=== PATIENT | male | born 1935 | race Caucasian/White ===

== ENCOUNTER → 2020-03-09 08:07 | Outpatient (BNVA) | payer MEDICARE, SELFPAY | PROVIDERS: PCP Internal Medicine Cardiovascular Disease; Visit Provider Internal Medicine | DX: I48.0 Paroxysmal atrial fibrillation (principal); Z51.81 Encounter for therapeutic drug level monitoring; Z79.01 Long term (current) use of anticoagulants | CPT/HCPCS: 85610; 99211 ==

== ENCOUNTER → 2020-04-07 08:15 | Outpatient (BNVA) | payer MEDICARE, SELFPAY | PROVIDERS: PCP Internal Medicine; Referring Provider Internal Medicine; Visit Provider Internal Medicine | DX: I48.0 Paroxysmal atrial fibrillation (principal); Z51.81 Encounter for therapeutic drug level monitoring; Z79.01 Long term (current) use of anticoagulants | CPT/HCPCS: 85610; 99211 ==

== ENCOUNTER 2020-04-20 08:18 | Outpatient (REF) | payer MEDICARE, SELFPAY ==
[2020-04-20 09:03] LABS: MANUAL DIFF FLAG NO
[2020-04-20 09:07] LABS: Basophils Absolute Auto 0.1 X10*3/uL (0.0-0.2); Basophils Percent Auto 0.7 % (0-2); Eosinophils Absolute Auto 0.4 X10*3/uL (0.0-0.4); Hematocrit 37.5 % (42-52); Hemoglobin 12.5 g/dl (14.0-18.0); Imm Gran Abs Auto 0.03 X10*3/uL (0.00-0.03); Imm Gran Pct Auto 0.3 % (0.0-0.4); Lymphocytes Absolute Auto 2.9 X10*3/uL (1.2-4.9); Lymphocytes Percent Auto 29.6 % (20-40); Mean Corpuscular HGB Conc 33.3 g/dl (31.0-36.0); Mean Corpuscular Hemoglobin 29.3 pg (27.0-33.0); Mean Platelet Volume 9.5 fL (9.4-12.4); Monocytes Absolute Auto 1.2 X10*3/uL (0.1-1.2); Monocytes Percent Auto 12.1 % (2-11); Neutrophils Absolute Auto 5.2 X10*3/uL (2.0-8.3); Neutrophils Percent Auto 53.3 % (45-73); Platelet Count 289 X10*3/uL (160-400); Red Blood Count 4.26 X10*6/uL (4.60-5.80); Red Cell Distribution Width 13.1 % (11.0-16.0); White Blood Count 9.8 X10*3/uL (4.8-10.8)
[2020-04-20 09:38] LABS: Anion Gap 13 (12-20); Blood Urea Nitrogen 33 mg/dL (9-16); Calcium 8.6 mg/dL (8.4-10.2); Carbon Dioxide 23 mmol/L (22-29); Chloride 107 mmol/L (96-108); Estimated Glomerular Filt Rate 44; Potassium 4.4 mmol/l (3.3-5.1); Sodium 139 mmol/L (135-145)
== END 2020-04-20 08:19 | disposition home or self-care (01) ==
LOC: HO.LAB 08:18
PROVIDERS: PCP Internal Medicine; Visit Provider Internal Medicine Hypertension Specialist
DX: E10.22 Type 1 diabetes mellitus with diabetic chronic kidney disease (principal); I12.9 Hypertensive chronic kidney disease with stage 1 through stage 4 chronic kidney disease, or unspecified chronic kidney disease; N18.9 Chronic kidney disease, unspecified; E10.29 Type 1 diabetes mellitus with other diabetic kidney complication
CPT/HCPCS: 36415; 80051; 82310; 82565; 84520; 85025

== ENCOUNTER → 2020-05-09 08:20 | Outpatient (BNVA) | payer MEDICARE, SELFPAY | PROVIDERS: PCP Internal Medicine; Visit Provider Internal Medicine | DX: I48.0 Paroxysmal atrial fibrillation (principal); Z51.81 Encounter for therapeutic drug level monitoring; Z79.01 Long term (current) use of anticoagulants | CPT/HCPCS: 85610; 99211 ==

== ENCOUNTER → 2020-05-23 08:38 | Outpatient (BNVA) | payer MEDICARE, SELFPAY | PROVIDERS: PCP Internal Medicine; Visit Provider Internal Medicine | DX: I48.0 Paroxysmal atrial fibrillation (principal); Z51.81 Encounter for therapeutic drug level monitoring; Z79.01 Long term (current) use of anticoagulants | CPT/HCPCS: 85610; 99211 ==

== ENCOUNTER → 2020-06-20 08:25 | Outpatient (BNVA) | payer MEDICARE, SELFPAY | PROVIDERS: PCP Internal Medicine; Visit Provider Internal Medicine | DX: I48.0 Paroxysmal atrial fibrillation (principal); Z51.81 Encounter for therapeutic drug level monitoring; Z79.01 Long term (current) use of anticoagulants | CPT/HCPCS: 85610; 99211 ==

== ENCOUNTER 2020-07-05 09:38 | Outpatient (REF) | payer MEDICARE, SELFPAY ==
[2020-07-05 10:08] LABS: MANUAL DIFF FLAG NO
[2020-07-05 10:09] LABS: Basophils Absolute Auto 0.1 X10*3/uL (0.0-0.2); Basophils Percent Auto 0.8 % (0-2); Eosinophils Absolute Auto 0.4 X10*3/uL (0.0-0.4); Eosinophils Percent Auto 3.1 % (0-4); Hematocrit 37.9 % (42-52); Hemoglobin 12.6 g/dl (14.0-18.0); Imm Gran Abs Auto 0.04 X10*3/uL (0.00-0.03); Imm Gran Pct Auto 0.3 % (0.0-0.4); Lymphocytes Absolute Auto 3.4 X10*3/uL (1.2-4.9); Lymphocytes Percent Auto 27.8 % (20-40); Mean Corpuscular HGB Conc 33.2 g/dl (31.0-36.0); Mean Corpuscular Hemoglobin 28.9 pg (27.0-33.0); Mean Corpuscular Volume 86.9 fL (80-98); Mean Platelet Volume 9.5 fL (9.4-12.4); Monocytes Absolute Auto 1.1 X10*3/uL (0.1-1.2); Neutrophils Absolute Auto 7.1 X10*3/uL (2.0-8.3); Platelet Count 276 X10*3/uL (160-400); Red Blood Count 4.36 X10*6/uL (4.60-5.80); Red Cell Distribution Width 12.8 % (11.0-16.0); White Blood Count 12.1 X10*3/uL (4.8-10.8)
[2020-07-05 10:27] LABS: Estimated Average Glucose 232 mg/dL; Hemoglobin A1c % 9.7 %
[2020-07-05 10:43] LABS: Alanine Aminotransferase 19 U/L (0-40); Albumin Level 3.8 g/dL (3.5-5.0); Alkaline Phosphatase 58 U/L (39-117); Anion Gap 14 (12-20); Aspartate Amino Transferase 25 U/L (5-37); Bilirubin Total 0.8 mg/dL (0.0-1.0); Blood Urea Nitrogen 33 mg/dL (9-16); Calcium 8.9 mg/dL (8.4-10.2); Carbon Dioxide 23 mmol/L (22-29); Chloride 108 mmol/L (96-108); Estimated Glomerular Filt Rate 39; Glucose Random 201 mg/dL (60-115); Potassium 4.7 mmol/L (3.3-5.1); Sodium 140 mmol/L (135-145); Total Protein 7.3 g/dL (6.5-8.0)
== END 2020-07-05 09:39 | disposition home or self-care (01) ==
LOC: HO.LAB 09:38
PROVIDERS: PCP Internal Medicine; Visit Provider Internal Medicine
DX: E11.9 Type 2 diabetes mellitus without complications (principal)
CPT/HCPCS: 36415; 80053; 83036; 85025

== ENCOUNTER → 2020-07-18 08:22 | Outpatient (BNVA) | payer MEDICARE, SELFPAY | PROVIDERS: PCP Internal Medicine; Visit Provider Internal Medicine | DX: I48.0 Paroxysmal atrial fibrillation (principal); Z51.81 Encounter for therapeutic drug level monitoring; Z79.01 Long term (current) use of anticoagulants | CPT/HCPCS: 85610; 99211 ==

== ENCOUNTER → 2020-08-03 08:24 | Outpatient (BNVA) | payer MEDICARE, SELFPAY | PROVIDERS: PCP Internal Medicine; Visit Provider Internal Medicine | DX: I48.0 Paroxysmal atrial fibrillation (principal); Z51.81 Encounter for therapeutic drug level monitoring; Z79.01 Long term (current) use of anticoagulants | CPT/HCPCS: 85610; 99211 ==

== ENCOUNTER → 2020-08-31 08:04 | Outpatient (BNVA) | payer MEDICARE, SELFPAY | PROVIDERS: PCP Internal Medicine; Visit Provider Internal Medicine | DX: I48.0 Paroxysmal atrial fibrillation (principal); Z79.01 Long term (current) use of anticoagulants; Z51.81 Encounter for therapeutic drug level monitoring | CPT/HCPCS: 85610; 99211 ==

== ENCOUNTER → 2020-09-14 08:07 | Outpatient (BNVA) | payer MEDICARE, SELFPAY | PROVIDERS: PCP Internal Medicine; Visit Provider Internal Medicine | DX: I48.0 Paroxysmal atrial fibrillation (principal); Z51.81 Encounter for therapeutic drug level monitoring; Z79.01 Long term (current) use of anticoagulants | CPT/HCPCS: 85610; 99211 ==

== ENCOUNTER → 2020-10-12 08:02 | Outpatient (BNVA) | payer MEDICARE, SELFPAY | PROVIDERS: PCP Internal Medicine; Visit Provider Internal Medicine | DX: I48.0 Paroxysmal atrial fibrillation (principal); Z51.81 Encounter for therapeutic drug level monitoring; Z79.01 Long term (current) use of anticoagulants | CPT/HCPCS: 85610; 99211 ==

== ENCOUNTER 2020-10-24 08:27 | Outpatient (REF) | payer MEDICARE, SELFPAY ==
[2020-10-24 09:34] LABS: Estimated Average Glucose 209 mg/dL; Hemoglobin A1c % 8.9 %
[2020-10-24 09:40] LABS: Alanine Aminotransferase 18 U/L (0-40); Albumin Level 3.7 g/dL (3.5-5.0); Alkaline Phosphatase 53 U/L (39-117); Anion Gap 12 (12-20); Aspartate Amino Transferase 26 U/L (5-37); Bilirubin Total 0.8 mg/dL (0.0-1.0); Blood Urea Nitrogen 33 mg/dL (9-16); Carbon Dioxide 23 mmol/L (22-29); Chloride 110 mmol/L (96-108); Cholesterol 130 mg/dL; Estimated Glomerular Filt Rate 36; Glucose Fasting 140 mg/dL (60-99); HDL Cholesterol 26 mg/dL; LDL Cholesterol Calculated 55 mg/dl; Potassium 5.1 mmol/L (3.3-5.1); Sodium 140 mmol/L (135-145); Total Protein 7.1 g/dL (6.5-8.0); Triglycerides 245 mg/dL
[2020-10-24 10:28] LABS: Microalbum/Creatinine Ratio Ur 590.1 ug/mg cr
== END 2020-10-24 08:28 | disposition home or self-care (01) ==
LOC: HO.LAB 08:27
PROVIDERS: PCP Internal Medicine; Visit Provider Internal Medicine
DX: E11.9 Type 2 diabetes mellitus without complications (principal)
CPT/HCPCS: 36415; 80053; 80061; 82043; 83036

== ENCOUNTER → 2020-11-09 08:01 | Outpatient (BNVA) | payer MEDICARE, SELFPAY | PROVIDERS: PCP Internal Medicine; Visit Provider Internal Medicine | DX: I48.0 Paroxysmal atrial fibrillation (principal); Z51.81 Encounter for therapeutic drug level monitoring; Z79.01 Long term (current) use of anticoagulants | CPT/HCPCS: 85610; 99211 ==

== ENCOUNTER 2020-11-17 08:07 | Outpatient (REF) | payer MEDICARE, SELFPAY ==
[2020-11-17 09:00] LABS: MANUAL DIFF FLAG NO
[2020-11-17 09:12] LABS: Basophils Absolute Auto 0.1 X10*3/uL (0.0-0.2); Basophils Percent Auto 0.8 % (0-2); Eosinophils Absolute Auto 0.3 X10*3/uL (0.0-0.4); Eosinophils Percent Auto 3.6 % (0-4); Hematocrit 37.6 % (42-52); Hemoglobin 12.3 g/dl (14.0-18.0); Imm Gran Abs Auto 0.03 X10*3/uL (0.00-0.03); Imm Gran Pct Auto 0.3 % (0.0-0.4); Lymphocytes Absolute Auto 2.7 X10*3/uL (1.2-4.9); Lymphocytes Percent Auto 30.4 % (20-40); Mean Corpuscular HGB Conc 32.7 g/dl (31.0-36.0); Mean Corpuscular Volume 88.7 fL (80-98); Mean Platelet Volume 9.7 fL (9.4-12.4); Monocytes Absolute Auto 1.1 X10*3/uL (0.1-1.2); Monocytes Percent Auto 11.9 % (2-11); Neutrophils Absolute Auto 4.7 X10*3/uL (2.0-8.3); Platelet Count 262 X10*3/uL (160-400); Red Blood Count 4.24 X10*6/uL (4.60-5.80); Red Cell Distribution Width 13.1 % (11.0-16.0); White Blood Count 8.9 X10*3/uL (4.8-10.8)
[2020-11-17 09:34] LABS: Albumin Level 3.9 g/dL (3.5-5.0); Anion Gap 12 (12-20); Blood Urea Nitrogen 33 mg/dL (9-16); Carbon Dioxide 24 mmol/L (22-29); Chloride 110 mmol/L (96-108); Estimated Glomerular Filt Rate 34; Magnesium 2.1 mg/dL (1.6-2.6); Potassium 5.2 mmol/L (3.3-5.1); Sodium 141 mmol/L (135-145)
[2020-11-18 13:36] LABS: Calcium (PTHI) 9.1 mg/dL (8.6-10.3); PTHI 107 pg/mL (14-64)
== END 2020-11-17 08:08 | disposition home or self-care (01) ==
LOC: HO.LAB 08:07
PROVIDERS: PCP Internal Medicine; Visit Provider Internal Medicine Hypertension Specialist
DX: I12.9 Hypertensive chronic kidney disease with stage 1 through stage 4 chronic kidney disease, or unspecified chronic kidney disease (principal); N18.30 Chronic kidney disease, stage 3 unspecified; E10.22 Type 1 diabetes mellitus with diabetic chronic kidney disease; E10.29 Type 1 diabetes mellitus with other diabetic kidney complication
CPT/HCPCS: 36415; 80051; 82040; 82310; 82565; 83735; 83970; 84520; 85025

== ENCOUNTER → 2020-12-07 08:04 | Outpatient (BNVA) | payer MEDICARE, SELFPAY | PROVIDERS: PCP Internal Medicine; Visit Provider Internal Medicine | DX: I48.0 Paroxysmal atrial fibrillation (principal); Z51.81 Encounter for therapeutic drug level monitoring; Z79.01 Long term (current) use of anticoagulants | CPT/HCPCS: 85610; 99211 ==

== ENCOUNTER → 2021-01-04 08:18 | Outpatient (BNVA) | payer MEDICARE, SELFPAY | PROVIDERS: PCP Internal Medicine; Visit Provider Internal Medicine | DX: I48.0 Paroxysmal atrial fibrillation (principal); Z51.81 Encounter for therapeutic drug level monitoring; Z79.01 Long term (current) use of anticoagulants | CPT/HCPCS: 85610; 99211 ==

== ENCOUNTER 2021-01-25 08:38 | Outpatient (REF) | payer MEDICARE, SELFPAY ==
[2021-01-25 10:31] LABS: Estimated Average Glucose 169 mg/dL; Hemoglobin A1c % 7.5 %
== END 2021-01-25 08:39 | disposition home or self-care (01) ==
LOC: HO.LAB 08:38
PROVIDERS: PCP Internal Medicine; Visit Provider Internal Medicine
DX: E11.9 Type 2 diabetes mellitus without complications (principal)
CPT/HCPCS: 36415; 83036

== ENCOUNTER → 2021-02-01 08:05 | Outpatient (BNVA) | payer MEDICARE, SELFPAY | PROVIDERS: PCP Internal Medicine; Visit Provider Internal Medicine | DX: I48.0 Paroxysmal atrial fibrillation (principal); Z51.81 Encounter for therapeutic drug level monitoring; Z79.01 Long term (current) use of anticoagulants | CPT/HCPCS: 85610; 99211 ==

== ENCOUNTER → 2021-03-01 08:13 | Outpatient (BNVA) | payer MEDICARE, SELFPAY | PROVIDERS: PCP Internal Medicine; Visit Provider Internal Medicine | DX: I48.0 Paroxysmal atrial fibrillation (principal); Z51.81 Encounter for therapeutic drug level monitoring; Z79.01 Long term (current) use of anticoagulants | CPT/HCPCS: 85610; 99211 ==

== ENCOUNTER → 2021-03-30 08:05 | Outpatient (BNVA) | payer MEDICARE, SELFPAY | PROVIDERS: PCP Internal Medicine; Visit Provider Internal Medicine | DX: I48.0 Paroxysmal atrial fibrillation (principal); Z79.01 Long term (current) use of anticoagulants; Z51.81 Encounter for therapeutic drug level monitoring | CPT/HCPCS: 85610; 99211 ==

== ENCOUNTER 2021-04-12 08:09 | Outpatient (REF) | payer MEDICARE, SELFPAY ==
[2021-04-12 09:10] LABS: Estimated Average Glucose 154 mg/dL
[2021-04-12 09:29] LABS: Alanine Aminotransferase 17 U/L (0-40); Albumin Level 3.8 g/dL (3.5-5.0); Alkaline Phosphatase 49 U/L (39-117); Anion Gap 11 (12-20); Aspartate Amino Transferase 24 U/L (5-37); Bilirubin Total 0.4 mg/dL (0.0-1.0); Blood Urea Nitrogen 32 mg/dL (9-16); Carbon Dioxide 25 mmol/L (22-29); Chloride 110 mmol/L (96-108); Estimated Glomerular Filt Rate 35; Glucose Random 152 mg/dL (60-115); Potassium 4.8 mmol/L (3.3-5.1); Sodium 141 mmol/L (135-145); Total Protein 7.2 g/dL (6.5-8.0)
[2021-04-15 04:46] LABS: Calcium (PTHI) 9.1 mg/dL (8.6-10.3); PTHI 86 pg/mL (14-64)
== END 2021-04-12 08:10 | disposition home or self-care (01) ==
LOC: HO.LAB 08:09
PROVIDERS: Absent Provider Internal Medicine Hypertension Specialist; PCP Internal Medicine; Visit Provider Internal Medicine
DX: E11.22 Type 2 diabetes mellitus with diabetic chronic kidney disease (principal); N18.32 Chronic kidney disease, stage 3b
CPT/HCPCS: 36415; 80053; 83036; 83970

== ENCOUNTER → 2021-04-27 08:10 | Outpatient (BNVA) | payer MEDICARE, SELFPAY | PROVIDERS: PCP Internal Medicine; Visit Provider Internal Medicine | DX: I48.0 Paroxysmal atrial fibrillation (principal); Z51.81 Encounter for therapeutic drug level monitoring; Z79.01 Long term (current) use of anticoagulants | CPT/HCPCS: 85610; 99211 ==

== ENCOUNTER → 2021-05-25 08:04 | Outpatient (BNVA) | payer MEDICARE, SELFPAY | PROVIDERS: PCP Internal Medicine; Visit Provider Internal Medicine | DX: I48.0 Paroxysmal atrial fibrillation (principal); Z51.81 Encounter for therapeutic drug level monitoring; Z79.01 Long term (current) use of anticoagulants | CPT/HCPCS: 85610; 99211 ==

== ENCOUNTER → 2021-06-22 08:06 | Outpatient (BNVA) | payer MEDICARE, SELFPAY | PROVIDERS: PCP Internal Medicine; Visit Provider Internal Medicine | DX: I48.0 Paroxysmal atrial fibrillation (principal); Z51.81 Encounter for therapeutic drug level monitoring; Z79.01 Long term (current) use of anticoagulants | CPT/HCPCS: 85610; 99211 ==

== ENCOUNTER → 2021-07-06 08:19 | Outpatient (BNVA) | payer MEDICARE, SELFPAY | PROVIDERS: PCP Internal Medicine; Visit Provider Internal Medicine | DX: I48.0 Paroxysmal atrial fibrillation (principal); Z51.81 Encounter for therapeutic drug level monitoring; Z79.01 Long term (current) use of anticoagulants | CPT/HCPCS: 85610; 99211 ==

== ENCOUNTER → 2021-08-01 09:10 | Outpatient (BNVA) | payer MEDICARE, SELFPAY | PROVIDERS: PCP Internal Medicine; Visit Provider Internal Medicine | DX: I48.0 Paroxysmal atrial fibrillation (principal); Z51.81 Encounter for therapeutic drug level monitoring; Z79.01 Long term (current) use of anticoagulants | CPT/HCPCS: 85610; 99211 ==

== ENCOUNTER 2021-08-07 07:53 | Outpatient (REF) | payer MEDICARE, SELFPAY ==
[2021-08-07 08:48] LABS: Estimated Average Glucose 166 mg/dL; Hemoglobin A1c % 7.4 %
[2021-08-07 09:05] LABS: Anion Gap 12 (12-20); Blood Urea Nitrogen 40 mg/dL (9-16); Calcium 9.2 mg/dL (8.4-10.2); Carbon Dioxide 22 mmol/L (22-29); Chloride 111 mmol/L (96-108); Estimated Glomerular Filt Rate 36; Potassium 5.1 mmol/L (3.3-5.1); Sodium 140 mmol/L (135-145)
== END 2021-08-07 07:54 | disposition home or self-care (01) ==
LOC: HO.LAB 07:53
PROVIDERS: Absent Provider Internal Medicine Hypertension Specialist; PCP Internal Medicine; Visit Provider Internal Medicine
DX: E11.22 Type 2 diabetes mellitus with diabetic chronic kidney disease (principal); N18.9 Chronic kidney disease, unspecified
CPT/HCPCS: 36415; 80051; 82310; 82565; 83036; 84520

== ENCOUNTER → 2021-08-15 08:01 | Outpatient (BNVA) | payer MEDICARE, SELFPAY | PROVIDERS: PCP Internal Medicine; Visit Provider Internal Medicine | DX: I48.0 Paroxysmal atrial fibrillation (principal); Z51.81 Encounter for therapeutic drug level monitoring; Z79.01 Long term (current) use of anticoagulants | CPT/HCPCS: 85610; 99211 ==

== ENCOUNTER → 2021-08-29 08:06 | Outpatient (BNVA) | payer MEDICARE, SELFPAY | PROVIDERS: PCP Internal Medicine; Visit Provider Internal Medicine | DX: I48.0 Paroxysmal atrial fibrillation (principal); Z51.81 Encounter for therapeutic drug level monitoring; Z79.01 Long term (current) use of anticoagulants | CPT/HCPCS: 85610; 99211 ==

== ENCOUNTER → 2021-09-19 08:04 | Outpatient (BNVA) | payer MEDICARE, SELFPAY | PROVIDERS: PCP Internal Medicine; Visit Provider Internal Medicine | DX: I48.0 Paroxysmal atrial fibrillation (principal); Z79.01 Long term (current) use of anticoagulants; Z51.81 Encounter for therapeutic drug level monitoring | CPT/HCPCS: 85610; 99211 ==

== ENCOUNTER → 2021-10-17 08:03 | Outpatient (BNVA) | payer MEDICARE, SELFPAY | PROVIDERS: PCP Internal Medicine; Visit Provider Internal Medicine | DX: I48.0 Paroxysmal atrial fibrillation (principal); Z79.01 Long term (current) use of anticoagulants; Z51.81 Encounter for therapeutic drug level monitoring | CPT/HCPCS: 85610; 99211 ==

== ENCOUNTER → 2021-11-15 08:07 | Outpatient (BNVA) | payer MEDICARE, SELFPAY | PROVIDERS: PCP Internal Medicine; Visit Provider Internal Medicine | DX: I48.0 Paroxysmal atrial fibrillation (principal); Z79.01 Long term (current) use of anticoagulants; Z51.81 Encounter for therapeutic drug level monitoring | CPT/HCPCS: 85610; 99211 ==

== ENCOUNTER → 2021-12-13 08:08 | Outpatient (BNVA) | payer MEDICARE, SELFPAY | PROVIDERS: PCP Internal Medicine; Visit Provider Internal Medicine | DX: I48.0 Paroxysmal atrial fibrillation (principal); Z79.01 Long term (current) use of anticoagulants; Z51.81 Encounter for therapeutic drug level monitoring | CPT/HCPCS: 85610; 99211 ==

== ENCOUNTER 2021-12-21 07:51 | Outpatient (REF) | payer MEDICARE, SELFPAY ==
[2021-12-21 08:51] LABS: Alanine Aminotransferase 13 U/L (0-40); Albumin Level 3.9 g/dL (3.5-5.0); Alkaline Phosphatase 47 U/L (39-117); Anion Gap 14 (12-20); Aspartate Amino Transferase 22 U/L (5-37); Bilirubin Total 0.7 mg/dL (0.0-1.0); Blood Urea Nitrogen 35 mg/dL (9-16); Calcium 8.9 mg/dL (8.4-10.2); Carbon Dioxide 24 mmol/L (22-29); Chloride 106 mmol/L (96-108); Cholesterol 127 mg/dL; Estimated Glomerular Filt Rate 36; Glucose Random 177 mg/dL (60-115); HDL Cholesterol 29 mg/dL; LDL Cholesterol Calculated 62 mg/dl; Potassium 4.8 mmol/L (3.3-5.1); Sodium 139 mmol/L (135-145); Total Protein 7.2 g/dL (6.5-8.0); Triglycerides 182 mg/dL
[2021-12-21 08:52] LABS: Estimated Average Glucose 203 mg/dL; Hemoglobin A1c % 8.7 %
[2021-12-21 11:11] LABS: Microalbum/Creatinine Ratio Ur 573.9 ug/mg cr
== END 2021-12-21 07:52 | disposition home or self-care (01) ==
LOC: HO.LAB 07:51
PROVIDERS: PCP Internal Medicine; Visit Provider Internal Medicine
DX: E11.9 Type 2 diabetes mellitus without complications (principal)
CPT/HCPCS: 36415; 80053; 80061; 82043; 83036

== ENCOUNTER → 2022-01-10 08:00 | Outpatient (BNVA) | payer MEDICARE, SELFPAY | PROVIDERS: PCP Internal Medicine; Visit Provider Internal Medicine | DX: I48.0 Paroxysmal atrial fibrillation (principal); Z79.01 Long term (current) use of anticoagulants; Z51.81 Encounter for therapeutic drug level monitoring | CPT/HCPCS: 85610; 99211 ==

== ENCOUNTER → 2022-01-31 08:11 | Outpatient (BNVA) | payer MEDICARE, SELFPAY | PROVIDERS: PCP Internal Medicine; Visit Provider Internal Medicine | DX: I48.0 Paroxysmal atrial fibrillation (principal); Z79.01 Long term (current) use of anticoagulants; Z51.81 Encounter for therapeutic drug level monitoring | CPT/HCPCS: 85610; 99211 ==

== ENCOUNTER 2022-02-20 07:53 | Outpatient (REF) | payer MEDICARE, SELFPAY ==
[2022-02-20 08:43] LABS: Estimated Average Glucose 154 mg/dL
== END 2022-02-20 07:54 | disposition home or self-care (01) ==
LOC: HO.LAB 07:53
PROVIDERS: PCP Internal Medicine; Visit Provider Internal Medicine
DX: E11.9 Type 2 diabetes mellitus without complications (principal)
CPT/HCPCS: 36415; 83036

== ENCOUNTER 2022-02-27 09:52 | Outpatient (REF) | payer MEDICARE, SELFPAY ==
[2022-02-27 10:13] LABS: MANUAL DIFF FLAG NO
[2022-02-27 10:55] LABS: Basophils Absolute Auto 0.1 X10*3/uL (0.0-0.2); Basophils Percent Auto 0.8 % (0-2); Eosinophils Absolute Auto 0.4 X10*3/uL (0.0-0.4); Eosinophils Percent Auto 3.9 % (0-4); Hematocrit 38.2 % (42.0-52.0); Hemoglobin 12.3 g/dl (14.0-18.0); Imm Gran Abs Auto 0.03 X10*3/uL (0.00-0.03); Imm Gran Pct Auto 0.3 % (0.0-0.4); Lymphocytes Absolute Auto 2.6 X10*3/uL (1.2-4.9); Lymphocytes Percent Auto 27.8 % (20-40); Mean Corpuscular HGB Conc 32.2 g/dl (31.0-36.0); Mean Corpuscular Hemoglobin 29.1 pg (27.0-33.0); Mean Corpuscular Volume 90.5 fL (80.0-98.0); Mean Platelet Volume 9.4 fL (9.4-12.4); Monocytes Absolute Auto 0.9 X10*3/uL (0.1-1.2); Monocytes Percent Auto 9.7 % (2-11); Neutrophils Absolute Auto 5.5 x10*3/uL (2.0-8.3); Neutrophils Percent Auto 57.5 % (45-73); Platelet Count 310 X10*3/uL (160-400); Red Blood Count 4.22 X10*6/uL (4.60-5.80); Red Cell Distribution Width 13.2 % (11.0-16.0); White Blood Count 9.5 X10*3/uL (4.8-10.8)
[2022-02-27 11:09] LABS: Anion Gap 15 (12-20); Blood Urea Nitrogen 42 mg/dL (9-16); Calcium 9.4 mg/dL (8.4-10.2); Carbon Dioxide 23 mmol/L (22-29); Chloride 110 mmol/L (96-108); Estimated Glomerular Filt Rate 36; Potassium 5.6 mmol/L (3.3-5.1); Sodium 142 mmol/L (135-145)
[2022-02-28 11:32] LABS: Calcium (PTHI) 9.2 mg/dL (8.6-10.3); PTHI 98 pg/mL (16-77)
== END 2022-02-27 09:53 | disposition home or self-care (01) ==
LOC: HO.LAB 09:52
PROVIDERS: PCP Internal Medicine; Visit Provider Internal Medicine Hypertension Specialist
DX: I48.0 Paroxysmal atrial fibrillation (principal); I12.9 Hypertensive chronic kidney disease with stage 1 through stage 4 chronic kidney disease, or unspecified chronic kidney disease; E11.22 Type 2 diabetes mellitus with diabetic chronic kidney disease; N18.9 Chronic kidney disease, unspecified; Z51.81 Encounter for therapeutic drug level monitoring; Z79.01 Long term (current) use of anticoagulants
CPT/HCPCS: 36415; 80051; 82310; 82565; 83970; 84520; 85025; 85610; 99211

== ENCOUNTER → 2022-03-21 08:02 | Outpatient (BNVA) | payer MEDICARE, SELFPAY | PROVIDERS: PCP Internal Medicine; Visit Provider Internal Medicine | DX: I48.0 Paroxysmal atrial fibrillation (principal); Z79.01 Long term (current) use of anticoagulants; Z51.81 Encounter for therapeutic drug level monitoring | CPT/HCPCS: 85610; 99211 ==

== ENCOUNTER → 2022-04-17 08:07 | Outpatient (BNVA) | payer MEDICARE, SELFPAY | PROVIDERS: PCP Internal Medicine; Visit Provider Internal Medicine | DX: I48.0 Paroxysmal atrial fibrillation (principal); Z79.01 Long term (current) use of anticoagulants; Z51.81 Encounter for therapeutic drug level monitoring | CPT/HCPCS: 85610; 99211 ==

== ENCOUNTER → 2022-05-15 08:02 | Outpatient (BNVA) | payer MEDICARE, SELFPAY | PROVIDERS: PCP Internal Medicine; Visit Provider Internal Medicine | DX: I48.0 Paroxysmal atrial fibrillation (principal); Z79.01 Long term (current) use of anticoagulants; Z51.81 Encounter for therapeutic drug level monitoring | CPT/HCPCS: 85610; 99211 ==

== ENCOUNTER → 2022-05-29 08:20 | Outpatient (BNVA) | payer MEDICARE, SELFPAY | PROVIDERS: PCP Internal Medicine; Visit Provider Internal Medicine | DX: I48.0 Paroxysmal atrial fibrillation (principal); Z79.01 Long term (current) use of anticoagulants; Z51.81 Encounter for therapeutic drug level monitoring | CPT/HCPCS: 85610; 99211 ==

== ENCOUNTER → 2022-06-26 08:18 | Outpatient (BNVA) | payer MEDICARE, SELFPAY | PROVIDERS: PCP Internal Medicine; Visit Provider Internal Medicine | DX: I48.0 Paroxysmal atrial fibrillation (principal); Z79.01 Long term (current) use of anticoagulants; Z51.81 Encounter for therapeutic drug level monitoring | CPT/HCPCS: 85610; 99211 ==

== ENCOUNTER → 2022-07-24 08:04 | Outpatient (BNVA) | payer MEDICARE, SELFPAY | PROVIDERS: PCP Internal Medicine; Visit Provider Internal Medicine | DX: I48.0 Paroxysmal atrial fibrillation (principal); Z79.01 Long term (current) use of anticoagulants; Z51.81 Encounter for therapeutic drug level monitoring | CPT/HCPCS: 85610; 99211 ==

== ENCOUNTER 2022-08-14 08:18 | Outpatient (REF) | payer MEDICARE, SELFPAY ==
[2022-08-14 09:57] LABS: Alanine Aminotransferase 14 U/L (0-40); Albumin Level 3.7 g/dL (3.5-5.0); Alkaline Phosphatase 59 U/L (39-117); Anion Gap 15 (12-20); Aspartate Amino Transferase 22 U/L (5-37); Bilirubin Total 0.5 mg/dL (0.0-1.0); Blood Urea Nitrogen 39 mg/dL (9-16); Calcium 9.1 mg/dL (8.4-10.2); Carbon Dioxide 23 mmol/L (22-29); Chloride 112 mmol/L (96-108); Estimated Glomerular Filt Rate 35; Glucose Random 154 mg/dL (60-115); Potassium 5.6 mmol/L (3.3-5.1); Sodium 144 mmol/L (135-145); Total Protein 6.9 g/dL (6.5-8.0)
[2022-08-14 10:28] LABS: Estimated Average Glucose 143 mg/dL; Hemoglobin A1c % 6.6 %
== END 2022-08-14 08:19 | disposition home or self-care (01) ==
LOC: HO.LAB 08:18
PROVIDERS: Absent Provider Internal Medicine; PCP Internal Medicine; Visit Provider Internal Medicine
DX: I48.0 Paroxysmal atrial fibrillation (principal); E11.9 Type 2 diabetes mellitus without complications; Z51.81 Encounter for therapeutic drug level monitoring; Z79.01 Long term (current) use of anticoagulants
CPT/HCPCS: 36415; 80053; 83036; 85610; 99211

== ENCOUNTER 2022-08-24 08:00 | Outpatient (REF) | payer MEDICARE, SELFPAY ==
[2022-08-24 09:34] LABS: Blood Urea Nitrogen 38 mg/dL (9-16); Calcium 9.1 mg/dL (8.4-10.2); Estimated Glomerular Filt Rate 34; Glucose Random 188 mg/dL (60-115)
[2022-08-24 09:57] LABS: Anion Gap 11 (12-20); Carbon Dioxide 23 mmol/L (22-29); Chloride 109 mmol/L (96-108); Sodium 137 mmol/L (135-145)
[2022-08-24 12:34] LABS: Creatinine Urine 87.29 mg/dL; Protein/Creatinine Ratio, Ur 1.35 (<0.2); Total Protein Urine Random 118 mg/dL (<12)
== END 2022-08-24 08:01 | disposition home or self-care (01) ==
LOC: HO.LAB 08:00
PROVIDERS: PCP Internal Medicine; Visit Provider Internal Medicine Hypertension Specialist
DX: N18.30 Chronic kidney disease, stage 3 unspecified (principal)
CPT/HCPCS: 36415; 80048; 84156

== ENCOUNTER 2022-08-29 08:25 | Outpatient (REF) | payer MEDICARE, SELFPAY ==
[2022-08-29 09:37] LABS: Anion Gap 12 (12-20); Blood Urea Nitrogen 46 mg/dL (9-16); Carbon Dioxide 22 mmol/L (22-29); Chloride 111 mmol/L (96-108); Estimated Glomerular Filt Rate 30; Potassium 5.8 mmol/L (3.3-5.1); Sodium 139 mmol/L (135-145)
== END 2022-08-29 08:26 | disposition home or self-care (01) ==
LOC: HO.LAB 08:25
PROVIDERS: Visit Provider Internal Medicine Nephrology
DX: E87.5 Hyperkalemia (principal)
CPT/HCPCS: 36415; 80051; 82310; 82565; 84520

== ENCOUNTER → 2022-09-12 08:03 | Outpatient (BNVA) | payer MEDICARE, SELFPAY | PROVIDERS: PCP Internal Medicine; Visit Provider Internal Medicine | DX: I48.0 Paroxysmal atrial fibrillation (principal); Z79.01 Long term (current) use of anticoagulants; Z51.81 Encounter for therapeutic drug level monitoring | CPT/HCPCS: 85610; 99211 ==

== ENCOUNTER → 2022-10-10 08:00 | Outpatient (BNVA) | payer MEDICARE, SELFPAY | PROVIDERS: PCP Internal Medicine; Visit Provider Internal Medicine | DX: I48.0 Paroxysmal atrial fibrillation (principal); Z79.01 Long term (current) use of anticoagulants; Z51.81 Encounter for therapeutic drug level monitoring | CPT/HCPCS: 85610; 99211 ==

== ENCOUNTER → 2022-10-24 08:21 | Outpatient (BNVA) | payer MEDICARE, SELFPAY | PROVIDERS: PCP Internal Medicine; Visit Provider Internal Medicine | DX: I48.0 Paroxysmal atrial fibrillation (principal); Z79.01 Long term (current) use of anticoagulants; Z51.81 Encounter for therapeutic drug level monitoring | CPT/HCPCS: 85610; 99211 ==

== ENCOUNTER 2022-10-29 08:07 | Outpatient (REF) | payer MEDICARE, SELFPAY ==
[2022-10-29 09:26] LABS: Anion Gap 11 (12-20); Blood Urea Nitrogen 32 mg/dL (9-16); Calcium 9.2 mg/dL (8.4-10.2); Carbon Dioxide 25 mmol/L (22-29); Chloride 110 mmol/L (96-108); Estimated Glomerular Filt Rate 40; Glucose Random 136 mg/dL (60-115); Potassium 4.8 mmol/L (3.3-5.1); Sodium 141 mmol/L (135-145)
== END 2022-10-29 08:08 | disposition home or self-care (01) ==
LOC: HO.LAB 08:07
PROVIDERS: PCP Internal Medicine; Visit Provider Internal Medicine Hypertension Specialist
DX: E87.5 Hyperkalemia (principal); N18.30 Chronic kidney disease, stage 3 unspecified
CPT/HCPCS: 36415; 80048

== ENCOUNTER → 2022-10-31 08:03 | Outpatient (BNVA) | payer MEDICARE, SELFPAY | PROVIDERS: PCP Internal Medicine; Visit Provider Internal Medicine | DX: I48.0 Paroxysmal atrial fibrillation (principal); Z79.01 Long term (current) use of anticoagulants; Z51.81 Encounter for therapeutic drug level monitoring | CPT/HCPCS: 85610; 99211 ==

== ENCOUNTER → 2022-11-13 08:20 | Outpatient (BNVA) | payer MEDICARE, SELFPAY | PROVIDERS: PCP Internal Medicine; Visit Provider Internal Medicine | DX: I48.0 Paroxysmal atrial fibrillation (principal); Z51.81 Encounter for therapeutic drug level monitoring; Z79.01 Long term (current) use of anticoagulants | CPT/HCPCS: 85610; 99211 ==

== ENCOUNTER 2022-12-04 08:07 | Outpatient (AMB) | payer MEDICARE, SELFPAY ==
--- NOTE | 2022-12-04 08:13 | MHC.OFFVISCO ---
Intake Intake Visit Reasons: Anticoagulation Allergies No Known Allergies [No Known Allergies*] Allergy (Verified 12/04/22 08:10) Medication List - Last Reconciled 12/04/22 by Natalia Diehl RN amlodipine 5 mg PO DAILY blood sugar diagnostic As directed blood-glucose meter As directed dulaglutide (Trulicity) mg subcut fenofibrate nanocrystallized 0 mg PO glipizide 10 mg PO DAILY lancets As directed lorazepam 1 mg PO BEDTIME metoprolol succinate ER 100 mg PO DAILY simvastatin 20 mg PO DAILY warfarin 2.5 mg See Protocol PO DAILY Nursing Note INR: 2.2- in therapeutic range Medications and supplements reviewed- no changes No changes in health, diet, medications, or supplements, Denies any signs and symptoms of bleeding or bruising or clotting. Bleeding, bruising, clotting discussed Nutritional guidance given Dose: 2.5mg x 3, 1.25mg x 4 F/U INR: 4 weeks Patient verbalizes understanding of instructions given Coding Level of Care Code Est Patient Level 1 Diagnoses Current use of anticoagulant therapy Z79.01 Results AMB INR Fingerstick AMB INR Fingerstick 2.2 Last Edit by Natalia Diehl RN on 12/04/22 08:14 Assessment & Plan Assessment & Plan (1) Current use of anticoagulant therapy: Code(s): Z79.01 - [facility] (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
[2022-12-04 08:15] LABS: Prothrombin Time Whole Bld POC 26.7 sec (11.1-13.5); ~PT, ~INR - Anti Coag Clinic 2.2 (0.9-1.1)
== END 2022-12-04 08:18 | disposition home or self-care (01) ==
LOC: HO.ACS 08:07
PROVIDERS: PCP Internal Medicine; Visit Provider Internal Medicine
DX: Z79.01 Long term (current) use of anticoagulants (principal)

== ENCOUNTER → 2022-12-04 08:07 | Outpatient (BNVA) | payer MEDICARE, SELFPAY | PROVIDERS: PCP Internal Medicine; Visit Provider Internal Medicine | DX: I48.0 Paroxysmal atrial fibrillation (principal); Z79.01 Long term (current) use of anticoagulants; Z51.81 Encounter for therapeutic drug level monitoring | CPT/HCPCS: 85610; 99211 ==

== ENCOUNTER 2023-01-02 08:06 | Outpatient (AMB) | payer MEDICARE, SELFPAY ==
--- NOTE | 2023-01-02 08:10 | MHC.OFFVISCO ---
Intake Intake Visit Reasons: Anticoagulation Allergies No Known Allergies [No Known Allergies*] Allergy (Verified 01/02/23 08:06) Medication List - Last Reconciled 01/02/23 by Natalia Diehl RN amlodipine 5 mg PO DAILY blood sugar diagnostic As directed blood-glucose meter As directed dulaglutide (Trulicity) mg subcut fenofibrate nanocrystallized 0 mg PO glipizide 10 mg PO DAILY lancets As directed lorazepam 1 mg PO BEDTIME metoprolol succinate ER 100 mg PO DAILY simvastatin 20 mg PO DAILY warfarin 2.5 mg See Protocol PO DAILY Nursing Note INR: 2.7- in therapeutic range Medications and supplements reviewed- no changes No changes in health, diet, medications, or supplements, Denies any signs and symptoms of bleeding or bruising or clotting. Bleeding, bruising, clotting discussed Nutritional guidance given Dose: 2.5mg x 3, 1.25mg x 4 F/U INR: 4 weeks Patient verbalizes understanding of instructions given Coding Level of Care Code Est Patient Level 1 Diagnoses Current use of anticoagulant therapy Z79.01 Results AMB INR Fingerstick AMB INR Fingerstick 2.7 Last Edit by Natalia Diehl RN on 01/02/23 08:11 Assessment & Plan Assessment & Plan (1) Current use of anticoagulant therapy: Code(s): Z79.01 - alf (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
[2023-01-02 08:11] LABS: Prothrombin Time Whole Bld POC 32.2 sec (11.1-13.5); ~PT, ~INR - Anti Coag Clinic 2.7 (0.9-1.1)
== END 2023-01-02 08:14 | disposition home or self-care (01) ==
LOC: HO.ACS 08:06
PROVIDERS: PCP Internal Medicine; Visit Provider Internal Medicine
DX: Z79.01 Long term (current) use of anticoagulants (principal)

== ENCOUNTER → 2023-01-02 08:06 | Outpatient (BNVA) | payer MEDICARE, SELFPAY | PROVIDERS: PCP Internal Medicine; Visit Provider Internal Medicine | DX: I48.0 Paroxysmal atrial fibrillation (principal); Z79.01 Long term (current) use of anticoagulants; Z51.81 Encounter for therapeutic drug level monitoring | CPT/HCPCS: 85610; 99211 ==

== ENCOUNTER 2023-01-30 08:00 | Outpatient (AMB) | payer MEDICARE, SELFPAY ==
[2023-01-30 08:08] LABS: Prothrombin Time Whole Bld POC 36.8 sec (11.1-13.5); ~PT, ~INR - Anti Coag Clinic 3.1 (0.9-1.1)
--- NOTE | 2023-01-30 08:08 | MHC.OFFVISCO ---
Intake Intake Visit Reasons: Anticoagulation Allergies No Known Allergies [No Known Allergies*] Allergy (Verified 01/30/23 08:02) Medication List - Last Reconciled 01/30/23 by Oneida Milan RN amlodipine 5 mg PO DAILY blood sugar diagnostic As directed blood-glucose meter As directed dulaglutide (Trulicity) mg subcut fenofibrate nanocrystallized 0 mg PO glipizide 10 mg PO DAILY lancets As directed lorazepam 1 mg PO BEDTIME metoprolol succinate ER 100 mg PO DAILY simvastatin 20 mg PO DAILY warfarin 2.5 mg See Protocol PO DAILY Nursing Note INR: 3.1 ALMOST in therapeutic range Medications and supplements reviewed TOHAVE CATARACT SURG - INSTRUCTED TO CALL WITH DATE AND WITH ANY MED CHANGES Denies any signs and symptoms of bleeding or bruising or clotting. 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
== END 2023-01-30 08:13 | disposition home or self-care (01) ==
LOC: HO.ACS 08:00
PROVIDERS: PCP Internal Medicine; Visit Provider Internal Medicine
DX: Z79.01 Long term (current) use of anticoagulants (principal)

== ENCOUNTER → 2023-01-30 08:00 | Outpatient (BNVA) | payer MEDICARE, SELFPAY | PROVIDERS: PCP Internal Medicine; Visit Provider Internal Medicine | DX: I48.0 Paroxysmal atrial fibrillation (principal); Z79.01 Long term (current) use of anticoagulants; Z51.81 Encounter for therapeutic drug level monitoring | CPT/HCPCS: 85610; 99211 ==

== ENCOUNTER 2023-02-13 07:57 | Outpatient (REF) | payer MEDICARE, SELFPAY ==
[2023-02-13 09:09] LABS: Anion Gap 13 (12-20); Blood Urea Nitrogen 31 mg/dL (9-16); Calcium 9.2 mg/dL (8.4-10.2); Carbon Dioxide 25 mmol/L (22-29); Chloride 106 mmol/L (96-108); Estimated Glomerular Filt Rate 35; Glucose Random 178 mg/dL (60-115); Sodium 139 mmol/L (135-145)
[2023-02-13 09:10] LABS: Cholesterol 125 mg/dL (<200); HDL Cholesterol 27 mg/dL (>40); LDL Cholesterol Calculated 54 mg/dL (<100); Triglycerides 221 mg/dL (<150)
== END 2023-02-13 07:58 | disposition home or self-care (01) ==
LOC: HO.LAB 07:57
PROVIDERS: Absent Provider Internal Medicine Hypertension Specialist; PCP Internal Medicine; Visit Provider Internal Medicine
DX: I12.9 Hypertensive chronic kidney disease with stage 1 through stage 4 chronic kidney disease, or unspecified chronic kidney disease (principal); E78.00 Pure hypercholesterolemia, unspecified; N18.9 Chronic kidney disease, unspecified
CPT/HCPCS: 36415; 80048; 80061

== ENCOUNTER 2023-02-27 08:05 | Outpatient (AMB) | payer MEDICARE, SELFPAY ==
--- NOTE | 2023-02-27 08:18 | MHC.OFFVISCO ---
Intake Intake Visit Reasons: Anticoagulation Allergies No Known Allergies [No Known Allergies*] Allergy (Verified 02/27/23 08:07) Medication List - Last Reconciled 02/27/23 by Kindra Alfaro RN amlodipine 5 mg PO DAILY blood sugar diagnostic As directed blood-glucose meter As directed dulaglutide (Trulicity) mg subcut fenofibrate nanocrystallized 0 mg PO glipizide 10 mg PO DAILY lancets As directed lorazepam 1 mg PO BEDTIME metoprolol succinate ER 100 mg PO DAILY simvastatin 20 mg PO DAILY warfarin 2.5 mg See Protocol PO DAILY Nursing Note NO CP,SOB,DIET/MED CHANGES,FALLS OR SX OF BLEEDING. CONTINUE PRESENT DOSE AND FOLLOW-UP IN 4 WEEKS. GOOD UNDERSTANDING OF DOSING INBSTR. Coding Level of Care Code Est Patient Level 1 Diagnoses Current use of anticoagulant therapy Z79.01 Results AMB INR Fingerstick AMB INR Fingerstick 2.1 Last Edit by Kindra Alfaro RN on 02/27/23 08:15 Assessment & Plan Assessment & Plan (1) Current use of anticoagulant therapy: Code(s): Z79.01 - skilled nursing (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
== END 2023-02-27 08:20 | disposition home or self-care (01) ==
LOC: HO.ACS 08:05
PROVIDERS: PCP Internal Medicine; Visit Provider Internal Medicine
DX: Z79.01 Long term (current) use of anticoagulants (principal)

== ENCOUNTER → 2023-02-27 08:05 | Outpatient (BNVA) | payer MEDICARE, SELFPAY | PROVIDERS: PCP Internal Medicine; Visit Provider Internal Medicine | DX: I48.0 Paroxysmal atrial fibrillation (principal); Z79.01 Long term (current) use of anticoagulants; Z51.81 Encounter for therapeutic drug level monitoring | CPT/HCPCS: 85610; 99211 ==

== ENCOUNTER 2023-03-27 08:03 | Outpatient (AMB) | payer MEDICARE, SELFPAY ==
[2023-03-27 08:14] LABS: Prothrombin Time Whole Bld POC 27.6 sec (11.1-13.5); ~PT, ~INR - Anti Coag Clinic 2.3 (0.9-1.1)
--- NOTE | 2023-03-27 08:18 | MHC.OFFVISCO ---
Intake Intake Visit Reasons: Anticoagulation Allergies No Known Allergies [No Known Allergies*] Allergy (Verified 03/27/23 08:08) Medication List - Last Reconciled 03/27/23 by Kindra Alfaro RN amlodipine 5 mg PO DAILY blood sugar diagnostic As directed blood-glucose meter As directed dulaglutide (Trulicity) mg subcut fenofibrate nanocrystallized 0 mg PO glipizide 10 mg PO DAILY lancets As directed lorazepam 1 mg PO BEDTIME metoprolol succinate ER 100 mg PO DAILY simvastatin 20 mg PO DAILY warfarin 2.5 mg See Protocol PO DAILY Nursing Note NO CP,SOB,DIET/MED CHARGES,FALLS OR SX OF BLEEDING. CONTINUE PRESENT DOSE AND FOLLOW-UP IN 4 WEEKS. GOOD UNDERSTANDING OIF DOSING INSTR. 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
== END 2023-03-27 08:20 | disposition home or self-care (01) ==
LOC: HO.ACS 08:03
PROVIDERS: PCP Internal Medicine; Visit Provider Internal Medicine
DX: Z79.01 Long term (current) use of anticoagulants (principal)

== ENCOUNTER → 2023-03-27 08:03 | Outpatient (BNVA) | payer MEDICARE, SELFPAY | PROVIDERS: PCP Internal Medicine; Visit Provider Internal Medicine | DX: I48.0 Paroxysmal atrial fibrillation (principal); Z79.01 Long term (current) use of anticoagulants; Z51.81 Encounter for therapeutic drug level monitoring | CPT/HCPCS: 85610; 99211 ==

== ENCOUNTER 2023-04-08 08:42 | Day surgery (SDC) | payer MEDICARE, SELFPAY ==
[2023-04-02 15:16] VITALS: BMI 26.3
--- NOTE | 2023-04-05 08:43 | MHC.SHP ---
Pre-Procedural Eval Section A Date of Service: 04/05/23 The patient is an INPATIENT: No Changes since office visit: No Cold of Flu in the past 2 weeks, No New Medical Problems, No Changes in Medication and No Patient answered all questions The History & Physical has been completed within 30 days and I have reviewed it.: Yes Section B Chief Complaint: Age-related nuclear cataract, left eye Allergies: Allergies Allergy/AdvReac Type Severity Reaction Status Date / Time No Known Allergies Allergy Verified 03/27/23 08:08 [No Known Allergies*] Plan Diagnosis/Plan: Unchanged I have reviewed the history and physical and performed a pertinent physical examination on my patient. No changes have occurred unless specified. Time Spent With Patient Time: Total time managing care of this patient today ____ minutes.
--- NOTE | 2023-04-05 09:12 | HO.ANESPROP2 ---
Documented by User: Brenda Saleh NP 04/05/23 09:14 HPI - Anesthesia Eval Consult details Narrative: Left Cataract Extraction IOL Insertion Medically cleared No previous cataract on record Coumadin for afib ICD in situ (ischemic CMP) - 02/2023 interrogation on chart Anesthesia Pre-Procedure Meds Is the patient on any of the following meds?: Dulaglutide (Trulicity) PMFSH Active Problems Active Problems: All Active Problems (Updated 04/03/23 @ 09:09 by Melodie Eubanks RN) Current use of anticoagulant therapy (Acute) Past Medical History Medical History Ischemic cardiomyopathy Secondary hyperparathyroidism Coronary arteriosclerosis Hearing loss Chronic renal insufficiency Myocardial infarction Atrial fibrillation History of placement of internal cardiac defibrillator Diabetes Elevated cholesterol HTN (hypertension) Surgical History Surgical History S/P internal cardiac defibrillator procedure Social History Social History Are you a primary healthcare administrator to a significant other at home: No Do you presently have visiting nurse or other home services: No Patient Tobacco Use Status: Never used Tobacco Use of substances other than those prescribed or required for medical reasons: No Have you been hit, kicked, punched, or otherwise hurt by someone within the past year? If so, by whom?: No Are you DNR?: No Advance Directives: No (daughter is primary contact) Advance Directives Information Provided: Yes (brochure mailed) Advance Directives on File: No Recently lost weight without trying: No Eating poorly because of decreased appetite: No Nutrition Risks: No Nutritional Risk Poor oral hygiene: No Meds Allergies Allergy/AdvReac Type Severity Reaction Status Date / Time No Known Allergies Allergy Verified 03/27/23 08:08 [No Known Allergies*] Home Medications Medication Instructions Recorded Confirmed Last Taken Type fenofibrate nanocrystallized 48 mg 48 mg PO DAILY 05/23/20 04/03/23 Unknown History tablet metoprolol succinate 100 mg 100 mg PO DAILY 05/23/20 04/02/23 Unknown History tablet,extended release 24 hr lorazepam 1 mg tablet 1 mg PO BEDTIME 06/20/20 04/02/23 Unknown History simvastatin 20 mg tablet 20 mg PO DAILY 06/20/20 04/02/23 Unknown History blood sugar diagnostic #10 ea 08/03/20 04/02/23 Unknown History blood-glucose meter #1 ea 08/03/20 04/02/23 Unknown History lancets 33 gauge #100 ea 08/03/20 04/02/23 Unknown History glipizide 10 mg tablet 10 mg PO BID 11/13/22 04/03/23 Unknown History lisinopril 5 mg tablet 5 mg PO DAILY 04/02/23 04/02/23 Unknown History dulaglutide 0.75 mg/0.5 mL 0.75 mg subcut QWEEK 04/03/23 04/03/23 Unknown History subcutaneous pen injector (Trulicity) warfarin 4 mg tablet 4 mg PO DAILY 04/03/23 04/03/23 Unknown History Exam Height,Weight and Vital Signs: Height 5 ft 5.25 in Weight 72.121 kg Assessment and Plan Assessment Anesthesia Assessment: Chart Reviewed Documented by User: Maria Guadalupe Vanessa MD 04/08/23 11:40 HPI - Anesthesia Eval Anesthesia Pre-Procedure Meds Is the patient on any of the following meds?: Dulaglutide (Trulicity) (Last dose 03/31/23) If Yes to any meds - educate patient: Pt education - increased risk of aspiration PMFSH Active Problems Active Problems: All Active Problems (Updated 04/08/23 @ 11:30 by Maria Guadalupe Vanessa MD) Current use of anticoagulant therapy (Acute) Past Medical History Medical History Ischemic cardiomyopathy Secondary hyperparathyroidism Coronary arteriosclerosis Hearing loss Chronic renal insufficiency Myocardial infarction Atrial fibrillation History of placement of internal cardiac defibrillator Diabetes Elevated cholesterol HTN (hypertension) Family History Family history of problems with anesthesia: No Surgical History Surgical History S/P internal cardiac defibrillator procedure History of Problems with Anesthesia: No Social History Social History Are you a primary healthcare administrator to a significant other at home: No Do you presently have visiting nurse or other home services: No Patient Tobacco Use Status: Never used Tobacco Use of substances other than those prescribed or required for medical reasons: No Have you been hit, kicked, punched, or otherwise hurt by someone within the past year? If so, by whom?: No Are you DNR?: No Advance Directives: No (daughter is primary contact) Advance Directives Information Provided: Yes (brochure mailed) Advance Directives on File: No Recently lost weight without trying: No Eating poorly because of decreased appetite: No Nutrition Risks: No Nutritional Risk Poor oral hygiene: No Meds Allergies Allergy/AdvReac Type Severity Reaction Status Date / Time No Known Allergies Allergy Verified 03/27/23 08:08 [No Known Allergies*] Home Medications Medication Instructions Recorded Confirmed Last Taken Type fenofibrate nanocrystallized 48 mg 48 mg PO DAILY 05/23/20 04/03/23 Unknown History tablet metoprolol succinate 100 mg 100 mg PO DAILY 05/23/20 04/02/23 Unknown History tablet,extended release 24 hr lorazepam 1 mg tablet 1 mg PO BEDTIME 06/20/20 04/02/23 Unknown History simvastatin 20 mg tablet 20 mg PO DAILY 06/20/20 04/02/23 Unknown History blood sugar diagnostic #10 ea 08/03/20 04/02/23 Unknown History blood-glucose meter #1 ea 08/03/20 04/02/23 Unknown History lancets 33 gauge #100 ea 08/03/20 04/02/23 Unknown History glipizide 10 mg tablet 10 mg PO BID 11/13/22 04/03/23 Unknown History lisinopril 5 mg tablet 5 mg PO DAILY 04/02/23 04/02/23 Unknown History dulaglutide 0.75 mg/0.5 mL 0.75 mg subcut QWEEK 04/03/23 04/03/23 Unknown History subcutaneous pen injector (Trulicity) warfarin 4 mg tablet 4 mg PO DAILY 04/03/23 04/03/23 Unknown History Exam Height,Weight and Vital Signs: Height 5 ft 5.25 in Weight 72.121 kg Vital Signs Temp Pulse Resp Pulse Ox O2 Del Method 04/08/23 10:36 98.2 F 71 16 98 Room Air Pertinent Lab Results Pertinent Lab Results: Lab Results 04/08/23 Range/Units 10:55 POC Glucose 258 H (60-115) mg/dL Airway Mallampati Class: III TM Dist: >3cm Neck ROM: Full Loose/Missing/Broken Teeth: No (Denies broken, loose, missing teeth) Heart: RRR Lungs: CTAB Assessment and Plan Assessment Anesthesia Assessment: Anesthesia Plan Discussed Final Anesthetic Review Family History of Problems with Anesthesia: No History of Problems with Anesthesia: No NPO: Yes ASA Class: IV Final Preanesthetic Review: No Changes in Pt Med Stat, Meds/Allgs Chart Reviewed, Consent Obtained/Reviewed and Anes Risks/Benef Reviewed Patient Risk: Intermediate Procedure Risk: Low Assessment/Block/Sedation in SS: Assess/Block/Sedation-SS Anesthetic Plan Anesthetic Plan: MAC: Disposition: Standard PACU
[2023-04-08 10:36] VITALS: PULSE 71; RESP 16; TEMP 36.8; O2SAT 98
[2023-04-08] MEDS: Tetracaine HCl/PF 0.5% Oph Sol 4 ML DROPS 1 DROP EYE-LEFT (10:44)
[2023-04-08] MEDS: Cyclopentolate 1 % Ophth Sol 2 ML DRPBTL 1 DROP EYE-LEFT ×3 (10:46→10:55)
[2023-04-08] MEDS: Tropicamide 1 % Ophth Sol 3 ML BTL 1 DROP EYE-LEFT ×3 (10:47→10:56)
[2023-04-08] MEDS: Ketorolac Tromethamine 0.5% Op 5 ML DROPS 1 DROP EYE-LEFT ×3 (10:48→10:57)
[2023-04-08] MEDS: Phenylephrine HCL 2.5% Oph SoL 2 ML BOTTLE 1 DROP EYE-LEFT ×3 (10:49→10:59)
[2023-04-08] MEDS: Lactated Ringers 500 ML 50 ML IV (10:54)
[2023-04-08 11:00] LABS: Glucose, Whole Blood 258 mg/dL (60-115)
--- NOTE | 2023-04-08 11:37 | HO.PNOPHT ---
Ophthalmology Procedure Procedure Date of Service: 04/08/23 Ophthalmology Viscoelastic: Healon Duet Dual Pack Pro Ophthalmology Lenses: TECAKANKSHA [id number] (10) Procedure Notes: PREOPERATIVE DIAGNOSIS: Decreased visual acuity left eye secondary to cataract POSTOPERATIVE DIAGNOSIS: Same PROCEDURE: Left cataract extraction with intraocular lens insertion SURGEON: Spenser Valadez M.D. ANESTHESIA: Topical/MAC ESTIMATED BLOOD LOSS: None COMPLICATIONS: None After obtaining informed consent, the patient was brought to the operation room suite and placed in the supine position. After adequate sedation per anesthesia, topical drops of Tetracaine were given to the left eye. The eye was then prepped and draped in the usual sterile fashion. The operating room microscope was then positioned over the operative eye and a lid speculum placed. A paracentesis was created. Viscoelastic was then instilled into the anterior chamber. A three plane incision was then created temporally, utilizing a 2.85 mm keratome. Capsulotomy forceps were then utilized to create a circular tear capsulotomy. Hydrodissection and hydrodelineation were carried out until adequate mobilization of the nucleus occurred. Phacoemulsification was then utilized to remove the dense central nucleus followed by removal of the cortical material utilizing the automated aspiration irrigation unit. Viscoat elastic was instilled into the posterior capsular bag followed by placement of a posterior chamber intraocular lens without difficulty. The residual Viscoat elastic was then removed utilizing the automated IA machine. The wound was check and found to be watertight. The patient tolerated the procedure well and the lid speculum was removed. Intracameral injection of Vigamox 0.1 mL followed by a subtenon injection of Kenalog-40 0.2 mL were administered. The patient will be seen in the a.m.
[2023-04-08 12:14] VITALS: BP 138/62; PULSE 68; RESP 16; TEMP 36.2; O2SAT 95
== END 2023-04-08 12:28 | disposition home or self-care (01) ==
PROVIDERS: PCP Internal Medicine; Visit Provider Ophthalmology
PROC: (CPT 66985; principal; 2023-04-08 11:40)
DX: H25.12 Age-related nuclear cataract, left eye (principal); H54.7 Unspecified visual loss; E11.9 Type 2 diabetes mellitus without complications; I10 Essential (primary) hypertension; E78.5 Hyperlipidemia, unspecified; Z95.0 Presence of cardiac pacemaker; Z79.01 Long term (current) use of anticoagulants; Z79.899 Other long term (current) drug therapy; Z79.85 Long-term (current) use of injectable non-insulin antidiabetic drugs
CPT/HCPCS: 66984; 82947; J2250; J3010; J3301; V2632

== ENCOUNTER 2023-04-22 09:34 | Day surgery (SDC) | payer MEDICARE, SELFPAY ==
[2023-04-02 15:18] VITALS: BMI 26.3
--- NOTE | 2023-04-19 08:01 | MHC.SHP ---
Pre-Procedural Eval Section A Date of Service: 04/19/23 The patient is an INPATIENT: No Changes since office visit: Yes Patient answered all questions The History & Physical has been completed within 30 days and I have reviewed it.: Yes Section B Chief Complaint: Age-related nuclear cataract, right eye Allergies: Allergies Allergy/AdvReac Type Severity Reaction Status Date / Time No Known Allergies Allergy Verified 03/27/23 08:08 [No Known Allergies*] Plan I have reviewed the history and physical and performed a pertinent physical examination on my patient. No changes have occurred unless specified. Time Spent With Patient Time: Total time managing care of this patient today ____ minutes.
--- NOTE | 2023-04-19 08:02 | MHC.SHP ---
Pre-Procedural Eval Section A Date of Service: 04/19/23 The patient is an INPATIENT: No Changes since office visit: No Cold of Flu in the past 2 weeks, No New Medical Problems, No Changes in Medication and No Patient answered all questions The History & Physical has been completed within 30 days and I have reviewed it.: Yes Section B Chief Complaint: Age-related nuclear cataract, right eye Allergies: Allergies Allergy/AdvReac Type Severity Reaction Status Date / Time No Known Allergies Allergy Verified 03/27/23 08:08 [No Known Allergies*] Plan Diagnosis/Plan: Unchanged I have reviewed the history and physical and performed a pertinent physical examination on my patient. No changes have occurred unless specified. Time Spent With Patient Time: Total time managing care of this patient today ____ minutes.
--- NOTE | 2023-04-19 10:10 | P.CONAN_ITS ---
Documented by User: Brenda Saleh NP 04/19/23 10:11 HPI - Anesthesia Eval Consult details Narrative: 87yo M for Right Cataract Extraction IOL Insertion Medically cleared Warfarin for afib Left eye 04/08/23: Fent 50, Midaz 0.5 Anesthesia Pre-Procedure Meds Is the patient on any of the following meds?: Dulaglutide (Trulicity) (Planned last dose 04/14/23) PMFSH Active Problems Active Problems: All Active Problems (Updated 04/03/23 @ 09:09 by Melodie Eubanks RN) Current use of anticoagulant therapy (Acute) Past Medical History Medical History Ischemic cardiomyopathy Secondary hyperparathyroidism Coronary arteriosclerosis Hearing loss Chronic renal insufficiency Myocardial infarction Atrial fibrillation History of placement of internal cardiac defibrillator Diabetes Elevated cholesterol HTN (hypertension) Family History Family history of problems with anesthesia: No Surgical History Surgical History S/P internal cardiac defibrillator procedure History of Problems with Anesthesia: No Social History Social History Are you a primary career development coordinator to a significant other at home: No Do you presently have visiting nurse or other home services: No Patient Tobacco Use Status: Never used Tobacco Use of substances other than those prescribed or required for medical reasons: No Have you been hit, kicked, punched, or otherwise hurt by someone within the past year? If so, by whom?: No Are you DNR?: No Advance Directives: No (daughter is primary contact) Advance Directives Information Provided: Yes (brochure mailed) Advance Directives on File: No Recently lost weight without trying: No Eating poorly because of decreased appetite: No Nutrition Risks: No Nutritional Risk Poor oral hygiene: No Meds Allergies Allergy/AdvReac Type Severity Reaction Status Date / Time No Known Allergies Allergy Verified 03/27/23 08:08 [No Known Allergies*] Home Medications Medication Instructions Recorded Confirmed Last Taken Type fenofibrate nanocrystallized 48 mg 48 mg PO DAILY 05/23/20 04/03/23 Unknown History tablet metoprolol succinate 100 mg 100 mg PO DAILY 05/23/20 04/02/23 04/22/23 History tablet,extended release 24 hr lorazepam 1 mg tablet 1 mg PO BEDTIME 06/20/20 04/02/23 Unknown History simvastatin 20 mg tablet 20 mg PO DAILY 06/20/20 04/02/23 Unknown History blood sugar diagnostic #10 ea 08/03/20 04/02/23 Unknown History blood-glucose meter #1 ea 08/03/20 04/02/23 Unknown History lancets 33 gauge #100 ea 08/03/20 04/02/23 Unknown History glipizide 10 mg tablet 10 mg PO BID 11/13/22 04/03/23 Unknown History lisinopril 5 mg tablet 5 mg PO DAILY 04/02/23 04/02/23 Unknown History dulaglutide 0.75 mg/0.5 mL 0.75 mg subcut QWEEK 04/03/23 04/03/23 03/31/23 History subcutaneous pen injector (Trulicity) warfarin 4 mg tablet 4 mg PO DAILY 04/03/23 04/03/23 Unknown History Exam Height,Weight and Vital Signs: Height 5 ft 5.25 in Weight 72.121 kg Assessment and Plan Assessment Anesthesia Assessment: Chart Reviewed Final Anesthetic Review Family History of Problems with Anesthesia: No History of Problems with Anesthesia: No Documented by User: Maria Guadalupe Vanessa MD 04/22/23 11:56 HPI - Anesthesia Eval Consult details Narrative: 87yo M for Right Cataract Extraction IOL Insertion Medically cleared Warfarin for afib. Last dose 3-4 days ago Left eye 04/08/23: Fent 50, Midaz 0.5 Last dose of trulicity 03/31/23 Anesthesia Pre-Procedure Meds Is the patient on any of the following meds?: Dulaglutide (Trulicity) (Last dose 03/31/23) If Yes to any meds - educate patient: Pt education - increased risk of aspiration PMFSH Past Medical History Medical History Ischemic cardiomyopathy Secondary hyperparathyroidism Coronary arteriosclerosis Hearing loss Chronic renal insufficiency Myocardial infarction Atrial fibrillation History of placement of internal cardiac defibrillator Diabetes Elevated cholesterol HTN (hypertension) Surgical History Surgical History S/P internal cardiac defibrillator procedure Social History Social History Are you a primary career development coordinator to a significant other at home: No Do you presently have visiting nurse or other home services: No Patient Tobacco Use Status: Never used Tobacco Use of substances other than those prescribed or required for medical reasons: No Have you been hit, kicked, punched, or otherwise hurt by someone within the past year? If so, by whom?: No Are you DNR?: No Advance Directives: No (daughter is primary contact) Advance Directives Information Provided: Yes (brochure mailed) Advance Directives on File: No Recently lost weight without trying: No Eating poorly because of decreased appetite: No Nutrition Risks: No Nutritional Risk Poor oral hygiene: No Meds Allergies Allergy/AdvReac Type Severity Reaction Status Date / Time No Known Allergies Allergy Verified 03/27/23 08:08 [No Known Allergies*] Home Medications Medication Instructions Recorded Confirmed Last Taken Type fenofibrate nanocrystallized 48 mg 48 mg PO DAILY 05/23/20 04/03/23 Unknown History tablet metoprolol succinate 100 mg 100 mg PO DAILY 05/23/20 04/02/23 04/22/23 History tablet,extended release 24 hr lorazepam 1 mg tablet 1 mg PO BEDTIME 06/20/20 04/02/23 Unknown History simvastatin 20 mg tablet 20 mg PO DAILY 06/20/20 04/02/23 Unknown History blood sugar diagnostic #10 ea 08/03/20 04/02/23 Unknown History blood-glucose meter #1 ea 08/03/20 04/02/23 Unknown History lancets 33 gauge #100 ea 08/03/20 04/02/23 Unknown History glipizide 10 mg tablet 10 mg PO BID 11/13/22 04/03/23 Unknown History lisinopril 5 mg tablet 5 mg PO DAILY 04/02/23 04/02/23 Unknown History dulaglutide 0.75 mg/0.5 mL 0.75 mg subcut QWEEK 04/03/23 04/03/23 03/31/23 History subcutaneous pen injector (Trulicity) warfarin 4 mg tablet 4 mg PO DAILY 04/03/23 04/03/23 Unknown History Exam Height,Weight and Vital Signs: Height 5 ft 5.25 in Weight 72.121 kg Vital Signs Temp Pulse Resp BP Pulse Ox O2 Del Method 04/22/23 11:11 97.3 F 63 16 161/61 H 95 Room Air Pertinent Lab Results Pertinent Lab Results: Lab Results 04/22/23 Range/Units 11:29 POC Glucose 306 H (60-115) mg/dL Patient has not been taking diabetic meds. Thought glipizide was stopped (is not sure why) and did not take trulicity on day due because did not want to interfere with surgery Airway Mallampati Class: III TM Dist: >3cm Neck ROM: Full Loose/Missing/Broken Teeth: No (Denies broken, loose, missing teeth) Heart: RRR Lungs: CTAB Assessment and Plan Assessment Anesthesia Assessment: Anesthesia Plan Discussed Final Anesthetic Review NPO: Yes ASA Class: IV Final Preanesthetic Review: No Changes in Pt Med Stat, Meds/Allgs Chart Reviewed, Consent Obtained/Reviewed and Anes Risks/Benef Reviewed Patient Risk: Intermediate Procedure Risk: Low Assessment/Block/Sedation in SS: Assess/Block/Sedation-SS Anesthetic Plan Anesthetic Plan: MAC: Disposition: Standard PACU
[2023-04-22 11:11] VITALS: BP 161/61; PULSE 63; RESP 16; TEMP 36.3; O2SAT 95
[2023-04-22] MEDS: Lactated Ringers 500 ML 50 ML IV (11:13)
[2023-04-22] MEDS: Tetracaine HCl/PF 0.5% Oph Sol 4 ML DROPS 1 DROP EYE-RIGHT (11:19)
[2023-04-22] MEDS: Cyclopentolate 1 % Ophth Sol 2 ML DRPBTL 1 DROP EYE-RIGHT ×3 (11:21→11:26)
[2023-04-22] MEDS: Tropicamide 1 % Ophth Sol 3 ML BTL 1 DROP EYE-RIGHT ×3 (11:22→11:27)
[2023-04-22] MEDS: Ketorolac Tromethamine 0.5% Op 5 ML DROPS 1 DROP EYE-RIGHT ×3 (11:23→11:27)
[2023-04-22] MEDS: Phenylephrine HCL 2.5% Oph SoL 2 ML BOTTLE 1 DROP EYE-RIGHT ×3 (11:23→11:28)
[2023-04-22 11:33] LABS: Glucose, Whole Blood 306 mg/dL (60-115)
--- NOTE | 2023-04-22 11:46 | HO.PNOPHT ---
Ophthalmology Procedure Procedure Date of Service: 04/22/23 Ophthalmology Viscoelastic: Topher Joycet Dual Pack Pro Ophthalmology Lenses: TECAKANKSHA [id number] (10) Procedure Notes: PREOPERATIVE DIAGNOSIS: Decreased visual acuity right eye secondary to cataract POSTOPERATIVE DIAGNOSIS: Same PROCEDURE: Right cataract extraction with intraocular lens insertion SURGEON: Spenser Valadez M.D. ANESTHESIA: Topical/MAC ESTIMATED BLOOD LOSS: None COMPLICATIONS: None After obtaining informed consent, the patient was brought to the operating room suite and placed in the supine position. After adequate sedation per anesthesia, topical drops of Tetracaine were given to the right eye. The eye was then prepped and draped in the usual sterile fashion. The operating room microscope was then positioned over the operative eye and a lid speculum placed. A paracentesis was created. Viscoelastic was then instilled into the anterior chamber. A three plane incision was then created temporally, utilizing a 2.85 mm keratome. Capsulotomy forceps were then utilized to create a circular tear capsulotomy. Hydrodissection and hydrodelineation were carried out until adequate mobilization of the nucleus occurred. Phacoemulsification was then utilized to remove the dense central nucleus followed by removal of the cortical material utilizing the automated aspiration irrigation unit. Viscoelastic was instilled into the posterior capsular bag followed by placement of a posterior chamber intraocular lens without difficulty. The residual Viscoelastic was then removed utilizing the automated IA machine. The wound was checked and found to be watertight. The patient tolerated the procedure well and the lid speculum was removed. Intracameral injection of Vigamox 0.1 mL followed by a subtenon injection of Kenalog-40 0.2 mL were administered. The patient will be seen in the a.m.
[2023-04-22 12:22] VITALS: BP 161/63; PULSE 66; RESP 18; TEMP 36.3; O2SAT 94
== END 2023-04-22 12:25 | disposition home or self-care (01) ==
PROVIDERS: PCP Internal Medicine; Visit Provider Ophthalmology
PROC: (CPT 66985; principal; 2023-04-22 12:30)
DX: H25.11 Age-related nuclear cataract, right eye (principal); H54.7 Unspecified visual loss; H18.413 Arcus senilis, bilateral; E11.22 Type 2 diabetes mellitus with diabetic chronic kidney disease; I12.9 Hypertensive chronic kidney disease with stage 1 through stage 4 chronic kidney disease, or unspecified chronic kidney disease; N18.9 Chronic kidney disease, unspecified; H43.393 Other vitreous opacities, bilateral; I25.2 Old myocardial infarction; Z95.5 Presence of coronary angioplasty implant and graft; Z95.810 Presence of automatic (implantable) cardiac defibrillator; I48.91 Unspecified atrial fibrillation; E78.00 Pure hypercholesterolemia, unspecified; Z79.85 Long-term (current) use of injectable non-insulin antidiabetic drugs; Z79.84 Long term (current) use of oral hypoglycemic drugs; Z79.01 Long term (current) use of anticoagulants; Z79.899 Other long term (current) drug therapy
CPT/HCPCS: 66984; 82947; J3010; J3301; V2632

== ENCOUNTER 2023-05-02 08:01 | Outpatient (AMB) | payer MEDICARE, SELFPAY ==
[2023-05-02 08:10] LABS: Prothrombin Time Whole Bld POC 15.4 sec (11.1-13.5); ~PT, ~INR - Anti Coag Clinic 1.3 (0.9-1.1)
--- NOTE | 2023-05-02 14:34 | MHC.OFFVISCO ---
Intake Intake Visit Reasons: Anticoagulation Allergies No Known Allergies [No Known Allergies*] Allergy (Verified 05/02/23 08:01) Medication List - Last Reconciled 05/02/23 by Kindra Alfaro RN amlodipine 5 mg PO DAILY blood sugar diagnostic As directed blood-glucose meter As directed dulaglutide (Trulicity) 0.75 mg subcut QWEEK fenofibrate nanocrystallized 48 mg PO DAILY glipizide 10 mg PO BID lancets As directed lisinopril 5 mg PO DAILY lorazepam 1 mg PO BEDTIME metoprolol succinate ER 100 mg PO DAILY simvastatin 20 mg PO DAILY warfarin 4 mg PO DAILY Nursing Note PT.STATES THAT HE HAS NOT HAD WARFARIN IN 1 MONTH. PT.HAD SECOND CATARACT SURGERY ON 04/22 AND RESTARTED WARFARIN ON 04/28/23. PT.BELIEVES THAT HE WAS INSTRUCTED TO HOLD X 4 WEEKS, BUT IS NOT AT ALL CERTAIN FROM WHOM OR WHEN. PT.IS VERY VAGUE RE THIS. HE DENIES ANY CP,SOB, MED CHANGES OR SX OF BLEEDING. INCREASE DOSE TODAY TO 5MGM THEN RESUME USUAL DOSE AND FOLLOW-UP IN 1 WEEK. NO GREENS. PT.VERB.GOOD UNDERSTANDING OF DOSING INSTR. NOTIFIED OF LOW INR AND PLAN OF CARE. NO LOVENOX. Anti-Coag Initial Assessment Social Hx Patient Tobacco Use Status: Never used Tobacco Alcohol intake frequency: holidays/special occasions only Coding Level of Care Code Est Patient Level 1 Diagnoses Current use of anticoagulant therapy Z79.01 Assessment & Plan Assessment & Plan (1) Current use of anticoagulant therapy: Code(s): Z79.01 - [facility] (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 Medications: New warfarin 2.5 mg See Protocol PO DAILY
== END 2023-05-02 14:56 | disposition home or self-care (01) ==
LOC: HO.ACS 08:01
PROVIDERS: PCP Internal Medicine; Visit Provider Internal Medicine
DX: Z79.01 Long term (current) use of anticoagulants (principal)

== ENCOUNTER → 2023-05-02 08:01 | Outpatient (BNVA) | payer MEDICARE, SELFPAY | PROVIDERS: PCP Internal Medicine; Visit Provider Internal Medicine | DX: I48.0 Paroxysmal atrial fibrillation (principal); Z79.01 Long term (current) use of anticoagulants; Z51.81 Encounter for therapeutic drug level monitoring | CPT/HCPCS: 85610; 99211 ==

== ENCOUNTER 2023-05-08 08:38 | Outpatient (AMB) | payer MEDICARE, SELFPAY ==
[2023-05-08 08:52] LABS: Prothrombin Time Whole Bld POC 28.6 sec (11.1-13.5); ~PT, ~INR - Anti Coag Clinic 2.4 (0.9-1.1)
--- NOTE | 2023-05-08 08:54 | MHC.OFFVISCO ---
Intake Intake Visit Reasons: Anticoagulation Allergies No Known Allergies [No Known Allergies*] Allergy (Verified 05/08/23 08:45) Medication List - Last Reconciled 05/08/23 by Oneida Milan RN amlodipine 5 mg PO DAILY amoxicillin 1,000 mg PO BID blood sugar diagnostic As directed blood-glucose meter As directed dulaglutide (Trulicity) 0.75 mg subcut QWEEK fenofibrate nanocrystallized 48 mg PO DAILY glipizide 10 mg PO BID lancets As directed lisinopril 5 mg PO DAILY lorazepam 1 mg PO BEDTIME metoprolol succinate ER 100 mg PO DAILY simvastatin 20 mg PO DAILY warfarin 2.5 mg See Protocol PO DAILY Nursing Note INR: 2.4 in therapeutic range Medications and supplements reviewed No changes in health, diet, medications, or supplements, Denies any signs and symptoms of bleeding or bruising or clotting. Bleeding, bruising, clotting discussed Nutritional guidance given Dose:2.5MG X 3 DAYS/ 1.25MG X 4 DAYS F/U INR: 4 WEEKS ALWAY NOTIFY [facility] IF YOU STOP YOUR WARFARIN FOR ANY REASON Patient verbalizes understanding of instructions given Anti-Coag Initial Assessment Social Hx Patient Tobacco Use Status: Never used Tobacco Alcohol intake frequency: holidays/special occasions only Coding Level of Care Code Est Patient Level 1 Diagnoses Current use of anticoagulant therapy Z79.01 Assessment & Plan Assessment & Plan (1) Current use of anticoagulant therapy: Code(s): Z79.01 - [facility] (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
== END 2023-05-08 08:58 | disposition home or self-care (01) ==
LOC: HO.ACS 08:38
PROVIDERS: PCP Internal Medicine; Visit Provider Internal Medicine
DX: Z79.01 Long term (current) use of anticoagulants (principal)

== ENCOUNTER → 2023-05-08 08:38 | Outpatient (BNVA) | payer MEDICARE, SELFPAY | PROVIDERS: PCP Internal Medicine; Visit Provider Internal Medicine | DX: I48.0 Paroxysmal atrial fibrillation (principal); Z51.81 Encounter for therapeutic drug level monitoring; Z79.01 Long term (current) use of anticoagulants | CPT/HCPCS: 85610; 99211 ==

== ENCOUNTER 2023-06-05 08:09 | Outpatient (AMB) | payer MEDICARE, SELFPAY ==
--- NOTE | 2023-06-05 08:14 | MHC.OFFVISCO ---
Intake Intake Visit Reasons: Anticoagulation Allergies No Known Allergies [No Known Allergies*] Allergy (Verified 06/05/23 08:11) Medication List - Last Reconciled 06/05/23 by Natalia Diehl RN amlodipine 5 mg PO DAILY blood sugar diagnostic As directed blood-glucose meter As directed dulaglutide (Trulicity) 0.75 mg subcut QWEEK fenofibrate nanocrystallized 48 mg PO DAILY glipizide 10 mg PO BID lancets As directed lisinopril 5 mg PO DAILY lorazepam 1 mg PO BEDTIME metoprolol succinate ER 100 mg PO DAILY simvastatin 20 mg PO DAILY warfarin 2.5 mg See Protocol PO DAILY Nursing Note INR: 2.1- in therapeutic range of 2-3 Medications and supplements reviewed- pt states trulicity unavailable- does not interact with warfarin per [employer] No changes in health, diet, medications, or supplements, Denies any signs and symptoms of bleeding or bruising or clotting. Bleeding, bruising, clotting discussed Nutritional guidance given Dose: 2.5mg x 3, 1.25mg x 4 F/U INR: 4 weeks Patient verbalizes understanding of instructions given Anti-Coag Initial Assessment Social Hx Patient Tobacco Use Status: Never used Tobacco Alcohol intake frequency: holidays/special occasions only Coding Level of Care Code Est Patient Level 1 Diagnoses Current use of anticoagulant therapy Z79.01 Assessment & Plan Assessment & Plan (1) Current use of anticoagulant therapy: Code(s): Z79.01 - [facility] [employer] [facility] (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
[2023-06-05 08:16] LABS: ~PT, ~INR - Anti Coag Clinic 2.1 (0.9-1.1)
== END 2023-06-05 08:18 | disposition home or self-care (01) ==
LOC: HO.ACS 08:09
PROVIDERS: PCP Internal Medicine; Visit Provider Internal Medicine
DX: Z79.01 Long term (current) use of anticoagulants (principal)

== ENCOUNTER → 2023-06-05 08:09 | Outpatient (BNVA) | payer MEDICARE, SELFPAY | PROVIDERS: PCP Internal Medicine; Visit Provider Internal Medicine | DX: I48.0 Paroxysmal atrial fibrillation (principal); Z79.01 Long term (current) use of anticoagulants; Z51.81 Encounter for therapeutic drug level monitoring | CPT/HCPCS: 85610; 99211 ==

== ENCOUNTER 2023-07-03 08:03 | Outpatient (AMB) | payer MEDICARE, SELFPAY ==
--- NOTE | 2023-07-03 08:15 | MHC.OFFVISCO ---
Intake Intake Visit Reasons: Anticoagulation Allergies No Known Allergies [No Known Allergies*] Allergy (Verified 07/03/23 08:08) Medication List - Last Reconciled 07/03/23 by Natalia Diehl RN amlodipine 5 mg PO DAILY blood sugar diagnostic As directed blood-glucose meter As directed dulaglutide (Trulicity) 0.75 mg subcut QWEEK fenofibrate nanocrystallized 48 mg PO DAILY glipizide 10 mg PO BID lancets As directed lisinopril 5 mg PO DAILY lorazepam 1 mg PO BEDTIME metoprolol succinate ER 100 mg PO DAILY simvastatin 20 mg PO DAILY warfarin 2.5 mg See Protocol PO DAILY Nursing Note INR4.1-?? out of therapeutic range of 2-3 Medications and supplements reviewed Patient status: pt states cold symptoms last week, taking asa- recommend tylenol Medications or supplements: not taking trulicity as it is unavailable Diet: decreased Denies any signs and symptoms of bleeding or clotting or unusual bruising Bleeding, bruising, clotting discussed Nutritional guidance given: eat greens to lower Dose: hold today then cont reg 2.5mg x 3, 1.25mg x 4 F/U INR Date : 1 week? Patient verbalizing understanding of instructions given. Anti-Coag Initial Assessment Social Hx Patient Tobacco Use Status: Never used Tobacco Alcohol intake frequency: holidays/special occasions only Coding Level of Care Code Est Patient Level 1 Diagnoses Current use of anticoagulant therapy Z79.01 Assessment & Plan Assessment & Plan (1) Current use of anticoagulant therapy: Code(s): Z79.01 - [facility] (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
[2023-07-03 08:16] LABS: Prothrombin Time Whole Bld POC 49.2 sec (11.1-13.5); ~PT, ~INR - Anti Coag Clinic 4.1 (0.9-1.1)
== END 2023-07-03 08:25 | disposition home or self-care (01) ==
LOC: HO.ACS 08:03
PROVIDERS: PCP Internal Medicine; Visit Provider Internal Medicine
DX: Z79.01 Long term (current) use of anticoagulants (principal)

== ENCOUNTER → 2023-07-03 08:03 | Outpatient (BNVA) | payer MEDICARE, SELFPAY | PROVIDERS: PCP Internal Medicine; Visit Provider Internal Medicine | DX: I48.0 Paroxysmal atrial fibrillation (principal); Z79.01 Long term (current) use of anticoagulants; Z51.81 Encounter for therapeutic drug level monitoring | CPT/HCPCS: 85610; 99211 ==

== ENCOUNTER 2023-07-10 09:23 | Outpatient (AMB) | payer MEDICARE, SELFPAY ==
[2023-07-10 09:31] LABS: Prothrombin Time Whole Bld POC 52.6 sec (11.1-13.5); ~PT, ~INR - Anti Coag Clinic 4.4 (0.9-1.1)
--- NOTE | 2023-07-10 14:41 | MHC.OFFVISCO ---
Intake Intake Visit Reasons: Anticoagulation Allergies amoxicillan Adverse Reaction (Mild, Uncoded 07/10/23 09:34) Nausea Nursing Note INR 4.4?? out of therapeutic range of 2-3 Medications and supplements reviewed Patient status: pt with c.o sinus infection Medications or supplements: pt states taking antibiotic for approx 3 days pcp office called and stated samson ordered, pt dianne called pcp office to state pt with nausea with amox [facility] called and pt had 2 scripts- amox 875mg bid for 10 days and zpack picked up pt dianne lana called and she stated pt picked up amox and is taking this, pt with no c.o nausea at this time. pt son picked up zpack but pt not taking. pt dianne aware of inr, dosing and f/u appt Diet: fair Denies any signs and symptoms of bleeding or clotting or unusual bruising Bleeding, bruising, clotting discussed - pt aware at risk for bleeding with elev inr, avoid high risk activity Nutritional guidance given: eat greens while on antibiotics Dose: no warfarin today, reduce dose on saturday to 1.25mg otherwise cont reg dosing F/U INR Date : sat07/15/23? Patient verbalizing understanding of instructions given. Anti-Coag Initial Assessment Social Hx Patient Tobacco Use Status: Never used Tobacco Alcohol intake frequency: holidays/special occasions only Coding Level of Care Code Est Patient Level 2 Diagnoses Current use of anticoagulant therapy Z79.01 Results AMB INR Fingerstick AMB INR Fingerstick 4.4 Last Edit by Maria Alejandra Gardner RN on 07/10/23 09:32 interface delay Assessment & Plan Assessment & Plan (1) Current use of anticoagulant therapy: Code(s): Z79.01 - 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
== END 2023-07-10 11:17 | disposition home or self-care (01) ==
LOC: HO.ACS 09:23
PROVIDERS: PCP Internal Medicine; Visit Provider Internal Medicine
DX: Z79.01 Long term (current) use of anticoagulants (principal)

== ENCOUNTER → 2023-07-10 09:23 | Outpatient (BNVA) | payer MEDICARE, SELFPAY | PROVIDERS: PCP Internal Medicine; Visit Provider Internal Medicine | DX: I48.0 Paroxysmal atrial fibrillation (principal); Z79.01 Long term (current) use of anticoagulants; Z51.81 Encounter for therapeutic drug level monitoring | CPT/HCPCS: 85610; 99212 ==

== ENCOUNTER 2023-07-15 08:43 | Outpatient (AMB) | payer MEDICARE, SELFPAY ==
[2023-07-15 08:57] LABS: Prothrombin Time Whole Bld POC 30.1 sec (11.1-13.5); ~PT, ~INR - Anti Coag Clinic 2.5 (0.9-1.1)
--- NOTE | 2023-07-15 09:04 | MHC.OFFVISCO ---
Intake Intake Visit Reasons: Anticoagulation Allergies amoxicillan Adverse Reaction (Mild, Uncoded 07/15/23 08:51) Nausea Medication List - Last Reconciled 07/15/23 by Maria Alejandra Ramirez RN amlodipine 5 mg PO DAILY blood sugar diagnostic As directed blood-glucose meter As directed dulaglutide (Trulicity) 0.75 mg subcut QWEEK fenofibrate nanocrystallized 48 mg PO DAILY glipizide 10 mg PO BID lancets As directed lisinopril 5 mg PO DAILY lorazepam 1 mg PO BEDTIME metoprolol succinate ER 100 mg PO DAILY simvastatin 20 mg PO DAILY warfarin 2.5 mg See Protocol PO DAILY Nursing Note Amb to [facility] feeling not great sts on antibiotic for sinus issues, has the bottle- Amoxicillin 875mg no other additives, noted adverse reaction to amoxicillin nausea sts one day of diarrhea, a little nausea tolerating biggest concern continue with headaches referred to PCP, sts he has an appt on Saturday for F/U Medications and supplements reviewed- taking tylenol for headache No other changes in health, diet, medications, or supplements- has increased greens of broccoli and asparagus while on antibiotic Denies any unusual signs and symptoms of bruising, bleeding Denies any new Chest pain, SOB, or clotting INR: 2.5 now in therapeutic range Nutritional guidance given: continue with greens while completing antibiotic Dose: continue usual dosing;2.5mg x 3 days and 1.25mg x 4 days F/U INR:Jun for INR and labwork for 07/18 visit with PCP (completes antibiotic ) Patient verbalizes understanding of instructions given with accurate read back/ teach back of dosing, dates on dosing sheet Anti-Coag Initial Assessment Social Hx Patient Tobacco Use Status: Never used Tobacco Alcohol intake frequency: holidays/special occasions only Questionnaires HAS-BLED Does the patient had uncontrolled Hypertension?: No Does the patient have renal disease?: Yes Does the patient have liver disease?: No Does the patient have a history of stroke?: No Has the patient had major bleeding or predisposition to bleeding?: No Does the patient have labile INRs?: No Is the patient over 65 years of age?: Yes Is the patient on medications that gives them a predisposition to bleeding?: Yes Does the patient use alcohol?: Yes HAS-BLED Score: 4 CHADSVASC Age: 75 or over Gender: Male Does the patient have a history of CHF?: No Does the patient have a history of Hypertension?: Yes Does the patient have a history of Stroke/TIA/Thromboembolism?: No Does the patient have a history of Vascular Disease (prior VT, PAD or aortic plaque)?: Yes Does the patient have a history of Diabetes?: Yes CHADS VACS Score: 5 Ibrahima Prediction Score Rsk VTE Active Cancer: No Previous VTE, excluding superficial vein thrombosis: No Reduced mobility: No Already known Thrombophilic Condition: Yes With-in last month Trauma and/or Surgery: No Elderly 70 year or older: Yes Heart and/or Respiratory Failure: No Acute Myocardial infarction and/or Ischemic Stroke: Yes Acute Infection and/or Rheumatologic Disorder: No Obesity (BMI 30 or greater): No Ongoing Hormonal Treatment: No Score: 5 Ibrahima Score less than 4; Low Risk of VTE Ibrahima Score 4 or greater; High Risk of VTE Coding Diagnoses Current use of anticoagulant therapy Z79.01 Assessment & Plan Assessment & Plan (1) Current use of anticoagulant therapy: Code(s): Z79.01 - [facility] [employer] (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
--- NOTE | 2023-09-25 09:39 | MHC.OFFVISCO ---
Intake Intake Visit Reasons: Anticoagulation Allergies No Known Allergies Allergy (Verified 09/18/23 08:18) Medication List - Last Reconciled 07/15/23 by Maria Alejandra Ramirez RN amlodipine 5 mg PO DAILY blood sugar diagnostic As directed blood-glucose meter As directed dulaglutide (Trulicity) 0.75 mg subcut QWEEK fenofibrate nanocrystallized 48 mg PO DAILY glipizide 10 mg PO BID lancets As directed lisinopril 5 mg PO DAILY lorazepam 1 mg PO BEDTIME metoprolol succinate ER 100 mg PO DAILY simvastatin 20 mg PO DAILY warfarin 2.5 mg See Protocol PO DAILY Nursing Note Jairo Newman Male : 1935 MedRec# [id number] 07/15/23 09:04 - Nursing Note by Maria Alejandra Ramirez RN Acct Num: [id number] : 1935 Patient Age: 87 Intake Intake Visit Reasons: Anticoagulation Allergies amoxicillan Adverse Reaction (Mild, Uncoded 07/15/23 08:51) Nausea Medication List - Last Reconciled 07/15/23 by Maria Alejandra Ramirez RN amlodipine 5 mg PO DAILY blood sugar diagnostic As directed blood-glucose meter As directed dulaglutide (Trulicity) 0.75 mg subcut QWEEK fenofibrate nanocrystallized 48 mg PO DAILY glipizide 10 mg PO BID lancets As directed lisinopril 5 mg PO DAILY lorazepam 1 mg PO BEDTIME metoprolol succinate ER 100 mg PO DAILY simvastatin 20 mg PO DAILY warfarin 2.5 mg See Protocol PO DAILY Nursing Note Amb to [facility] feeling not great sts on antibiotic for sinus issues, has the bottle- Amoxicillin 875mg no other additives, noted adverse reaction to amoxicillin nausea sts one day of diarrhea, a little nausea tolerating biggest concern continue with headaches referred to PCP, sts he has an appt on Saturday for F/U Medications and supplements reviewed- taking tylenol for headache No other changes in health, diet, medications, or supplements- has increased greens of broccoli and asparagus while on antibiotic Denies any unusual signs and symptoms of bruising, bleeding Denies any new Chest pain, SOB, or clotting INR: 2.5 now in therapeutic range Nutritional guidance given: continue with greens while completing antibiotic Dose: continue usual dosing;2.5mg x 3 days and 1.25mg x 4 days F/U INR:Jun for INR and labwork for 07/18 visit with PCP (completes antibiotic ) Patient verbalizes understanding of instructions given with accurate read back/ teach back of dosing, dates on dosing sheet Anti-Coag Initial Assessment Social Hx Patient Tobacco Use Status: Never used Tobacco Alcohol intake frequency: holidays/special occasions only Questionnaires HAS-BLED Does the patient had uncontrolled Hypertension?: No Does the patient have renal disease?: Yes Does the patient have liver disease?: No Does the patient have a history of stroke?: No Has the patient had major bleeding or predisposition to bleeding?: No Does the patient have labile INRs?: No Is the patient over 65 years of age?: Yes Is the patient on medications that gives them a predisposition to bleeding?: Yes Does the patient use alcohol?: Yes HAS-BLED Score: 4 CHADSVASC Age: 75 or over Gender: Male Does the patient have a history of CHF?: No Does the patient have a history of Hypertension?: Yes Does the patient have a history of Stroke/TIA/Thromboembolism?: No Does the patient have a history of Vascular Disease (prior [place], PAD or aortic plaque)?: Yes Does the patient have a history of Diabetes?: Yes CHADS VACS Score: 5 Ibrahima Prediction Score Rsk VTE Active Cancer: No Previous VTE, excluding superficial vein thrombosis: No Reduced mobility: No Already known Thrombophilic Condition: Yes With-in last month Trauma and/or Surgery: No Elderly 70 year or older: Yes Heart and/or Respiratory Failure: No Acute Myocardial infarction and/or Ischemic Stroke: Yes Acute Infection and/or Rheumatologic Disorder: No Obesity (BMI 30 or greater): No Ongoing Hormonal Treatment: No Score: 5 Ibrahima Score less than 4; Low Risk of VTE Ibrahima Score 4 or greater; High Risk of VTE Coding Diagnoses Current use of anticoagulant therapy Z79.01 Assessment & Plan Assessment & Plan (1) Current use of anticoagulant therapy: Code(s): 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
== END 2023-07-15 09:25 | disposition home or self-care (01) ==
LOC: HO.ACS 08:43
PROVIDERS: PCP Internal Medicine; Visit Provider Internal Medicine
DX: Z79.01 Long term (current) use of anticoagulants (principal)

== ENCOUNTER → 2023-07-15 08:43 | Outpatient (BNVA) | payer MEDICARE, SELFPAY | PROVIDERS: PCP Internal Medicine; Visit Provider Internal Medicine | DX: I48.0 Paroxysmal atrial fibrillation (principal); Z79.01 Long term (current) use of anticoagulants; Z51.81 Encounter for therapeutic drug level monitoring | CPT/HCPCS: 85610; 99211 ==

== ENCOUNTER 2023-07-18 08:27 | Outpatient (AMB) | payer MEDICARE, SELFPAY ==
[2023-07-18 08:31] LABS: Prothrombin Time Whole Bld POC 47.2 sec (11.1-13.5); ~PT, ~INR - Anti Coag Clinic 3.9 (0.9-1.1)
--- NOTE | 2023-07-18 08:36 | MHC.OFFVISCO ---
Intake Intake Visit Reasons: Anticoagulation Allergies amoxicillan Adverse Reaction (Mild, Uncoded 07/18/23 08:28) Nausea Medication List - Last Reconciled 07/18/23 by Maria Alejandra Ramirez, RN amlodipine 5 mg PO DAILY blood sugar diagnostic As directed blood-glucose meter As directed dulaglutide (Trulicity) 0.75 mg subcut QWEEK fenofibrate nanocrystallized 48 mg PO DAILY glipizide 10 mg PO BID lancets As directed lisinopril 5 mg PO DAILY lorazepam 1 mg PO BEDTIME metoprolol succinate ER 100 mg PO DAILY simvastatin 20 mg PO DAILY warfarin 2.5 mg See Protocol PO DAILY Nursing Note Amb to [facility] feeling much better, no sinus headache now Medications and supplements reviewed, will complete amoxicillin tomorrow morning No other changes in health, diet, medications, or supplements Denies any unusual signs and symptoms of bruising, bleeding Denies any new Chest pain, SOB, or clotting INR: 3.9 above therapeutic range as somewhat expected Nutritional guidance given: continue with good greeens, sts he has been eating broccoli and asparagus Dose: no warfarin for today then resume usual dosing; 2.5mg x 3 days and 1.25mg x 4 days F/U INR: SatJuly 23 Patient verbalizes understanding of instructions given with accurate read back/ teach back of dosing Anti-Coag Initial Assessment Social Hx Patient Tobacco Use Status: Never used Tobacco Alcohol intake frequency: holidays/special occasions only Coding Level of Care Code Est Patient Level 1 Diagnoses Current use of anticoagulant therapy Z79.01 Time Spent (min) 15 Assessment & Plan Assessment & Plan (1) Current use of anticoagulant therapy: Code(s): Z79.01 - [facility] (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
== END 2023-07-18 08:41 | disposition home or self-care (01) ==
LOC: HO.ACS 08:27
PROVIDERS: PCP Internal Medicine; Visit Provider Internal Medicine
DX: Z79.01 Long term (current) use of anticoagulants (principal)

== ENCOUNTER 2023-07-18 08:27 | Outpatient (REF) | payer MEDICARE, SELFPAY ==
[2023-07-18 09:01] LABS: MANUAL DIFF FLAG NO
[2023-07-18 09:18] LABS: Basophils Absolute Auto 0.1 X10*3/uL (0.0-0.2); Basophils Percent Auto 1.3 % (0-2); Eosinophils Absolute Auto 0.3 X10*3/uL (0.0-0.4); Hematocrit 38.7 % (42.0-52.0); Hemoglobin 12.6 g/dl (14.0-18.0); Imm Gran Abs Auto 0.04 X10*3/uL (0.00-0.03); Imm Gran Pct Auto 0.4 % (0.0-0.4); Lymphocytes Absolute Auto 2.6 X10*3/uL (1.2-4.9); Lymphocytes Percent Auto 29.5 % (20-40); Mean Corpuscular HGB Conc 32.6 g/dl (31.0-36.0); Mean Corpuscular Hemoglobin 28.2 pg (27.0-33.0); Mean Corpuscular Volume 86.6 fL (80.0-98.0); Mean Platelet Volume 8.9 fL (9.4-12.4); Monocytes Absolute Auto 0.9 X10*3/uL (0.1-1.2); Monocytes Percent Auto 10.3 % (2-11); Neutrophils Percent Auto 55.5 % (45-73); Platelet Count 482 X10*3/uL (160-400); Red Blood Count 4.47 X10*6/uL (4.60-5.80); Red Cell Distribution Width 12.7 % (11.0-16.0)
[2023-07-18 09:22] LABS: Estimated Average Glucose 289 mg/dL; Hemoglobin A1c % 11.7 % (<6.0)
[2023-07-18 09:46] LABS: Alanine Aminotransferase 15 U/L (0-40); Albumin Level 3.5 g/dL (3.5-5.0); Alkaline Phosphatase 66 U/L (39-117); Anion Gap 15 (12-20); Aspartate Amino Transferase 23 U/L (5-37); Bilirubin Total 0.4 mg/dL (0.0-1.0); Blood Urea Nitrogen 22 mg/dL (9-16); Calcium 9.1 mg/dL (8.4-10.2); Carbon Dioxide 23 mmol/L (22-29); Chloride 104 mmol/L (96-108); Estimated Glomerular Filt Rate 38; Glucose Random 247 mg/dL (60-115); Potassium 4.9 mmol/L (3.3-5.1); Sodium 137 mmol/L (135-145); Total Protein 7.9 g/dL (6.5-8.0)
[2023-07-18 09:49] LABS: Parathyroid Hormone Intact 176.4 pg/mL (8.7-77.1)
== END 2023-07-18 08:28 | disposition home or self-care (01) ==
LOC: HO.LAB 08:27
PROVIDERS: PCP Internal Medicine; Visit Provider Internal Medicine
DX: E11.22 Type 2 diabetes mellitus with diabetic chronic kidney disease (principal); N18.9 Chronic kidney disease, unspecified
CPT/HCPCS: 36415; 80053; 83036; 83970; 85025; 85610; 99211

== ENCOUNTER 2023-07-24 08:07 | Outpatient (AMB) | payer MEDICARE, SELFPAY ==
[2023-07-24 08:14] LABS: Prothrombin Time Whole Bld POC 32.6 sec (11.1-13.5); ~PT, ~INR - Anti Coag Clinic 2.7 (0.9-1.1)
--- NOTE | 2023-07-24 08:14 | MHC.OFFVISCO ---
Intake Intake Visit Reasons: Anticoagulation Allergies amoxicillan Adverse Reaction (Mild, Uncoded 07/24/23 08:08) Nausea Medication List - Last Reconciled 07/24/23 by Natalia Diehl RN amlodipine 5 mg PO DAILY blood sugar diagnostic As directed blood-glucose meter As directed dulaglutide (Trulicity) 0.75 mg subcut QWEEK fenofibrate nanocrystallized 48 mg PO DAILY glipizide 10 mg PO BID lancets As directed lisinopril 5 mg PO DAILY lorazepam 1 mg PO BEDTIME metoprolol succinate ER 100 mg PO DAILY simvastatin 20 mg PO DAILY warfarin 2.5 mg See Protocol PO DAILY Nursing Note INR: 2.7- in therapeutic range of 2-3 Medications and supplements reviewed- pt completed antibiotics/amox on saturday for sinus infection pt restarted trulicity, no interaction with warfarin per micromedex - it had been unavailable, same dose, he states A1C elev. No changes in health, diet, medications, or supplements, Denies any signs and symptoms of bleeding or bruising or clotting. Bleeding, bruising, clotting discussed Nutritional guidance given Dose: 2.5mg x 3, 1.25mg x 4 F/U INR: 2 weeks Patient verbalizes understanding of instructions given Anti-Coag Initial Assessment Social Hx Patient Tobacco Use Status: Never used Tobacco Alcohol intake frequency: holidays/special occasions only Coding Level of Care Code Est Patient Level 1 Diagnoses Current use of anticoagulant therapy Z79.01 Assessment & Plan Assessment & Plan (1) Current use of anticoagulant therapy: Code(s): Z79.01 - 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
== END 2023-07-24 08:21 | disposition home or self-care (01) ==
LOC: HO.ACS 08:07
PROVIDERS: PCP Internal Medicine; Visit Provider Internal Medicine
DX: Z79.01 Long term (current) use of anticoagulants (principal)

== ENCOUNTER → 2023-07-24 08:07 | Outpatient (BNVA) | payer MEDICARE, SELFPAY | PROVIDERS: PCP Internal Medicine; Visit Provider Internal Medicine | DX: I48.0 Paroxysmal atrial fibrillation (principal); Z79.01 Long term (current) use of anticoagulants; Z51.81 Encounter for therapeutic drug level monitoring | CPT/HCPCS: 85610; 99211 ==

== ENCOUNTER 2023-08-07 08:25 | Outpatient (AMB) | payer MEDICARE, SELFPAY ==
--- NOTE | 2023-08-07 08:30 | MHC.OFFVISCO ---
Intake Intake Visit Reasons: Anticoagulation Allergies No Known Allergies Allergy (Verified 08/07/23 08:26) Medication List - Last Reconciled 08/07/23 by Natalia Diehl RN amlodipine 5 mg PO DAILY blood sugar diagnostic As directed blood-glucose meter As directed dulaglutide (Trulicity) 0.75 mg subcut QWEEK fenofibrate nanocrystallized 48 mg PO DAILY glipizide 10 mg PO BID lancets As directed lisinopril 5 mg PO DAILY lorazepam 1 mg PO BEDTIME metoprolol succinate ER 100 mg PO DAILY simvastatin 20 mg PO DAILY warfarin 2.5 mg See Protocol PO DAILY Nursing Note INR: 2.6- in therapeutic range of 2-3 Medications and supplements reviewed- no changes No changes in health, diet, medications, or supplements, Denies any signs and symptoms of bleeding or bruising or clotting. Bleeding, bruising, clotting discussed Nutritional guidance given Dose: 2.5mg x 3, 1.25mg x 4 F/U INR: pt req 4 weeks Patient verbalizes understanding of instructions given pt recent sinus infection- took amoxicillin without incident/no reactions- finished approx 2 weeks ago. 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
[2023-08-07 08:32] LABS: Prothrombin Time Whole Bld POC 31.8 sec (11.1-13.5); ~PT, ~INR - Anti Coag Clinic 2.6 (0.9-1.1)
== END 2023-08-07 08:36 | disposition home or self-care (01) ==
LOC: HO.ACS 08:25
PROVIDERS: PCP Internal Medicine; Visit Provider Internal Medicine
DX: Z79.01 Long term (current) use of anticoagulants (principal)

== ENCOUNTER → 2023-08-07 08:25 | Outpatient (BNVA) | payer MEDICARE, SELFPAY | PROVIDERS: PCP Internal Medicine; Visit Provider Internal Medicine | DX: I48.0 Paroxysmal atrial fibrillation (principal); Z79.01 Long term (current) use of anticoagulants; Z51.81 Encounter for therapeutic drug level monitoring | CPT/HCPCS: 85610; 99211 ==

== ENCOUNTER 2023-09-04 08:14 | Outpatient (AMB) | payer MEDICARE, SELFPAY ==
[2023-09-04 08:21] LABS: Prothrombin Time Whole Bld POC 45.9 sec (11.1-13.5); ~PT, ~INR - Anti Coag Clinic 3.8 (0.9-1.1)
--- NOTE | 2023-09-04 08:22 | MHC.OFFVISCO ---
Intake Intake Visit Reasons: Anticoagulation Allergies No Known Allergies Allergy (Verified 09/04/23 08:17) Medication List - Last Reconciled 09/04/23 by Natalia Diehl RN amlodipine 5 mg PO DAILY blood sugar diagnostic As directed blood-glucose meter As directed dulaglutide (Trulicity) 0.75 mg subcut QWEEK fenofibrate nanocrystallized 48 mg PO DAILY glipizide 10 mg PO BID lancets As directed lisinopril 5 mg PO DAILY lorazepam 1 mg PO BEDTIME metoprolol succinate ER 100 mg PO DAILY simvastatin 20 mg PO DAILY warfarin 2.5 mg See Protocol PO DAILY Nursing Note INR 3.8- out of therapeutic range of 2-3 Medications and supplements reviewed Patient status: denies increased reds, increased stress, decreased appetite- unsure why inr is elev Medications or supplements: back on trulicity Diet: same Denies any signs and symptoms of bleeding or clotting or unusual bruising Bleeding, bruising, clotting discussed - c.o occ bruising with trauma Nutritional guidance given: eat greens today, no reds for 2 days Dose: hold today then 2.5mg x 3, 1.25mg x 4 F/U INR Date : 2 weeks? Patient verbalizing understanding of instructions given. 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
== END 2023-09-04 08:46 | disposition home or self-care (01) ==
LOC: HO.ACS 08:14
PROVIDERS: PCP Internal Medicine; Visit Provider Internal Medicine
DX: Z79.01 Long term (current) use of anticoagulants (principal)

== ENCOUNTER → 2023-09-04 08:14 | Outpatient (BNVA) | payer MEDICARE, SELFPAY | PROVIDERS: PCP Internal Medicine; Visit Provider Internal Medicine | DX: I48.0 Paroxysmal atrial fibrillation (principal); Z79.01 Long term (current) use of anticoagulants; Z51.81 Encounter for therapeutic drug level monitoring | CPT/HCPCS: 85610; 99211 ==

== ENCOUNTER 2023-09-18 08:16 | Outpatient (AMB) | payer MEDICARE, SELFPAY ==
[2023-09-18 08:23] LABS: Prothrombin Time Whole Bld POC 31.4 sec (11.1-13.5); ~PT, ~INR - Anti Coag Clinic 2.6 (0.9-1.1)
--- NOTE | 2023-09-18 08:29 | MHC.OFFVISCO ---
Intake Intake Visit Reasons: Anticoagulation Allergies No Known Allergies Allergy (Verified 09/18/23 08:18) Medication List - Last Reconciled 09/18/23 by Oneida Milan RN amlodipine 5 mg PO DAILY blood sugar diagnostic As directed blood-glucose meter As directed dulaglutide (Trulicity) 0.75 mg subcut QWEEK fenofibrate nanocrystallized 48 mg PO DAILY glipizide 10 mg PO BID lancets As directed lisinopril 5 mg PO DAILY lorazepam 1 mg PO BEDTIME metoprolol succinate ER 100 mg PO DAILY simvastatin 20 mg PO DAILY warfarin 2.5 mg See Protocol PO DAILY Nursing Note INR: 2.6 in therapeutic range- He was unable to have his trulicity because it was out of stock x 2 months- he was able to resume it 2 weeks ago- he states he resumed it prior to previous visit- [employer] [facility] states it does not interact with warfarin - ? indirect effect with patient, he also states he has been eating more grees Medications and supplements reviewed No changes in health, diet, medications, or supplements, Denies any signs and symptoms of bleeding or bruising or clotting. Bleeding, bruising, clotting discussed Nutritional guidance given - [employer] food list weekly - eat the same amt of greens each week, remember that cooked greens lower your INR more than raw greens Dose: keep same 2.5mg mwf/ 1.25mg x 4 days F/U INR: 3 weeks Patient verbalizes understanding of instructions given Anti-Coag Initial Assessment Social Hx Patient Tobacco Use Status: Never used Tobacco Alcohol intake frequency: holidays/special occasions only Coding Level of Care Code Est Patient Level 1 Diagnoses Current use of anticoagulant therapy Z79.01 Assessment & Plan Assessment & Plan (1) Current use of anticoagulant therapy: Code(s): Z79.01 - [facility] (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
== END 2023-09-18 08:33 | disposition home or self-care (01) ==
LOC: HO.ACS 08:16
PROVIDERS: PCP Internal Medicine; Visit Provider Internal Medicine
DX: Z79.01 Long term (current) use of anticoagulants (principal)

== ENCOUNTER → 2023-09-18 08:16 | Outpatient (BNVA) | payer MEDICARE, SELFPAY | PROVIDERS: PCP Internal Medicine; Visit Provider Internal Medicine | DX: I48.0 Paroxysmal atrial fibrillation (principal); Z51.81 Encounter for therapeutic drug level monitoring; Z79.01 Long term (current) use of anticoagulants | CPT/HCPCS: 85610; 99211 ==

== ENCOUNTER 2023-10-09 08:02 | Outpatient (AMB) | payer MEDICARE, SELFPAY ==
--- NOTE | 2023-10-09 08:11 | MHC.OFFVISCO ---
Intake Intake Visit Reasons: Anticoagulation Allergies No Known Allergies Allergy (Verified 10/09/23 08:06) Medication List - Last Reconciled 10/09/23 by Natalia Diehl RN amlodipine 5 mg PO DAILY blood sugar diagnostic As directed blood-glucose meter As directed dulaglutide (Trulicity) 0.75 mg subcut QWEEK fenofibrate nanocrystallized 48 mg PO DAILY glipizide 10 mg PO BID lancets As directed lisinopril 5 mg PO DAILY lorazepam 1 mg PO BEDTIME metoprolol succinate ER 100 mg PO DAILY simvastatin 20 mg PO DAILY warfarin 2.5 mg See Protocol PO DAILY Nursing Note INR 3.1-? out of therapeutic range of 2-3 Medications and supplements reviewed Patient status: no c.o. Medications or supplements: back on trulicity Diet: same Denies any signs and symptoms of bleeding or clotting or unusual bruising Bleeding, bruising, clotting discussed Nutritional guidance given: eat greens today and tomm Dose: cont reg dosing- 2.5mg x 3, 1.25mg x 4 F/U INR Date : 3 weeks? Patient verbalizing understanding of instructions given. Anti-Coag Initial Assessment Social Hx Patient Tobacco Use Status: Never used Tobacco Alcohol intake frequency: holidays/special occasions only Coding Level of Care Code Est Patient Level 1 Diagnoses Current use of anticoagulant therapy Z79.01 Assessment & Plan Assessment & Plan (1) Current use of anticoagulant therapy: Code(s): Z79.01 - emt intermediate (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
[2023-10-09 08:12] LABS: Prothrombin Time Whole Bld POC 36.6 sec (11.1-13.5); ~PT, ~INR - Anti Coag Clinic 3.1 (0.9-1.1)
== END 2023-10-09 08:18 | disposition home or self-care (01) ==
LOC: HO.ACS 08:02
PROVIDERS: PCP Internal Medicine; Visit Provider Internal Medicine
DX: Z79.01 Long term (current) use of anticoagulants (principal)

== ENCOUNTER → 2023-10-09 08:02 | Outpatient (BNVA) | payer MEDICARE, SELFPAY | PROVIDERS: PCP Internal Medicine; Visit Provider Internal Medicine | DX: I48.0 Paroxysmal atrial fibrillation (principal); Z79.01 Long term (current) use of anticoagulants; Z51.81 Encounter for therapeutic drug level monitoring | CPT/HCPCS: 85610; 99211 ==

== ENCOUNTER 2023-10-23 07:58 | Outpatient (REF) | payer MEDICARE, SELFPAY ==
[2023-10-23 08:12] LABS: MANUAL DIFF FLAG NO
[2023-10-23 08:24] LABS: Basophils Absolute Auto 0.1 X10*3/uL (0.0-0.2); Basophils Percent Auto 0.9 % (0-2); Eosinophils Absolute Auto 0.3 X10*3/uL (0.0-0.4); Eosinophils Percent Auto 3.1 % (0-4); Hematocrit 37.7 % (42.0-52.0); Hemoglobin 12.6 g/dl (14.0-18.0); Imm Gran Abs Auto 0.02 X10*3/uL (0.00-0.03); Imm Gran Pct Auto 0.2 % (0.0-0.4); Lymphocytes Absolute Auto 2.6 X10*3/uL (1.2-4.9); Lymphocytes Percent Auto 29.3 % (20-40); Mean Corpuscular HGB Conc 33.4 g/dl (31.0-36.0); Mean Corpuscular Volume 86.9 fL (80.0-98.0); Mean Platelet Volume 9.1 fL (9.4-12.4); Monocytes Percent Auto 11.3 % (2-11); Neutrophils Percent Auto 55.2 % (45-73); Platelet Count 269 X10*3/uL (160-400); Red Blood Count 4.34 X10*6/uL (4.60-5.80); Red Cell Distribution Width 13.3 % (11.0-16.0)
[2023-10-23 08:27] LABS: Estimated Average Glucose 235 mg/dL; Hemoglobin A1c % 9.8 % (<6.0)
[2023-10-23 08:52] LABS: Parathyroid Hormone Intact 146.5 pg/mL (8.7-77.1)
[2023-10-23 09:05] LABS: Alanine Aminotransferase 15 U/L (0-40); Albumin Level 3.7 g/dL (3.5-5.0); Alkaline Phosphatase 60 U/L (39-117); Anion Gap 12 (12-20); Aspartate Amino Transferase 25 U/L (5-37); Bilirubin Total 0.5 mg/dL (0.0-1.0); Blood Urea Nitrogen 34 mg/dL (9-16); Calcium 9.5 mg/dL (8.4-10.2); Carbon Dioxide 24 mmol/L (22-29); Chloride 107 mmol/L (96-108); Estimated Glomerular Filt Rate 42; Glucose Random 211 mg/dL (60-115); Phosphorus 2.8 mg/dL (2.7-4.5); Potassium 4.2 mmol/L (3.3-5.1); Sodium 139 mmol/L (135-145); Total Protein 7.4 g/dL (6.5-8.0)
[2023-10-23 09:21] LABS: Creatinine Urine 65.23 mg/dL; Microalbum/Creatinine Ratio Ur 378.6 ug/mg cr (<30)
== END 2023-10-23 07:59 | disposition home or self-care (01) ==
LOC: HO.LAB 07:58
PROVIDERS: PCP Internal Medicine; Visit Provider Internal Medicine
DX: Z13.89 Encounter for screening for other disorder (principal)
CPT/HCPCS: 36415; 80053; 82043; 82306; 82570; 83036; 83970; 84100; 85025

== ENCOUNTER 2023-10-30 08:03 | Outpatient (AMB) | payer MEDICARE, SELFPAY ==
[2023-10-30 08:28] LABS: Prothrombin Time Whole Bld POC 31.4 sec (11.1-13.5); ~PT, ~INR - Anti Coag Clinic 2.6 (0.9-1.1)
--- NOTE | 2023-10-30 08:32 | MHC.OFFVISCO ---
Intake Intake Visit Reasons: Anticoagulation Allergies No Known Allergies Allergy (Verified 10/30/23 08:23) Medication List - Last Reconciled 10/30/23 by Kindra Alfaro RN amlodipine 5 mg PO DAILY blood sugar diagnostic As directed blood-glucose meter As directed dulaglutide (Trulicity) 0.75 mg subcut QWEEK fenofibrate nanocrystallized 48 mg PO DAILY glipizide 10 mg PO BID lancets As directed lisinopril 5 mg PO DAILY lorazepam 1 mg PO BEDTIME metoprolol succinate ER 100 mg PO DAILY simvastatin 20 mg PO DAILY warfarin 2.5 mg See Protocol PO DAILY Nursing Note NO CP,SOB,DIET/MED CHANGES,FALLS OR SX OF BLEEDING. CONTINUE PRESENT DOSE AND FOLLOW-UP IN 4 WEEKS. GOOD UNDERSTANDING OF DOSING INSTR. Anti-Coag Initial Assessment Social Hx Patient Tobacco Use Status: Never used Tobacco Alcohol intake frequency: holidays/special occasions only Coding Level of Care Code Est Patient Level 1 Diagnoses Current use of anticoagulant therapy Z79.01 Assessment & Plan Assessment & Plan (1) Current use of anticoagulant therapy: Code(s): Z79.01 - penitentiary (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
== END 2023-10-30 08:37 | disposition home or self-care (01) ==
LOC: HO.ACS 08:03
PROVIDERS: PCP Internal Medicine; Visit Provider Internal Medicine
DX: Z79.01 Long term (current) use of anticoagulants (principal)

== ENCOUNTER → 2023-10-30 08:03 | Outpatient (BNVA) | payer MEDICARE, SELFPAY | PROVIDERS: PCP Internal Medicine; Visit Provider Internal Medicine | DX: I48.0 Paroxysmal atrial fibrillation (principal); Z79.01 Long term (current) use of anticoagulants; Z51.81 Encounter for therapeutic drug level monitoring | CPT/HCPCS: 85610; 99211 ==

== ENCOUNTER 2023-11-27 08:17 | Outpatient (AMB) | payer MEDICARE, SELFPAY ==
[2023-11-27 08:21] LABS: Prothrombin Time Whole Bld POC 23.9 sec (11.1-13.5)
--- NOTE | 2023-11-27 08:24 | MHC.OFFVISCO ---
Intake Intake Visit Reasons: Anticoagulation Allergies No Known Allergies Allergy (Verified 11/27/23 08:17) Medication List - Last Reconciled 11/27/23 by Kindra Alfaro RN amlodipine 5 mg PO DAILY blood sugar diagnostic As directed blood-glucose meter As directed dulaglutide (Trulicity) 0.75 mg subcut QWEEK fenofibrate nanocrystallized 48 mg PO DAILY glipizide 10 mg PO BID lancets As directed lisinopril 5 mg PO DAILY lorazepam 1 mg PO BEDTIME metoprolol succinate ER 100 mg PO DAILY simvastatin 20 mg PO DAILY warfarin 2.5 mg See Protocol PO DAILY Nursing Note NO CP,SOB,DIET/MED CHANGES,FALLS OR SX OF BLEEDING. CONTINUE PRESERNT DOSE AND FOLLOW-UP IN 4 WEEKS.,' GOOD UNDERSTANDING OF DOSING INSTR. Anti-Coag Initial Assessment Social Hx Patient Tobacco Use Status: Never used Tobacco Alcohol intake frequency: holidays/special occasions only Coding Level of Care Code Est Patient Level 1 Diagnoses Current use of anticoagulant therapy Z79.01 Assessment & Plan Assessment & Plan (1) Current use of anticoagulant therapy: Code(s): Z79.01 - group home (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
== END 2023-11-27 08:25 | disposition home or self-care (01) ==
LOC: HO.ACS 08:17
PROVIDERS: PCP Internal Medicine; Visit Provider Internal Medicine
DX: Z79.01 Long term (current) use of anticoagulants (principal)

== ENCOUNTER → 2023-11-27 08:17 | Outpatient (BNVA) | payer MEDICARE, SELFPAY | PROVIDERS: PCP Internal Medicine; Visit Provider Internal Medicine | DX: I48.0 Paroxysmal atrial fibrillation (principal); Z79.01 Long term (current) use of anticoagulants; Z51.81 Encounter for therapeutic drug level monitoring | CPT/HCPCS: 85610; 99211 ==

== ENCOUNTER 2023-12-25 08:18 | Outpatient (AMB) | payer MEDICARE, SELFPAY ==
--- NOTE | 2023-12-25 08:25 | MHC.OFFVISCO ---
Intake Intake Visit Reasons: Anticoagulation Allergies No Known Allergies Allergy (Verified 12/25/23 08:20) Medication List - Last Reconciled 12/25/23 by Natalia Diehl RN amlodipine 5 mg PO DAILY blood sugar diagnostic As directed blood-glucose meter As directed dulaglutide (Trulicity) 0.75 mg subcut QWEEK fenofibrate nanocrystallized 48 mg PO DAILY glipizide 10 mg PO BID lancets As directed lisinopril 5 mg PO DAILY lorazepam 1 mg PO BEDTIME metoprolol succinate ER 100 mg PO DAILY simvastatin 20 mg PO DAILY warfarin 2.5 mg See Protocol PO DAILY Nursing Note INR 1.9-? out of therapeutic range of 2-3 Medications and supplements reviewed Patient status: no c.o, pt states to have dental extraction on 01/31/24 and has been instructed to hold warfarin starting 01/28/24 Medications or supplements: no changes Diet: same Denies any signs and symptoms of bleeding or clotting or unusual bruising Bleeding, bruising, clotting discussed Nutritional guidance given: no greens for 2 days, eat a red today Dose: [] F/U INR Date : ?? Patient verbalizing understanding of instructions given. pcp called and made aware of procedure Anti-Coag Initial Assessment Social Hx Patient Tobacco Use Status: Never used Tobacco Alcohol intake frequency: holidays/special occasions only Coding Level of Care Code Est Patient Level 1 Diagnoses Current use of anticoagulant therapy Z79.01 Assessment & Plan Assessment & Plan (1) Current use of anticoagulant therapy: Code(s): Z79.01 - intermediate (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
[2023-12-25 08:27] LABS: Prothrombin Time Whole Bld POC 22.8 sec (11.1-13.5); ~PT, ~INR - Anti Coag Clinic 1.9 (0.9-1.1)
== END 2023-12-25 08:46 | disposition home or self-care (01) ==
LOC: HO.ACS 08:18
PROVIDERS: PCP Internal Medicine; Visit Provider Internal Medicine
DX: Z79.01 Long term (current) use of anticoagulants (principal)

== ENCOUNTER → 2023-12-25 08:18 | Outpatient (BNVA) | payer MEDICARE, SELFPAY | PROVIDERS: PCP Internal Medicine; Visit Provider Internal Medicine | DX: I48.0 Paroxysmal atrial fibrillation (principal); Z79.01 Long term (current) use of anticoagulants; Z51.81 Encounter for therapeutic drug level monitoring | CPT/HCPCS: 85610; 99211 ==

== ENCOUNTER 2024-01-15 08:24 | Outpatient (AMB) | payer MEDICARE, SELFPAY ==
[2024-01-15 08:30] LABS: Prothrombin Time Whole Bld POC 12.8 sec (11.1-13.5); ~PT, ~INR - Anti Coag Clinic 1.1 (0.9-1.1)
--- NOTE | 2024-01-15 09:54 | MHC.OFFVISCO ---
Intake Intake Visit Reasons: Anticoagulation Allergies No Known Allergies Allergy (Verified 01/15/24 08:25) Medication List - Last Reconciled 01/15/24 by Kindra Alfaro, RN amlodipine 5 mg PO DAILY blood sugar diagnostic As directed blood-glucose meter As directed dulaglutide (Trulicity) 0.75 mg subcut QWEEK fenofibrate nanocrystallized 48 mg PO DAILY glipizide 10 mg PO BID lancets As directed lisinopril 5 mg PO DAILY lorazepam 1 mg PO BEDTIME metoprolol succinate ER 100 mg PO DAILY simvastatin 20 mg PO DAILY warfarin 2.5 mg See Protocol PO DAILY Nursing Note PT.HAS HAD RECENT COVID AND FINISHED COURSE OF PAXLOVID ON01/10. PT.STATES THAT HE ALSO MISSED 2 DOSES OF WARFARIN THIS WEEK. HE REMAINS VERY TIRED BUT OVERALL MUCH BETTER. NO CP,SOB OR SX OF BLEEDING. BOOST WARFARIN TO 5MGM TODAY AND TOMORROW AND WILL RECHECK INR HERE ON 01/16. NO GREENS IN MEANTIME. WILL INCREASE REDS/FRUITS. GOOD UNDERSTANDING OF DOSING INSTR.VERB. BY PT. ([facility])NOTIFIED OF LOW INR AND PLAN OF CARE. 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
== END 2024-01-15 09:58 | disposition home or self-care (01) ==
LOC: HO.ACS 08:24
PROVIDERS: PCP Internal Medicine; Visit Provider Internal Medicine
DX: Z79.01 Long term (current) use of anticoagulants (principal)

== ENCOUNTER → 2024-01-15 08:24 | Outpatient (BNVA) | payer MEDICARE, SELFPAY | PROVIDERS: PCP Internal Medicine; Visit Provider Internal Medicine | DX: I48.0 Paroxysmal atrial fibrillation (principal); Z79.01 Long term (current) use of anticoagulants; Z51.81 Encounter for therapeutic drug level monitoring | CPT/HCPCS: 85610; 99211 ==

== ENCOUNTER 2024-01-17 13:50 | Outpatient (AMB) | payer MEDICARE, SELFPAY ==
[2024-01-17 13:58] LABS: ~PT, ~INR - Anti Coag Clinic 1.3 (0.9-1.1)
--- NOTE | 2024-01-17 14:00 | MHC.OFFVISCO ---
Intake Intake Visit Reasons: Anticoagulation Allergies No Known Allergies Allergy (Verified 01/17/24 13:51) Medication List - Last Reconciled 01/17/24 by Maria Alejandra Gardner RN amlodipine 5 mg PO DAILY blood sugar diagnostic As directed blood-glucose meter As directed dulaglutide (Trulicity) 0.75 mg subcut QWEEK fenofibrate nanocrystallized 48 mg PO DAILY glipizide 10 mg PO BID lancets As directed lisinopril 5 mg PO DAILY lorazepam 1 mg PO BEDTIME metoprolol succinate ER 100 mg PO DAILY simvastatin 20 mg PO DAILY warfarin 2.5 mg See Protocol PO DAILY Nursing Note INR 1.3?out of therapeutic range of 2-3 Medications and supplements reviewed Patient status: Pt is very [place]. when asked how much warfarin he took the past 2 days, he said 1 tablet each day. He was supposed to take 2 tablets for a total of 5mg each day. He is a little overwhelmed by the medications and was not sure what he was supposed to do. Medications or supplements: denies changes Diet: no changes Denies any signs and symptoms of bleeding or clotting or unusual bruising Bleeding, bruising, clotting discussed Nutritional guidance given: increase foods on the list that raises the INR Dose: 5mg today and tomorrow and 2.5mg the 2 days after that then return for testing F/U INR Date : 4 days Patient verbalizing understanding of instructions given. Pt was able to read back the instructions. T/C to Dr Grant's office. Spoke to ruth ann and Critical INR with plan for dosing relayed to her with re-test date of 01/21/24. Also told her of pt's confusion with dose of meds and how the pt himself said it was getting confusing. Question if VNA might be a good idea for this pt. 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
== END 2024-01-17 14:44 | disposition home or self-care (01) ==
LOC: HO.ACS 13:50
PROVIDERS: PCP Internal Medicine; Visit Provider Internal Medicine
DX: Z79.01 Long term (current) use of anticoagulants (principal)

== ENCOUNTER → 2024-01-17 13:50 | Outpatient (BNVA) | payer MEDICARE, SELFPAY | PROVIDERS: PCP Internal Medicine; Visit Provider Internal Medicine | DX: I48.0 Paroxysmal atrial fibrillation (principal); Z79.01 Long term (current) use of anticoagulants; Z51.81 Encounter for therapeutic drug level monitoring | CPT/HCPCS: 85610; 99212 ==

== ENCOUNTER 2024-01-21 10:26 | Outpatient (AMB) | payer MEDICARE, SELFPAY ==
--- NOTE | 2024-01-21 10:37 | MHC.OFFVISCO ---
Intake Intake Visit Reasons: Anticoagulation Allergies No Known Allergies Allergy (Verified 01/21/24 10:32) Medication List - Last Reconciled 01/21/24 by Natalia Diehl, RN amlodipine 5 mg PO DAILY blood sugar diagnostic As directed blood-glucose meter As directed dulaglutide (Trulicity) 0.75 mg subcut QWEEK fenofibrate nanocrystallized 48 mg PO DAILY glipizide 10 mg PO BID lancets As directed lorazepam 1 mg PO BEDTIME metoprolol succinate ER 100 mg PO DAILY simvastatin 20 mg PO DAILY warfarin 2.5 mg See Protocol PO DAILY Nursing Note INR: 2.6- in therapeutic range of 2-3 Medications and supplements reviewed No changes in health, diet, medications, or supplements, Denies any signs and symptoms of bleeding or bruising or clotting. Bleeding, bruising, clotting discussed Nutritional guidance given Dose: cont reg dosing- 2.5mg x 3, 1.25mg x 4 F/U INR: thurs 01/30/24 Patient verbalizes understanding of instructions given pt prev with covid on paxlovid, missed two doses of warfarin- boost doses given now therapeutic pt states having molar extraction on sat01/31/24- he has been instructed to hold warfarin 01/27/24- 01/31/24- pt vague on hold date of warfarin- pt dianne called to verify instructions. she unsure as well- will call pcp office as well to verify t/c placed to pcp to verify warfarin hold instructions. 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
[2024-01-21 10:38] LABS: Prothrombin Time Whole Bld POC 31.7 sec (11.1-13.5); ~PT, ~INR - Anti Coag Clinic 2.6 (0.9-1.1)
== END 2024-01-21 11:01 | disposition home or self-care (01) ==
LOC: HO.ACS 10:26
PROVIDERS: PCP Internal Medicine; Visit Provider Internal Medicine
DX: Z79.01 Long term (current) use of anticoagulants (principal)

== ENCOUNTER → 2024-01-21 10:26 | Outpatient (BNVA) | payer MEDICARE, SELFPAY | PROVIDERS: PCP Internal Medicine; Visit Provider Internal Medicine | DX: I48.0 Paroxysmal atrial fibrillation (principal); Z79.01 Long term (current) use of anticoagulants; Z51.81 Encounter for therapeutic drug level monitoring | CPT/HCPCS: 85610; 99211 ==

== ENCOUNTER 2024-01-30 10:08 | Outpatient (AMB) | payer MEDICARE, SELFPAY ==
--- NOTE | 2024-01-30 10:28 | MHC.OFFVISCO ---
Intake Intake Visit Reasons: Anticoagulation Allergies No Known Allergies Allergy (Verified 01/30/24 10:22) Medication List - Last Reconciled 01/30/24 by Oneida Milan, RN amlodipine 5 mg PO DAILY blood sugar diagnostic As directed blood-glucose meter As directed dulaglutide (Trulicity) 0.75 mg subcut QWEEK dulaglutide (Trulicity) mg subcut fenofibrate nanocrystallized 48 mg PO DAILY glipizide 10 mg PO BID lancets As directed lorazepam 1 mg PO BEDTIME metoprolol succinate ER 100 mg PO DAILY nirmatrelvir-ritonavir 300 mg (150 mg x 2)-100 mg (Paxlovid) 0 ea PO simvastatin 20 mg PO DAILY warfarin 2.5 mg See Protocol PO DAILY Nursing Note INR 1.6 out of therapeutic range Medications and supplements reviewed Patient status: pt s/p covid few weeks ago now needs a molar extracted- warfarin held x 3 days per PCP Medications or supplements: no other changes - may need tylenol post extraction or other pain meds Diet: better post covid - but most likely will change post extraction for a week of soft cool foods Denies any signs and symptoms of bleeding or clotting or unusual bruising Bleeding, bruising, clotting discussed Nutritional guidance given: post extraction - eat only room temp or colder foods and liquids , no hot foods or liquids at least 3 days, no carbonation, Dose: he held warfarin x 3 days to resume 1.25mg saturday if no complications or bleeding then 2.5mg sat sun mon 1.25mg sat sat 2.5mg all other days F/U INR Date: 1 week post extraction If any bleeding call oral surgeon, apply cold wet compress, hold cold salt water in cheek over area - no swishing ?? Patient verbalizing understanding of instructions given. results faxed to oral surgeon Anti-Coag Initial Assessment Social Hx Patient Tobacco Use Status: Never used Tobacco Alcohol intake frequency: holidays/special occasions only Coding Level of Care Code Est Patient Level 1 Diagnoses Current use of anticoagulant therapy Z79.01 Assessment & Plan Assessment & Plan (1) Current use of anticoagulant therapy: Code(s): Z79.01 - [facility] (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
[2024-01-30 10:29] LABS: Prothrombin Time Whole Bld POC 19.1 sec (11.1-13.5); ~PT, ~INR - Anti Coag Clinic 1.6 (0.9-1.1)
== END 2024-01-30 11:48 | disposition home or self-care (01) ==
LOC: HO.ACS 10:08
PROVIDERS: PCP Internal Medicine; Visit Provider Internal Medicine
DX: Z79.01 Long term (current) use of anticoagulants (principal)

== ENCOUNTER → 2024-01-30 10:08 | Outpatient (BNVA) | payer MEDICARE, SELFPAY | PROVIDERS: PCP Internal Medicine; Visit Provider Internal Medicine | DX: I48.0 Paroxysmal atrial fibrillation (principal); Z79.01 Long term (current) use of anticoagulants; Z51.81 Encounter for therapeutic drug level monitoring | CPT/HCPCS: 85610; 99211 ==

== ENCOUNTER 2024-02-06 08:19 | Outpatient (AMB) | payer MEDICARE, SELFPAY ==
--- NOTE | 2024-02-06 08:31 | MHC.OFFVISCO ---
Intake Intake Visit Reasons: Anticoagulation Allergies No Known Allergies Allergy (Verified 02/06/24 08:25) Medication List - Last Reconciled 02/06/24 by Kindra Alfaro RN amlodipine 5 mg PO DAILY blood sugar diagnostic As directed blood-glucose meter As directed dulaglutide (Trulicity) mg subcut fenofibrate nanocrystallized 48 mg PO DAILY glipizide 10 mg PO BID lancets As directed lorazepam 1 mg PO BEDTIME metoprolol succinate ER 100 mg PO DAILY simvastatin 20 mg PO DAILY warfarin 2.5 mg See Protocol PO DAILY Nursing Note PT.HAS HAD NO BLEEDING OR OTHER CONCERNS SINCE EXTRACTION 1 WEEK AGO. NO CP,SOB OR MED CHANGES. RESUME PREVIOUS WARFARIN DOSING AND FOLLOW-UP IN 2 WEEKS. GOOD UNDERSTANDING OF DOSING INSTR. 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
[2024-02-06 08:39] LABS: Prothrombin Time Whole Bld POC 29.8 sec (11.1-13.5); ~PT, ~INR - Anti Coag Clinic 2.5 (0.9-1.1)
== END 2024-02-06 08:48 | disposition home or self-care (01) ==
LOC: HO.ACS 08:19
PROVIDERS: PCP Internal Medicine; Visit Provider Internal Medicine
DX: Z79.01 Long term (current) use of anticoagulants (principal)

== ENCOUNTER 2024-02-06 08:47 | Outpatient (REF) | payer MEDICARE, SELFPAY ==
[2024-02-06 10:13] LABS: Estimated Average Glucose 151 mg/dL; Hemoglobin A1c % 6.9 % (<6.0)
[2024-02-06 10:20] LABS: Alanine Aminotransferase 14 U/L (0-40); Albumin Level 3.8 g/dL (3.5-5.0); Alkaline Phosphatase 67 U/L (39-117); Anion Gap 11 (12-20); Aspartate Amino Transferase 22 U/L (5-37); Bilirubin Total 0.4 mg/dL (0.0-1.0); Blood Urea Nitrogen 32 mg/dL (9-16); Calcium 9.2 mg/dL (8.4-10.2); Carbon Dioxide 26 mmol/L (22-29); Chloride 111 mmol/L (96-108); Cholesterol 107 mg/dL (<200); Estimated Glomerular Filt Rate 43; Glucose Random 157 mg/dL (60-115); HDL Cholesterol 28 mg/dL (>40); LDL Cholesterol Calculated 55 mg/dL (<100); Potassium 5.1 mmol/L (3.3-5.1); Sodium 143 mmol/L (135-145); Total Protein 7.6 g/dL (6.5-8.0); Triglycerides 124 mg/dL (<150)
== END 2024-02-06 08:48 | disposition home or self-care (01) ==
LOC: HO.LAB 08:47
PROVIDERS: Internal Medicine Cardiovascular Disease; PCP Internal Medicine; Visit Provider Internal Medicine Gastroenterology
DX: I25.10 Atherosclerotic heart disease of native coronary artery without angina pectoris (principal); I10 Essential (primary) hypertension; I25.5 Ischemic cardiomyopathy; I48.0 Paroxysmal atrial fibrillation; E78.2 Mixed hyperlipidemia; Z13.1 Encounter for screening for diabetes mellitus; Z79.01 Long term (current) use of anticoagulants
CPT/HCPCS: 36415; 80053; 80061; 83036; 85610; 99211

== ENCOUNTER 2024-02-20 08:32 | Outpatient (AMB) | payer MEDICARE, SELFPAY ==
--- NOTE | 2024-02-20 08:53 | MHC.OFFVISCO ---
Intake Intake Visit Reasons: Anticoagulation Allergies No Known Allergies Allergy (Verified 02/20/24 08:43) Medication List - Last Reconciled 02/20/24 by Maria Alejandra Gardner RN amlodipine 5 mg PO DAILY blood sugar diagnostic As directed blood-glucose meter As directed dulaglutide (Trulicity) mg subcut fenofibrate nanocrystallized 48 mg PO DAILY glipizide 10 mg PO BID lancets As directed lorazepam 1 mg PO BEDTIME metoprolol succinate ER 100 mg PO DAILY simvastatin 20 mg PO DAILY warfarin 2.5 mg See Protocol PO DAILY Nursing Note INR: 2.6 in therapeutic range of 2-3 Medications and supplements reviewed No changes in health, diet, medications, or supplements, Denies any signs and symptoms of bleeding or bruising or clotting. Bleeding, bruising, clotting discussed Nutritional guidance given to continue to balance foods that raise the INR with foods that lower the INR Dose: 1.25mg X 4 days and 2.5mg X 3 days F/U INR: 3 weeks Patient verbalizes understanding of instructions given Anti-Coag Initial Assessment Social Hx Patient Tobacco Use Status: Never used Tobacco Alcohol intake frequency: holidays/special occasions only Coding Level of Care Code Est Patient Level 1 Diagnoses Current use of anticoagulant therapy Z79.01 Results AMB INR Fingerstick AMB INR Fingerstick 2.6 Last Edit by Maria Alejandra Gardner RN on 02/20/24 08:50 interface delay Assessment & Plan Assessment & Plan (1) Current use of anticoagulant therapy: Code(s): Z79.01 - senior care (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
[2024-02-20 08:56] LABS: Prothrombin Time Whole Bld POC 31.2 sec (11.1-13.5); ~PT, ~INR - Anti Coag Clinic 2.6 (0.9-1.1)
== END 2024-02-20 08:56 | disposition home or self-care (01) ==
LOC: HO.ACS 08:32
PROVIDERS: PCP Internal Medicine; Visit Provider Internal Medicine
DX: Z79.01 Long term (current) use of anticoagulants (principal)

== ENCOUNTER → 2024-02-20 08:32 | Outpatient (BNVA) | payer MEDICARE, SELFPAY | PROVIDERS: PCP Internal Medicine; Visit Provider Internal Medicine | DX: I48.0 Paroxysmal atrial fibrillation (principal); Z79.01 Long term (current) use of anticoagulants; Z51.81 Encounter for therapeutic drug level monitoring | CPT/HCPCS: 85610; 99211 ==

== ENCOUNTER 2024-03-12 08:09 | Outpatient (AMB) | payer MEDICARE, SELFPAY ==
[2024-03-12 08:26] LABS: Prothrombin Time Whole Bld POC 27.6 sec (11.1-13.5); ~PT, ~INR - Anti Coag Clinic 2.3 (0.9-1.1)
--- NOTE | 2024-03-12 08:30 | MHC.OFFVISCO ---
Intake Intake Visit Reasons: Anticoagulation Allergies No Known Allergies Allergy (Verified 03/12/24 08:21) Medication List - Last Reconciled 03/12/24 by Kindra Alfaro RN amlodipine 5 mg PO DAILY blood sugar diagnostic As directed blood-glucose meter As directed dulaglutide (Trulicity) mg subcut fenofibrate nanocrystallized 48 mg PO DAILY glipizide 10 mg PO BID lancets As directed lorazepam 1 mg PO BEDTIME metoprolol succinate ER 100 mg PO DAILY simvastatin 20 mg PO DAILY warfarin 2.5 mg See Protocol PO DAILY Nursing Note NO CP,SOB,DIET/MED CHANGES,FALLS OR SX OF BLEEDING. CONTINUE PRESENT DOSE AND FOLLOW-UP IN 4 WEEKS. GOOD UNDERSTANDING OF DOSING INSTR. 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
== END 2024-03-12 08:32 | disposition home or self-care (01) ==
LOC: HO.ACS 08:09
PROVIDERS: PCP Internal Medicine; Visit Provider Internal Medicine
DX: Z79.01 Long term (current) use of anticoagulants (principal)

== ENCOUNTER → 2024-03-12 08:09 | Outpatient (BNVA) | payer MEDICARE, SELFPAY | PROVIDERS: PCP Internal Medicine; Visit Provider Internal Medicine | DX: I48.0 Paroxysmal atrial fibrillation (principal); Z79.01 Long term (current) use of anticoagulants; Z51.81 Encounter for therapeutic drug level monitoring | CPT/HCPCS: 85610; 99211 ==

== ENCOUNTER 2024-04-09 08:16 | Outpatient (AMB) | payer MEDICARE, SELFPAY ==
--- NOTE | 2024-04-09 08:19 | MHC.OFFVISCO ---
Intake Intake Visit Reasons: Anticoagulation Allergies No Known Allergies Allergy (Verified 04/09/24 08:18) Medication List - Last Reconciled 04/09/24 by Oneida Milan, RN amlodipine 5 mg PO DAILY blood sugar diagnostic As directed blood-glucose meter As directed dulaglutide (Trulicity) mg subcut fenofibrate nanocrystallized 48 mg PO DAILY glipizide 10 mg PO BID lancets As directed lorazepam 1 mg PO BEDTIME metoprolol succinate ER 100 mg PO DAILY simvastatin 20 mg PO DAILY warfarin 2.5 mg See Protocol PO DAILY Nursing Note Pt fell 2 1/2 weeks ago at home tripped over rug scrapped arms pretty badly Virginiakaylynkassandra parnell PA treated him at home, no head injury He has large scabs that are healing and bruised ribs are much better - states he feels much better, took tylenol for a few days. INR: 1.4 out of therapeutic range- missed a few doses due to bleeding Medications and supplements reviewed No changes in health, diet, medications, or supplements, Denies any signs and symptoms of bleeding or bruising or clotting. Bleeding, bruising, clotting discussed - he is aware he is at risk for clotting with low INR - will seek medical attention for any s/sx of clotting or stroke Nutritional guidance given - avoid greens x 2 days- eat orange or reds today, food list given with review Dose: increase week by 3.75mg dose 2.5mg today and 5 mg tomorrow then resume usual dose 2.5mg x 3 days/ 1.25mg x 4 days F/U INR: next week 04/14/24 Patient verbalizes understanding of instructions given call carlos be made to PCP when office open. 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
[2024-04-09 08:25] LABS: Prothrombin Time Whole Bld POC 16.9 sec (11.1-13.5); ~PT, ~INR - Anti Coag Clinic 1.4 (0.9-1.1)
== END 2024-04-09 08:37 | disposition home or self-care (01) ==
LOC: HO.ACS 08:16
PROVIDERS: PCP Internal Medicine; Visit Provider Internal Medicine
DX: Z79.01 Long term (current) use of anticoagulants (principal)

== ENCOUNTER → 2024-04-09 08:16 | Outpatient (BNVA) | payer MEDICARE, SELFPAY | PROVIDERS: PCP Internal Medicine; Visit Provider Internal Medicine | DX: I48.0 Paroxysmal atrial fibrillation (principal); Z79.01 Long term (current) use of anticoagulants; Z51.81 Encounter for therapeutic drug level monitoring | CPT/HCPCS: 85610; 99211 ==

== ENCOUNTER 2024-04-14 08:19 | Outpatient (AMB) | payer MEDICARE, SELFPAY ==
--- NOTE | 2024-04-14 08:33 | MHC.OFFVISCO ---
Intake Intake Visit Reasons: Anticoagulation Allergies No Known Allergies Allergy (Verified 04/09/24 08:18) Nursing Note INR 3.8 out of therapeutic range Medications and supplements reviewed Patient status: MAY HAVE OVER COMPENSATED WITH DIET, HEALING SCABS ON ARMS FROM FALL FEW WEEKS BACK Medications or supplements: NO CHAGNES Diet: GOOD Denies any signs and symptoms of bleeding or clotting or unusual bruising Bleeding, bruising, clotting discussed Nutritional guidance given: REVIEW FOOD LIST OVER THE HOLIDAYS AND RESUME USUAL WEEKLY GREEN Dose: HOLD 1.25MG TODAY THEN RESUME USUAL DOSE 2.5MG MWF/ 12.5MG X 4 DAYS F/U INR Date : 2 WEEKS?? Patient verbalizing understanding of instructions given. Anti-Coag Initial Assessment Social Hx Patient Tobacco Use Status: Never used Tobacco Alcohol intake frequency: holidays/special occasions only Questionnaires HAS-BLED Does the patient had uncontrolled Hypertension?: No Does the patient have renal disease?: Yes Does the patient have liver disease?: No Does the patient have a history of stroke?: No Has the patient had major bleeding or predisposition to bleeding?: No Does the patient have labile INRs?: No Is the patient over 65 years of age?: Yes Is the patient on medications that gives them a predisposition to bleeding?: Yes Does the patient use alcohol?: No HAS-BLED Score: 3 CHADSVASC Age: 75 or over Gender: Male Does the patient have a history of CHF?: No Does the patient have a history of Hypertension?: Yes Does the patient have a history of Stroke/TIA/Thromboembolism?: Yes (DC 1996) Does the patient have a history of Vascular Disease (prior DC, PAD or aortic plaque)?: Yes Does the patient have a history of Diabetes?: Yes CHADS VACS Score: 7 Ibrahima Prediction Score Rsk VTE Active Cancer: No Previous VTE, excluding superficial vein thrombosis: No Reduced mobility: No Already known Thrombophilic Condition: No With-in last month Trauma and/or Surgery: No Elderly 70 year or older: Yes Heart and/or Respiratory Failure: No Acute Myocardial infarction and/or Ischemic Stroke: Yes Acute Infection and/or Rheumatologic Disorder: No Obesity (BMI 30 or greater): No Ongoing Hormonal Treatment: No Score: 2 Ibrahima Score less than 4; Low Risk of VTE Ibrahima Score 4 or greater; High Risk of VTE Coding Level of Care Code Est Patient Level 1 Diagnoses Current use of anticoagulant therapy Z79.01 Results AMB INR Fingerstick AMB INR Fingerstick 3.8 Last Edit by Oneida Milan RN on 04/14/24 08:27 MANUAL ENTRY - NO INTERFACING Assessment & Plan Assessment & Plan (1) Current use of anticoagulant therapy: 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
[2024-04-14 09:27] LABS: Prothrombin Time Whole Bld POC 45.2 sec (11.1-13.5); ~PT, ~INR - Anti Coag Clinic 3.8 (0.9-1.1)
== END 2024-04-14 08:39 | disposition home or self-care (01) ==
LOC: HO.ACS 08:19
PROVIDERS: PCP Internal Medicine; Visit Provider Internal Medicine
DX: Z79.01 Long term (current) use of anticoagulants (principal)

== ENCOUNTER → 2024-04-14 08:19 | Outpatient (BNVA) | payer MEDICARE, SELFPAY | PROVIDERS: PCP Internal Medicine; Visit Provider Internal Medicine | DX: I48.0 Paroxysmal atrial fibrillation (principal); Z79.01 Long term (current) use of anticoagulants; Z51.81 Encounter for therapeutic drug level monitoring | CPT/HCPCS: 85610; 99211 ==

== ENCOUNTER 2024-04-28 07:53 | Outpatient (AMB) | payer MEDICARE, SELFPAY ==
[2024-04-28 08:10] LABS: Prothrombin Time Whole Bld POC 25.7 sec (11.1-13.5); ~PT, ~INR - Anti Coag Clinic 2.1 (0.9-1.1)
--- NOTE | 2024-04-28 08:14 | MHC.OFFVISCO ---
Intake Intake Visit Reasons: Anticoagulation Allergies No Known Allergies Allergy (Verified 04/28/24 08:04) Medication List - Last Reconciled 04/28/24 by Maria Alejandra Ramirez, RN amlodipine 5 mg PO DAILY blood sugar diagnostic As directed blood-glucose meter As directed dulaglutide (Trulicity) mg subcut fenofibrate nanocrystallized 48 mg PO DAILY glipizide 10 mg PO BID lancets As directed lorazepam 1 mg PO BEDTIME metoprolol succinate ER 100 mg PO DAILY simvastatin 20 mg PO DAILY warfarin 2.5 mg See Protocol PO DAILY Nursing Note Amb to ACS feeling well Medications and supplements reviewed No changes in health, diet, medications, or supplements, Denies any unusual signs and symptoms of bleeding, bruising, or clotting. Bleeding, bruising, clotting discussed INR: 2.1 low in therapeutic range Dose: continue usual dosing 2.5mg x 3 days and 1.25mg x 4 days Nutritional guidance given balance greens and reds in diet, be consistent F/U INR: 2 weeks Patient verbalizes understanding of instructions given Anti-Coag Initial Assessment Social Hx Patient Tobacco Use Status: Never used Tobacco Alcohol intake frequency: holidays/special occasions only Coding Level of Care Code Est Patient Level 1 Diagnoses Current use of anticoagulant therapy Z79.01 Time Spent (min) 15 Assessment & Plan Assessment & Plan (1) Current use of anticoagulant therapy: 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
== END 2024-04-28 08:31 | disposition home or self-care (01) ==
LOC: HO.ACS 07:53
PROVIDERS: PCP Internal Medicine; Visit Provider Internal Medicine
DX: Z79.01 Long term (current) use of anticoagulants (principal)

== ENCOUNTER → 2024-04-28 07:53 | Outpatient (BNVA) | payer MEDICARE, SELFPAY | PROVIDERS: PCP Internal Medicine; Visit Provider Internal Medicine | DX: I48.0 Paroxysmal atrial fibrillation (principal); Z79.01 Long term (current) use of anticoagulants; Z51.81 Encounter for therapeutic drug level monitoring | CPT/HCPCS: 85610; 99211 ==

== ENCOUNTER 2024-05-06 07:49 | Outpatient (REF) | payer MEDICARE, SELFPAY ==
[2024-05-06 08:02] LABS: MANUAL DIFF FLAG NO
[2024-05-06 08:28] LABS: Basophils Absolute Auto 0.1 X10*3/uL (0.0-0.2); Basophils Percent Auto 0.8 % (0-2); Eosinophils Absolute Auto 0.4 X10*3/uL (0.0-0.4); Eosinophils Percent Auto 4.6 % (0-4); Hematocrit 38.1 % (42.0-52.0); Hemoglobin 12.5 g/dl (14.0-18.0); Imm Gran Abs Auto 0.01 X10*3/uL (0.00-0.03); Imm Gran Pct Auto 0.1 % (0.0-0.4); Lymphocytes Percent Auto 33.8 % (20-40); Mean Corpuscular HGB Conc 32.8 g/dl (31.0-36.0); Mean Corpuscular Hemoglobin 28.9 pg (27.0-33.0); Mean Platelet Volume 9.3 fL (9.4-12.4); Monocytes Percent Auto 10.8 % (2-11); Neutrophils Absolute Auto 4.5 x10*3/uL (2.0-8.3); Neutrophils Percent Auto 49.9 % (45-73); Platelet Count 275 X10*3/uL (160-400); Red Blood Count 4.33 X10*6/uL (4.60-5.80); Red Cell Distribution Width 13.6 % (11.0-16.0)
[2024-05-06 08:36] LABS: Estimated Average Glucose 157 mg/dL; Hemoglobin A1C 172.5572 umol/L; Hemoglobin A1c % 7.1 % (<6.0); Total Hemoglobin (HGBA1C) 3219.5174 umol/L
[2024-05-06 08:45] LABS: Alanine Aminotransferase 20 U/L (0-40); Albumin Level 3.7 g/dL (3.5-5.0); Alkaline Phosphatase 77 U/L (39-117); Anion Gap 10 (12-20); Aspartate Amino Transferase 32 U/L (5-37); Bilirubin Total 0.3 mg/dL (0.0-1.0); Blood Urea Nitrogen 30 mg/dL (9-16); Calcium 8.5 mg/dL (8.4-10.2); Carbon Dioxide 25 mmol/L (22-29); Chloride 113 mmol/L (96-108); Cholesterol 135 mg/dL (<200); Estimated Glomerular Filt Rate 42; Glucose Random 158 mg/dL (60-115); HDL Cholesterol 28 mg/dL (>40); LDL Cholesterol Calculated 66 mg/dL (<100); Sodium 143 mmol/L (135-145); Total Protein 7.4 g/dL (6.5-8.0); Triglycerides 209 mg/dL (<150)
[2024-05-06 09:01] LABS: Vitamin D 25-OH Total 33.9 ng/mL (>30)
[2024-05-06 09:21] LABS: Creatinine Urine 59.81 mg/dL; Microalbum/Creatinine Ratio Ur 548.4 ug/mg cr (<30)
== END 2024-05-06 07:50 | disposition home or self-care (01) ==
LOC: HO.LAB 07:49
PROVIDERS: PCP Internal Medicine; Visit Provider Internal Medicine
DX: I10 Essential (primary) hypertension (principal); E11.9 Type 2 diabetes mellitus without complications; E55.9 Vitamin D deficiency, unspecified
CPT/HCPCS: 36415; 80053; 80061; 82043; 82306; 82570; 83036; 85025

== ENCOUNTER 2024-05-12 08:06 | Outpatient (AMB) | payer MEDICARE, SELFPAY ==
[2024-05-12 08:13] LABS: Prothrombin Time Whole Bld POC 34.7 sec (11.1-13.5); ~PT, ~INR - Anti Coag Clinic 2.9 (0.9-1.1)
--- NOTE | 2024-05-12 08:16 | MHC.OFFVISCO ---
Intake Intake Visit Reasons: Anticoagulation Allergies No Known Allergies Allergy (Verified 05/12/24 08:07) Medication List - Last Reconciled 05/12/24 by Oneida Milan RN amlodipine 5 mg PO DAILY blood sugar diagnostic As directed blood-glucose meter As directed dulaglutide (Trulicity) mg subcut fenofibrate nanocrystallized 48 mg PO DAILY glipizide 10 mg PO BID lancets As directed lorazepam 1 mg PO BEDTIME metoprolol succinate ER 100 mg PO DAILY simvastatin 20 mg PO DAILY warfarin 2.5 mg See Protocol PO DAILY Nursing Note INR: 2.9 in therapeutic range- DOING WELL Medications and supplements reviewed No changes in health, diet, medications, or supplements, Denies any signs and symptoms of bleeding or bruising or clotting. Bleeding, bruising, clotting discussed Nutritional guidance given Dose:2.5MG MWF/ 1.25MG X 4 DAYS F/U INR: 3 WEEKS Patient verbalizes understanding of instructions given Anti-Coag Initial Assessment Social Hx Patient Tobacco Use Status: Never used Tobacco Alcohol intake frequency: holidays/special occasions only Coding Level of Care Code Est Patient Level 1 Diagnoses Current use of anticoagulant therapy Z79.01 Results AMB INR Fingerstick AMB INR Fingerstick 2.9 Last Edit by Oneida Milan RN on 05/12/24 08:15 MANUAL ENTRY Assessment & Plan Assessment & Plan (1) Current use of anticoagulant therapy: 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
== END 2024-05-12 08:18 | disposition home or self-care (01) ==
LOC: HO.ACS 08:06
PROVIDERS: PCP Internal Medicine; Visit Provider Internal Medicine
DX: Z79.01 Long term (current) use of anticoagulants (principal)

== ENCOUNTER → 2024-05-12 08:06 | Outpatient (BNVA) | payer MEDICARE, SELFPAY | PROVIDERS: PCP Internal Medicine; Visit Provider Internal Medicine | DX: I48.0 Paroxysmal atrial fibrillation (principal); Z79.01 Long term (current) use of anticoagulants; Z51.81 Encounter for therapeutic drug level monitoring | CPT/HCPCS: 85610; 99211 ==

== ENCOUNTER 2024-05-17 10:29 | Emergency (ER) | payer MEDICARE, SELFPAY ==
--- NOTE | ~2024-05-17 | CT_ITS ---
CLINICAL HISTORY: fall, upper back pain CT thoracic spine without contrast Comparison: Concurrent cervical spine CT. Chest x-ray 04/05/2016 Findings: Generalized osteopenia. Anterolateral bridging osteophytes throughout the thoracic spine with ossification of the anterior longitudinal ligament compatible with diffuse idiopathic skeletal hyperostosis, and resulting in rigid spine. A nondisplaced subtle distraction fracture is seen involving the inferior endplate of T7, and extending obliquely through the intervertebral disc space into the superior aspect of T8 greater to the left. Given rigid spine this is considered potentially unstable fracture. No apparent fracture of the posterior elements. No loss of vertebral body height. C6 fracture partially imaged. Mild scalloping superior endplate C7 without discrete fracture line. Normal vertebral body height remaining levels. Respiratory motion limiting detail. Atelectatic lower lung changes. 3 mm right upper lobe nodule on image [address] follow-up in 12 months per Fleischner society guidelines. Streak artifact from left subclavian ICD. Mild cardiomegaly. No pleural or pericardial effusion. No acute process evident upper abdomen. Impression: Acute distraction type fracture T7-8 as detailed above. No apparent paraspinal or epidural hematoma. Rigid spine from pronounced diffuse idiopathic skeletal hyperostosis changes. C6 fracture as noted. Mild age indeterminate scalloping superior endplate C7. This document has been electronically signed by: Omari Bro MD on 05/17/2024 12:53:20
--- NOTE | ~2024-05-17 | CT_ITS ---
CLINICAL HISTORY: fall, +head strike CT cervical spine without IV contrast. Comparison: None Findings: Mild superior endplate compression fracture. Subtle fracture line is suggested best seen in the coronal plane supporting acute fracture. No retropulsion. No precervical soft tissue edema. Slight scalloping superior endplate C7 without appreciable fracture line. Favor chronic change. Normal vertebral body height remaining levels. Mild generalized degenerative disc changes. Disc protrusions with [id number]-[id number] spinal stenosis at C3-4, and C4-5. Spinal stenosis greater to the right at C5-6. No significant mass effect on the thecal sac at the C6-7 or C7-T1 levels. Small protrusion without significant mass effect C2-3. No acute abnormality in the included skull base structures, paracervical soft tissues or apical lungs. Impression: Mild superior endplate C6 compression fracture concerning for acute fracture as discussed. No retropulsion or mass effect on the thecal sac. Additional degenerative changes as noted. This document has been electronically signed by: Omari Bro MD on 05/17/2024 12:41:02
--- NOTE | ~2024-05-17 | CT_ITS ---
CLINICAL HISTORY: fall, + head strike CT head without contrast. Comparison: None Findings: No acute intracranial hemorrhage, edema, mass effect, extra-axial collection or acute appearing alteration in the rose-white matter interface. Generalized involutional changes. No disproportionate ventriculomegaly/hydrocephalus. Mild chronic small vessel ischemic changes. Posterior fossa structures intact. Left posterior parietal scalp swelling. No skull fracture. Opacified left frontal and anterior ethmoid air cells suggesting mucocele. Remaining included paranasal sinuses and mastoids clear. Bilateral cataract surgery and staphylomas. Otherwise globes and orbits intact. IMPRESSION: No acute intracranial process. This document has been electronically signed by: Omari Bro MD on 05/17/2024 12:58:13
[2024-05-17 10:33] VITALS: BP 144/67; PULSE 73; RESP 16; TEMP 36.8; O2SAT 96; BMI 23.2
--- NOTE | 2024-05-17 11:21 | PC.NURSE ---
Pt reports he slipped and fell on black ice yesterday afternoon, fell backwards and hit head/upper back. Denies LOC. Is on blood thinners. Was able to get himself up. Presenting today due to pain in upper back, shoulders and head. Alert and oriented, breathing even and unlabored, skin warm and dry. No obvious bruising or swelling noted
--- NOTE | 2024-05-17 11:26 | ECG_ITS ---
Test Reason : FALL Blood Pressure : / mmHG Vent. Rate : 076 BPM Atrial Rate : 076 BPM P-R Int : 176 ms QRS Dur : 148 ms QT Int : 426 ms P-R-T Axes : -07 -33 001 degrees QTc Int : 479 ms Normal sinus rhythm Left axis deviation Right bundle branch block Possible Lateral infarct , age undetermined Inferior infarct (cited on or before 05-APR-2016) Abnormal ECG When compared with ECG of 05-APR-2016 10:42, Premature ventricular complexes are no longer Present Borderline criteria for Lateral infarct are now Present Referred By: Stephanie Ball Electronically Signed By:NICOLE MCDONALD MD
[2024-05-17 11:50] LABS: MANUAL DIFF FLAG NO
[2024-05-17 11:53] LABS: Basophils Absolute Auto 0.1 X10*3/uL (0.0-0.2); Basophils Percent Auto 0.4 % (0-2); Eosinophils Percent Auto 0.3 % (0-4); Hematocrit 39.3 % (42.0-52.0); Hemoglobin 13.3 g/dl (14.0-18.0); Imm Gran Abs Auto 0.05 X10*3/uL (0.00-0.03); Imm Gran Pct Auto 0.4 % (0.0-0.4); Lymphocytes Absolute Auto 1.7 X10*3/uL (1.2-4.9); Lymphocytes Percent Auto 12.9 % (20-40); Mean Corpuscular HGB Conc 33.8 g/dl (31.0-36.0); Mean Corpuscular Volume 85.6 fL (80.0-98.0); Mean Platelet Volume 9.1 fL (9.4-12.4); Monocytes Absolute Auto 1.3 X10*3/uL (0.1-1.2); Monocytes Percent Auto 9.9 % (2-11); Neutrophils Percent Auto 76.1 % (45-73); Platelet Count 256 X10*3/uL (160-400); Red Blood Count 4.59 X10*6/uL (4.60-5.80); Red Cell Distribution Width 13.3 % (11.0-16.0); White Blood Count 13.1 X10*3/uL (4.8-10.8)
[2024-05-17 12:07] LABS: INTERNATIONAL NORM RATIO 2.5 (0.9-1.1); Prothrombin Time 28.9 SEC (10.9-12.4)
[2024-05-17 12:11] LABS: Alanine Aminotransferase 18 U/L (0-40); Albumin Level 3.8 g/dL (3.5-5.0); Alkaline Phosphatase 77 U/L (39-117); Anion Gap 13 (12-20); Aspartate Amino Transferase 34 U/L (5-37); Bilirubin Direct 0.3 mg/dL (0.0-0.5); Bilirubin Total 0.8 mg/dL (0.0-1.0); Blood Urea Nitrogen 29 mg/dL (9-16); Calcium 9.5 mg/dL (8.4-10.2); Carbon Dioxide 23 mmol/L (22-29); Chloride 110 mmol/L (96-108); Creatinine Clr Calc Pharmacy 30.4; Estimated Glomerular Filt Rate 42; Glucose Random 175 mg/dL (60-115); Magnesium 2.2 mg/dL (1.6-2.6); Potassium 4.7 mmol/L (3.3-5.1); Sodium 141 mmol/L (135-145); Total Protein 7.6 g/dL (6.5-8.0)
[2024-05-17 12:18] LABS: Troponin-I High Sensitivity 4.3 ng/L (<3.5-35.0)
--- NOTE | 2024-05-17 12:43 | ED_ITS ---
HPI - Fall General Chief Complaint: Fall Stated Complaint: Fall back pain Time Seen by Provider: 05/17/24 11:09 Source: patient and RN notes reviewed Mode of arrival: ambulatory Limitations: no limitations History of Present Illness ED Provider: Stephanie Ball PA-C HPI Narrative: This is a 88-year-old male, with a history of ischemic cardiomyopathy, hyperparathyroidism, NV, atrial fibrillation on Coumadin, hypertension, who presents to the emergency department with concerns for neck pain and upper back pain status post mechanical fall which occurred yesterday. Patient reports that while he was outside, he accidentally slipped and fell on ice and landed onto his back. He denies loss of consciousness. He was able to get himself off the ground several minutes later. This fall was unwitnessed. He states that he did have chest pain upon the impact of this fall which resolved after several minutes. He denies any recurrence of this chest pain. He states that he has upper back pain since the fall. He has been ambulatory. He took Tylenol last night which provided him with some relief. He denies any headache, dizziness, or blurred vision. He felt well prior to the fall. No dizziness, lightheadedness, chest pain or shortness of breath. Denies any current chest pain, abdominal pain, nausea, vomiting or diarrhea. No lightheadedness or dizziness. MD complaint: fall Place fall occurred: home Loss of consciousness: none Prolonged down time: no Symptoms prior to fall: none Context: tripped/slipped Location of injury: head and neck Severity: moderate Quality: aching Associated symptoms (after fall): neck pain Related Data Home Medications ?Medication ?Instructions ?Recorded ?Confirmed fenofibrate nanocrystallized 48 mg 48 mg PO DAILY 05/23/20 05/12/24 tablet metoprolol succinate 100 mg 100 mg PO DAILY 05/23/20 05/12/24 tablet,extended release 24 hr lorazepam 1 mg tablet 1 mg PO BEDTIME 06/20/20 05/12/24 simvastatin 20 mg tablet 20 mg PO DAILY 06/20/20 05/12/24 blood sugar diagnostic #10 ea 08/03/20 05/12/24 blood-glucose meter #1 ea 08/03/20 05/12/24 lancets 33 gauge #100 ea 08/03/20 05/12/24 glipizide 10 mg tablet 10 mg PO BID 11/13/22 05/12/24 warfarin 2.5 mg tablet 2.5 mg PO DAILY 05/02/23 05/12/24 dulaglutide 1.5 mg/0.5 mL mg subcut 01/30/24 05/12/24 subcutaneous pen injector (Trulicity) Previous Rx's ?Medication ?Instructions ?Recorded amlodipine 5 mg tablet 5 mg PO DAILY #90 tabs 12/10/23 Allergies Allergy/AdvReac Type Severity Reaction Status Date / Time No Known Allergies Allergy Verified 05/17/24 10:35 Review of Systems 2 Review of Systems: Yes all other systems are reviewed and are negative Constitutional: Constitutional: Reports as per [facility] Past Medical History Medical History Ischemic cardiomyopathy Secondary hyperparathyroidism Coronary arteriosclerosis Hearing loss Chronic renal insufficiency Myocardial infarction Atrial fibrillation History of placement of internal cardiac defibrillator Diabetes Elevated cholesterol HTN (hypertension) Surgical History S/P internal cardiac defibrillator procedure Social History Social History Are you a primary coronary care unit nurse to a significant other at home: No Do you presently have visiting nurse or other home services: No Patient Tobacco Use Status: Never used Tobacco Smoked in Last 30 Days: No Use of substances other than those prescribed or required for medical reasons: No Advance Directives: No Advance Directives Information Provided: No Physical Exam 2 Vital Signs: Vital Signs: Last Vital Signs Temp 98.3 F 05/17/24 10:33 Pulse 79 05/17/24 12:54 Resp 18 05/17/24 12:54 BP 159/67 H 05/17/24 12:54 Pulse Ox 94 05/17/24 12:54 O2 Del Method Room Air 05/17/24 12:54 BMI result Body Mass Index 23.2 Const: General: cooperative, comfortable and no acute distress O rientation/consciousness: patient oriented x3 Limitations: no limitations HEENT: Head: Yes normal to inspection, Yes normocephalic and Yes atraumatic Ears: hearing grossly normal bilaterally and TM's normal bilaterally (No hemotympanum) General nose exam: Normal external nose present Face and sinus: Yes normal facial exam Mouth: Normal oral and palatal mucosa present, oropharynx normal and moist mucous membranes Throat: Yes posterior oropharynx normal Eyes: General: appearance normal, both eyes and all related structures E yelids: Yes eyelids normal Conjunctivae: conjunctivae normal Sclerae: s clerae normal Pupils: Equal, round and reactive pupils present EOM: EOMs intact bilaterally Neck: Other: Patient with no midline C-spine tenderness. No cervical paraspinous muscles tenderness to palpation. Neck: Yes normal visual inspection, Yes full ROM and Yes no lymphadenopathy Lymphatic: no lymphadenopathy noted Chest: Chest palpation & inspection: normal inspection of the chest Resp: Effort & Inspection: normal respiratory effort and able to speak in complete sentences Auscultation: clear to auscultation bilaterally, no crackles, no rales, no rhonchi and no wheezes Cardio: Rate: regular rate Rhythm: regular rhythm Heart sounds: S1 normal heart sound present and S2 normal heart sound present GI: Inspection: Yes normal to inspection Back/Spine/Pelvis: Other: No midline spine tenderness on examination, no ecchymosis, no bony step-off or deformity. Skin: General skin exam: no rashes or lesions noted Trauma: no lacerations or abrasions Wounds: no wounds Neuro: General: patient oriented x3 and moves all extremities Cranial nerves: Yes CN's II-XII intact bilaterally and Yes Equal, round and reactive pupils present Cognition (Neuro): normal cognition Gait exam (Neuro): N ormal gait present Motor exam (neuro): 5/5 motor strength present throughout and Pronator motor function not present Extrem: General: Yes normal to inspection Right upper extremity: normal to inspection Left upper extremity: normal to inspection Right lower extremity: normal to inspection Left lower extremity: normal to inspection Course Reevaluation(s) Reevaluation #1: Received critical report of patient having a compression C6 fracture. He also has a T7-T8 acute distraction type fracture. Discussed with my attending physician. Given that we do not have neurosurgery here in the emergency department, patient will need to be transferred for further management. He was immediately placed in a [place] collar. Call sent out to [facility]. Time: 12:41 Reevaluation #2: Discussed case with Dr. Menchaca, ED physician as trauma physician was unavailable, he is agreeable for transfer , ED to ED transfer with trauma consult and Neurosurgery consult. Transfer of care initiated. Time: 13:40 Medical Decision Making Medical Decision Making [facility] Narrative: This is a 88-year-old male, with a history of ischemic cardiomyopathy, hyperparathyroidism, NV, atrial fibrillation on Coumadin, hypertension, who presents to the emergency department with concerns for neck pain and upper back pain status post mechanical fall which occurred yesterday. On arrival, he is alert and oriented x4, no neurologic deficits on examination. He has no midline C-spine tenderness. He states that this fall was mechanical. He was ambulatory prior to his arrival today. Given fall with positive head strike, no LOC, will obtain head CT, neck CT. Plan: Head CT, neck CT, T-spine CT. Differential Diagnosis Differential Diagnoses: The differential diagnosis associated with the presentation includes ICH, SDH, cervical spine fracture, C-spine fracture, compression fracture Consult Healthcare Provider Management of the patient was discussed with: [employer] [facility] ED physician, Dr. Jj Lab Data [facility] Lab Attestation statement: I reviewed the patient's lab results. Slight leukocytosis at 13.1, normocytic anemia with an H&H of 13.3/39.3, chemistry revealing elevated creatinine at 1.57, and a BUN of 29. Please are similar to his previous. Troponin 4.3. 05/17/24 11:46 05/17/24 11:46 Labs: Lab Results 05/17/24 Range/Units 11:46 WBC 13.1 H (4.8-10.8) X10*3/uL RBC 4.59 L (4.60-5.80) X10*6/uL Hgb 13.3 L (14.0-18.0) g/dl Hct 39.3 L (42.0-52.0) % MCV 85.6 (80.0-98.0) fL MCH 29.0 (27.0-33.0) pg MCHC 33.8 (31.0-36.0) g/dl RDW 13.3 (11.0-16.0) % Plt Count 256 (160-400) X10*3/uL MPV 9.1 L (9.4-12.4) fL Immature Gran % (Auto) 0.4 (0.0-0.4) % Neut % (Auto) 76.1 H (45-73) % Lymph % (Auto) 12.9 L (20-40) % [place] % (Auto) 9.9 (2-11) % Eos % (Auto) 0.3 (0-4) % Baso % (Auto) 0.4 (0-2) % Lymph # (Auto) 1.7 (1.2-4.9) X10*3/uL [place] # (Auto) 1.3 H (0.1-1.2) X10*3/uL Eos # (Auto) 0.0 (0.0-0.4) X10*3/uL Baso # (Auto) 0.1 (0.0-0.2) X10*3/uL Abs Immat Gran (auto) 0.05 H (0.00-0.03) X10*3/uL Absolute Neuts (auto) 10.0 H (2.0-8.3) x10*3/uL Absolute Nucleated RBC 0.000 (0.0-0.012) X10*3/uL Nucleated RBC % (auto) 0.0 (0.0-0.2) /100WBC PT 28.9 H (10.9-12.4) SEC INR 2.5 H (0.9-1.1) APTT 37.0 H (26.0-36.8) SEC Sodium 141 (135-145) mmol/L Potassium 4.7 (3.3-5.1) mmol/L Chloride 110 H (96-108) mmol/L Carbon Dioxide 23 (22-29) mmol/L Anion Gap 13 (12-20) BUN 29 H (9-16) mg/dL Creatinine 1.57 H (0.5-1.4) mg/dL Estim Creat Clear Calc 30.4 Estimated GFR 42 Random Glucose 175 H (60-115) mg/dL Calcium 9.5 D (8.4-10.2) mg/dL Magnesium 2.2 (1.6-2.6) mg/dL Total Bilirubin 0.8 (0.0-1.0) mg/dL Direct Bilirubin 0.3 (0.0-0.5) mg/dL AST 34 (5-37) U/L ALT 18 (0-40) U/L Alkaline Phosphatase 77 (39-117) U/L Troponin I High Sens 4.3 (<3.5-35.0) ng/L Total Protein 7.6 (6.5-8.0) g/dL Albumin 3.8 (3.5-5.0) g/dL Independent Interpretation I performed an independent interpretation of an: EKG Interpretation: EKG normal sinus rhythm at a ventricular rate of 76 beats per minute, NJ interval 176, QT QTC 426/479. Right bundle-branch block seen, similar to previous. Radiology Impression Discussion of test interpretation with radiology: I have reviewed the radiologist's reading. Radiologist Impression: CT head without contrast. Comparison: None Findings: No acute intracranial hemorrhage, edema, mass effect, extra-axial collection or acute appearing alteration in the rose-white matter interface. Generalized involutional changes. No disproportionate ventriculomegaly/hydrocephalus. Mild chronic small vessel ischemic changes. Posterior fossa structures intact. Left posterior parietal scalp swelling. No skull fracture. Opacified left frontal and anterior ethmoid air cells suggesting mucocele. Remaining included paranasal sinuses and mastoids clear. Bilateral cataract surgery and staphylomas. Otherwise globes and orbits intact. IMPRESSION: No acute intracranial process. This document has been electronically signed by: Omari Bro MD on 05/17/2024 12:58:13 Dictated By: Omari Bro MD ADDENDUMThis document has been electronically signed by: Omari Bro MD on 05/17/2024 12:53:20 ADDENDUM: This report was discussed with Quinn Brown on May 17, 2024 12:56:00 EST. This document has been electronically signed by: Eugenie Tong on 05/17/2024 12:56:16 Addendum Dictated By: Omari Bro MD Addendum Signed By: <Electronically signed by Omari Bro MD in [place]> 05/17/24 1257 Addendum Cosigned By: DD/ TD/TT: 05/17/24 CLINICAL HISTORY: fall, upper back pain CT thoracic spine without contrast Comparison: Concurrent cervical spine CT. Chest x-ray 04/05/2016 Findings: Generalized osteopenia. Anterolateral bridging osteophytes throughout the thoracic spine with ossification of the anterior longitudinal ligament compatible with diffuse idiopathic skeletal hyperostosis, and resulting in rigid spine. A nondisplaced subtle distraction fracture is seen involving the inferior endplate of T7, and extending obliquely through the intervertebral disc space into the superior aspect of T8 greater to the left. Given rigid spine this is considered potentially unstable fracture. No apparent fracture of the posterior elements. No loss of vertebral body height. C6 fracture partially imaged. Mild scalloping superior endplate C7 without discrete fracture line. Normal vertebral body height remaining levels. Respiratory motion limiting detail. Atelectatic lower lung changes. 3 mm right upper lobe nodule on image [address] follow-up in 12 months per Fleischner society guidelines. Streak artifact from left subclavian ICD. Mild cardiomegaly. No pleural or pericardial effusion. No acute process evident upper abdomen. Impression: Acute distraction type fracture T7-8 as detailed above. No apparent paraspinal or epidural hematoma. Rigid spine from pronounced diffuse idiopathic skeletal hyperostosis changes. C6 fracture as noted. Mild age indeterminate scalloping superior endplate C7. This document has been electronically signed by: Omari Bro MD on 05/17/2024 12:53:20 Dictated By: Omari Bro MD Critical Care Time Critical Care Time Critical Care Time: Yes Total Critical Care Time: 35 Attestation: I have personally provided critical care time exclusive of time spent on separately billable procedures. Time includes review of lab data, radiology results, discussion with consultants, and monitoring for potential decompensation. Intervention performed as documented. Discharge Plan Discharge Clinical Impression: C6 cervical fracture, Other fracture of T7-t8 thoracic vertebra, initial encounter for closed fracture Patient Disposition: er Acute Care Hospital Transfer Details: [facility] ED to ED transfer with trauma and neurosurgery consult Prescriptions: No Action amlodipine 5 mg tablet 5 mg PO DAILY Qty: 90 1RF fenofibrate nanocrystallized 48 mg tablet 48 mg PO DAILY metoprolol succinate 100 mg tablet extended release 24 hr 100 mg PO DAILY lorazepam 1 mg tablet 1 mg PO BEDTIME simvastatin 20 mg tablet 20 mg PO DAILY (DME) OneTouch Verio test strips Strip See Rx Instructions Not Applicable DAILY Qty: 10 Rx Instructions: As directed (DME) lancets 33 gauge misc See Rx Instructions topical DAILY Qty: 100 Rx Instructions: As directed (DME) blood-glucose meter Misc See Rx Instructions .ROUTE DIRECTED Qty: 1 Rx Instructions: As directed glipizide 10 mg tablet 10 mg PO BID warfarin 2.5 mg tablet 2.5 mg PO DAILY Protocol: Dose Management Condition: Saturday (Week One) Dose/Route: 1.25 mg Instruction: 0.5 x 2.5 mg tablets Condition: Saturday Dose/Route: 2.5 mg Instruction: 1 x 2.5 mg tablet Condition: Saturday Dose/Route: 1.25 mg Instruction: 0.5 x 2.5 mg tablets Condition: Saturday Dose/Route: 2.5 mg Instruction: 1 x 2.5 mg tablet Condition: Dose/Route: 1.25 mg Instruction: 0.5 x 2.5 mg tablets Condition: Saturday Dose/Route: 2.5 mg Instruction: 1 x 2.5 mg tablet Condition: Saturday Dose/Route: 1.25 mg Instruction: 0.5 x 2.5 mg tablets Condition: Saturday ( Two) Dose/Route: 1.25 mg Instruction: 0.5 x 2.5 mg tablets Condition: Saturday Dose/Route: 2.5 mg Instruction: 1 x 2.5 mg tablet Condition: Saturday Dose/Route: 1.25 mg Instruction: 0.5 x 2.5 mg tablets Condition: Saturday Dose/Route: 2.5 mg Instruction: 1 x 2.5 mg tablet Condition: Dose/Route: 1.25 mg Instruction: 0.5 x 2.5 mg tablets Condition: Saturday Dose/Route: 2.5 mg Instruction: 1 x 2.5 mg tablet Condition: Saturday Dose/Route: 1.25 mg Instruction: 0.5 x 2.5 mg tablets Protocol Text: Adjustment Start Date: Saturday05/12/24 INR Value: 2.1 INR Date: 04/28/24 Recheck Date: 06/02/24 Additional Instructions: REVIEW FOOD LIST WEEKLY ESPECIALLY DURING THE HOLIDAYS, CONT TO EAT A MIX OF FRUITS AND VEGETABLES Trulicity 1.5 mg/0.5 mL pen injector subcut Print Language: [place] Islander
[2024-05-17 12:54] VITALS: BP 159/67; PULSE 79; RESP 18; O2SAT 94
[2024-05-17 13:50] VITALS: BP 142/68; PULSE 77; RESP 18; O2SAT 95
[2024-05-17 14:21] VITALS: BP 146/55; PULSE 75; RESP 16; TEMP 36.6; O2SAT 97
[2024-05-17 14:35] VITALS: BP 146/55; PULSE 75; RESP 16; TEMP 36.6; O2SAT 97
== END 2024-05-17 14:36 | disposition short-term general hospital (02) ==
PROVIDERS: Physician Assistant Medical; Emergency Provider Emergency Medicine; PCP Internal Medicine
DX: S12.500A Unspecified displaced fracture of sixth cervical vertebra, initial encounter for closed fracture (principal); S22.069A Unspecified fracture of T7-T8 vertebra, initial encounter for closed fracture; I48.91 Unspecified atrial fibrillation; R07.81 Pleurodynia; R51.9 Headache, unspecified; M54.2 Cervicalgia; M54.50 Low back pain, unspecified; W00.0XXA Fall on same level due to ice and snow, initial encounter; Y93.89 Activity, other specified; Y92.89 Other specified places as the place of occurrence of the external cause; Y99.8 Other external cause status; Z79.01 Long term (current) use of anticoagulants; Z79.899 Other long term (current) drug therapy
CPT/HCPCS: 36415; 70450; 72125; 72128; 80048; 80076; 83735; 84484; 85025; 85610; 85730; 93005; 99285

== ENCOUNTER → 2024-05-17 11:19 | Outpatient (BNV) | payer MEDICARE, SELFPAY | PROVIDERS: Emergency Provider Emergency Medicine; PCP Internal Medicine; Visit Provider Radiology Diagnostic Radiology | DX: S00.93XA Contusion of unspecified part of head, initial encounter (principal); S12.500A Unspecified displaced fracture of sixth cervical vertebra, initial encounter for closed fracture; S12.601A Unspecified nondisplaced fracture of seventh cervical vertebra, initial encounter for closed fracture | CPT/HCPCS: 70450; 72125; 72128 ==

== ENCOUNTER → 2024-05-17 11:26 | Outpatient (BNV) | payer MEDICARE, SELFPAY | PROVIDERS: Emergency Provider Emergency Medicine; PCP Internal Medicine; Visit Provider Internal Medicine Cardiovascular Disease | DX: R94.31 Abnormal electrocardiogram [ECG] [EKG] (principal) | CPT/HCPCS: 93010 ==

== ENCOUNTER 2024-06-02 08:01 | Outpatient (AMB) | payer MEDICARE, SELFPAY ==
[2024-06-02 08:14] LABS: Prothrombin Time Whole Bld POC 28.9 sec (11.1-13.5); ~PT, ~INR - Anti Coag Clinic 2.4 (0.9-1.1)
--- NOTE | 2024-06-02 08:17 | MHC.OFFVISCO ---
Intake Intake Visit Reasons: Anticoagulation Allergies No Known Allergies Allergy (Verified 06/02/24 08:05) Medication List - Last Reconciled 06/02/24 by Maria Alejandra Ramirez, RN amlodipine 5 mg PO DAILY blood sugar diagnostic As directed blood-glucose meter As directed dulaglutide (Trulicity) mg subcut fenofibrate nanocrystallized 48 mg PO DAILY glipizide 10 mg PO BID lancets As directed lorazepam 1 mg PO BEDTIME metoprolol succinate ER 100 mg PO DAILY simvastatin 20 mg PO DAILY warfarin 2.5 mg See Protocol PO DAILY Nursing Note Amb to [facility] sts feeling ok Sts he slipped and fell (05/17) landed on his back when questioned sts I just hit my head a little sts he [place] [facility] [place] of back and then shipped off to [facility]- when asked if CT head was done No I don't think so, why would they do that? (CT scan head was done) explained to pt on anticoagulant, can have bleed into brain after traumatic fall and hit to head, I wasn't bleeding Reviewed with pt that bleeding in the brain can't be seen on the outside RN expressed concerns to pt over fall and us not being aware, pt sts my daughter called , no noted documentation Medications and supplements reviewed, STS HE HAS BEEN TAKING TYLENOL FOR THE PAIN BUT NOW IS TAKING ONLY 1 TYLENOL AT NIGHT sts pain initially 01/27, sts now 2-3/10 No other changes in health, diet, medications, or supplements, Denies any signs and symptoms of bleeding, bruising, or clotting. Bleeding, bruising, clotting discussed at length INR: 2.4 in therapeutic range Dose: continue usual dosing 2.5mg x 3 days and 1.25mg x 4 days F/U INR: 3 weeks, earlier if any changes in treatment for neck, pt unaware of treatment plan for neck Patient verbalizes understanding of instructions given TC to Dr Grant office for update, office N/A till 09, will call back Anti-Coag Initial Assessment Social Hx Patient Tobacco Use Status: Never used Tobacco Alcohol intake frequency: holidays/special occasions only Coding Level of Care Code Est Patient Level 1 Diagnoses Current use of anticoagulant therapy Z79.01 Time Spent (min) 20 Assessment & Plan Assessment & Plan (1) Current use of anticoagulant therapy: Code(s): Z79.01 - snf (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
== END 2024-06-02 08:51 | disposition home or self-care (01) ==
LOC: HO.ACS 08:01
PROVIDERS: PCP Internal Medicine; Visit Provider Internal Medicine
DX: Z79.01 Long term (current) use of anticoagulants (principal)

== ENCOUNTER → 2024-06-02 08:01 | Outpatient (BNVA) | payer MEDICARE, SELFPAY | PROVIDERS: PCP Internal Medicine; Visit Provider Internal Medicine | DX: I48.0 Paroxysmal atrial fibrillation (principal); Z79.01 Long term (current) use of anticoagulants; Z51.81 Encounter for therapeutic drug level monitoring | CPT/HCPCS: 85610; 99211 ==

== ENCOUNTER 2024-06-23 07:58 | Outpatient (AMB) | payer MEDICARE, SELFPAY ==
--- OUTSIDE RECORDS SUMMARY | 2024-06-23 08:01 | XMS_ITS | Clinical Summary ---
Author Organization [facility] Address [address] [place] [address] Phone Care Team Providers Care Electric Transfer Operator Name Role Phone Luca Grant DO Primary Care Provider Allergies No known active allergies Medications fenofibrate (TRICOR) 48 MG tablet Take 24 mg by mouth in the morning. Active LORazepam (ATIVAN) 1 MG tablet Take 1 mg by mouth Active metoprolol succinate XL (TOPROL-XL) 100 MG 24 hr tablet Take 100 mg by mouth daily Active simvastatin (ZOCOR) 20 MG tablet Take 1 tablet by mouth 1 (one) time each day Active warfarin (COUMADIN) 4 MG tablet Active Trulicity 1.5 MG/0.5ML solution pen-injector ADMINISTER 1.5 MG UNDER THE SKIN EVERY WEEK 1 Active glipiZIDE (GLUCOTROL) 10 MG tablet Take 10 mg by mouth 1 (one) time each day 2 Active amLODIPine (NORVASC) 5 MG tablet TAKE 1 TABLET BY MOUTH EVERY DAY 90 tablet 3 2 Active Active Problems Problem Noted Date Diagnosed Date Hyperkalemia 08/27/2022 Benign hypertensive renal disease 11/14/2020 Renal disorder due to type 1 diabetes mellitus 0 11/14/2020 Mixed hyperlipidemia 10/12/2020 Overview (11/14/2020): Last Assessment & Plan: LDL at goal Dupuytren's contracture 03/25/2020 Pain of left hand 07/16/2019 Secondary hyperparathyroidism 02/13/2019 Anxiety 07/23/2017 Chronic kidney disease stage 3 07/23/2017 Coronary arteriosclerosis 07/23/2017 Hearing loss 07/23/2017 Insomnia 07/23/2017 Cardiac defibrillator in situ 04/23/2017 Essential hypertension 04/23/2017 Overview (11/14/2020): Last Assessment & Plan: Blood pressure stable Continue amlodipine Continue lisinopril Ischemic cardiomyopathy 04/23/2017 Paroxysmal atrial fibrillation 04/23/2017 Overview (11/14/2020): Last Assessment & Plan: Continue warfarin 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 04/23/2017 Overview (11/14/2020): Last Assessment & Plan: Blood pressure stable Continue lisinopril Continue glipizide Immunizations Name Administration Dates Next Due H1N1 All Forms 05/20/2009 Influenza, Quadrivalent, With Preservative 03/12 Influenza, Trivalent, Adjuvanted 05/08/2017 Influenza, Unspecified 05/20/2009 Pfizer SARS-COV-2 08/23/2020,08/02/2020 Pneumococcal, Unspecified 04/19/2009,03/20/2003 Tdap 04/19/2009 Family History Medical History Relation Comments Diabetes Mother Heart disease Mother Hypertension Mother Stroke Sibling 1 Kidney disease Sibling 2 Relation Status Comments Father Unknown Mother Unknown Sibling 1 Sibling 2 Social History Tobacco Use Types Packs/Day Years Used Date Smoking Tobacco: Never Smokeless Tobacco: Never Tobacco Cessation:Counseling Given: Not Answered Alcohol Use Standard Drinks/Week Comments Yes 0 (1 standard drink = 0.6 oz pure alcohol) Alcoholic Drinks/day: Occasional social drink Sex and Gender Information Value Date Recorded Sex Assigned at Not on file Legal Sex Male 4:58 PM EST Gender Identity Not on file Sexual Orientation Not on file Last Filed Vital Signs Vital Sign Reading Time Taken Comments Blood Pressure 136/64 11/01/2022 1:04 PM EDT Pulse 72 11/01/2022 1:04 PM EDT Temperature - - Respiratory Rate - - Oxygen Saturation 97% 11/01/2022 1:04 PM EDT Inhaled Oxygen Concentration - - Weight 72.6 kg (160 lb) 11/01/2022 1:04 PM EDT Height 170.2 cm (5' 7 ) 11/01/2022 1:04 PM EDT Body Mass Index 25.06 11/01/2022 1:04 PM EDT Plan of Treatment Health Maintenance Due Date Last Done Comments Pneumococcal Vaccine: 65+ Years (1 of 2 - PCV) 11/11/1941 04/19/2009, 03/20/2003 Diabetes: Hemoglobin A1C 06/17/2020 020, 08/12/2019 Diabetes: Ophthalmology Exam 06/17/2020 Diabetes: Pedal Pulse Checked 06/17/2020 Diabetes: Sensory Foot Exam 06/17/2020 Diabetes: Visual Foot Exam 06/17/2020 Influenza Vaccine (#1) 2024 8, 05/08/2017, 05/20/2009 Hepatitis B Vaccine Aged Out No longe r eligible based on patient's age to complete this topic Procedures Procedure Name Priority Date/Time Associated Diagnosis Comments HEMOGLOBIN A1C Routine 11/23/2019 9:15 AM EDT from Last 3 Months or Most Recently Relevant to Health Maintenance Results * Hemoglobin A1c (11/23/2019 9:15 AM EDT) Estimated Average Glucose 194 MG/DL DANIELLE Comment: eAG = Estimated average glucose which is %A1C expressed as average glucose, using the formula of the [id number] Average Glucose study (ADAG), Diabetes Care, Vol.31,#8, Dec. 2007 Hemoglobin A1C 8.4 % DANIELLE Comment: ?Hemoglobin A1C Reference Range ? Adults: ??4.8 - 6.0 % ? Non diabetic: ??< 6.0 % ? Goal: ??< 7.0 % Additional Action Suggested: ??> 8.0 % Note: ??Hemoglobin A1c results are invalid for patients ? with abnormal amounts of HbF. ??Blood transfusions ? may impact the HbA1c concentration in the patient ? sample. 11/23/2019 9:15 AM EDT Mateo Barton MD LAB BLOOD ORDERABLES Final Res ult [place] from Last 3 Months or Most Recently Relevant to Health Maintenance Insurance [facility] MEDICARE [facility] MEDICARE Care Teams Electric Transfer Operator Relationship Specialty Start Date End Date Luca Grant DO [address] [place] [place] [id number] PCP - General 05/30/20
--- OUTSIDE RECORDS SUMMARY | 2024-06-23 08:01 | XMS_ITS | Encounter Summary ---
Author Organization [facility] Address [address] [place] [address] Phone Care Team Providers Care Vacuum Tank Tender Name Role Phone Luca Grant DO Primary Care Provider [phone] Reason for Visit * Reason Comments Med Refill Encounter Details Date Type Department Care Team (Late st Contact Info) Description 03/05/2023 Refill [facility] [address] [place] [address] Mateo Barton MD Social History Tobacco Use Types Packs/Day Years Used Date Smoking Tobacco: Never Smokeless Tobacco: Never Alcohol Use Standard Drinks/Week Comments Yes 0 (1 standard drink = 0.6 oz pure alcohol) Alcoholic Drinks/day: Occasional social drink Sex and Gender Information Value Date Recorded Sex Assigned at Not on file Legal Sex Male 4:58 PM EST Gender Identity Not on file Sexual Orientation Not on file documented as of this encounter Miscellaneous Notes * Telephone Encounter - Sulma García - 03/11/2023 4:[address] Mick Carrascody called in for her dad, Ella requested a refill for Amlodipine as he is almost out. If that can be sent over to Ella in [place] on [facility]. Kathy can be reached at [phone] documented in this encounter Plan of Treatment Not on file documented as of this encounter Visit Diagnoses Not on filedocumented in this encounter Care Teams Vacuum Tank Tender Relationship Specialty Start Date End Date Luca Grant DO [address] [place] [address] PCP - General 05/30/20 documented as of this encounter
--- OUTSIDE RECORDS SUMMARY | 2024-06-23 08:01 | XMS_ITS | Data Portability ---
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 MUST MEET 2 OUT OF 3 ELEMENTS: PROBLEMS, DATA OR RISK ELEMENT 1: PROBLEMS 1 OR MORE CHRONIC ILLNESS W/SEVERE EXACERBATION, PROGRESSION MAY REQUIRE HOSPITAL LEVEL CARE OR 1 ACUTE OR CHRONIC ILLNESS OR INJURY THAT POSES A THREAT TO LIFE OR BODILY FUNCTION ELEMENT 2: DATA: MUST MEET 2 OF 3 CATEGORIES CATEGORY 1 REVIEW OF PRIOR EXTERNAL NOTES REVIEW OF THE RESULTS ORDERING OF EACH TEST ASSESSMENT REQUIRING INDEPENDENT HISTORIAN(S) CATEGORY 2: INDEPENDENT INTERPRETATION OF TESTS BY ANOTHER PROVIDER/SPECIALI ST CATEGORY 3: DISCUSSION OF MGT OR TEST INTERPRETATION W/EXTERNAL PHYSICIAN/SPECIAL IST ELEMENT 3: RISK HIGH RISK OF MORBIDITY FROM ADDITIONAL DIAGNOSTIC TESTING OR TREATMENT PROVIDER MUST THOROUGHLY DOCUMENT EACH ELEMENT THAT IS COVERED Not available 10/28/2023 11:50:48 05/15/2024 05/15/2024 [address] [place] [address] (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 MUST MEET 2 OUT OF 3 ELEMENTS: PROBLEMS, DATA OR RISK ELEMENT 1: PROBLEMS ADDRESSED 1 OR MORE CHRONIC ILLNESS WITH EXACERBATION OR 2 OR MORE STABLE CHRONIC ILLNESSES OR 1 UNDIAGNOSED NEW PROBLEM OR 1 ACUTE ILLNESS W/SYMPTOMS OR 1 ACUTE COMPLICATED INJURY ELEMENT 2: DATA MUST MEET 1 OF 3 CATEGORIES CATEGORY 1: REVIEW OF PRIOR EXTERNAL NOTES, REVIEW OF RESULTS, ORDERING OF EACH TEST, ASSESSMENT REQUIRING INDEPENDENT HISTORIAN OR CATEGORY 2: INDEPENDENT INTERPRETATION OF TESTS BY ANOTHER PHYSICIAN OR SPECIALIST OR CATEGORY 3: DISCUSSION OF MGT OR TEST INTERPRETATION W/EXTERNAL PHYSICIAN OR SPECIALIST ELEMENT 3: RISK RISK OF COMPLICATIONS AND/OR MORBIDITY OR MORTALITY OF PATIENT MANAGEMENT PROVIDER MUST THOROUGHLY DOCUMENT EACH ELEMENT THAT IS COVERED Not available 05/15/2024 10:48:57 06/10/2024 06/10/2024 [address] [place] [address] (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 MUST MEET 2 OUT OF 3 ELEMENTS: PROBLEMS, DATA OR RISK ELEMENT 1: PROBLEMS ADDRESSED 1 OR MORE CHRONIC ILLNESS WITH EXACERBATION OR 2 OR MORE STABLE CHRONIC ILLNESSES OR 1 UNDIAGNOSED NEW PROBLEM OR 1 ACUTE ILLNESS W/SYMPTOMS OR 1 ACUTE COMPLICATED INJURY ELEMENT 2: DATA MUST MEET 1 OF 3 CATEGORIES CATEGORY 1: REVIEW OF PRIOR EXTERNAL NOTES, REVIEW OF RESULTS, ORDERING OF EACH TEST, ASSESSMENT REQUIRING INDEPENDENT HISTORIAN OR CATEGORY 2: INDEPENDENT INTERPRETATION OF TESTS BY ANOTHER PHYSICIAN OR SPECIALIST OR CATEGORY 3: DISCUSSION OF MGT OR TEST INTERPRETATION W/EXTERNAL PHYSICIAN OR SPECIALIST ELEMENT 3: RISK RISK OF COMPLICATIONS AND/OR MORBIDITY OR MORTALITY OF PATIENT MANAGEMENT PROVIDER MUST THOROUGHLY DOCUMENT EACH ELEMENT THAT IS COVERED Not available 06/10/2024 12:36:39 Plan of Treatment Reminders Order Date Submit Date Provider Last Modified By Organization Details Last Modified Time Details Appointments FOLLOW UP 15 2024 11:00A M DR TOVAR Not available Not available Not available FOLLOW UP 15 2024 10:45A M DR TOVAR Not available Not available Not available Lab PTH (parathyr oid hormone), intact, serum or plasma 2023 024 [facility], [address] [place] [address], [id number], 07/19/2023 11:10:01 vitamin D, 25-hydrox y, total, serum 2023 024 [facility], [address] [place] [address], [id number], 07/19/2023 11:10:01 phosphoru s, serum or plasma 2023 024 [facility], [address] [place] [address], [id number], 07/19/2023 11:10:01 HbA1c (hemoglob in A1c), blood 2023 024 [facility], [address] [place] [address], [address], 07/19/2023 11:10:01 CMP, serum or plasma 2023 024 [facility], [address] [place] [address], [id number], 10/23/2023 11:11:14 microalbu min, urine 2023 024 [facility], [address] [place] [address], [address], 07/19/2023 11:10:01 CBC 2023 024 [facility], [address] [place] [address], [id number], 07/19/2023 11:10:01 Referral None recorded. Procedures None recorded. Surgeries None recorded. Imaging XR, cervical spine, 2 or 3 view [email or web address] [place] [address] Central Scheduling, [address] [place] [address], [address], 06/10/2024 12:42:20 XR, thoracic spine, 2 view 2024 025 [email or web address] [facility] Central Scheduling, [address] [place] [address], [address], 06/17/2024 09:12:39 Medication Orders amoxicill in 875 mg tablet 2023 024 [id number], [address] [place], [place], [id number], 07/19/2023 10:42:39 Trulicity 1.5 mg/0.5 mL subcutane ous pen injector 2023 024 [facility] #[id number], [address] [place], [place], [id number], 10/28/2023 11:54:03 Patient TargetsNo targets recorded. Patient Instructions Encounter Date Encounter Id Patient Instructions Last Modified By Organization Details Last Modified Time 07/19/2023 [id number] pulse oximetry* LATESHA Not available 07/19/2023 11:09:34 10/28/2023 [id number] pulse oximetry* Not available 10/28/2023 11:53:55 05/15/2024 [id number] learning about type 2 diabetes Not available 05/15/2024 10:51:37 type 2 diabetes: care instructions Not available 05/15/2024 10:51:37 high blood pressure: care instructions Not available 05/15/2024 10:51:37 learning about high blood pressure Not available 05/15/2024 10:51:37 06/10/2024 [id number] compression fracture of the spine: care instructions Not available 06/10/2024 12:36:20 Reason for Referral None Reported. Results Created Date Observation Date Name Description Value Unit Range Abnormal Flag Note LastModifiedBy Organization Detail LastModifiedTime 07/19/1907/19/2023 pulse oxime try* Result 99% Not Available [facility] [address], [place], [address], 07/10/2023 22:23:58 10/28/19 24 10/28/2023 pulse oxime try* Result 97% Not Available [facility] [address], [place], [address], 10/25/2023 09:49:06 02/25/2002/21/2024 , echo ardio gram No observ ation record ed. [email or web address] [facility] [address], [place], [address], 02/25/2024 12:26:24 05/17/20 24 05/17/2024 CT, cervi maureen spine , w/o contr ast No observ ation record ed. [email or web address] [facility] (Medical Records) [address], [place], [address], 05/18/2024 08:43:50 05/17/20 24 05/17/2024 CT, cervi maureen spine , w/o contr ast No observ ation record ed. [address] (Medical Records) [address] [place], [address], 05/18/2024 08:44:09 05/17/20 24 05/17/2024 CT, thora cic spine , w/o contr ast No observ ation record ed. [address] (Medical Records) [address] [place], [address], 05/18/2024 08:44:31 05/17/20 24 05/17/2024 CT, thora cic spine , w/o contr ast No observ ation record ed. [address] (Medical Records) [address] [place], [address], 05/18/2024 08:45:05 05/17/20 24 05/17/2024 CT, head + brain , w/o contr ast No observ ation record ed. [address] (Medical Records) [address] [place], [address], 05/18/2024 08:45:35 Result Notes None recorded. Problems Name Problem SNOMED Code Status Onset Date Resolution Date Notes Provider Name and Address Organization Details Recorded Time Secondar y hyperpar athyroid ism 05622004 Active 2018 dr barton - aakash [address], [address], [facility] 9 14:33:52 [facility] hyperten marilyn 63287942 Active 2017 Gay rivero [facility] 8 14:33:05 Type 2 diabetes mellitus 12689129 Active 2017 Gay rivero [facility] 8 14:33:24 Coronary arterios clerosis 66313008 Active 2017 implantab le defib/V53 .32 Tere Mayo NP, S [address] [place], [address], [facility] 8 10:00:50 Hypercho lesterol emia 46936015 [facility] 8 14:34:30 Chronic kidney disease 347836253 Active 2017 Dr. Mick Mayo, LORI, S [address] [place], [address], [facility] 8 09:59:54 Hearing loss 79203021 Active 2017 [facility] 8 14:35:24 Anxiety 91801918 Active 2017 [facility] 8 14:35:33 Insomnia 735882754 Active 2017 [facility] 8 14:35:46 Paroxysm al atrial fibrilla tion 296194958 Active 2017 Dr. 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 Luca Tovar, DO [address] [place] [address], [address], [facility] 0 12:18:27 Disorder due to type 2 diabetes mellitus 556666013 Active 2021 Luca Tovar DO [address] [place] [address], [address], [facility] 2 10:29:29 Impacted cerumen of bilatera l ears 61513835898 05746 Active 2022 NISHA STARKS [address] [place], [address], [facility] 3 11:03:53 Acute sinusiti s 18918601 Active 2023 NISHA STARKS [address] [place] [address], [address], [facility] 4 11:26:23 Vitamin D deficien 07017640 Active 2023 Luca Tovar, DO [address] [place] [address], [address], [facility] 4 11:51:15 COVID-19 655752312 Active 2023 Luca Tovar, DO [address] [place] [address], [address], [facility] 4 14:24:44 Compress ion fracture of thoracic vertebra 58795654024 04 Active 2024 Luca Tovar, DO [address] [place] [address], [address], [facility] 5 12:35:09 Compress ion fracture of vertebra l column 15212222 Active 2024 Luca Tovar, DO [address] [place] [address], [address], [facility] 5 12:35:27 Problem Notes None recorded. Procedures Surgical History Date Name Laterality Status Provider Name and Address Organization Details Recorded Time 3 Cerumen Removal completed NISHA STARKS [address] [place] [address], [address], [facility] 04/03/2023 11:03:46 Aicd, single chamber completed Tere Mayo NP, S [address] [place] [address], [address], [facility] 09/06/2017 08:53:46 Imaging Results Imaging Date Name Status LastModified by Organization Details LastModified Time 02/21/2024 US, echocardiogram completed [facility] [address], [place], [address], 02/25/2024 12:26:24 05/17/2024 CT, cervical spine, w/o contrast completed [address] (Medical Records) [address] [place], [address], 05/18/2024 08:43:50 05/17/2024 CT, cervical spine, w/o contrast completed [address] (Medical Records) [address] [place], [address], 05/18/2024 08:44:09 05/17/2024 CT, thoracic spine, w/o contrast completed [address] (Medical Records) [address] [place], [address], 05/18/2024 08:44:31 05/17/2024 CT, thoracic spine, w/o contrast completed [address] (Medical Records) [address] [place], [address], 05/18/2024 08:45:05 05/17/2024 CT, head + brain, w/o contrast completed [address] (Medical Records) [address] [place], [address], 05/18/2024 08:45:35 Procedure Notes None recorded. Medical Equipment None Reported. Allergies Allergen ID Allergen Name Allergen Category Reaction Reaction Severity Criticality Documentation Date Start Date Code Code System Note Provider Name and Address Organization Details Recorded Time 8318 amoxicill in medicatio n nausea moderate low 07/09/2023 723 RxNorm Leonoramaximilian rivero [place] [facility] 15:05:17 Medications Name Sig Start Date Stop Date Status Note LastModified by Organization Details LastModified Time amoxicillin 500 mg capsule TK 1 C PO Q 8 H UNTIL GONE 07/18 completed Not Available Not Available Not Available azithromyci n 250 mg tablet TAKE 2 TABLETS (500 MG) BY ORAL ROUTE ONCE DAILY FOR 1 DAY THEN 1 TABLET (250 MG) BY ORAL ROUTE ONCE DAILY FOR 4 DAYS 07/18 completed Not Available Not Available Not Available glipizide 10 mg tablet TAKE 1 TABLET BY MOUTH EVERY DAY active Not Available Not Available No t Available metoprolol succinate ER 100 mg tablet,exte nded release 24 hr TAKE 1 TABLET BY MOUTH DAILY active Not Available Not Available No t Available warfarin 2.5 mg tablet TAKE 1 TABLET BY MOUTH DAILY AT BEDTIME active Not Available Not Available No t Available amlodipine 5 mg tablet TAKE 1 TABLET BY MOUTH DAILY active Not Available Not Available No t Available amoxicillin 500 mg tablet TAKE 1 TABLET BY MOUTH EVERY 6 HOURS UNTIL GONE 07/18 completed Not Available Not Available Not Available amoxicillin 875 mg tablet TAKE 1 TABLET BY MOUTH EVERY 12 HOURS FOR 10 DAYS 07/18 completed Not Available Not Available Not Available simvastatin 20 mg tablet TAKE 1 TABLET BY MOUTH DAILY active Not Available Not Available No t Available lisinopril 5 mg tablet TAKE 1 TABLET BY MOUTH EVERY DAY 07/18 completed Not Available Not Available Not Available lorazepam 1 mg tablet TAKE 1 TABLET BY MOUTH EVERY NIGHT AT BEDTIME active Not Available Not Available No t Available lisinopril 2.5 mg tablet TAKE 2 TABLETS BY MOUTH EVERY DAY 08/17 completed Not Available Not Available Not Available glipizide 5 mg tablet TAKE 1 TABLET BY MOUTH TWICE DAILY 01/19 completed Not Available Not Available Not Available fenofibrate nanocrystal lized 48 mg tablet TAKE 1/2 TABLET BY MOUTH DAILY active Not Available Not Available No t Available OneTouch Verio test strips USE TO CHECK BS ONCE D active Not Available Not Available No t Available Trulicity 1.5 mg/0.5 mL subcutaneou s pen injector Inject 0.5 mL every week by subcutane ous route for 30 days. active Not Available Not Available No t Available Trulicity 0.75 mg/0.5 mL subcutaneou s pen injector INJECT 1 PEN INJECTOR ONCE A WEEK EVERY 10/27 completed Not Available Not Available Not Available Trulicity 3 mg/0.5 mL subcutaneou s pen injector ADMINISTE R 3MG UNDER THE SKIN EVERY WEEK 07/05 completed Not Available Not Available Not Available Paxlovid 300 mg (150 mg x 2)-100 mg tablets in a dose pack TAKE DIRECTED ON PACKAGE 06/10 completed Not Available Not Available Not Available Vitals Date Recorded Body height Body mass index (BMI) Body weight Heart rate Oxygen saturation Oxygen saturation in Arterial blood by Pulse oximetry Systolic blood pressure Diastolic blood pressure Provider Name and Address Organization Details Last Updated DateTime 4 165.74 cm 26.3 kg/m2 09437.1 9 g 78 /min 96 % 96 % 126 mm[Hg] 64 mm[Hg] Leonora Blank [facility] 4 10:59:39 Date Recorded Body height Body mass index (BMI) Body weight Heart rate Oxygen saturation Oxygen saturation in Arterial blood by Pulse oximetry Systolic blood pressure Diastolic blood pressure Provider Name and Address Organization Details Last Updated DateTime 4 165.74 cm 24.4 kg/m2 25584.6 7 g 69 /min 99 % 99 % 138 mm[Hg] 62 mm[Hg] Luca Tovar, [address] [place], [address] [place] [address] Internal [facility] 4 10:42:00 Date Recorded Body height Body mass index (BMI) Body weight Heart rate Oxygen saturation Oxygen saturation in Arterial blood by Pulse oximetry Systolic blood pressure Diastolic blood pressure Provider Name and Address Organization Details Last Updated DateTime 4 165.74 cm 25.2 kg/m2 77591.8 4 g 69 /min 97 % 97 % 138 mm[Hg] 66 mm[Hg] Latanya De Oliveira [facility] 4 11:31:37 Date Recorded Body height Body mass index (BMI) Body weight Heart rate Oxygen saturation Oxygen saturation in Arterial blood by Pulse oximetry Systolic blood pressure Diastolic blood pressure Provider Name and Address Organization Details Last Updated DateTime 5 165.74 cm 24.8 kg/m2 27581.8 6 g 70 /min 98 % 98 % 138 mm[Hg] 68 mm[Hg] Leonora Blank [facility] 5 12:06:50 Social History Question Answer Notes LastModified by Organizat ion Details LastModified Time Tobacco Smoking Status Never Smoker Tere Mayo NP, S [address] [place] [address], [address], [facility] 09/06/2017 08:52:41 What Was The Date Of Your Most Recent Tobacco Screening? 06/10/2024 [email or web address] Information not available 06/10/2024 Do You Or Have You Ever Used Any Other Forms Of Tobacco Or Nicotine? No Information not available 08/21/2022 Sex: Unknown Functional Status None recorded. Mental Status None recorded. Family History Nothing Reported. Medical History No medical history recorded. Immunizations Vaccine Type Date Status Note Provider Nam e and Address Organization Details Recorded Time pneumococcal, unspecified formulation 3 completed Tere Mayo NP, S [address] [place] [address], [address], [facility] 09/06/2017 08:47:21 pneumococcal, unspecified formulation 9 completed Tere Mayo NP, S [address] [place] [address], [address], [facility] 09/06/2017 08:47:41 Tdap 9 completed Tere Mayo NP, S [address] [place] [address], [address], [facility] 09/06/2017 08:48:09 Influenza, adjuvanted, trivalent, PF 7 completed Tere Mayo NP, S [address] [place] [address], [address], [facility] 09/06/2017 08:50:21 Influenza, split virus, quadrivalent, preservative 8 completed Not Available [facility] 06/06/2019 02:46:31 COVID-19, mRNA, LNP-S, PF, 30 mcg/0.3 mL dose 1 completed Gay rivero [facility] 10/26/2020 09:08:36 COVID-19, mRNA, LNP-S, PF, 30 mcg/0.3 mL dose 1 completed Gay rivero [facility] 10/26/2020 09:08:42 Past Encounters Encounter ID Performer Location Encounter Start Date Encounter Closed Date Diagnosis/Indication Diagnosis SNOMED-CT Code Diagnosis ICD10 Code Diagnosis Note [id number] Tere Mayo NP, S [facility] [address] [facility], [place] [address] 09/06/2017 09:57:17 09/06/2017 11:29:14 Type 2 diabetes mellitus 56234228 E11.9 to have labs done at [facility] [address] , [facility] draw station, pt more comfortabl e with paper request Essential hypertension 39789825 I10 stable, back on [address] Barton Hypercholesterolemia 136 70245 E78.00 follow Benign pro static hyperplasia 219459785 N40.0 no c/o Paroxysmal atrial fibrillation 022192076 I48.0 denies palpitatio ns Chronic ki dney disease stage 3 [address]18[address] 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 Nciholson r [id number] Tere Mayo NP, S [facility] [address] [facility],[place] [address] 11/06/2017 09:17:14 11/06/2017 11:20:19 Hypercholesterolemia 33095622 E78.00 follow, ldl 56 Chronic anxiety 19148565 9 F41.9 lorazepam at night helpful Paroxysmal atrial fibrillation 709631200 I48.0 denies palpitatio ns, current RRR Coronary arteriosclerosis 74543853 I25.10 asymptomat ic Essential hypertension 79754625 I10 stable Chronic ki dney disease stage 3 [address]13[address]18.[address] Barton, continue meds Disorder d ue to type 2 diabetes mellitus 986924750 E11.8 [id number] Tere Mayo NP, S [facility] [address] [facility],[place] [address] 03/12/2018 08:49:50 03/17/2018 09:11:15 Hypercholesterolemia 01077026 E78.00 follow Paroxysmal atrial fibrillation 731795406 I48.0 denies palpitatio ns, current RRR Type 2 gita betes mellitus 28101362 E11.9 A1c drawn here today since mix up at lab & was not drawn 02/26/18 Coronary arteriosclerosis 15530995 I25.10 all ADL's without difficulty -encourage daily walking Essential hypertension 33377708 I10 stable Chronic ki dney disease 338367312 N18.9 Administra tion of influenza vaccine 44984548 Z23 [id number] 1A right deltoid [id number] Tere Mayo NP, S [facility] [address] [facility] [address] [place], [place] [address] 07/30/2018 10:14:43 07/30/2018 16:06:33 Disorder due to type 2 diabetes mellitus 142431529 E11.8 stable Paroxysmal atrial fibrillation 376102474 I48.0 denies palpitatio ns, current RRR Hypercholesterolemia 136 62844 E78.00 follow Coronary arteriosclerosis 69019435 I25.10 stable Essential hypertension 16101064 I10 stable Chronic ki dney disease 705404817 N18.9 up to date Hearing loss 32522181 H9 1.93 [id number] [facility] [address] [facility] [address] [place], [address] [facility] [place] [address] 11/07/2018 11:36:03 11/07/2018 12:19:52 Disorder due to type 2 diabetes mellitus 241472827 E11.8 need to get a1c last a1c in february was 8.4 Paroxysmal atrial fibrillation 025706698 I48.0 denies palpitatio ns, current RRR Hypercholesterolemia 136 71320 E78.00 follow Coronary arteriosclerosis 96342161 I25.10 stable Essential hypertension 94598409 I10 stable Chronic ki dney disease 570737481 N18.9 slightly worse has f/u with kidney specialist in a month avoids nsaids bp well controlled need to see a1c for blood sugar control Hearing loss 93267512 H9 1.93 [id number] [facility] [address] [facility] [address] [place], [address]e [facility] [address] 02/04/2019 09:50:05 02/04/2019 10:15:33 Disorder due to type 2 diabetes mellitus 378896711 E11.8 had labs done with his kidney specialist , need to get a1c last a1c was 02/2018, was supposed to have one after last visit, btu never did it. will get a1c today Paroxysmal atrial fibrillation 349755283 I48.0 denies palpitatio ns, current reg Hypercholesterolemia 136 19996 E78.00 follow Coronary arteriosclerosis 14962316 I25.10 stable Essential hypertension 11578929 I10 stable Chronic ki dney disease 671682941 N18.9 has regular f/u with kidney specialist avoids nsaids bp well controlled need to see a1c for blood sugar control Hearing loss 50868451 H9 1.93 Hyperparathyroidism 6699 9008 E21.3 found by nephro, pt claims never was discussed [id number] August [facility] [address] [facility],[place] [address] 06/02/2019 09:55:09 06/02/2019 10:54:06 Disorder due to type 2 diabetes mellitus 170147551 E11.8 had labs done with his kidney specialist , need to get a1c last a1c was 02/2018, was supposed to have one after last visit, btu never did it. will get a1c today Paroxysmal atrial fibrillation 324439047 I48.0 sees cardio, last seen 03/2019 Hypercholesterolemia 136 24936 E78.00 well controlled Coronary arteriosclerosis 93026550 I25.10 stable Essential hypertension 86323165 I10 stable Hearing loss 68831586 H9 1.93 Pain of left hand 776295 3852 45736 M79.642 will send to hand specialist cannot take nsaids nor steroid continue conservati ve management Hyperparathyroidism 6699 9008 E21.3 found by nephro referred to endo last visit - dr. duarte Chronic ki dney disease stage 3 674401465 N18.3 has regular f/u with kidney specialist avoids nsaids bp well controlled need to see a1c for blood sugar control [id number] August [facility] [address],[place] [address] 09/04/2019 11:36:11 09/04/2019 11:59:53 Disorder due to type 2 diabetes mellitus 445985644 E11.8 a1c 08/11 was 10.9 has already made cheanges to diet, was drinking lots of sugary beverages will get him a new meter to test at home Paroxysmal atrial fibrillation 013811685 I48.0 sees cardio, last seen 03/2019 Hypercholesterolemia 136 58545 E78.00 needs to be repeated, last done 09/2018 Essential hypertension 33426156 I10 stable Hearing loss 02944762 H9 1.93 Chronic ki dney disease stage 3 [id number] N18.3 has regular f/u with kidney specialist avoids nsaids bp well controlled need to see a1c for blood sugar control [id number] NISHA STARKS [facility] [address] [address] 12/02/2019 09:48:23 12/02/2019 10:54:52 Hypercholesterolemia 33291643 E78.00 labs looking better will f/u in three months Type 2 gita betes mellitus 44054733 E11.9 A1c is looking better and his diet is greatly improved daily readings are better than last reported Atrial fibrillation 4943 6004 I48.91 stable 93278 Luca Tovar DO [facility] [address] [address] 03/25/2020 11:57:44 03/25/2020 12:30:00 Essential hypertension 69101717 I10 bp is stable doing great Type 2 gita betes mellitus 52845890 E11.9 he is doing well but will need to get an a1c Paroxysmal atrial fibrillation 610493606 I48.0 now in NSR no palpitatio ns Chronic ki dney disease 908788392 N18.9 will be seeing later this month Dupuytren' s contracture of finger 879331937 M72.0 will refer [place] hand [place] ready [id number] Luca Tovar DO [facility] [address] [address] 07/18/2020 10:25:57 07/18/2020 11:16:07 Type 2 diabetes mellitus 09640593 E11.9 a1c is elevated at 9.7 hei is only on Essential hypertension 93767990 I10 bp is stable doing great Paroxysmal atrial fibrillation 186102275 I48.0 now in NSR no palpitatio ns Coronary arteriosclerosis 65973224 I25.10 relates feels fine only unoted to have an anginal like sx once a month or two will be seeing cardiology in a month to see new dr and have his defib rechk Chronic ki dney disease 178196406 N18.9 will be seeing later this month lab has been stable and meds were adjusted [id number] Luca Tovar [facility] [address] [address] 10/26/2020 10:03:18 10/26/2020 10:48:58 Type 2 diabetes mellitus 01221865 E11.9 a1c is much better down to 8.9 from when it was elevated at 9.7 will increase trulicity to 1.5 and rechk in sept Chronic ki dney disease 304128041 N18.9 will be seeing later this summer lab has been stable and meds were adjusted Secondary hyperparathyroidism 93749079 E21.1 also stable and we will check lab a nd reviewed swhich is stable Coronary arteriosclerosis 80681008 I25.10 relates feels fine only noted to have an anginal like sx once a month or two will be seeing cardiology he has a new dr and have his defib rechk Paroxysmal atrial fibrillation 702310664 I48.0 now in NSR no palpitatio ns Disorder d ue to type 2 diabetes mellitus 705009342 E11.8 as above Chronic ki dney disease stage 3 943803274 N18.31 stable and following renal 74951 Luca Tovar [facility] [address] [facility] [place] [address] 02/01/2021 14:04:02 02/01/2021 15:06:05 Type 2 diabetes mellitus 28772371 E11.9 a1c is much better down to7.5 from 8.9 from when it was elevated at 9.7 will cont the trulicity but we will increase to 3mg look to discontinu e the glipizide depending on blood test Essential hypertension 70608824 I10 bp is stable doing great Paroxysmal atrial fibrillation 973932242 I48.0 now in NSR no palpitatio ns Coronary arteriosclerosis 98140231 I25.10 he still relates feels fine only noted to have an anginal like sx once a month or two will be seeing cardiology he has a new dr and had his defib rechk and it was excellent 05352 Luca Tovar [facility] [address] [facility] [address] 05/09/2021 08:26:53 05/09/2021 15:23:31 Chronic kidney disease 269068010 N18.9 will be seeing later this summer lab has been stable and meds were adjusted Coronary arteriosclerosis 70387144 I25.10 he still relates feels fine only noted to have an anginal like sx once a month or two will be seeing cardiology he has a new dr and had his defib rechk and it was excellent Essential hypertension 79012673 I10 bp is stable doing great Paroxysmal atrial fibrillation 236643154 I48.0 now in NSR no palpitatio ns Type 2 gita betes mellitus 20868367 E11.9 a1c is much better down to7.0 from 7.5 from 8.9 from when it was elevated at 9.7 will cont the trulicity but we will increase to 3mg look to discontinu e the glipizide depending on blood test 34086 Luca Tovar [facility] [address] [facility] [address] 08/11/2021 09:53:46 08/11/2021 15:00:47 Type 2 diabetes mellitus 92997963 E11.9 a1c is much better down to7.4 was 7.5 then 7,4 at its worse 8.9 from when it was elevated at 9.7we will decrease the glipizide to qd from bid will cont the trulicity but we will increase to 3mg look to discontinu e the glipizide depending on blood test Essential hypertension 99260919 I10 bp is stable doing great Paroxysmal atrial fibrillation 373659383 I48.0 now in NSR no palpitatio ns Hyperparathyroidism 6699 9008 E21.1 stable Chronic ki dney disease stage 3 662890767 N18.31 stable and following renal 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 carlos treat conserv for now otherwise nlormal exam 80505 Luca Tovar [facility] [address],[place] [address] 01/19/2022 08:16:47 01/23/2022 11:19:42 Type 2 diabetes mellitus 60801832 E11.9 a1c climbed up to 8.7 from 7.4 we will need to restart the glipizide and cont the trulicity Paroxysmal atrial fibrillation 169065697 I48.0 now in NSR no palpitatio ns Essential hypertension 34833680 I10 bp is stable doing great Chronic ki dney disease 967034354 N18.9 will be seeing later this summer lab has been stable and meds were adjusted Coronary arteriosclerosis 74268240 I25.10 he still relates feels fine only noted to have an anginal like sx once a month or two will be seeing cardiology he has a new dr and had his defib rechk and it was excellent Disorder d ue to type 2 diabetes mellitus 413727978 E11.8 as above 18827 Luca Tovar [facility] [address],[place] [address] 05/08/2022 13:51:48 05/08/2022 15:23:11 Type 2 diabetes mellitus 18190239 E11.9 a1c climbed up to 8.7 from 7.4 we will need to restart the glipizide and cont the trulicity Hypercholesterolemia 136 72123 E78.00 following Essential hypertension 35146644 I10 bp is stable doing great Anxiety 03577232 F41.9 seems to be baseline Paroxysmal atrial fibrillation 111899531 I48.0 [place] [address] Luca Tovar [facility] [address],[place] [address] 08/21/2022 13:53:14 08/21/2022 14:59:41 Chronic kidney disease 886733211 N18.9 will be seeing later this summer lab has been stable and meds were adjusted Hypercholesterolemia 136 35231 E78.00 following Anxiety 35060941 F41.9 seems to be baseline Disorder d ue to type 2 diabetes mellitus 159402950 E11.8 as above Type 2 gita betes mellitus 77578373 E11.9 a1c climbed up to 8.7 from 7.4 we will need to restart the glipizide and cont the trulicity Hyperparathyroidism 6699 9008 E21.1 stable Paroxysmal atrial fibrillation 411334652 I48.0 now in NSR no palpitatio ns Chronic ki dney disease stage 3 589461950 N18.31 stable and following renal Coronary arteriosclerosis 79791156 I25.10 he is stable with his metoprolol and amlodipine as well he still relates feels fine only noted to have an anginal like sx once a month or two will be seeing cardiology he has a new dr and had his defib rechk and it was excellent Essential hypertension 18817617 I10 bp is stable doing great 74444 NISHA STARKS [facility] [address] [address] 03/25/2023 10:23:59 03/25/2023 11:27:36 Pre-surgery evaluation 951702537 Z01.818 The patient was seen in the office today for pre-op evaluation . All medical conditions on patient's problem list were addressed and are currently stable, no interventi on needed at this time. Based on history and physical performed, the patient is cleared for surgery. 76490 NISHA STARKS [facility] [address] [place] [address] 04/03/2023 10:33:43 04/05/2023 14:23:32 Impacted cerumen of bilateral ears [id number] 901076 H61.23 resolved 742998 NISHA STARKS [facility] [address] [place] [address] 07/09/2023 10:31:44 07/09/2023 12:12:15 Acute sinusitis 78227076 J01.90 will set up with abx for sinus infection [id number] Luca Tovar DO [facility] [address],[place] [address] 07/19/2023 10:31:30 07/19/2023 14:38:59 Secondary hyperparathyroidism 32738827 E21.1 also stable and we will check lab a nd reviewed [facility] is stable Paroxysmal atrial fibrillation 763328530 I48.0 now in NSR no palpitatio ns Hypercholesterolemia 136 29904 E78.00 following Type 2 gita betes mellitus 59471202 E11.9 a1c climbed up to 11.7 due to loss of trulicity and recent sinus infection he will be restarting trulicity and we will rechk in 3 months PRIOR8.7 from 7.4 we will need to restart the glipizide and cont the trulicity Essential hypertension 37572240 I10 bp is stable doing great Chronic ki dney disease 481264140 N18.9 will be seeing later this summer lab has been stable and meds were adjusted 965111 Lcua Tovar [facility] [address] [facility] [place] [address] 10/28/2023 11:22:10 10/29/2023 11:13:52 Essential hypertension 81756279 I10 bp is stable doing great Hypercholesterolemia 136 66886 E78.00 following but given age we are not as intense on this Paroxysmal atrial fibrillation 554967281 I48.0 now in NSR no palpitatio nsbut is troubled by warfarin causing bruising Depression screening 171 646777 Z13.31 SCREENING NEGATIVE Chronic ki dney disease 692938801 N18.9 currently is stable gfr is 42 lab has been stable and meds were adjusted Coronary arteriosclerosis 03474891 I25.10 he is stable with his metoprolol and amlodipine as well he still relates feels fine only noted to have an anginal like sx once a month or two will be seeing cardiology he has a new dr and had his defib rechk and it was excellent Disorder d ue to type 2 diabetes mellitus 613134147 E11.8 note to have his a1c ]at 9.8 but he had been without the trulicity for several months due to supply prob Secondary hyperparathyroidism 10561331 E21.1 also stable and we will check lab a bernardino ramsaysumit is stable Vitamin D deficiency 347 68516 E55.9 we wiill have hinm supplement for 2 mo [id number] Luca Tovar [facility] [address],[place] [address] 05/15/2024 08:52:55 05/15/2024 11:27:56 Chronic kidney disease 793170239 N18.9 currently is stable gfr is still 42 does have signif microalbum inuria lab has been stable and meds were adjusted Coronary arteriosclerosis 68018274 I25.10 he is stable with his metoprolol and amlodipine as well he still relates feels fine only noted to have an anginal like sx once a month or two will be seeing cardiology he has a new dr and had his defib rechk and it was excellent Essential hypertension 48468342 I10 bp is stable doing great Paroxysmal atrial fibrillation 952549094 I48.0 now in NSR no palpitatio nsbut is troubled by warfarin causing bruising Type 2 gita betes mellitus 72690765 E11.9 a1c climbed up to 11.7 due to loss of trulicity and recent sinus infection he will be restarting trulicity and we will rechk in 3 months PRIOR8.7 from 7.4 we will need to restart the glipizide and cont the trulicity [id number] Luca Tovar DO [facility] [address],[place] [address] 06/10/2024 11:56:13 06/10/2024 12:41:39 Coronary arteriosclerosis 88373143 I25.10 he is stable with his metoprolol and amlodipine as well he still relates feels fine only noted to have an anginal like sx once a month or two will be seeing cardiology he has a new dr and had his defib rechk and it was excellent Essential hypertension 96889881 I10 bp is stable doing great Hypercholesterolemia 136 81113 E78.00 following but given age we are not as intense on this Compressio n fracture of vertebral column 53944005 M48.50XA improving with conserv care Compressio n fracture of thoracic vertebra 6008622287 104 M48.54XA stable and already improving Health Concerns Section Related Observation LastModified by Organization Detai ls LastModified Time None Recorded Concern Status LastModified by Organization Details LastModified Time None Recorded Advance Directives Directive None Recorded Payers Encounter Date Sequence Insurance Name Policy Number Policy Nair Covered Member ID Nair Member ID Guarantor Name 07/09/2023 1 [place] [employer] Jairo Newman [id number] Jairo Laramee 07/09/2023 2 [place] [id number] Jairo W Laramee [id number] Jairo Laramee 07/19/2023 1 [place] [place] Jairo W Laramee [id number] Jairo Laramee 07/19/2023 2 [place] [id number] Jairo W Laramee [id number] Jairo Laramee 10/28/2023 1 [place] [employer] Jairo W Laramee [id number] Jairo Laramee 10/28/2023 2 [place] [id number] Jairo W Laramee [id number] Jairo Laramee 05/15/2024 1 [place] [place] Jairo W Laramee [id number] Jairo Laramee 05/15/2024 2 [place] [id number] Jairo W Laramee [id number] Jairo Laramee 06/10/2024 1 [place] Jairo W Laramee [id number] 3 Jairo Laramee 06/10/2024 2 [place] [id number] Jairo W Laramee [id number] Jairo Laramee Notes Date Note Type Note Provider Name and Address Organization Details Recorded Time 4 text/htm l c/o sinus pressure The patient presents to the office today with concerns of sick symptoms including sinus pressure and pain, eye pain The symptoms started originally about a week agoThe patient reports exposure to relatives possibly sickThe patient symptoms mainly involves the sinus pain and eye pain no fever Pertinent comorbidities include age, hearing loss The patient symptoms are alleviated by apap but only for a few hoursThe patient symptoms are exacerbated by bending down The patient has tested for COVID-19 and the results was negative NISHA STARKS [address] [place] [address], [phone], [facility] 07/09/2023 11:31:46 4 text/htm l Care Management - DiabetesReported bypatient.Prognosis:expe cted outcome: improve; prognosis: moderate Self Care:seeing eye doctor yearly for dilated eye exam; checking feet regularly; normal range of home blood sugars (in the low 100s); no side effects from medications; frequency of blood glucose monitoring: average of 3 or fewer times per day; hemoglobin A1C goal: <7; LDL levels have been: ; hemoglobin A1C levels have been: >9;side effects from medications: no Associated Symptoms:symptoms are usually well controlled; no fatigue; no dizziness; no excessive sweating; no headaches; no confusion; no increased thirst; no increased appetite; no increased urination; no blurred vision; no numbness of feet; no calluses on feetCare Management - HypertensionReported bypatient.Self Care:not under emotional stress Severity:symptoms are improving; does not interfere with daily activities Associated Symptoms:no dizziness; no lightheadedness; no chest pain; no shortness of breath; no palpitations; no edema; no calf muscle cramps; no blurred vision; no confusion; no headaches; no fatigue relates he is feeling better now and the sinus infection is now cleared there is a national shortage of trulicity and had been out of it for 2 months hence his a1c is now 11.7he now has at least a 0.75 dose and he is going to start this nowhe will be more careful as well Luca Tovar DO [address] [place] [address], [phone], [facility] 07/19/2023 11:10:09 4 text/htm l feels pretty good except for the mornings he is very stiff in the amno cp no sob unles exertion as he can get quite fatiguedstates works in garden every day Luca Tovar DO [address] [place] [address], [phone], [facility] 10/28/2023 11:54:51 4 text/htm l Care Management - DiabetesReported bypatient.Self Care:seeing eye doctor yearly for dilated eye exam; checking feet regularly; normal range of home blood sugars (in the low 100s); no side effects from medications Associated Symptoms:symptoms are usually well controlled; no fatigue; no dizziness; no excessive sweating; no headaches; no confusion; no increased thirst; no increased appetite; no increased urination; no blurred vision; no numbness of feet; no calluses on feetCare Management - HypertensionReported bypatient.Self Care:not under emotional stress Severity:symptoms are improving; does not interfere with daily activities Associated Symptoms:no dizziness; no lightheadedness; no chest pain; no shortness of breath; no palpitations; no edema; no calf muscle cramps; no blurred vision; no confusion; no headaches; no fatigue patient is evaluated via tele/video assessment per patient consentduring current pandemichas been keeping an eye on his bprelates only prob he has is his unsteadiness and has fallen at homethis was an isolated event Luca Tovar DO [address] [place] [address], [phone], [facility] 05/15/2024 10:51:52 5 text/htm l here for rechk following his fall when he landed on his back and dwas found to have a C6 fracture (compress) and T 7 endplate fract urewas subsequently disch and sent home on tylenol he is still sore in the neck but is still better relates that mid back is ok as long as he is careful and doesnt overdo it Luca Tovar DO [address] [place] [address], [phone], [facility] 06/10/2024 12:38:40
--- NOTE | 2024-06-23 08:13 | MHC.OFFVISCO ---
Intake Intake Visit Reasons: Anticoagulation Allergies No Known Allergies Allergy (Verified 06/23/24 08:06) Medication List - Last Reconciled 06/23/24 by Natalia Diehl, RN amlodipine 5 mg PO DAILY blood sugar diagnostic As directed blood-glucose meter As directed dulaglutide (Trulicity) mg subcut fenofibrate nanocrystallized 48 mg PO DAILY glipizide 10 mg PO BID lancets As directed lorazepam 1 mg PO BEDTIME metoprolol succinate ER 100 mg PO DAILY simvastatin 20 mg PO DAILY warfarin 2.5 mg See Protocol PO DAILY Nursing Note INR 1.8-? out of therapeutic range of 2-3 Medications and supplements reviewed Patient status: occ pain mid back r/t fall in dec pt unsure if missed a dose of warfarin Medications or supplements: no changes, occ tylenol prn Diet: appetite good Denies any signs and symptoms of bleeding or clotting or unusual bruising Bleeding, bruising, clotting discussed Nutritional guidance given: no greens for 2 days, eat a red today Dose: increase dose today to 2.5mg then cont reg dosing, 2.5mg x 3, 1.25mg x 4 F/U INR Date : 2 weeks?? Patient verbalizing understanding of instructions given. Anti-Coag Initial Assessment Social Hx Patient Tobacco Use Status: Never used Tobacco Alcohol intake frequency: holidays/special occasions only Coding Level of Care Code Est Patient Level 1 Diagnoses Current use of anticoagulant therapy Z79.01 Assessment & Plan Assessment & Plan (1) Current use of anticoagulant therapy: Code(s): Z79.01 - residential (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
[2024-06-23 08:14] LABS: Prothrombin Time Whole Bld POC 21.7 sec (11.1-13.5); ~PT, ~INR - Anti Coag Clinic 1.8 (0.9-1.1)
== END 2024-06-23 08:20 | disposition home or self-care (01) ==
LOC: HO.ACS 07:58
PROVIDERS: PCP Internal Medicine; Visit Provider Internal Medicine
DX: Z79.01 Long term (current) use of anticoagulants (principal)

== ENCOUNTER → 2024-06-23 07:58 | Outpatient (BNVA) | payer MEDICARE, SELFPAY | PROVIDERS: PCP Internal Medicine; Visit Provider Internal Medicine | DX: I48.0 Paroxysmal atrial fibrillation (principal); Z79.01 Long term (current) use of anticoagulants; Z51.81 Encounter for therapeutic drug level monitoring | CPT/HCPCS: 85610; 99211 ==

== ENCOUNTER 2024-07-01 08:03 | Outpatient (REF) | payer MEDICARE, SELFPAY ==
--- NOTE | ~2024-07-01 | XR_ITS ---
EXAMINATION: XR CERVICAL SPINE CLINICAL INFORMATION: COLLAPSED VERTEBRA COMPARISON: None available. TECHNIQUE: 3 views of the cervical spine were obtained. FINDINGS: There is mild straightening of cervical lordosis. The vertebral heights and alignment is normal. There is mild ventral spondylosis C2-3, C3-4, C4-5, C5-6 and C6-C7 7 disc levels. No aggressive lytic or sclerotic process seen. The soft tissues are normal. There is mild superior endplate deformity C6 vertebra. XR/XR cervical spine 3V IMPRESSION: Mild ventral spondylosis throughout cervical spine. No visible acute fracture or dislocation seen.. Electronically signed by: Parish Rodriguez MD 07/01/2024 08:56 AM EST
--- NOTE | ~2024-07-01 | XR_ITS ---
EXAMINATION: XR THORACIC SPINE CLINICAL INFORMATION: COLLAPSED VERTEBRA COMPARISON: None available. TECHNIQUE: 3 views of the thoracic spine were obtained. FINDINGS: Normal thoracic kyphosis. The vertebral heights, alignment and disc heights are normal. There is no visible fracture, dislocation or subluxation seen. No lytic or sclerotic process seen. There is mild spondylosis mid dorsal spine. XR/XR thoracic spine 2V IMPRESSION: Mild spondylosis dorsal spine. No visible acute fracture or dislocation seen. Electronically signed by: Parish Rodriguez MD 07/01/2024 08:45 AM JOAN DOMINGO
--- OUTSIDE RECORDS SUMMARY | 2024-07-01 08:10 | XMS_ITS | Data Portability ---
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) MDM MODERATE MUST MEET 2 OUT OF [...] FOLLOW UP 15 2024 10:45A M DR TOAVR Not available Not available Not available Lab PTH (parathyr oid hormone), intact, serum or plasma 2023 024 [facility], [address] [place] [address], [address], 07/19/2023 11:10:01 vitamin D, 25-hydrox y, total, serum 2023 024 [facility], [address] [place] [address], [address], 07/19/2023 11:10:01 phosphoru s, serum or plasma 2023 024 [facility], [address] [place] [address], [address], 07/19/2023 11:10:01 HbA1c (hemoglob in A1c), blood 2023 024 [facility], [address] [place] [address], [address], 07/19/2023 11:10:01 CMP, serum or plasma 2023 024 [facility], [address] [place] [address], [address], 10/23/2023 11:11:14 microalbu min, urine 2023 024 [facility], [address] [place] [address], [address], 07/19/2023 11:10:01 CBC 2023 024 [facility], [address] [place] [address], [address], 07/19/2023 11:10:01 Referral None recorded. Procedures None recorded. Surgeries None recorded. Imaging XR, cervical spine, 2 or 3 view 2024 025 [facility], [address] [place] [address], [address], 06/24/2024 10:40:47 XR, thoracic spine, 2 view 2024 025 [facility], [address] [place] [address], [address], 06/17/2024 09:12:39 Medication Orders amoxicill in 875 mg tablet 2023 024 [id number], [address], [place], [id number], 07/19/2023 10:42:39 Trulicity 1.5 mg/0.5 mL subcutane ous pen injector 2023 024 [id number], [address], [place], [id number], 10/28/2023 11:54:03 Patient TargetsNo targets recorded. Patient Instructions Encounter Date Encounter Id Patient Instructions Last Modified By Organization Details Last Modified Time 07/19/2023 [id number] pulse oximetry* LATESHA Not available 07/19/2023 11:09:34 10/28/2023 [id number] pulse oximetry* Not available 10/28/2023 11:53:55 05/15/2024 [id number] learning about type 2 diabetes Not available 05/15/2024 10:51:37 type 2 diabetes: care instructions Not available 05/15/2024 10:51:37 high blood pressure: care instructions Not available 05/15/2024 10:51:37 learning about high blood pressure Not available 05/15/2024 10:51:37 06/10/2024 [id number] compression fracture of the spine: care instructions Not available 06/10/2024 12:36:20 Reason for Referral None Reported. Results Created Date Observation Date Name Description Value Unit Range Abnormal Flag Note LastModifiedBy Organization Detail LastModifiedTime 07/19/19 24 07/19/2023 pulse oxime try* Result 99% Not Available [facility] [address] [facility] [address], [place], [address], 07/10/2023 22:23:58 10/28/19 24 10/28/2023 pulse oxime try* Result 97% Not Available [facility] [address] [facility] [address], [place], [address], 10/25/2023 09:49:06 02/25/2002/21/2024 , echo ardio gram No observ ation record ed. [email or web address] [facility] [address], [place], [address], 02/25/2024 12:26:24 05/17/20 24 05/17/2024 CT, cervi maureen spine , w/o contr ast No observ ation record ed. [email or web address] [facility] (Medical Records) [address] [facility], [place], [address], 05/18/2024 08:43:50 05/17/20 24 05/17/2024 CT, cervi maureen spine , w/o contr ast No observ ation record ed. [address] (Medical Records) [address] [place], [address], 05/18/2024 08:44:09 05/17/20 24 05/17/2024 CT, thora cic spine , w/o contr ast No observ ation record ed. [address] (Medical Records) [address] [place], [address], 05/18/2024 08:44:31 05/17/20 24 05/17/2024 CT, thora cic spine , w/o contr ast No observ ation record ed. [address] (Medical Records) [address] [place], [address], 05/18/2024 08:45:05 05/17/20 24 05/17/2024 CT, head + brain , w/o contr ast No observ ation record ed. [address] (Medical Records) [address] [place], [address], 05/18/2024 08:45:35 Result Notes None recorded. Problems Name Problem SNOMED Code Status Onset Date Resolution Date Notes Provider Name and Address Organization Details Recorded Time Secondar y hyperpar athyroid ism 82337812 Active 2018 dr barton - aakash [address], [address], [facility] 9 14:33:52 Essentia l hyperten marilyn 31978922 Active 2017 Gay rivero [facility] 8 14:33:05 Type 2 diabetes mellitus 76997339 Active 2017 Gay rivero [facility] 8 14:33:24 Coronary arterios clerosis 92440979 Active 2017 implantab le defib/V53 .32 Tere Mayo NP, S [address] [place], [address], [facility] 8 10:00:50 Hypercho lesterol emia 07118737 Active 2017 [facility] 8 14:34:30 Chronic kidney disease 616071342 Active 2017 Dr. Mick Mayo, WELDING PROCESS ENGINEER, S [address] [place], [address], [facility] 8 09:59:54 Hearing loss 20348698 [facility] 2017 [facility] 8 14:35:24 Anxiety 84101850 Active 2017 [facility] 8 14:35:33 Insomnia 448308591 Active 2017 [facility] 8 14:35:46 Paroxysm al atrial fibrilla tion 949790457 Active 2017 Dr. Cespedes , cardiolog ist Tere Mayo, LORI, S [address] [place], [address], 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 2019 Luca Tovar, DO [address] [place] [address], [address], [facility] 0 12:18:27 Disorder due to type 2 diabetes mellitus 204500214 Active 2021 Luca Tovar DO [address] [place] [address], [address], [facility] 2 10:29:29 Impacted cerumen of bilatera l ears 60513401995 98111 Active 2022 NISHA STARKS [address] [place] [address], [address], [facility] 3 11:03:53 Acute sinusiti s 90423782 Active 2023 NISHA STARKS [address] [place] [address], [address], [facility] 4 11:26:23 Vitamin D deficien cy 59793654 Active 2023 Luca Tovar, DO [address] [place] [address], [address], [facility] 4 11:51:15 COVID-19 671235297 Active 2023 Luca Tovar, DO [address] [place] [address], [address], [facility] 4 14:24:44 Compress ion fracture of thoracic vertebra 65203538140 04 Active 2024 Luca Tovar, [address] [place] [address], [address], [facility] 5 12:35:09 Compress ion fracture of vertebra l column 76165874 Active 2024 Luca Tovar, DO [address] [place] [address], [address], [facility] 5 12:35:27 Problem Notes None recorded. Procedures Surgical History Date Name Laterality Status Provider Name and Address Organization Details Recorded Time 3 Cerumen Removal completed NISHA STARKS [address] [place] [address], [address], [facility] 04/03/2023 11:03:46 Aicd, single chamber completed Tere Mayo NP, S [address] [place] [address], [address], [facility] 09/06/2017 08:53:46 Imaging Results Imaging Date Name Status LastModified by Organization Details LastModified Time 02/21/2024 US, echocardiogram completed [facility] [address], [place], [address], 02/25/2024 12:26:24 05/17/2024 CT, cervical spine, w/o contrast completed [address] (Medical Records) [address] [place], [address], 05/18/2024 08:43:50 05/17/2024 CT, cervical spine, w/o contrast completed [address] (Medical Records) [address] [place], [address], 05/18/2024 08:44:09 05/17/2024 CT, thoracic spine, w/o contrast completed [address] (Medical Records) [address] [place], [address], 05/18/2024 08:44:31 05/17/2024 CT, thoracic spine, w/o contrast completed [address] (Medical Records) [address] [place], [address], 05/18/2024 08:45:05 05/17/2024 CT, head + brain, w/o contrast completed [address] (Medical Records) [address] [place], [address], 05/18/2024 08:45:35 Procedure Notes None recorded. Medical Equipment None Reported. Allergies Allergen ID Allergen Name Allergen Category Reaction Reaction Severity Criticality Documentation Date Start Date Code Code System Note Provider Name and Address Organization Details Recorded Time 7806 amoxicill in medicatio n nausea moderate low 07/09/2023 723 RxNorm Leonoramaximilian rivero [place] [facility] 15:05:17 Medications Name Sig Start [...] Updated DateTime 4 165.74 cm 26.3 kg/m2 30401.1 9 g 78 /min 96 % 96 % 126 mm[Hg] 64 mm[Hg] Leonora Blank [facility] Internal [facility] 4 10:59:39 Date Recorded Body height Body mass index (BMI) Body weight Heart rate Oxygen saturation Oxygen saturation in Arterial blood by Pulse oximetry Systolic blood pressure Diastolic blood pressure Provider Name and Address Organization Details Last Updated DateTime 4 165.74 cm 24.4 kg/m2 59676.6 7 g 69 /min 99 % 99 % 138 mm[Hg] 62 mm[Hg] Luca Tovar, [address] [place], [address] [place] [address] Internal [facility] 4 10:42:00 Date Recorded Body height Body mass index (BMI) Body weight Heart rate Oxygen saturation Oxygen saturation in Arterial blood by Pulse oximetry Systolic blood pressure Diastolic blood pressure Provider Name and Address Organization Details Last Updated DateTime 4 165.74 cm 25.2 kg/m2 37054.8 4 g 69 /min 97 % 97 % 138 mm[Hg] 66 mm[Hg] Latanya De Oliveira [facility] Internal [facility] 4 11:31:37 Date Recorded Body height Body mass index (BMI) Body weight Heart rate Oxygen saturation Oxygen saturation in Arterial blood by Pulse oximetry Systolic blood pressure Diastolic blood pressure Provider Name and Address Organization Details Last Updated DateTime 5 165.74 cm 24.8 kg/m2 61520.8 6 g 70 /min 98 % 98 % 138 mm[Hg] 68 mm[Hg] Leonora Blank [facility] Internal [facility] 5 12:06:50 Social History Question Answer Notes LastModified by Organizat ion Details LastModified Time Tobacco Smoking Status Never Smoker Tere Mayo NP, S [address] [place] [address], [address], [facility] 09/06/2017 08:52:41 What Was The Date Of Your Most Recent Tobacco Screening? 06/10/2024 Information not available 06/10/2024 Do You Or [...] formulation 3 completed Tere Mayo NP, S [address] [place] [address], [address], [facility] 09/06/2017 08:47:21 pneumococcal, unspecified formulation 9 completed Tere Mayo NP, S [address] [place] [address], [address], [facility] Internal [facility] 09/06/2017 08:47:41 Tdap 9 completed Tere Mayo NP, S [address] [place] [address], [address], [facility] 09/06/2017 08:48:09 Influenza, adjuvanted, trivalent, PF 7 completed Tere Mayo NP, S [address] [place] [address], [address], [facility] Internal [facility] 09/06/2017 08:50:21 Influenza, split virus, quadrivalent, preservative 8 completed Not Available [facility] 06/06/2019 02:46:31 COVID-19, mRNA, LNP-S, PF, 30 mcg/0.3 mL dose 1 completed Gay rivero [facility] 10/26/2020 09:08:36 COVID-19, mRNA, LNP-S, PF, 30 mcg/0.3 mL dose 1 completed Gay rivero [facility] 10/26/2020 09:08:42 Past Encounters Encounter ID Performer Location Encounter Start Date Encounter Closed Date Diagnosis/Indication Diagnosis SNOMED-CT Code Diagnosis ICD10 Code Diagnosis Note [id number] Tere Mayo NP, S [facility] [address] [facility],[place] [address] 09/06/2017 09:57:17 09/06/2017 11:29:14 Type 2 diabetes mellitus 82100907 E11.9 to have labs done at [facility] [address] , [facility] draw station, pt more comfortabl e with paper request Essential hypertension 16926388 I10 stable, back on [address] Barton Hypercholesterolemia 136 21945 E78.00 follow Benign pro static hyperplasia 628422081 N40.0 no c/o Paroxysmal atrial fibrillation 424393411 I48.0 denies palpitatio ns Chronic ki dney disease stage 3 [address]18.[address] 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 Nicholson r [id number] Tere Mayo NP, S [facility] [address] [facility],[place] [address] 11/06/2017 09:17:14 11/06/2017 11:20:19 Hypercholesterolemia 15102606 E78.00 follow, ldl 56 Chronic anxiety 51025739 9 F41.9 lorazepam at night helpful Paroxysmal atrial fibrillation 683163228 I48.0 denies palpitatio ns, current RRR Coronary arteriosclerosis 74611866 I25.10 asymptomat ic Essential hypertension 89406691 I10 stable Chronic ki dney disease stage 3 [address]2318[address]18[address] Barton, continue meds Disorder d ue to type 2 diabetes mellitus 877064977 E11.8 [id number] Tere Mayo NP, S [facility] [address] [facility],[place] [address] 03/12/2018 08:49:50 03/17/2018 09:11:15 Hypercholesterolemia 13158168 E78.00 follow Paroxysmal atrial fibrillation 103017543 I48.0 denies palpitatio ns, current RRR Type 2 gita betes mellitus 27867952 E11.9 A1c drawn here today since mix up at lab & was not drawn 02/26/18 Coronary arteriosclerosis 47556960 I25.10 all ADL's without difficulty -encourage daily walking Essential hypertension 78087023 I10 stable Chronic ki dney disease 147904982 N18.9 Administra tion of influenza vaccine 83760624 Z23 [id number] 1A right deltoid [id number] eTre Mayo NP, S [facility] [address] [facility] [address], [place] [address] 07/30/2018 10:14:43 07/30/2018 16:06:33 Disorder due to type 2 diabetes mellitus 309044829 E11.8 stable Paroxysmal atrial fibrillation 667287968 I48.0 denies palpitatio ns, current RRR Hypercholesterolemia 136 81588 E78.00 follow Coronary arteriosclerosis 87484505 I25.10 stable Essential hypertension 92407414 I10 stable Chronic ki dney disease 606732107 N18.9 up to date Hearing loss 04780123 H9 1.93 [id number] August [facility] [address] [facility],[place] [address] 11/07/2018 11:36:03 11/07/2018 12:19:52 Disorder due to type 2 diabetes mellitus 869467461 E11.8 need to get a1c last a1c in february was 8.4 Paroxysmal atrial fibrillation 340474167 I48.0 denies palpitatio ns, current RRR Hypercholesterolemia 136 56759 E78.00 follow Coronary arteriosclerosis 93520724 I25.10 stable Essential hypertension 09082929 I10 stable Chronic ki dney disease 053803554 N18.9 slightly worse has f/u with kidney specialist in a month avoids nsaids bp well controlled need to see a1c for blood sugar control Hearing loss 08772627 H9 1.93 [id number] [facility] [address] [facility] [address], [place] [address] 02/04/2019 09:50:05 02/04/2019 10:15:33 Disorder due to type 2 diabetes mellitus 260811542 E11.8 had labs done with his kidney specialist , need to get a1c last a1c was 02/2018, was supposed to have one after last visit, btu never did it. will get a1c today Paroxysmal atrial fibrillation 400978087 I48.0 denies palpitatio ns, current reg Hypercholesterolemia 136 14843 E78.00 follow Coronary arteriosclerosis 36283272 I25.10 stable Essential hypertension 95343331 I10 stable Chronic ki dney disease 405394739 N18.9 has regular f/u with kidney specialist avoids nsaids bp well controlled need to see a1c for blood sugar control Hearing loss 48425270 H9 1.93 Hyperparathyroidism 6699 9008 E21.3 found by nephro, pt claims never was discussed [id number] August [facility] [address] [facility] [address],[place] [address] 06/02/2019 09:55:09 06/02/2019 10:54:06 Disorder due to type 2 diabetes mellitus 611284347 E11.8 had labs done with his kidney specialist , need to get a1c last a1c was 02/2018, was supposed to have one after last visit, btu never did it. will get a1c today Paroxysmal atrial fibrillation 542375151 I48.0 sees cardio, last seen 03/2019 Hypercholesterolemia 136 96207 E78.00 well controlled Coronary arteriosclerosis 33585485 I25.10 stable Essential hypertension 78604826 I10 stable Hearing loss 77123096 H9 1.93 Pain of left hand 215383 4874 75649 M79.642 will send to hand specialist cannot take nsaids nor steroid continue conservati ve management Hyperparathyroidism 6699 9008 E21.3 found by nephro referred to endo last visit - dr. duarte Chronic ki dney disease stage 3 457765000 N18.3 has regular f/u with kidney specialist avoids nsaids bp well controlled need to see a1c for blood sugar control [id number] August [facility] [address] [facility] [address],[place] [address] 09/04/2019 11:36:11 09/04/2019 11:59:53 Disorder due to type 2 diabetes mellitus 089373258 E11.8 a1c 08/11 was 10.9 has already made cheanges to diet, was drinking lots of sugary beverages will get him a new meter to test at home Paroxysmal atrial fibrillation 775814441 I48.0 sees cardio, last seen 03/2019 Hypercholesterolemia 136 71129 E78.00 needs to be repeated, last done 09/2018 Essential hypertension 90294173 I10 stable Hearing loss 89592463 H9 1.93 Chronic ki dney disease stage 3 668802649 N18.3 has regular f/u with kidney specialist avoids nsaids bp well controlled need to see a1c for blood sugar control [id number] NISHA STARKS [facility] [address] [facility],[place] [address] 12/02/2019 09:48:23 12/02/2019 10:54:52 Hypercholesterolemia 04401169 E78.00 labs looking better will f/u in three months Type 2 gita betes mellitus 00802290 E11.9 A1c is looking better and his diet is greatly improved daily readings are better than last reported Atrial fibrillation 4943 6004 I48.91 stable [id number] Luca Tovar DO [facility] [address] [facility],[place] [address] 03/25/2020 11:57:44 03/25/2020 12:30:00 Essential hypertension 62289548 I10 bp is stable doing great Type 2 gita betes mellitus 06650558 E11.9 he is doing well but will need to get an a1c Paroxysmal atrial fibrillation 866138847 I48.0 now in NSR no palpitatio ns Chronic ki dney disease 236276929 N18.9 will be seeing later this month Dupuytren' s contracture of finger 025007953 M72.0 will refer to hand spec when pt ready [id number] Luca Tovar DO [facility] [address] [facility] [address],[place] [address] 07/18/2020 10:25:57 07/18/2020 11:16:07 Type 2 diabetes mellitus 50446692 E11.9 a1c is elevated at 9.7 hei is only on Essential hypertension 36483970 I10 bp is stable doing great Paroxysmal atrial fibrillation 852855194 I48.0 now in NSR no palpitatio ns Coronary arteriosclerosis 85830741 I25.10 relates feels fine only unoted to have an anginal like sx once a month or two will be seeing cardiology in a month to see new dr and have his defib rechk Chronic ki dney disease 656299389 N18.9 will be seeing later this month lab has been stable and meds were adjusted [id number] Luca Tovar [facility] [address] [facility],[place] [address] 10/26/2020 10:03:18 10/26/2020 10:48:58 Type 2 diabetes mellitus 30166395 E11.9 a1c is much better down to 8.9 from when it was elevated at 9.7 will increase trulicity to 1.5 and rechk in sept Chronic ki dney disease 417616107 N18.9 will be seeing later this summer lab has been stable and meds were adjusted Secondary hyperparathyroidism 46791911 E21.1 also stable and we will check lab a nd reviewed swhich is stable Coronary arteriosclerosis 71878447 I25.10 relates feels fine only noted to have an anginal like sx once a month or two will be seeing cardiology he has a new dr and have his defib rechk Paroxysmal atrial fibrillation 744060766 I48.0 now in NSR no palpitatio ns Disorder d ue to type 2 diabetes mellitus 958602576 E11.8 as above Chronic ki dney disease stage 3 753113110 N18.31 stable and following renal [id number] Luca Tovar [facility] [address] [facility],[place] [address] 02/01/2021 14:04:02 02/01/2021 15:06:05 Type 2 diabetes mellitus 49734283 E11.9 a1c is much better down to7.5 from 8.9 from when it was elevated at 9.7 will cont the trulicity but we will increase to 3mg look to discontinu e the glipizide depending on blood test Essential hypertension 76213195 I10 bp is stable doing great Paroxysmal atrial fibrillation 139512545 I48.0 now in NSR no palpitatio ns Coronary arteriosclerosis 25887684 I25.10 he still relates feels fine only noted to have an anginal like sx once a month or two will be seeing cardiology he has a new dr and had his defib rechk and it was excellent [id number] Luca Tovar [facility] [address] [facility] [address],[place] [facility] [place] [address] 05/09/2021 08:26:53 05/09/2021 15:23:31 Chronic kidney disease 556246034 N18.9 will be seeing later this summer lab has been stable and meds were adjusted Coronary arteriosclerosis 47963396 I25.10 he still relates feels fine only noted to have an anginal like sx once a month or two will be seeing cardiology he has a new dr and had his defib rechk and it was excellent Essential hypertension 63116672 I10 bp is stable doing great Paroxysmal atrial fibrillation 816196599 I48.0 now in NSR no palpitatio ns Type 2 gita betes mellitus 42092520 E11.9 a1c is much better down to7.0 from 7.5 from 8.9 from when it was elevated at 9.7 will cont the trulicity but we will increase to 3mg look to discontinu e the glipizide depending on blood test [id number] Luca Tovar [facility] [address] [facility],[place] [facility] [place] [address] 08/11/2021 09:53:46 08/11/2021 15:00:47 Type 2 diabetes mellitus 38950251 E11.9 a1c is much better down to7.4 was 7.5 then 7,4 at its worse 8.9 from when it was elevated at 9.7we will decrease the glipizide to qd from bid will cont the trulicity but we will increase to 3mg look to discontinu e the glipizide depending on blood test Essential hypertension 76655192 I10 bp is stable doing great Paroxysmal atrial fibrillation 801183422 I48.0 now in NSR no palpitatio ns Hyperparathyroidism 6699 9008 E21.1 stable Chronic ki dney disease stage 3 675563274 N18.31 stable and following renal 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 carlos treat conserv for now otherwise nlormal exam 09423 Luca Tovar [facility] [facility] [address] [facility] [address],[place] [address] 01/19/2022 08:16:47 01/23/2022 11:19:42 Type 2 diabetes mellitus 92766406 E11.9 a1c climbed up to 8.7 from 7.4 we will need to restart the glipizide and cont the trulicity Paroxysmal atrial fibrillation 963651868 I48.0 now in NSR no palpitatio ns Essential hypertension 64821350 I10 bp is stable doing great Chronic ki dney disease 095785288 N18.9 will be seeing later this summer lab has been stable and meds were adjusted Coronary arteriosclerosis 70313305 I25.10 he still relates feels fine only noted to have an anginal like sx once a month or two will be seeing cardiology he has a new dr and had his defib rechk and it was excellent Disorder d ue to type 2 diabetes mellitus 393854974 E11.8 as above [id number] Luca Tovar [facility] [address] [facility],[place] [address] 05/08/2022 13:51:48 05/08/2022 15:23:11 Type 2 diabetes mellitus 37238635 E11.9 a1c climbed up to 8.7 from 7.4 we will need to restart the glipizide and cont the trulicity Hypercholesterolemia 136 62764 E78.00 following Essential hypertension 42625697 I10 bp is stable doing great Anxiety 08811680 F41.9 seems to be baseline Paroxysmal atrial fibrillation 371915565 I48.0 [place] [id number] Luca Tovar [facility] [address] [facility],[place] [address] 08/21/2022 13:53:14 08/21/2022 14:59:41 Chronic kidney disease 501180112 N18.9 will be seeing later this summer lab has been stable and meds were adjusted Hypercholesterolemia 136 35434 E78.00 following Anxiety 64102410 F41.9 seems to be baseline Disorder d ue to type 2 diabetes mellitus 281140509 E11.8 as above Type 2 gita betes mellitus 49237512 E11.9 a1c climbed up to 8.7 from 7.4 we will need to restart the glipizide and cont the trulicity Hyperparathyroidism 6699 9008 E21.1 stable Paroxysmal atrial fibrillation 803170917 I48.0 now in NSR no palpitatio ns Chronic ki dney disease stage 3 176134440 N18.31 stable and following renal Coronary arteriosclerosis 73723520 I25.10 he is stable with his metoprolol and amlodipine as well he still relates feels fine only noted to have an anginal like sx once a month or two will be seeing cardiology he has a new dr and had his defib rechk and it was excellent Essential hypertension 94383224 I10 bp is stable doing great [id number] NISHA STARKS [facility] Internal Medicine [address] [facility], [address] [facility] [address] 03/25/2023 10:23:59 03/25/2023 11:27:36 Pre-surgery evaluation 778305465 Z01.818 The patient was seen in the office today for pre-op evaluation . All medical conditions on patient's problem list were addressed and are currently stable, no interventi on needed at this time. Based on history and physical performed, the patient is cleared for surgery. [id number] NISHA STARKS [facility] Internal Medicine [address] [facility],[place] [facility] [address] 04/03/2023 10:33:43 04/05/2023 14:23:32 Impacted cerumen of bilateral ears 2630965546 778688 H61.23 resolved [id number] NISHA STARKS [facility] Internal Medicine [address] [facility], [place] [facility] [place] [place] [address] 07/09/2023 10:31:44 07/09/2023 12:12:15 Acute sinusitis 16040681 J01.90 will set up with abx for sinus infection [id number] Luca Tovar DO [facility] Internal Medicine [address] [facility],[place] [address] 07/19/2023 10:31:30 07/19/2023 14:38:59 Secondary hyperparathyroidism 15797825 E21.1 also stable and we will check lab a nd reviewed the medical center is stable Paroxysmal atrial fibrillation 464389981 I48.0 now in NSR no palpitatio ns Hypercholesterolemia 136 61279 E78.00 following Type 2 gita betes mellitus 83694227 E11.9 a1c climbed up to 11.7 due to loss of trulicity and recent sinus infection he will be restarting trulicity and we will rechk in 3 months PRIOR8.7 from 7.4 we will need to restart the glipizide and cont the trulicity Essential hypertension 42847337 I10 bp is stable doing great Chronic ki dney disease 158096413 N18.9 will be seeing later this summer lab has been stable and meds were adjusted [id number] Luca Tovar [facility] [address] [facility] [address],[place] [facility] [place] [place] [address] 10/28/2023 11:22:10 10/29/2023 11:13:52 Essential hypertension 75441919 I10 bp is stable doing great Hypercholesterolemia 136 50217 E78.00 following but given age we are not as intense on this Paroxysmal atrial fibrillation 542950239 I48.0 now in NSR no palpitatio nsbut is troubled by warfarin causing bruising Depression screening 171 615399 Z13.31 SCREENING NEGATIVE Chronic ki dney disease 317048956 N18.9 currently is stable gfr is 42 lab has been stable and meds were adjusted Coronary arteriosclerosis 90697760 I25.10 he is stable with his metoprolol and amlodipine as well he still relates feels fine only noted to have an anginal like sx once a month or two will be seeing cardiology he has a new dr and had his defib rechk and it was excellent Disorder d ue to type 2 diabetes mellitus 563273369 E11.8 note to have his a1c ]at 9.8 but he had been without the trulicity for several months due to supply prob Secondary hyperparathyroidism 15089665 E21.1 also stable and we will check lab a bernardino rg angelica is stable Vitamin D deficiency 347 02304 E55.9 we wiill have hinm supplement for 2 mo [id number] Luca Tovar [facility] Medicine [address] [facility] [address],[place] [address] 05/15/2024 08:52:55 05/15/2024 11:27:56 Chronic kidney disease 516362528 N18.9 currently is stable gfr is still 42 does have signif microalbum inuria lab has been stable and meds were adjusted Coronary arteriosclerosis 25848449 I25.10 he is stable with his metoprolol and amlodipine as well he still relates feels fine only noted to have an anginal like sx once a month or two will be seeing cardiology he has a new dr and had his defib rechk and it was excellent Essential hypertension 58893257 I10 bp is stable doing great Paroxysmal atrial fibrillation 278795874 I48.0 now in NSR no palpitatio nsbut is troubled by warfarin causing bruising Type 2 gita betes mellitus 14351204 E11.9 a1c climbed up to 11.7 due to loss of trulicity and recent sinus infection he will be restarting trulicity and we will rechk in 3 months PRIOR8.7 from 7.4 we will need to restart the glipizide and cont the trulicity [id number] Luca Tovar DO [facility] Internal Medicine [address] [facility] [address],[place] [address] 06/10/2024 11:56:13 06/10/2024 12:41:39 Coronary arteriosclerosis 91893998 I25.10 he is stable with his metoprolol and amlodipine as well he still relates feels fine only noted to have an anginal like sx once a month or two will be seeing cardiology he has a new dr and had his defib rechk and it was excellent Essential hypertension 70292029 I10 bp is stable doing great Hypercholesterolemia 136 04596 E78.00 following but given age we are not as intense on this Compressio n fracture of vertebral column 99779477 M48.50XA improving with conserv care Compressio n fracture of thoracic vertebra 8394400752 104 M48.54XA stable and already improving Health Concerns Section Related Observation LastModified by Organization Detai ls LastModified Time None Recorded Concern Status LastModified by Organization Details LastModified Time None Recorded Advance Directives Directive None Recorded Payers Encounter Date Sequence Insurance Name Policy Number Policy Nair Covered Member ID Nair Member ID Guarantor Name 07/09/2023 1 [place] [employer] Jairo Newman [id number] 3 Jairo Laramee 07/09/2023 2 [place] [id number] Jairo W Laramee [id number] Jairo Laramee 07/19/2023 1 [place] [employer] [employer] Jairo W Laramee [id number] 3 Jairo Laramee 07/19/2023 2 [place] [id number] Jairo W Laramee [id number] Jairo Laramee 10/28/2023 1 [place] [employer] Jairo W Laramee [id number] 3 Jairo Laramee 10/28/2023 2 [place] [id number] Jairo W Laramee [id number] Jairo Laramee 05/15/2024 1 [place] Jairo W Laramee [id number] 3 Jairo Laramee 05/15/2024 2 [place] [id number] Jairo W Laramee [id number] Jairo Laramee 06/10/2024 1 [place] [employer] Jairo W Laramee [id number] 3 Jairo Laramee 06/10/2024 2 [place] [id number] Jairo W Laramee [id number] Jairo Laramee Notes Date Note Type [...] and the results was negative NISHA STARKS [address] [place] [address], [address], [facility] 07/09/2023 11:31:46 4 text/htm [...] more careful as well Luca Tovar DO [address] [place] [address], [address], [facility] 07/19/2023 11:10:09 4 text/htm l feels pretty good except for the mornings he is very stiff in the amno cp no sob unles exertion as he can get quite fatiguedstates works in garden every day Luca Tovar DO [address] [place] [address], [address], [facility] Internal Medicine 10/28/2023 11:54:51 4 text/htm l [...] was an isolated event Luca Tovar DO [address] [place] [address], [address], [facility] 05/15/2024 10:51:52 5 text/htm l [...] and doesnt overdo it Luca Tovar DO [address] [place] [address], [address], [facility] Internal [facility] 06/10/2024 12:38:40
--- OUTSIDE RECORDS SUMMARY | 2024-07-01 08:10 | XMS_ITS | Encounter Summary ---
Author Organization [facility] Address [address] [facility] [address] [place] [address] Phone Care Team Providers Care Service Control Operator Name Role Phone Luca Grant DO Primary Care Provider [phone] Reason for Visit * Reason Comments Med Refill Encounter Details Date Type Department Care Team (Late st Contact Info) Description 03/05/2023 Refill [facility] [address] [place] [address] Mateo Barton MD Social History [...] can be sent over to Ella in [place] on [facility]. Kathy can be reached at [phone] documented in this encounter Plan of Treatment Not on file documented as of this encounter Visit Diagnoses Not on filedocumented in this encounter Care Teams Service Control Operator Relationship Specialty Start Date End Date Luca Grant DO [address] [facility] [place] [address] PCP - General 05/30/20 documented as of this encounter
--- OUTSIDE RECORDS SUMMARY | 2024-07-01 08:10 | XMS_ITS | Clinical Summary ---
Author Organization [facility] Address [address] [facility] [address] [place] [address] Phone Care Team Providers Care Casing Tier Name Role Phone Luca Grant DO Primary Care Provider [phone] Allergies No known active allergies Medications fenofibrate [...] average glucose, using the formula of the O8D-Junaejj Average Glucose study (ADAG), Diabetes Care, Vol.31,#8, [...] Most Recently Relevant to Health Maintenance Insurance [facility] MEDICARE [facility] MEDICARE Care Teams Casing Tier Relationship Specialty Start Date End Date Luca Grant DO [address] [facility] [place] [phone] PCP - General 05/30/20
--- OUTSIDE RECORDS SUMMARY | 2024-07-01 08:10 | XMS_ITS | Continuity of Care Document ---
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 Referral None recorded. Procedures None recorded. Surgeries None recorded. Imaging XR, cervical spine, 2 or 3 view 2024 025 [facility], [address] [place], [address], 06/24/2024 10:40:47 XR, thoracic spine, 2 view 2024 025 [facility], [address] [facility] [place], [address], 06/17/2024 09:12:39 Medication Orders None recorded. Patient TargetsNo targets recorded. Patient Instructions Encounter Date Encounter Id Patient Instructions Last Modified By Organization Details Last Modified Time 06/10/2024 [id number] compression fracture of the spine: care instructions Not available 06/10/2024 12:36:20 Reason for Referral None Reported. Results Created Date Observation Date Name Description Value Unit Range Abnormal Flag Note LastModifiedBy Organization Detail LastModifiedTime 05/17/20 24 05/17/2024 CT, cervi maureen spine , w/o contr ast No observ ation record ed. [address] (Medical Records) [address] [place], [address], 05/18/2024 08:43:50 05/17/20 24 05/17/2024 CT, cervi maureen spine , w/o contr ast No observ ation record ed. [address] (Medical Records) [address] [place], [address], 05/18/2024 08:44:09 05/17/20 24 05/17/2024 CT, thora cic spine , w/o contr ast No observ ation record ed. [address] (Medical Records) [address] [place], [address], 05/18/2024 08:44:31 05/17/20 24 05/17/2024 CT, thora cic spine , w/o contr ast No observ ation record ed. [address] (Medical Records) [address] [place], [address], 05/18/2024 08:45:05 05/17/20 24 05/17/2024 CT, head + brain , w/o contr ast No observ ation record ed. [address] (Medical Records) [address] [place], [address], 05/18/2024 08:45:35 Result Notes None recorded. Problems Name Problem SNOMED Code Status Onset Date Resolution Date Notes Provider Name and Address Organization Details Recorded Time Secondar y hyperpar athyroid ism 86569745 Active 2018 dr mick sanford Duyen DuffyREYNALDO [address] [place], [address], [facility] 9 14:33:52 Essentia l hyperten marilyn 76899041 [facility] 8 14:33:05 Type 2 diabetes mellitus 04672123 Active 2017 [facility] 8 14:33:24 Coronary arterios clerosis 87568190 Active 2017 implantab le defib/V53 .32 Tere Mayo NP, S [address] [place], [address], [facility] 8 10:00:50 Hypercho lesterol emia 88542858 [facility] 8 14:34:30 Chronic kidney disease 518418043 Active 2017 Dr. Mick Mayo NP, S [address] [place], [address], [facility] 8 09:59:54 Hearing loss 00571215 Active 2017 [facility] 8 14:35:24 Anxiety 27469383 Active 2017 [facility] 8 14:35:33 Insomnia 065175978 Active 2017 [facility] 8 14:35:46 Paroxysm al atrial fibrilla tion 771677067 Active 2017 Dr. 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 Luca Tovar, DO [address] [place] [address], [address], [facility] 0 12:18:27 Disorder due to type 2 diabetes mellitus 108468886 Active 2021 Luca Tovar, DO [address] [place] [address], [address], [facility] 2 10:29:29 Impacted cerumen of bilatera l ears 38137036159 96758 Active 2022 NISHA STARKS [address] [place] [address], [address], [facility] 3 11:03:53 Acute sinusiti s 93984560 Active 2023 NISHA STARKS [address] [place] [address], [address], [facility] 4 11:26:23 Vitamin D deficien cy 00766653 Active 2023 Luca Tovar, DO [address] [place] [address], [address], [facility] 4 11:51:15 COVID-19 057585021 Active 2023 Luca Tovar, DO [address] [place] [address], [address], [facility] 4 14:24:44 Compress ion fracture of thoracic vertebra 29892379125 04 Active 2024 Luca Tovar DO [address] [place] [address], [address], [facility] 5 12:35:09 Compress ion fracture of vertebra l column 16083414 Active 2024 Luca Tovar, DO [address] [facility], [place], [address], [facility] [place] 5 12:35:27 Problem Notes None recorded. Procedures Surgical History Date Name Laterality Status Provider Name and Address Organization Details Recorded Time 3 Cerumen Removal completed NISHA STARKS [address] [place], [address], [facility] 04/03/2023 11:03:46 Aicd, single chamber completed Tere Mayo NP, S [address] [place], [address], [facility] [place] 09/06/2017 08:53:46 Imaging Results None recorded. Procedure Notes None recorded. Medical Equipment None Reported. Allergies Allergen ID Allergen Name Allergen Category Reaction Reaction Severity Criticality Documentation Date Start Date Code Code System Note Provider Name and Address Organization Details Recorded Time 7809 amoxicill in medicatio n nausea moderate low 07/09/2023 723 [facility] 4 15:05:17 Medications Name Sig Start Date Stop [...] Updated DateTime 5 165.74 cm 24.8 kg/m2 91548.8 6 g 70 /min 98 % 98 % 138 mm[Hg] 68 mm[Hg] Leonora Valencia [facility] 5 12:06:50 Social History Question Answer Notes LastModified by Organizat ion Details LastModified Time Tobacco Smoking Status Never Smoker Tere Mayo NP, S [address] [facility], [place], [address], [facility] 09/06/2017 08:52:41 What Was The Date Of Your Most Recent Tobacco Screening? 06/10/2024 [email or web address] Information not available 06/10/2024 Do You Or [...] formulation 3 completed Tere Mayo NP, S [address] [place] [address], [address], [facility] 09/06/2017 08:47:21 pneumococcal, unspecified formulation 9 completed Tere Mayo NP, S [address] [place] [address], [address], [facility] 09/06/2017 08:47:41 Tdap 9 completed Tere Mayo NP, S [address] [place] [address], [address], [facility] 09/06/2017 08:48:09 Influenza, adjuvanted, trivalent, PF 7 completed Tere Mayo NP, S [address] [place] [address], [address], [facility] 09/06/2017 08:50:21 Influenza, split virus, quadrivalent, preservative 8 completed Not Available [facility] 06/06/2019 02:46:31 COVID-19, mRNA, LNP-S, PF, 30 mcg/0.3 mL dose 1 completed Gay rivero [facility] 10/26/2020 09:08:36 COVID-19, mRNA, LNP-S, PF, 30 mcg/0.3 mL dose 1 completed Gay rivero [facility] 10/26/2020 09:08:42 Past Encounters Encounter ID Performer Location Encounter Start Date Encounter Closed Date Diagnosis/Indication Diagnosis SNOMED-CT Code Diagnosis ICD10 Code Diagnosis Note [id number] Luca Tovar [facility] [address] [facility],[place] [address] 05/15/2024 08:52:55 05/15/2024 11:27:56 Chronic kidney disease 526117622 N18.9 currently is stable gfr is still 42 does have signif microalbum inuria lab has been stable and meds were adjusted Coronary arteriosclerosis 86503873 I25.10 he is stable with his metoprolol and amlodipine as well he still relates feels fine only noted to have an anginal like sx once a month or two will be seeing cardiology he has a new dr and had his defib rechk and it was excellent Essential hypertension 55827022 I10 bp is stable doing great Paroxysmal atrial fibrillation 157996846 I48.0 now in NSR no palpitatio nsbut is troubled by warfarin causing bruising Type 2 gita betes mellitus 46973921 E11.9 a1c climbed up to 11.7 due to loss of trulicity and recent sinus infection he will be restarting trulicity and we will rechk in 3 months PRIOR8.7 from 7.4 we will need to restart the glipizide and cont the trulicity [id number] Luca Tovar [facility] Medicine [address] [facility],[place] [address] 06/10/2024 11:56:13 06/10/2024 12:41:39 Coronary arteriosclerosis 24210719 I25.10 he is stable with his metoprolol and amlodipine as well he still relates feels fine only noted to have an anginal like sx once a month or two will be seeing cardiology he has a new dr and had his defib rechk and it was excellent Essential hypertension 04906109 I10 bp is stable doing great Hypercholesterolemia 136 04483 E78.00 following but given age we are not as intense on this Compressio n fracture of vertebral column 24731455 M48.50XA improving with conserv care Compressio n fracture of thoracic vertebra 6756362661 104 M48.54XA stable and already improving Health Concerns Section Related Observation LastModified by Organization Timi bates LastModified Time None Recorded Concern Status LastModified by Organization Details LastModified Time None Recorded Payers Encounter Date Sequence Insurance Name Policy Number Policy Nair Covered Member ID Nair Member ID Guarantor Name 06/10/2024 1 [place] [employer] Jairo Newman [id number] Jairo Tavarescathryn 06/10/2024 2 [place]) [id number] Jairo Newman [id number] Jairo Tavarescathryn Notes Date Note Type Note Provider Name a nd Address Organization Details Recorded Time 06/10/2024 text/html here for rechk following his fall when he landed on his back and dwas found to have a C6 fracture (compress) and T 7 endplate fract urewas subsequently disch and sent home on tylenol he is still sore in the neck but is still better relates that mid back is ok as long as he is careful and doesnt overdo it Luca Tovar, [address] [facility], [place], [address], [facility] 06/10/2024 12:38:40
== END 2024-07-01 08:04 | disposition home or self-care (01) ==
LOC: HO.XRAY 08:03
PROVIDERS: PCP Internal Medicine; Visit Provider Internal Medicine
DX: M48.54XA Collapsed vertebra, not elsewhere classified, thoracic region, initial encounter for fracture (principal); M47.812 Spondylosis without myelopathy or radiculopathy, cervical region
CPT/HCPCS: 72040; 72070

== ENCOUNTER → 2024-07-01 08:11 | Outpatient (BNV) | payer MEDICARE, SELFPAY | PROVIDERS: PCP Internal Medicine; Visit Provider Radiology Diagnostic Radiology | DX: M47.814 Spondylosis without myelopathy or radiculopathy, thoracic region (principal); M47.812 Spondylosis without myelopathy or radiculopathy, cervical region | CPT/HCPCS: 72040; 72070 ==

== ENCOUNTER 2024-07-07 08:04 | Outpatient (AMB) | payer MEDICARE, SELFPAY ==
--- OUTSIDE RECORDS SUMMARY | 2024-07-07 08:07 | XMS_ITS | Clinical Summary ---
Author Organization [facility] Address [address] [place] [address] Phone Care Team Providers Care [employer] Acre[employer] Measurer Name Role Phone Luca Grant DO Primary Care Provider [phone] Allergies No known active allergies Medications fenofibrate [...] average glucose, using the formula of the N4O-[id number] Average Glucose study (ADAG), Diabetes Care, Vol.31,#8, [...] [facility] Care Teams [employer] Acreage Measurer Relationship Specialty Start Date End Date Luca Grant DO [address] [place] [id number] PCP - General 05/30/20
--- OUTSIDE RECORDS SUMMARY | 2024-07-07 08:07 | XMS_ITS | Data Portability ---
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) MDM HIGH MUST MEET 2 OUT OF [...] COVERED Not available 10/28/2023 11:50:48 05/15/2024 05/15/2024 [address] [place] [address] (DIRECTOR OF MATERIALS MANAGEMENT) MDM MODERATE MUST MEET 2 OUT OF [...] COVERED Not available 05/15/2024 10:48:57 06/10/2024 06/10/2024 [address] [place] [address] (DIRECTOR OF MATERIALS MANAGEMENT) MDM MODERATE MUST MEET 2 OUT OF [...] Time Details Appointments FOLLOW UP 15 2024 10:45A M DR TOVAR Not available Not available Not available Lab PTH (parathyr oid hormone), intact, serum or plasma 2023 024 [facility], [address] [place] [address], [address], 07/19/2023 11:10:01 vitamin D, 25-hydrox y, total, serum 2023 024 [facility], [address] [place] [address], [address], 07/19/2023 11:10:01 phosphoru s, serum or plasma 2023 024 [facility], [address] [place] [address], [place], [address], 07/19/2023 11:10:01 HbA1c (hemoglob in A1c), blood 2023 024 [facility], [address] [place] [address], [address], 07/19/2023 11:10:01 CMP, serum or plasma 2023 024 [facility], [address] [place] [address], [address], 10/23/2023 11:11:14 microalbu min, urine 2023 024 [facility], [address] [place] [address], [address], 07/19/2023 11:10:01 CBC 2023 024 [facility], [address] [place] [address], [address], 07/19/2023 11:10:01 Referral None recorded. Procedures None recorded. Surgeries None recorded. Imaging XR, cervical spine, 2 or 3 view 2024 025 [facility], [address] [place] [address], [address], 06/24/2024 10:40:47 XR, thoracic spine, 2 view 2024 025 [facility], [address] [place] [address], [address], 06/17/2024 09:12:39 Medication Orders Trulicity 1.5 mg/0.5 mL subcutane ous pen injector 2023 024 [id number] [address], [place], [phone], 10/28/2023 11:54:03 amoxicill in 875 mg tablet 2023 024 [id number], [address], [place], [phone], 07/19/2023 10:42:39 Patient TargetsNo targets recorded. Patient Instructions Encounter Date Encounter Id Patient Instructions Last Modified By Organization Details Last Modified Time 07/19/2023 [id number] pulse oximetry* LATESHA Not available 07/19/2023 11:09:34 10/28/2023 [id number] pulse oximetry* Not available 10/28/2023 11:53:55 05/15/2024 [id number] learning about type 2 diabetes Not available 05/15/2024 10:51:37 type 2 diabetes: care instructions Not available 05/15/2024 10:51:37 high blood pressure: care instructions Not available 05/15/2024 10:51:37 learning about high blood pressure Not available 05/15/2024 10:51:37 06/10/2024 [id number] compression fracture of the spine: care instructions Not available 06/10/2024 12:36:20 Reason for Referral None Reported. Results Created Date Observation Date Name Description Value Unit Range Abnormal Flag Note LastModifiedBy Organization Detail LastModifiedTime 07/19/1907/19/2023 pulse oxime try* Result 99% Not Available [facility] [address] [facility] [address], [place], [address], 07/10/2023 22:23:58 10/28/19 24 10/28/2023 pulse oxime try* Result 97% Not Available [facility] [address] [facility] [address], [place], [address], 10/25/2023 09:49:06 02/25/2002/21/2024 , [facility] ardio gram No observ ation record ed. rtFormerly [facility] [address], [place], [address], 02/25/2024 12:26:24 05/17/20 24 05/17/2024 CT, cervi maureen spine , w/o contr ast No observ ation record ed. [email or web address] [facility] (Medical Records) [address] [facility], [place], [address], 05/18/2024 08:43:50 05/17/20 24 05/17/2024 CT, cervi maureen spine , w/o contr ast No observ ation record ed. [address] (Medical Records) [address] [place], [address], 05/18/2024 08:44:09 05/17/20 24 05/17/2024 CT, thora cic spine , w/o contr ast No observ ation record ed. [address] (Medical Records) [address] [place], [address], 05/18/2024 08:44:31 05/17/20 24 05/17/2024 CT, thora cic spine , w/o contr ast No observ ation record ed. [address] (Medical Records) [address] [place], [address], 05/18/2024 08:45:05 05/17/20 24 05/17/2024 CT, head + brain , w/o contr ast No observ ation record ed. [address] (Medical Records) [address] [place], [address], 05/18/2024 08:45:35 07/01/19 25 07/01/2024 XR, thora cic spine , 2 view No observ ation record ed. [address] (Medical Records) [address] [place], [address], 07/03/2024 09:23:33 07/01/19 25 07/01/2024 XR, cervi maureen spine , 2 or 3 view No observ ation record ed. [address] (Medical Records) [address] [place], [address], 07/03/2024 09:23:34 Result Notes None recorded. Problems Name Problem SNOMED Code Status Onset Date Resolution Date Notes Provider Name and Address Organization Details Recorded Time Shelly ramirez is 05026663 Active 2018 LOS RosasMICHELLE [address] [place], [address], [facility] 9 14:33:52 [facility]ia l hyperten marilyn 60191815 Active 2017 [facility] 8 14:33:05 Type 2 diabetes mellitus 65239504 Active 2017 Gay Andrewsarah [facility] 8 14:33:24 Coronary arterios clerosis 64953024 Active 2017 implantab le defib/V53 .32 Tere Mayo NP, S [address] [place], [address], [facility] 8 10:00:50 Hypercho lesterol emia 52389880 Active 2017 Gay [facility]arah [facility] 8 14:34:30 Chronic kidney disease 483437318 Active 2017 Dr. Mick Mayo, LORI, S [address] [place], [address], [facility] 8 09:59:54 Hearing loss 74497604 Active 2017 Gaycolleen Villa [facility] 8 14:35:24 Anxiety 99752140 Active 2017 Gay Andrewsarah [facility] 8 14:35:33 Insomnia 199764005 Active 2017 Gay [facility] 8 14:35:46 Paroxysm al atrial fibrilla tion 919747323 Active 2017 Dr. 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 Luca Tovar DO [address] [place] [address], [address], [facility] 0 12:18:27 Disorder due to type 2 diabetes mellitus 551244165 Active 2021 Luca Tovar DO [address] [place] [address], [address], [facility] 2 10:29:29 Impacted cerumen of bilatera l ears 77579883604 94975 Active 2022 NISHA STARKS [address] [place] [address], [address], [facility] 3 11:03:53 Acute sinusiti s 75915683 Active 2023 NISHA STARKS [address] [place] [address], [address], [facility] 4 11:26:23 Vitamin D deficien cy 30403760 Active 2023 Luca Tovar DO [address] [place] [address], [address], [facility] 4 11:51:15 COVID-19 530372107 Active 2023 Luca Tovar DO [address] [place] [address], [address], [facility] 4 14:24:44 Compress ion fracture of thoracic vertebra 76702175450 04 Active 2024 Luca Tovar, DO [address] [place] [address], [address], [facility] 5 12:35:09 Compress ion fracture of vertebra l column 88066499 Active 2024 Luca Tovar DO [address] [place] [address], [address], [facility] 5 12:35:27 Problem Notes None recorded. Procedures Surgical History Date Name Laterality Status Provider Name and Address Organization Details Recorded Time 3 Cerumen Removal completed NISHA STARKS [address] [facility], [place], [address], [place] [facility] 04/03/2023 11:03:46 Aicd, single chamber completed Tere Mayo, LORI, S [address] [place], [address], [place] [facility] 09/06/2017 08:53:46 Imaging Results Imaging Date Name Status LastModified by Organization Details LastModified Time 02/21/2024 US, echocardiogram completed [facility] [address], [place], [address], 02/25/2024 12:26:24 05/17/2024 CT, cervical spine, w/o contrast completed [address] (Medical Records) [address] [place], [address], 05/18/2024 08:43:50 05/17/2024 CT, cervical spine, w/o contrast completed [address] (Medical Records) [address] [place], [address], 05/18/2024 08:44:09 05/17/2024 CT, thoracic spine, w/o contrast completed [address] (Medical Records) [address] [place], [address], 05/18/2024 08:44:31 05/17/2024 CT, thoracic spine, w/o contrast completed [address] (Medical Records) [address] [place], [address], 05/18/2024 08:45:05 05/17/2024 CT, head + brain, w/o contrast completed [address] (Medical Records) [address] [place], [address], 05/18/2024 08:45:35 07/01/2024 XR, thoracic spine, 2 view completed [email or web address] (Medical Records) [address] [place], [address], 07/03/2024 09:23:33 07/01/2024 XR, cervical spine, 2 or 3 view completed [email or web address] [facility] (Medical Records) [address] [place], [address], 07/03/2024 09:23:34 Procedure Notes None recorded. Medical Equipment None Reported. Allergies Allergen ID Allergen Name Allergen Category Reaction Reaction Severity Criticality Documentation Date Start Date Code Code System Note Provider Name and Address Organization Details Recorded Time 780 amoxicill in medicatio n nausea moderate low 07/09/2023 723 RxNorm Leonora rivero [place] - [facility] 15:05:17 Medications Name Sig Start [...] Updated DateTime 4 165.74 cm 26.3 kg/m2 09237.1 9 g 78 /min 96 % 96 % 126 mm[Hg] 64 mm[Hg] Leonora Blank [facility] 4 10:59:39 Date Recorded Body height Body mass index (BMI) Body weight Heart rate Oxygen saturation Oxygen saturation in Arterial blood by Pulse oximetry Systolic blood pressure Diastolic blood pressure Provider Name and Address Organization Details Last Updated DateTime 4 165.74 cm 24.4 kg/m2 61452.6 7 g 69 /min 99 % 99 % 138 mm[Hg] 62 mm[Hg] Luca Tovar, DO [address] [place], [address] [place] [address] Internal Medicine 4 10:42:00 Date Recorded Body height Body mass index (BMI) Body weight Heart rate Oxygen saturation Oxygen saturation in Arterial blood by Pulse oximetry Systolic blood pressure Diastolic blood pressure Provider Name and Address Organization Details Last Updated DateTime 4 165.74 cm 25.2 kg/m2 70356.8 4 g 69 /min 97 % 97 % 138 mm[Hg] 66 mm[Hg] Latanya De Oliveira [facility] 4 11:31:37 Date Recorded Body height Body mass index (BMI) Body weight Heart rate Oxygen saturation Oxygen saturation in Arterial blood by Pulse oximetry Systolic blood pressure Diastolic blood pressure Provider Name and Address Organization Details Last Updated DateTime 5 165.74 cm 24.8 kg/m2 35517.8 6 g 70 /min 98 % 98 % 138 mm[Hg] 68 mm[Hg] Leonora Bakermond [facility] Internal [facility] 5 12:06:50 Social History Question Answer Notes LastModified by Organizat ion Details LastModified Time Tobacco Smoking Status Never Smoker Tere Mayo NP, S [address] [place] [address], [address], [facility] 09/06/2017 08:52:41 What Was The Date Of Your Most Recent Tobacco Screening? 06/10/2024 [email or web address] Information not available 06/10/2024 Do You Or [...] formulation 3 completed Tere Mayo NP, S [address] [place] [address], [address], [facility] 09/06/2017 08:47:21 pneumococcal, unspecified formulation 9 completed Tere Mayo NP, S [address] [place] [address], [address], [facility] 09/06/2017 08:47:41 Tdap 9 completed Tere Mayo NP, S [address] [place], [address], [facility] 09/06/2017 08:48:09 Influenza, adjuvanted, trivalent, PF 7 completed Tere Mayo NP, S [address] [place], [address], [facility] 09/06/2017 08:50:21 Influenza, split virus, quadrivalent, preservative 8 completed Not Available [facility] 06/06/2019 02:46:31 COVID-19, mRNA, LNP-S, PF, 30 mcg/0.3 mL dose 1 completed Gay rivero [facility] 10/26/2020 09:08:36 COVID-19, mRNA, LNP-S, PF, 30 mcg/0.3 mL dose 1 completed Gay rivero [facility] 10/26/2020 09:08:42 Past Encounters Encounter ID Performer Location Encounter Start Date Encounter Closed Date Diagnosis/Indication Diagnosis SNOMED-CT Code Diagnosis ICD10 Code Diagnosis Note [id number] Tere Mayo NP, S [facility] [address] [facility],[place] [address] 09/06/2017 09:57:17 09/06/2017 11:29:14 Type 2 diabetes mellitus 36710725 E11.9 to have labs done at [address] , [facility] draw station, pt more comfortabl e with paper request Essential hypertension 81135567 I10 stable, back on [address] Barton Hypercholesterolemia 136 14346 E78.00 follow Benign pro static hyperplasia 501983769 N40.0 no c/o Paroxysmal atrial fibrillation 663521305 I48.0 denies palpitatio ns Chronic ki dney disease stage 3 979144769 N18.[address] 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 Nicholson r [id number] Tere Mayo NP, S [facility] [address] [facility],[place] [address] 11/06/2017 09:17:14 11/06/2017 11:20:19 Hypercholesterolemia 32726026 E78.00 follow, ldl 56 Chronic anxiety 17483873 9 F41.9 lorazepam at night helpful Paroxysmal atrial fibrillation 867460644 I48.0 denies palpitatio ns, current RRR Coronary arteriosclerosis 83902347 I25.10 asymptomat ic Essential hypertension 57519261 I10 stable Chronic ki dney disease stage 3 800160015 N18.[address] Barton, continue meds Disorder d ue to type 2 diabetes mellitus 126024835 E11.8 [id number] Tere Mayo NP, S [facility] [address] [facility],[place] [address] 03/12/2018 08:49:50 03/17/2018 09:11:15 Hypercholesterolemia 57276127 E78.00 follow Paroxysmal atrial fibrillation 886323266 I48.0 denies palpitatio ns, current RRR Type 2 gita betes mellitus 43232421 E11.9 A1c drawn here today since mix up at lab & was not drawn 02/26/18 Coronary arteriosclerosis 59812022 I25.10 all ADL's without difficulty -encourage daily walking Essential hypertension 56689035 I10 stable Chronic ki dney disease 004881486 N18.9 Administra tion of influenza vaccine 88574356 Z23 [id number] 1A right deltoid [id number] Tere Mayo NP, S [facility] [address] [facility],[place] [address] 07/30/2018 10:14:43 07/30/2018 16:06:33 Disorder due to type 2 diabetes mellitus 515811533 E11.8 stable Paroxysmal atrial fibrillation 695065574 I48.0 denies palpitatio ns, current RRR Hypercholesterolemia 136 18581 E78.00 follow Coronary arteriosclerosis 57098831 I25.10 stable Essential hypertension 73568246 I10 stable Chronic ki dney disease 704244057 N18.9 up to date Hearing loss 41633673 H9 1.93 [id number] [facility] [address] [facility] [address], [address] [place] [facility] [place] [address] 11/07/2018 11:36:03 11/07/2018 12:19:52 Disorder due to type 2 diabetes mellitus 295163764 E11.8 need to get a1c last a1c in february was 8.4 Paroxysmal atrial fibrillation 186859481 I48.0 denies palpitatio ns, current RRR Hypercholesterolemia 136 13586 E78.00 follow Coronary arteriosclerosis 13090036 I25.10 stable Essential hypertension 81741074 I10 stable Chronic ki dney disease 211537189 N18.9 slightly worse has f/u with kidney specialist in a month avoids nsaids bp well controlled need to see a1c for blood sugar control Hearing loss 60415244 H9 1.93 [id number] [facility] [address] [facility] [address], [place] [address] 02/04/2019 09:50:05 02/04/2019 10:15:33 Disorder due to type 2 diabetes mellitus 623507049 E11.8 had labs done with his kidney specialist , need to get a1c last a1c was 02/2018, was supposed to have one after last visit, btu never did it. will get a1c today Paroxysmal atrial fibrillation 972650904 I48.0 denies palpitatio ns, current reg Hypercholesterolemia 136 98925 E78.00 follow Coronary arteriosclerosis 57608558 I25.10 stable Essential hypertension 90217523 I10 stable Chronic ki dney disease 078060968 N18.9 has regular f/u with kidney specialist avoids nsaids bp well controlled need to see a1c for blood sugar control Hearing loss 15994697 H9 1.93 Hyperparathyroidism 6699 9008 E21.3 found by nephro, pt claims never was discussed [id number] [facility] [address] [facility] [address], [address] [place] [facility] [place] [address] 06/02/2019 09:55:09 06/02/2019 10:54:06 Disorder due to type 2 diabetes mellitus 745656129 E11.8 had labs done with his kidney specialist , need to get a1c last a1c was 02/2018, was supposed to have one after last visit, btu never did it. will get a1c today Paroxysmal atrial fibrillation 616869557 I48.0 sees cardio, last seen 03/2019 Hypercholesterolemia 136 20411 E78.00 well controlled Coronary arteriosclerosis 19669084 I25.10 stable Essential hypertension 99369572 I10 stable Hearing loss 44985724 H9 1.93 Pain of left hand 317450 5259 33511 M79.642 will send to hand specialist cannot take nsaids nor steroid continue conservati ve management Hyperparathyroidism 6699 9008 E21.3 found by nephro referred to endo last visit - dr. duarte Chronic ki dney disease stage 3 791930984 N18.3 has regular f/u with kidney specialist avoids nsaids bp well controlled need to see a1c for blood sugar control [id number] August REYNALDO Duffy [facility] [address] [facility] [address],[place] [address] 09/04/2019 11:36:11 09/04/2019 11:59:53 Disorder due to type 2 diabetes mellitus 884130645 E11.8 a1c 08/11 was 10.9 has already made cheanges to diet, was drinking lots of sugary beverages will get him a new meter to test at home Paroxysmal atrial fibrillation 532878447 I48.0 sees cardio, last seen 03/2019 Hypercholesterolemia 136 22109 E78.00 needs to be repeated, last done 09/2018 Essential hypertension 32729882 I10 stable Hearing loss 08770030 H9 1.93 Chronic ki dney disease stage 3 263384133 N18.3 has regular f/u with kidney specialist avoids nsaids bp well controlled need to see a1c for blood sugar control [id number] NISHA STARKS [facility] [address] [facility],[place] [address] 12/02/2019 09:48:23 12/02/2019 10:54:52 Hypercholesterolemia 12808089 E78.00 labs looking better will f/u in three months Type 2 gita betes mellitus 02556448 E11.9 A1c is looking better and his diet is greatly improved daily readings are better than last reported Atrial fibrillation 4943 6004 I48.91 stable [id number] Luca Tovar DO [facility] [address] [facility],[place] [address] 03/25/2020 11:57:44 03/25/2020 12:30:00 Essential hypertension 51232200 I10 bp is stable doing great Type 2 gita betes mellitus 87391194 E11.9 he is doing well but will need to get an a1c Paroxysmal atrial fibrillation 842532575 I48.0 now in NSR no palpitatio ns Chronic ki dney disease 839050780 N18.9 will be seeing later this month Dupuytren' s contracture of finger 106130332 M72.0 will refer to hand [place] ready [id number] Luca Tovar, [facility] [address] [facility],[place] [address] [facility] [place] [address] 07/18/2020 10:25:57 07/18/2020 11:16:07 Type 2 diabetes mellitus 32406297 E11.9 a1c is elevated at 9.7 hei is only on Essential hypertension 63177339 I10 bp is stable doing great Paroxysmal atrial fibrillation 326775768 I48.0 now in NSR no palpitatio ns Coronary arteriosclerosis 71008589 I25.10 relates feels fine only unoted to have an anginal like sx once a month or two will be seeing cardiology in a month to see new dr and have his defib rechk Chronic ki dney disease 156615914 N18.9 will be seeing later this month lab has been stable and meds were adjusted [id number] Luca Tovar, [facility] [address] [facility],[place] [address] [facility] [place] [address] 10/26/2020 10:03:18 10/26/2020 10:48:58 Type 2 diabetes mellitus 66044971 E11.9 a1c is much better down to 8.9 from when it was elevated at 9.7 will increase trulicity to 1.5 and rechk in sept Chronic ki dney disease 279190974 N18.9 will be seeing later this summer lab has been stable and meds were adjusted Secondary hyperparathyroidism 33485086 E21.1 also stable and we will check lab a nd reviewed swhich is stable Coronary arteriosclerosis 85818631 I25.10 relates feels fine only noted to have an anginal like sx once a month or two will be seeing cardiology he has a new dr and have his defib rechk Paroxysmal atrial fibrillation 852310762 I48.0 now in NSR no palpitatio ns Disorder d ue to type 2 diabetes mellitus 801630704 E11.8 as above Chronic ki dney disease stage 3 200972976 N18.31 stable and following renal [id number] Luca Tovar [facility] [address] [facility],[place] [address] 02/01/2021 14:04:02 02/01/2021 15:06:05 Type 2 diabetes mellitus 56590905 E11.9 a1c is much better down to7.5 from 8.9 from when it was elevated at 9.7 will cont the trulicity but we will increase to 3mg look to discontinu e the glipizide depending on blood test Essential hypertension 68672071 I10 bp is stable doing great Paroxysmal atrial fibrillation 702007272 I48.0 now in NSR no palpitatio ns Coronary arteriosclerosis 82036186 I25.10 he still relates feels fine only noted to have an anginal like sx once a month or two will be seeing cardiology he has a new dr and had his defib rechk and it was excellent [id number] Luca Tovar [facility] [address] [facility],[place] [address] 05/09/2021 08:26:53 05/09/2021 15:23:31 Chronic kidney disease 365293910 N18.9 will be seeing later this summer lab has been stable and meds were adjusted Coronary arteriosclerosis 67458068 I25.10 he still relates feels fine only noted to have an anginal like sx once a month or two will be seeing cardiology he has a new dr and had his defib rechk and it was excellent Essential hypertension 60619602 I10 bp is stable doing great Paroxysmal atrial fibrillation 945764467 I48.0 now in NSR no palpitatio ns Type 2 gita betes mellitus 18764035 E11.9 a1c is much better down to7.0 from 7.5 from 8.9 from when it was elevated at 9.7 will cont the trulicity but we will increase to 3mg look to discontinu e the glipizide depending on blood test [id number] Luca Tovar [facility] [address] [facility],[place] [address] 08/11/2021 09:53:46 08/11/2021 15:00:47 Type 2 diabetes mellitus 30502185 E11.9 a1c is much better down to7.4 was 7.5 then 7,4 at its worse 8.9 from when it was elevated at 9.7we will decrease the glipizide to qd from bid will cont the trulicity but we will increase to 3mg look to discontinu e the glipizide depending on blood test Essential hypertension 43796286 I10 bp is stable doing great Paroxysmal atrial fibrillation 443935703 I48.0 now in NSR no palpitatio ns Hyperparathyroidism 6699 9008 E21.1 stable Chronic ki dney disease stage 3 998016487 N18.31 stable and following renal 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 carlos treat conserv for now otherwise nlormal exam [id number] Luca Tovar [facility] Internal Medicine [address] [facility],[place] [address] 01/19/2022 08:16:47 01/23/2022 11:19:42 Type 2 diabetes mellitus 77079622 E11.9 a1c climbed up to 8.7 from 7.4 we will need to restart the glipizide and cont the trulicity Paroxysmal atrial fibrillation 723612743 I48.0 now in NSR no palpitatio ns Essential hypertension 78786854 I10 bp is stable doing great Chronic ki dney disease 818314150 N18.9 will be seeing later this summer lab has been stable and meds were adjusted Coronary arteriosclerosis 67151702 I25.10 he still relates feels fine only noted to have an anginal like sx once a month or two will be seeing cardiology he has a new dr and had his defib rechk and it was excellent Disorder d ue to type 2 diabetes mellitus 599559039 E11.8 as above [id number] Luca Tovar [facility] Internal Medicine [address] [facility],[place] [address] 05/08/2022 13:51:48 05/08/2022 15:23:11 Type 2 diabetes mellitus 13518017 E11.9 a1c climbed up to 8.7 from 7.4 we will need to restart the glipizide and cont the trulicity Hypercholesterolemia 136 35802 E78.00 following Essential hypertension 30624833 I10 bp is stable doing great Anxiety 57738855 F41.9 seems to be baseline Paroxysmal atrial fibrillation 692238271 I48.0 [place] [id number] Luca Tovar DO [facility] Internal Medicine [address] [facility],[place] [facility] [place] [address] 08/21/2022 13:53:14 08/21/2022 14:59:41 Chronic kidney disease 720976605 N18.9 will be seeing later this summer lab has been stable and meds were adjusted Hypercholesterolemia 136 09990 E78.00 following Anxiety 26770460 F41.9 seems to be baseline Disorder d ue to type 2 diabetes mellitus 008386424 E11.8 as above Type 2 gita betes mellitus 37743103 E11.9 a1c climbed up to 8.7 from 7.4 we will need to restart the glipizide and cont the trulicity Hyperparathyroidism 6699 9008 E21.1 stable Paroxysmal atrial fibrillation 703513406 I48.0 now in NSR no palpitatio ns Chronic ki dney disease stage 3 890296911 N18.31 stable and following renal Coronary arteriosclerosis 20023875 I25.10 he is stable with his metoprolol and amlodipine as well he still relates feels fine only noted to have an anginal like sx once a month or two will be seeing cardiology he has a new dr and had his defib rechk and it was excellent Essential hypertension 91854269 I10 bp is stable doing great 36138 NISHA STARKS [facility] Internal Medicine [address] [facility],[place] [facility] [place] [address] 03/25/2023 10:23:59 03/25/2023 11:27:36 Pre-surgery evaluation 463412504 Z01.818 The patient was seen in the office today for pre-op evaluation . All medical conditions on patient's problem list were addressed and are currently stable, no interventi on needed at this time. Based on history and physical performed, the patient is cleared for surgery. 32302 NISHA STARKS [facility] Internal Medicine [address] [facility] [address],[place] [address] 04/03/2023 10:33:43 04/05/2023 14:23:32 Impacted cerumen of bilateral ears 5628069194 629317 H61.23 resolved [id number] NISHA STARKS [facility] Internal Medicine [address] [facility] [address],[place] 7 07/09/2023 10:31:44 07/09/2023 12:12:15 Acute sinusitis 50150094 J01.90 will set up with abx for sinus infection [id number] Luca Tovar DO [facility] Internal Medicine [address] [facility] [address],[place] [address] 07/19/2023 10:31:30 07/19/2023 14:38:59 Secondary hyperparathyroidism 46439855 E21.1 also stable and we will check lab parmjit bernardino ifrah dominguez is stable Paroxysmal atrial fibrillation 567654239 I48.0 now in NSR no palpitatio ns Hypercholesterolemia 136 55922 E78.00 following Type 2 gita betes mellitus 35414671 E11.9 a1c climbed up to 11.7 due to loss of trulicity and recent sinus infection he will be restarting trulicity and we will rechk in 3 months PRIOR8.7 from 7.4 we will need to restart the glipizide and cont the trulicity Essential hypertension 50916714 I10 bp is stable doing great Chronic ki dney disease 988243705 N18.9 will be seeing later this summer lab has been stable and meds were adjusted [id number] Luca Tovar DO [facility] Internal Medicine [address] [facility] [address] [address] 10/28/2023 11:22:10 10/29/2023 11:13:52 Essential hypertension 56274129 I10 bp is stable doing great Hypercholesterolemia 136 28616 E78.00 following but given age we are not as intense on this Paroxysmal atrial fibrillation 546155685 I48.0 now in NSR no palpitatio nsbut is troubled by warfarin causing bruising Depression screening 171 786262 Z13.31 SCREENING NEGATIVE Chronic ki dney disease 903580040 N18.9 currently is stable gfr is 42 lab has been stable and meds were adjusted Coronary arteriosclerosis 43283612 I25.10 he is stable with his metoprolol and amlodipine as well he still relates feels fine only noted to have an anginal like sx once a month or two will be seeing cardiology he has a new dr and had his defib rechk and it was excellent Disorder d ue to type 2 diabetes mellitus 802818093 E11.8 note to have his a1c ]at 9.8 but he had been without the trulicity for several months due to supply prob Secondary hyperparathyroidism 12565157 E21.1 also stable and we will check lab a nd reviewed angelica is stable Vitamin D deficiency 347 24694 E55.9 we wiill have hinm supplement for 2 mo [id number] Luca Tovar DO [facility] Internal Medicine [address] [facility],[place] [facility] [place] [address] 05/15/2024 08:52:55 05/15/2024 11:27:56 Chronic kidney disease 397222261 N18.9 currently is stable gfr is still 42 does have signif microalbum inuria lab has been stable and meds were adjusted Coronary arteriosclerosis 77508910 I25.10 he is stable with his metoprolol and amlodipine as well he still relates feels fine only noted to have an anginal like sx once a month or two will be seeing cardiology he has a new dr and had his defib rechk and it was excellent Essential hypertension 43857440 I10 bp is stable doing great Paroxysmal atrial fibrillation 281735409 I48.0 now in NSR no palpitatio nsbut is troubled by warfarin causing bruising Type 2 gita betes mellitus 33960347 E11.9 a1c climbed up to 11.7 due to loss of trulicity and recent sinus infection he will be restarting trulicity and we will rechk in 3 months PRIOR8.7 from 7.4 we will need to restart the glipizide and cont the trulicity [id number] Luca Tovar DO [facility] Internal Medicine [address] [facility],[place] [address] 06/10/2024 11:56:13 06/10/2024 12:41:39 Coronary arteriosclerosis 87740711 I25.10 he is stable with his metoprolol and amlodipine as well he still relates feels fine only noted to have an anginal like sx once a month or two will be seeing cardiology he has a new dr and had his defib rechk and it was excellent Essential hypertension 97717428 I10 bp is stable doing great Hypercholesterolemia 136 28688 E78.00 following but given age we are not as intense on this Compressio n fracture of vertebral column 91116805 M48.50XA improving with conserv care Compressio n fracture of thoracic vertebra 1776688549 104 M48.54XA stable and already improving Health Concerns Section Related Observation LastModified by Organization Detai ls LastModified Time None Recorded Concern Status LastModified by Organization Details LastModified Time None Recorded Advance Directives Directive None Recorded Payers Encounter Date Sequence Insurance Name Policy Number Policy Nair Covered Member ID Nair Member ID Guarantor Name 07/09/2023 1 [place] [employer] [place] Jairo W Laramee [id number] 3 Jairo Laramee 07/09/2023 2 [place] [id number] Jairo W Laramee [id number] Jairo Laramee 07/19/2023 1 [place] [place] Jairo W Laramee [id number] 3 Jairo Laramee 07/19/2023 2 [place] [id number] Jairo W Laramee [id number] Jairo Laramee 10/28/2023 1 [place] [employer] [place] Jairo W Laramee [id number] 3 Jairo Laramee 10/28/2023 2 [place] [id number] Jairo W Laramee [id number] Jairo Laramee 05/15/2024 1 [place] [employer] Jairo W Laramee [id number] 3 Jairo Laramee 05/15/2024 2 [place] [id number] Jairo Newman [id number] Jairo Newman 06/10/2024 1 [place] [employer] Jairo Newman [id number] 3 Jairo Newman 06/10/2024 2 [place] [id number] Jairo Newman [id number] Jairo Newman Notes Date Note Type Note Provider Name [...] and the results was negative NISHA STARKS [address] [place] [address], [address], [facility] 07/09/2023 11:31:46 4 text/htm l [...] more careful as well Luca Tovar DO [address] [place], [address], [facility] Medicine 07/19/2023 11:10:09 4 text/htm l feels pretty good except for the mornings he is very stiff in the amno cp no sob unles exertion as he can get quite fatiguedstates works in garden every day Luca Tovar DO [address] [place], [address], [facility] 10/28/2023 11:54:51 4 text/htm [...] was an isolated event Luca Tovar DO [address] [place], [address], [facility] Medicine 05/15/2024 10:51:52 5 text/htm [...] careful and doesnt overdo it Luca Tovar, DO [address] [facility], [place], [address], [facility] 06/10/2024 12:38:40
--- OUTSIDE RECORDS SUMMARY | 2024-07-07 08:07 | XMS_ITS | Encounter Summary ---
Author Organization [facility] Address [address] [facility] [address] [place] [address] Phone Care Team Providers Care Assistant Mechanic Name Role Phone Luca Grant DO Primary Care Provider [phone] Reason for Visit * Reason Comments Med Refill Encounter Details Date Type Department Care Team (Late st Contact Info) Description 03/05/2023 Refill [facility] [address] [place] [address] Mateo Barton MD Social History [...] can be sent over to Ella in [place] on [facility]. Kathy can be reached at [phone] documented in this encounter Plan of Treatment Not on file documented as of this encounter Visit Diagnoses Not on filedocumented in this encounter Care Teams Assistant Mechanic Relationship Specialty Start Date End Date Luca Grant DO [address] [facility] [place] [address] PCP - General 05/30/20 documented as of this encounter
--- OUTSIDE RECORDS SUMMARY | 2024-07-07 08:07 | XMS_ITS | Continuity of Care Document ---
Author Organization [place] [facility], [facility] Address [address] [facility] [place] [address] Assessment Encounter Date Assessment Date Assessment LastModified by Organization Details LastModified Time 06/10/2024 06/10/2024 [id number] [place] [id number] (PRODUCE ASSISTANT) MDM MODERATE MUST MEET 2 OUT OF [...] spine, 2 or 3 view 2024 025 [facility], [address] [place], [address], 06/24/2024 10:40:47 XR, thoracic spine, 2 view 2024 025 [facility], [address] [place], [address], 06/17/2024 09:12:39 Medication Orders None recorded. Patient TargetsNo targets recorded. Patient Instructions Encounter Date Encounter Id Patient Instructions Last Modified By Organization Details Last Modified Time 06/10/2024 [id number] compression fracture of the spine: care instructions Not available 06/10/2024 12:36:20 Reason for Referral None Reported. Results Created Date Observation Date Name Description Value Unit Range Abnormal Flag Note LastModifiedBy Organization Detail LastModifiedTime 05/17/20 24 05/17/2024 CT, cervi maureen spine , w/o contr ast No observ ation record ed. [address] (Medical Records) [address] [place], [address], 05/18/2024 08:43:50 05/17/20 24 05/17/2024 CT, cervi maureen spine , w/o contr ast No observ ation record ed. [address] (Medical Records) [address] [place], [address], 05/18/2024 08:44:09 05/17/20 24 05/17/2024 CT, thora cic spine , w/o contr ast No observ ation record ed. [address] (Medical Records) [address] [place], [address], 05/18/2024 08:44:31 05/17/20 24 05/17/2024 CT, thora cic spine , w/o contr ast No observ ation record ed. [address] (Medical Records) [address] [place], [address], 05/18/2024 08:45:05 05/17/20 24 05/17/2024 CT, head + brain , w/o contr ast No observ ation record ed. [address] (Medical Records) [address] [place], [address], 05/18/2024 08:45:35 07/01/19 25 07/01/2024 XR, thora cic spine , 2 view No observ ation record ed. [address] (Medical Records) [address] [place], [address], 07/03/2024 09:23:33 07/01/19 25 07/01/2024 XR, cervi maureen spine , 2 or 3 view No observ ation record ed. [address] (Medical Records) [address] [place], [address], 07/03/2024 09:23:34 Result Notes None recorded. Problems Name Problem SNOMED Code Status Onset Date Resolution Date Notes Provider Name and Address Organization Details Recorded Time Secondar y hyperpar athyroid ism 58710395 Active 2018 REYNALDO Rosas [address] [place] [address], [address], [facility] Medicine 9 14:33:52 [facility] hyperten marilyn 55374587 [facility] 2017 [facility] 8 14:33:05 Type 2 diabetes mellitus 49422018 Active 2017 Gay rivero [facility] 8 14:33:24 Coronary arterios clerosis 82574775 Active 2017 implantab le defib/V53 .32 Tere Mayo NP, S [address] [place] [address], [address], [facility] 8 10:00:50 Hypercho lesterol emia 46363587 Active 2017 Gay rivero [facility] 8 14:34:30 Chronic kidney disease 550823443 Active 2017 Dr. Mick Mayo, PRODUCE ASSISTANT, S [address] [place], [address], [facility] Medicine 8 09:59:54 Hearing loss 19574348 Active 2017 [facility] 8 14:35:24 Anxiety 88224602 Active 2017 [facility] 8 14:35:33 Insomnia 784471639 [facility] [address] [facility] 8 14:35:46 Paroxysm al atrial fibrilla tion 507468492 Active 2017 Dr. 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 Luca Tovar DO [address] [place] [address], [address], [facility] 0 12:18:27 Disorder due to type 2 diabetes mellitus 576318880 Active 2021 Luca Tovar, DO [address] [place] [address], [address], [facility] Medicine 2 10:29:29 Impacted cerumen of bilatera l ears 38542301041 46455 Active 2022 NISHA STARKS [address] [place] [address], [address], [facility] Medicine 3 11:03:53 Acute sinusiti s 49103481 Active 2023 NISHA STARKS [address] [place] [address], [address], [facility] 4 11:26:23 Vitamin D deficien cy 48396785 Active 2023 Luca Tovar DO [address] [place] [address], [address], [facility] 4 11:51:15 COVID-19 690683720 Active 2023 Luca Tovar DO [address] [place] [address], [address], [facility] 4 14:24:44 Compress ion fracture of thoracic vertebra 54828391343 04 Active 2024 Luca Tovar, DO [address] [place] [address], [address], [facility] 5 12:35:09 Compress ion fracture of vertebra l column 94684714 Active 2024 Luca Tovar, DO [address] [place] [address], [address], [facility] 5 12:35:27 Problem Notes None recorded. Procedures Surgical History Date Name Laterality Status Provider Name and Address Organization Details Recorded Time 3 Cerumen Removal completed FIDELIA MICHAEL, NISHA [address] [place] [address], [address], [facility] 04/03/2023 11:03:46 Aicd, single chamber completed Tere Mayo NP, S [address] [place] [address], [address], [facility] 09/06/2017 08:53:46 Imaging Results None recorded. Procedure Notes None recorded. Medical Equipment None Reported. Allergies Allergen ID Allergen Name Allergen Category Reaction Reaction Severity Criticality Documentation Date Start Date Code Code System Note Provider Name and Address Organization Details Recorded Time 7809 amoxicill in medicatio n nausea moderate low 07/09/2023 723 RxNorm [facility] 4 15:05:17 Medications Name Sig Start [...] Updated DateTime 5 165.74 cm 24.8 kg/m2 13628.8 6 g 70 /min 98 % 98 % 138 mm[Hg] 68 mm[Hg] Leonora Blank [facility] Internal Medicine 5 12:06:50 Social History Question Answer Notes LastModified by Organizat ion Details LastModified Time Tobacco Smoking Status Never Smoker Tere Mayo NP, S [address] [place] [address], [address], [facility] 09/06/2017 08:52:41 What Was The Date [...] formulation 3 completed Tere Mayo NP, S [address] [place] [address], [address], [facility] 09/06/2017 08:47:21 pneumococcal, unspecified formulation 9 completed Tere Mayo NP, S [address] [place] [address], [address], [facility] 09/06/2017 08:47:41 Tdap 9 completed Tere Mayo NP, S [address] [place] [address], [address], [facility] 09/06/2017 08:48:09 Influenza, adjuvanted, trivalent, PF 7 completed Tere Mayo NP, S [address] [place] [address], [address], [facility] 09/06/2017 08:50:21 Influenza, split virus, quadrivalent, preservative 8 completed Not Available [facility] 06/06/2019 02:46:31 COVID-19, mRNA, LNP-S, PF, 30 mcg/0.3 mL dose 1 completed Gay rivero [facility] 10/26/2020 09:08:36 COVID-19, mRNA, LNP-S, PF, 30 mcg/0.3 mL dose 1 completed Gay rivero [facility] Internal [facility] 10/26/2020 09:08:42 Past Encounters Encounter ID Performer Location Encounter Start Date Encounter Closed Date Diagnosis/Indication Diagnosis SNOMED-CT Code Diagnosis ICD10 Code Diagnosis Note [id number] Luca Tovar [facility] Internal Medicine [address] [facility],[place] [address] 05/15/2024 08:52:55 05/15/2024 11:27:56 Chronic kidney disease 098065491 N18.9 currently is stable gfr is still 42 does have signif microalbum inuria lab has been stable and meds were adjusted Coronary arteriosclerosis 66509024 I25.10 he is stable with his metoprolol and amlodipine as well he still relates feels fine only noted to have an anginal like sx once a month or two will be seeing cardiology he has a new dr and had his defib rechk and it was excellent Essential hypertension 42690455 I10 bp is stable doing great Paroxysmal atrial fibrillation 349572141 I48.0 now in NSR no palpitatio nsbut is troubled by warfarin causing bruising Type 2 gita betes mellitus 67439829 E11.9 a1c climbed up to 11.7 due to loss of trulicity and recent sinus infection he will be restarting trulicity and we will rechk in 3 months PRIOR8.7 from 7.4 we will need to restart the glipizide and cont the trulicity [id number] Luca Tovar [facility] Internal Medicine [address] [facility], [place] [address] 06/10/2024 11:56:13 06/10/2024 12:41:39 Coronary arteriosclerosis 61653285 I25.10 he is stable with his metoprolol and amlodipine as well he still relates feels fine only noted to have an anginal like sx once a month or two will be seeing cardiology he has a new dr and had his defib rechk and it was excellent Essential hypertension 47880165 I10 bp is stable doing great Hypercholesterolemia 136 54990 E78.00 following but given age we are not as intense on this Compressio n fracture of vertebral column 35243273 M48.50XA improving with conserv care Compressio n fracture of thoracic vertebra 2704887169 104 M48.54XA stable and already improving Health Concerns Section Related Observation LastModified by Organization Detai ls LastModified Time None Recorded Concern Status LastModified by Organization Details LastModified Time None Recorded Payers Encounter Date Sequence Insurance Name Policy Number Policy Nair Covered Member ID Nair Member ID Guarantor Name 06/10/2024 1 [place] [employer]ERNMENT [employer] Jairo Newman [id number] Jairo Newman 06/10/2024 2 [place]) [id number] Jairo Newman [id number] Jairo Newman Notes Date Note Type [...] and doesnt overdo it Luca Tovar, [address] [facility], [place], [address], [facility] 06/10/2024 12:38:40
--- NOTE | 2024-07-07 08:09 | MHC.OFFVISCO ---
Intake Intake Visit Reasons: Anticoagulation Allergies No Known Allergies Allergy (Verified 07/07/24 08:05) Medication List - Last Reconciled 07/07/24 by Natalia Diehl RN amlodipine 5 mg PO DAILY blood sugar diagnostic As directed blood-glucose meter As directed dulaglutide (Trulicity) mg subcut fenofibrate nanocrystallized 48 mg PO DAILY glipizide 10 mg PO BID lancets As directed lorazepam 1 mg PO BEDTIME metoprolol succinate ER 100 mg PO DAILY simvastatin 20 mg PO DAILY warfarin 2.5 mg See Protocol PO DAILY Nursing Note INR: 2.3- in therapeutic range of 2-3 Medications and supplements reviewed No changes in health, diet, medications, or supplements, Denies any signs and symptoms of bleeding or bruising or clotting. Bleeding, bruising, clotting discussed Nutritional guidance given Dose: 2.5mg x 3, 1.25mg x 4 F/U INR: pt req 4 weeks Patient verbalizes understanding of instructions given Anti-Coag Initial Assessment Social Hx Patient Tobacco Use Status: Never used Tobacco Alcohol intake frequency: holidays/special occasions only Coding Level of Care Code Est Patient Level 1 Diagnoses Current use of anticoagulant therapy Z79.01 Results AMB INR Fingerstick AMB INR Fingerstick 2.3 Last Edit by Natalia Diehl RN on 07/07/24 08:12 interface delay Assessment & Plan Assessment & Plan (1) Current use of anticoagulant therapy: Code(s): 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
[2024-07-07 08:12] LABS: ~PT, ~INR - Anti Coag Clinic 2.3 (0.9-1.1)
== END 2024-07-07 08:16 | disposition home or self-care (01) ==
LOC: HO.ACS 08:04
PROVIDERS: PCP Internal Medicine; Visit Provider Internal Medicine
DX: Z79.01 Long term (current) use of anticoagulants (principal)

== ENCOUNTER → 2024-07-07 08:04 | Outpatient (BNVA) | payer MEDICARE, SELFPAY | PROVIDERS: PCP Internal Medicine; Visit Provider Internal Medicine | DX: I48.0 Paroxysmal atrial fibrillation (principal); Z79.01 Long term (current) use of anticoagulants; Z51.81 Encounter for therapeutic drug level monitoring | CPT/HCPCS: 85610; 99211 ==

== ENCOUNTER 2024-07-20 11:20 | Outpatient (AMB) | payer MEDICARE, SELFPAY ==
--- NOTE | 2024-07-20 11:26 | HO.NEPHOV_ITS ---
Vital Signs 07/20/24 11:27 07/20/24 11:38 Height 5 ft 7 in Weight 155 lb BMI 24.3 BP 158/56 H 140/60 H Blood Pressure Location Rt brachial Rt brachial Position Sitting Sitting Pulse 76 Pulse Source Pulse Oximeter Pulse Oximetry (%) 98 Oxygen Delivery Method Room Air Intake Visit Reasons: follow up/ LVM Recreation Therapy Aides Teacher Required: No Accompanied by: Self / Same As Patient Allergies No Known Allergies Allergy (Verified 07/20/24 11:29) Medication List - Last Reconciled 07/20/24 by Mateo Barton MD amlodipine 5 mg PO DAILY blood sugar diagnostic As directed blood-glucose meter As directed dulaglutide (Trulicity) mg subcut fenofibrate nanocrystallized 24 mg PO DAILY glipizide 10 mg PO BID lancets As directed lorazepam 1 mg PO BEDTIME metoprolol succinate ER 100 mg PO DAILY simvastatin 20 mg PO DAILY warfarin 2.5 mg See Protocol PO DAILY HPI Comments Details: Role in his well known to me he is a 86-year-old man with a history of longstanding diabetes mellitus. He was underlying chronic kidney disease. He has episodes of hyperkalemia in the past while on lisinopril. Recently potassium has been in the normal range. He is not on any MADALYN inhibitor at present. In 05/08/2024 he had a fall and sustained fracture of cervical vertebra. Follow up x-rays appeared acceptable. Today he has no specific complaints he is compliant with his medications [facility] Medical History (Updated 07/20/24 @ 11:39 by Mateo Barton MD) Ischemic cardiomyopathy Secondary hyperparathyroidism Coronary arteriosclerosis Hearing loss Chronic renal insufficiency Myocardial infarction Atrial fibrillation History of placement of internal cardiac defibrillator Diabetes Elevated cholesterol HTN (hypertension) Surgical History S/P internal cardiac defibrillator procedure Family History Mother Diabetes Heart disease Hypertension Social History Are you a primary childcare attendant to a significant other at home: No Do you presently have visiting nurse or other home services: No Patient Tobacco Use Status: Never used Tobacco Physical Exam Vital Signs: Last Vital Signs Pulse 76 07/20/24 11:27 BP 140/60 H 07/20/24 11:38 Pulse Ox 98 07/20/24 11:27 Oxygen Delivery Method Room Air 07/20/24 11:27 BMI result Body Mass Index 24.3 Comfortable Neck supple no JVD. Lungs entry equal no rales. Heart S1-S2 heard no gallop or rub. Abdomen soft nontender. Neuro alert awake oriented. No asterixis. Extremities no edema. Results Reviewed Nephrology Results: Hgb 12.5 g/dl (14.0-18.0) L 07/20/24 WBC 10.3 X10*3/uL (4.8-10.8) 07/20/24 Plt Count 293 X10*3/uL (160-400) 07/20/24 Sodium 141 mmol/L (135-145) 07/20/24 Potassium 4.8 mmol/L (3.3-5.1) 07/20/24 Chloride 110 mmol/L (96-108) H 07/20/24 Carbon Dioxide 25 mmol/L (22-29) 07/20/24 BUN 36 mg/dL (9-16) H 07/20/24 Creatinine 1.74 mg/dL (0.5-1.4) H 07/20/24 Calcium 9.1 mg/dL (8.4-10.2) 07/20/24 PTH Intact Pending 07/20/24 Assessment & Plan Assessment & Plan (1) Chronic renal insufficiency: Code(s): N18.9 - Chronic kidney disease, unspecified Category: Medical Plan 88-year-old man with a history of longstanding diabetes mellitus with stage 3 chronic kidney disease. Renal function is close to baseline. The goal is to slow the progression of renal disease. Continue to avoid nephrotoxic agents including NSAIDs. Optimize blood pressure maintain blood pressure less than 130/80. Maintain A1c less than 7%. In the past he had recurrent hyperkalemia therefore we will hold off on using MADALYN inhibitors. He would benefit from SGLT2 inhibitors. I have answered all his questions we will follow him along with you. Orders: Orders Hemoglobin A1c Today N18.9 - Chronic kidney disease, unspecified Complete Blood Count no Diff Today N18.9 - Chronic kidney disease, unspecified Comprehensive Met. Panel Today N18.9 - Chronic kidney disease, unspecified Parathyroid Hormone Intact Today N18.9 - Chronic kidney disease, unspecified Coding Level of Care Code Est Pt Level 4 (34035) Diagnoses Chronic renal insufficiency N18.9
[2024-07-20 11:27] VITALS: BP 158/56; PULSE 76; O2SAT 98; BMI 24.3
[2024-07-20 11:38] VITALS: BP 140/60
--- OUTSIDE RECORDS SUMMARY | 2024-07-20 13:25 | XMS_ITS | Clinical Summary ---
Author Organization [facility] Address [address] [place] [address] Phone Care Team Providers Care Associate Director Of Nursing Name Role Phone Luca Grant DO Primary Care Provider [phone] Allergies No known active allergies Medications fenofibrate [...] average glucose, using the formula of the [id number] Average Glucose study (ADAG), Diabetes Care, Vol.31,#8, [...] Most Recently Relevant to Health Maintenance Insurance [facility] MEDICARE [facility] MEDIC[facility] Care Teams Associate Director Of Nursing Relationship Specialty Start Date End Date Luca Grant DO [address] [place] [phone] PCP - General 05/30/20
--- OUTSIDE RECORDS SUMMARY | 2024-07-20 13:25 | XMS_ITS | Encounter Summary ---
Author Organization [facility] Address [address] [facility] [address] [place] [address] Phone Care Team Providers Care [employer] Name Role Phone Luca Grant DO Primary Care Provider [phone] Reason for Visit * Reason Comments Med Refill Encounter Details Date Type Department Care Team (Late st Contact Info) Description 03/05/2023 Refill [facility] [address] [place] [address] Mateo Barton MD Social History [...] 03/11/2023 4:[address] Mick cortés Kathy called in for her dad, Ella requested a refill for Amlodipine as he is almost out. If that can be sent over to Ella in [place] on [facility]. Kathy can be reached at [phone] documented in this encounter Plan of Treatment Not on file documented as of this encounter Visit Diagnoses Not on filedocumented in this encounter Care Teams [employer] Relationship Specialty Start Date End Date Luca Grant DO [address] [place] [address] PCP - General 05/30/20 documented as of this encounter
--- OUTSIDE RECORDS SUMMARY | 2024-07-20 13:26 | XMS_ITS | Data Portability ---
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) MDM MODERATE MUST MEET 2 OUT OF [...] hormone), intact, serum or plasma 2023 024 [facility], [address] [place] [address], [address], 07/19/2023 11:10:01 vitamin D, 25-hydrox y, total, serum 2023 024 [facility], [address] [place] [address], [address], 07/19/2023 11:10:01 phosphoru s, serum or plasma 2023 024 [facility], [address] [place] [address], [place], [address], 07/19/2023 11:10:01 HbA1c (hemoglob in A1c), blood 2023 024 [facility], [address] [place] [address], [address], 07/19/2023 11:10:01 CMP, serum or plasma 2023 024 [facility], [address] [place] [address], [address], 10/23/2023 11:11:14 microalbu min, urine 2023 024 [facility], [address] [place] [address], [address], 07/19/2023 11:10:01 CBC 2023 024 [facility], [address] [place] [address], [address], 07/19/2023 11:10:01 Referral None recorded. Procedures None recorded. Surgeries None recorded. Imaging XR, cervical spine, 2 or 3 view 2024 025 [facility], [address] [place] [address], [address], 06/24/2024 10:40:47 XR, thoracic spine, 2 view 2024 025 [facility], [address] [place] [address], [address], 06/17/2024 09:12:39 Medication Orders Trulicity 1.5 mg/0.5 mL subcutane ous pen injector 2023 024 [id number], [address], [place], [phone], 10/28/2023 11:54:03 amoxicill in 875 mg tablet 2023 024 [id number], [address], [place], [phone], 07/19/2023 10:42:39 Patient TargetsNo targets recorded. Patient Instructions Encounter Date Encounter Id Patient Instructions Last Modified By Organization Details Last Modified Time 07/19/2023 [id number] pulse oximetry* LATESHA Not available 07/19/2023 11:09:34 10/28/2023 [id number] pulse oximetry* Not available 10/28/2023 11:53:55 05/15/2024 [id number] learning about type 2 diabetes Not available 05/15/2024 10:51:37 type 2 diabetes: care instructions Not available 05/15/2024 10:51:37 high blood pressure: care instructions Not available 05/15/2024 10:51:37 learning about high blood pressure Not available 05/15/2024 10:51:37 06/10/2024 [id number] compression fracture of the spine: care instructions Not available 06/10/2024 12:36:20 Reason for Referral None Reported. Results Created Date Observation Date Name Description Value Unit Range Abnormal Flag Note LastModifiedBy Organization Detail LastModifiedTime 07/19/1907/19/2023 pulse oxime try* Result 99% Not Available [facility] [address] [facility] [address], [place], [address], 07/10/2023 22:23:58 10/28/19 24 10/28/2023 pulse oxime try* Result 97% Not Available [facility] [address] [facility] [address], [place], [address], 10/25/2023 09:49:06 02/25/2002/21/2024 , [facility] ardio gram No observ ation record ed. rtFormerly [facility] [address], [place], [address], 02/25/2024 12:26:24 05/17/20 24 05/17/2024 CT, cervi maureen spine , w/o contr ast No observ ation record ed. [email or web address] [facility] (Medical Records) [address] [facility], [place], [address], 05/18/2024 08:43:50 05/17/20 24 05/17/2024 CT, cervi maureen spine , w/o contr ast No observ ation record ed. [address] (Medical Records) [address] [place], [address], 05/18/2024 08:44:09 05/17/20 24 05/17/2024 CT, thora cic spine , w/o contr ast No observ ation record ed. [address] (Medical Records) [address] [place], [address], 05/18/2024 08:44:31 05/17/20 24 05/17/2024 CT, thora cic spine , w/o contr ast No observ ation record ed. [address] (Medical Records) [address] [place], [address], 05/18/2024 08:45:05 05/17/20 24 05/17/2024 CT, head + brain , w/o contr ast No observ ation record ed. [address] (Medical Records) [address] [place], [address], 05/18/2024 08:45:35 07/01/19 25 07/01/2024 XR, thora cic spine , 2 view No observ ation record ed. [address] (Medical Records) [address] [place], [address], 07/03/2024 09:23:33 07/01/19 25 07/01/2024 XR, cervi maureen spine , 2 or 3 view No observ ation record ed. [address] (Medical Records) [address] [place], [address], 07/03/2024 09:23:34 Result Notes None recorded. Problems Name Problem SNOMED Code Status Onset Date Resolution Date Notes Provider Name and Address Organization Details Recorded Time Shelly ramirez is 56873879 Active 2018 LOS RosasMICHELLE [address] [place], [address], [facility] 9 14:33:52 [facility] l hyperten marilyn 63536025 [facility] 2017 [facility] 8 14:33:05 Type 2 diabetes mellitus 80671693 Active 2017 [facility] 8 14:33:24 Coronary arterios clerosis 12160526 Active 2017 implantab le defib/V53 .32 Tere Mayo NP, S [address] [place], [address], [facility] 8 10:00:50 Hypercho lesterol emia 15269568 Active 2017 [facility] 8 14:34:30 Chronic kidney disease 840810216 Active 2017 Dr. Mick Mayo, LORI, S [address] [place], [address], [facility] 8 09:59:54 Hearing loss 01101293 Active 2017 Gaycolleen Villa [facility] 8 14:35:24 Anxiety 83181245 Active 2017 Gay Andrewsarah [facility] 8 14:35:33 Insomnia 669012124 Active 2017 [facility] 8 14:35:46 Paroxysm al atrial fibrilla tion 310515927 Active 2017 Dr. 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 Luca Tovar DO [address] [place] [address], [address], [facility] 0 12:18:27 Disorder due to type 2 diabetes mellitus 819637092 Active 2021 Luca Tovar DO [address] [place] [address], [address], [facility] 2 10:29:29 Impacted cerumen of bilatera l ears 83426410013 46132 Active 2022 NISHA STARKS [address] [place] [address], [address], [facility] 3 11:03:53 Acute sinusiti s 51933864 Active 2023 NISHA STARKS [address] [place] [address], [address], [facility] 4 11:26:23 Vitamin D deficien cy 32472141 Active 2023 Luca Tovar DO [address] [place] [address], [address], [facility] 4 11:51:15 COVID-19 868517481 Active 2023 Luca Tovar DO [address] [place] [address], [address], [facility] 4 14:24:44 Compress ion fracture of thoracic vertebra 95575248104 04 Active 2024 Luca Tovar, DO [address] [place] [address], [address], [facility] 5 12:35:09 Compress ion fracture of vertebra l column 64031032 Active 2024 Luca Tovar DO [address] [place] [address], [address], [facility] 5 12:35:27 Problem Notes None recorded. Procedures Surgical History Date Name Laterality Status Provider Name and Address Organization Details Recorded Time 3 Cerumen Removal completed NISHA STARKS [address] [facility], [place], [address], [place] [facility] 04/03/2023 11:03:46 Aicd, single chamber completed Tere Mayo, LORI, S [address] [place], [address], [place] [facility] 09/06/2017 08:53:46 Imaging Results Imaging Date Name Status LastModified by Organization Details LastModified Time 02/21/2024 US, echocardiogram completed [facility] [address], [place], [address], 02/25/2024 12:26:24 05/17/2024 CT, cervical spine, w/o contrast completed [address] (Medical Records) [address] [place], [address], 05/18/2024 08:43:50 05/17/2024 CT, cervical spine, w/o contrast completed [address] (Medical Records) [address] [place], [address], 05/18/2024 08:44:09 05/17/2024 CT, thoracic spine, w/o contrast completed [address] (Medical Records) [address] [place], [address], 05/18/2024 08:44:31 05/17/2024 CT, thoracic spine, w/o contrast completed [address] (Medical Records) [address] [place], [address], 05/18/2024 08:45:05 05/17/2024 CT, head + brain, w/o contrast completed [address] (Medical Records) [address] [place], [address], 05/18/2024 08:45:35 07/01/2024 XR, thoracic spine, 2 view completed [email or web address] (Medical Records) [address] [place], [address], 07/03/2024 09:23:33 07/01/2024 XR, cervical spine, 2 or 3 view completed [email or web address] [facility] (Medical Records) [address] [place], [address], 07/03/2024 09:23:34 Procedure Notes None recorded. Medical Equipment None Reported. Allergies Allergen ID Allergen Name Allergen Category Reaction Reaction Severity Criticality Documentation Date Start Date Code Code System Note Provider Name and Address Organization Details Recorded Time 7804 amoxicill in medicatio n nausea moderate low [...] Updated DateTime 4 165.74 cm 26.3 kg/m2 04645.1 9 g 78 /min 96 % 96 % 126 mm[Hg] 64 mm[Hg] Leonora Blank [facility] 4 10:59:39 Date Recorded Body height Body mass index (BMI) Body weight Heart rate Oxygen saturation Oxygen saturation in Arterial blood by Pulse oximetry Systolic blood pressure Diastolic blood pressure Provider Name and Address Organization Details Last Updated DateTime 4 165.74 cm 24.4 kg/m2 34415.6 7 g 69 /min 99 % 99 % 138 mm[Hg] 62 mm[Hg] Luca Tovar, DO [address] [place], [address] [place] [address] Internal Medicine 4 10:42:00 Date Recorded Body height Body mass index (BMI) Body weight Heart rate Oxygen saturation Oxygen saturation in Arterial blood by Pulse oximetry Systolic blood pressure Diastolic blood pressure Provider Name and Address Organization Details Last Updated DateTime 4 165.74 cm 25.2 kg/m2 26155.8 4 g 69 /min 97 % 97 % 138 mm[Hg] 66 mm[Hg] Latanya De Oilveira [facility] 4 11:31:37 Date Recorded Body height Body mass index (BMI) Body weight Heart rate Oxygen saturation Oxygen saturation in Arterial blood by Pulse oximetry Systolic blood pressure Diastolic blood pressure Provider Name and Address Organization Details Last Updated DateTime 5 165.74 cm 24.8 kg/m2 86692.8 6 g 70 /min 98 % 98 % 138 mm[Hg] 68 mm[Hg] Leonora Bakermond [facility] 5 12:06:50 Social History Question Answer Notes LastModified by Organizat ion Details LastModified Time Tobacco Smoking Status Never Smoker Tere Mayo NP, S [address] [place] [address], [address], [facility] 09/06/2017 08:52:41 What Was The Date [...] formulation 3 completed Tere Mayo NP, S [address] [place] [address], [address], [facility] 09/06/2017 08:47:21 pneumococcal, unspecified formulation 9 completed Tere Mayo NP, S [address] [place] [address], [address], [facility] 09/06/2017 08:47:41 Tdap 9 completed Tere Mayo NP, S [address] [place], [address], [facility] 09/06/2017 08:48:09 Influenza, adjuvanted, trivalent, PF 7 completed Tere Mayo NP, S [address] [place], [address], [facility] 09/06/2017 08:50:21 Influenza, split virus, quadrivalent, preservative 8 completed Not Available [facility] 06/06/2019 02:46:31 COVID-19, mRNA, LNP-S, PF, 30 mcg/0.3 mL dose 1 completed Gay rivero [facility] 10/26/2020 09:08:36 COVID-19, mRNA, LNP-S, PF, 30 mcg/0.3 mL dose 1 completed Gay rivero [facility] 10/26/2020 09:08:42 Past Encounters Encounter ID Performer Location Encounter Start Date Encounter Closed Date Diagnosis/Indication Diagnosis SNOMED-CT Code Diagnosis ICD10 Code Diagnosis Note [id number] Tere Mayo NP, S [facility] [address] [facility] [address] 09/06/2017 09:57:17 09/06/2017 11:29:14 Type 2 diabetes mellitus 37663750 E11.9 to have labs done at [facility] [address] , [facility] [place] [place] draw station, pt more comfortabl e with paper request Essential hypertension 60173266 I10 stable, back on [address] Barton Hypercholesterolemia 136 43652 E78.00 follow Benign pro static hyperplasia 535666866 N40.0 no c/o Paroxysmal atrial fibrillation 353666482 I48.0 denies palpitatio ns Chronic ki dney disease stage 3 [address]2535[address]18.[address] 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 Nicholson r [id number] Tere Mayo NP, S [facility] [address] [facility] [address] 11/06/2017 09:17:14 11/06/2017 11:20:19 Hypercholesterolemia 60399981 E78.00 follow, ldl 56 Chronic anxiety 21965674 9 F41.9 lorazepam at night helpful Paroxysmal atrial fibrillation 120845735 I48.0 denies palpitatio ns, current RRR Coronary arteriosclerosis 58095488 I25.10 asymptomat ic Essential hypertension 46046253 I10 stable Chronic ki dney disease stage 3 [address]47325724 N18.[address] Barton, continue meds Disorder d ue to type 2 diabetes mellitus 678055675 E11.8 [id number] Tere Mayo NP, S [facility] [address] [facility],[place] [address] 03/12/2018 08:49:50 03/17/2018 09:11:15 Hypercholesterolemia 85003215 E78.00 follow Paroxysmal atrial fibrillation 486057679 I48.0 denies palpitatio ns, current RRR Type 2 gita betes mellitus 43971011 E11.9 A1c drawn here today since mix up at lab & was not drawn 02/26/18 Coronary arteriosclerosis 12029764 I25.10 all ADL's without difficulty -encourage daily walking Essential hypertension 08243358 I10 stable Chronic ki dney disease 001326641 N18.9 Administra tion of influenza vaccine 96236217 Z23 [id number] right deltoid [id number] Tere Mayo NP, S [facility] [address] [facility] [address] 07/30/2018 10:14:43 07/30/2018 16:06:33 Disorder due to type 2 diabetes mellitus 672984737 E11.8 stable Paroxysmal atrial fibrillation 804661753 I48.0 denies palpitatio ns, current RRR Hypercholesterolemia 136 06318 E78.00 follow Coronary arteriosclerosis 41898337 I25.10 stable Essential hypertension 93637297 I10 stable Chronic ki dney disease 994773552 N18.9 up to date Hearing loss 26563889 H9 1.93 [id number] [facility] [address] [facility] [address] [place], jo Estrada [facility] [place] [address] 11/07/2018 11:36:03 11/07/2018 12:19:52 Disorder due to type 2 diabetes mellitus 684765326 E11.8 need to get a1c last a1c in february was 8.4 Paroxysmal atrial fibrillation 423738563 I48.0 denies palpitatio ns, current RRR Hypercholesterolemia 136 45228 E78.00 follow Coronary arteriosclerosis 26015471 I25.10 stable Essential hypertension 35010624 I10 stable Chronic ki dney disease 196824228 N18.9 slightly worse has f/u with kidney specialist in a month avoids nsaids bp well controlled need to see a1c for blood sugar control Hearing loss 66766070 H9 1.93 [id number] [facility] [address] [facility] [address], [place] [address] 02/04/2019 09:50:05 02/04/2019 10:15:33 Disorder due to type 2 diabetes mellitus 966433633 E11.8 had labs done with his kidney specialist , need to get a1c last a1c was 02/2018, was supposed to have one after last visit, btu never did it. will get a1c today Paroxysmal atrial fibrillation 618850936 I48.0 denies palpitatio ns, current reg Hypercholesterolemia 136 71250 E78.00 follow Coronary arteriosclerosis 60195872 I25.10 stable Essential hypertension 13115227 I10 stable Chronic ki dney disease 473666123 N18.9 has regular f/u with kidney specialist avoids nsaids bp well controlled need to see a1c for blood sugar control Hearing loss 79282388 H9 1.93 Hyperparathyroidism 6699 9008 E21.3 found by nephro, pt claims never was discussed [id number] [facility] [address] [facility] [address] [place], jo Estrada [facility] [place] [address] 06/02/2019 09:55:09 06/02/2019 10:54:06 Disorder due to type 2 diabetes mellitus 405039067 E11.8 had labs done with his kidney specialist , need to get a1c last a1c was 02/2018, was supposed to have one after last visit, btu never did it. will get a1c today Paroxysmal atrial fibrillation 662577723 I48.0 sees cardio, last seen 03/2019 Hypercholesterolemia 136 77057 E78.00 well controlled Coronary arteriosclerosis 33509359 I25.10 stable Essential hypertension 33517869 I10 stable Hearing loss 43465282 H9 1.93 Pain of left hand 392607 0514 09304 M79.642 will send to hand specialist cannot take nsaids nor steroid continue conservati ve management Hyperparathyroidism 6699 9008 E21.3 found by nephro referred to endo last visit - dr. duarte Chronic ki dney disease stage 3 790531553 N18.3 has regular f/u with kidney specialist avoids nsaids bp well controlled need to see a1c for blood sugar control [id number] August REYNALDO Duffy [facility] [address] [facility] [address] [address] 09/04/2019 11:36:11 09/04/2019 11:59:53 Disorder due to type 2 diabetes mellitus 625979918 E11.8 a1c 08/11 was 10.9 has already made cheanges to diet, was drinking lots of sugary beverages will get him a new meter to test at home Paroxysmal atrial fibrillation 822269219 I48.0 sees cardio, last seen 03/2019 Hypercholesterolemia 136 29760 E78.00 needs to be repeated, last done 09/2018 Essential hypertension 35851824 I10 stable Hearing loss 18610433 H9 1.93 Chronic ki dney disease stage 3 931971859 N18.3 has regular f/u with kidney specialist avoids nsaids bp well controlled need to see a1c for blood sugar control [id number] NISHA STARKS [facility] [address] [facility] [address] 12/02/2019 09:48:23 12/02/2019 10:54:52 Hypercholesterolemia 31166503 E78.00 labs looking better will f/u in three months Type 2 gita betes mellitus 28126036 E11.9 A1c is looking better and his diet is greatly improved daily readings are better than last reported Atrial fibrillation 4943 6004 I48.91 stable [id number] Luca Tovar DO [facility] [address] [facility] [address] 03/25/2020 11:57:44 03/25/2020 12:30:00 Essential hypertension 57714925 I10 bp is stable doing great Type 2 gita betes mellitus 32734936 E11.9 he is doing well but will need to get an a1c Paroxysmal atrial fibrillation 474164863 I48.0 now in NSR no palpitatio ns Chronic ki dney disease 259222924 N18.9 will be seeing later this month Dupuytren' s contracture of finger 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 [place] [address] 07/18/2020 10:25:57 07/18/2020 11:16:07 Type 2 diabetes mellitus 30919988 E11.9 a1c is elevated at 9.7 hei is only on Essential hypertension 63347436 I10 bp is stable doing great Paroxysmal atrial fibrillation 288113500 I48.0 now in NSR no palpitatio ns Coronary arteriosclerosis 42735029 I25.10 relates feels fine only unoted to have an anginal like sx once a month or two will be seeing cardiology in a month to see new dr and have his defib rechk Chronic ki dney disease 366181143 N18.9 will be seeing later this month lab has been stable and meds were adjusted [id number] Luca Tovar, [facility] [address] [facility] [address] [facility] [place] [address] 10/26/2020 10:03:18 10/26/2020 10:48:58 Type 2 diabetes mellitus 80464331 E11.9 a1c is much better down to 8.9 from when it was elevated at 9.7 will increase trulicity to 1.5 and rechk in sept Chronic ki dney disease 118563125 N18.9 will be seeing later this summer lab has been stable and meds were adjusted Secondary hyperparathyroidism 78460145 E21.1 also stable and we will check lab a nd reviewed swhich is stable Coronary arteriosclerosis 69404568 I25.10 relates feels fine only noted to have an anginal like sx once a month or two will be seeing cardiology he has a new dr and have his defib rechk Paroxysmal atrial fibrillation 288746335 I48.0 now in NSR no palpitatio ns Disorder d ue to type 2 diabetes mellitus 895596376 E11.8 as above Chronic ki dney disease stage 3 234904706 N18.31 stable and following renal [id number] Luca Tovar [facility] [address] [facility],[place] [address] 02/01/2021 14:04:02 02/01/2021 15:06:05 Type 2 diabetes mellitus 93993133 E11.9 a1c is much better down to7.5 from 8.9 from when it was elevated at 9.7 will cont the trulicity but we will increase to 3mg look to discontinu e the glipizide depending on blood test Essential hypertension 54150924 I10 bp is stable doing great Paroxysmal atrial fibrillation 102475731 I48.0 now in NSR no palpitatio ns Coronary arteriosclerosis 29848521 I25.10 he still relates feels fine only noted to have an anginal like sx once a month or two will be seeing cardiology he has a new dr and had his defib rechk and it was excellent [id number] Luca Tovar [facility] [address] [facility],[place] [address] 05/09/2021 08:26:53 05/09/2021 15:23:31 Chronic kidney disease 547819062 N18.9 will be seeing later this summer lab has been stable and meds were adjusted Coronary arteriosclerosis 29142599 I25.10 he still relates feels fine only noted to have an anginal like sx once a month or two will be seeing cardiology he has a new dr and had his defib rechk and it was excellent Essential hypertension 20297538 I10 bp is stable doing great Paroxysmal atrial fibrillation 175327467 I48.0 now in NSR no palpitatio ns Type 2 gita betes mellitus 90194939 E11.9 a1c is much better down to7.0 from 7.5 from 8.9 from when it was elevated at 9.7 will cont the trulicity but we will increase to 3mg look to discontinu e the glipizide depending on blood test [id number] Luca Tovar [facility] [address] [facility] [address] 08/11/2021 09:53:46 08/11/2021 15:00:47 Type 2 diabetes mellitus 29461308 E11.9 a1c is much better down to7.4 was 7.5 then 7,4 at its worse 8.9 from when it was elevated at 9.7we will decrease the glipizide to qd from bid will cont the trulicity but we will increase to 3mg look to discontinu e the glipizide depending on blood test Essential hypertension 46886851 I10 bp is stable doing great Paroxysmal atrial fibrillation 852549825 I48.0 now in NSR no palpitatio ns Hyperparathyroidism 6699 9008 E21.1 stable Chronic ki dney disease stage 3 367094237 N18.31 stable and following renal 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 carlos treat conserv for now otherwise nlormal exam [id number] Luca Tovar [facility] [place] [facility] [address] [facility] [address] [place] [address] 01/19/2022 08:16:47 01/23/2022 11:19:42 Type 2 diabetes mellitus 51408652 E11.9 a1c climbed up to 8.7 from 7.4 we will need to restart the glipizide and cont the trulicity Paroxysmal atrial fibrillation 591818203 I48.0 now in NSR no palpitatio ns Essential hypertension 53873420 I10 bp is stable doing great Chronic ki dney disease 100842387 N18.9 will be seeing later this summer lab has been stable and meds were adjusted Coronary arteriosclerosis 79295196 I25.10 he still relates feels fine only noted to have an anginal like sx once a month or two will be seeing cardiology he has a new dr and had his defib rechk and it was excellent Disorder d ue to type 2 diabetes mellitus 003940083 E11.8 as above [id number] Luca Tovar [facility] [place] [facility] [address] [facility],[place] [address] 05/08/2022 13:51:48 05/08/2022 15:23:11 Type 2 diabetes mellitus 56461962 E11.9 a1c climbed up to 8.7 from 7.4 we will need to restart the glipizide and cont the trulicity Hypercholesterolemia 136 42282 E78.00 following Essential hypertension 59773686 I10 bp is stable doing great Anxiety 85223311 F41.9 seems to be baseline Paroxysmal atrial fibrillation 097732569 I48.0 [place] [id number] Luca Tovar DO [facility] [address] [facility] [facility] [facility] [place] [address] 08/21/2022 13:53:14 08/21/2022 14:59:41 Chronic kidney disease 856945757 N18.9 will be seeing later this summer lab has been stable and meds were adjusted Hypercholesterolemia 136 13473 E78.00 following Anxiety 63236885 F41.9 seems to be baseline Disorder d ue to type 2 diabetes mellitus 945285911 E11.8 as above Type 2 gita betes mellitus 58154496 E11.9 a1c climbed up to 8.7 from 7.4 we will need to restart the glipizide and cont the trulicity Hyperparathyroidism 6699 9008 E21.1 stable Paroxysmal atrial fibrillation 746668079 I48.0 now in NSR no palpitatio ns Chronic ki dney disease stage 3 461818676 N18.31 stable and following renal Coronary arteriosclerosis 87600423 I25.10 he is stable with his metoprolol and amlodipine as well he still relates feels fine only noted to have an anginal like sx once a month or two will be seeing cardiology he has a new dr and had his defib rechk and it was excellent Essential hypertension 23503876 I10 bp is stable doing great [id number] NISHA STARKS [facility] [address] [facility],[place] [address] [place] [address] 03/25/2023 10:23:59 03/25/2023 11:27:36 Pre-surgery evaluation 589298083 Z01.818 The patient was seen in the office today for pre-op evaluation . All medical conditions on patient's problem list were addressed and are currently stable, no interventi on needed at this time. Based on history and physical performed, the patient is cleared for surgery. [id number] NISHA STARKS [facility] [address] [facility] [address],[place] [address] 04/03/2023 10:33:43 04/05/2023 14:23:32 Impacted cerumen of bilateral ears 0450380909 843318 H61.23 resolved [id number] NISHA STARKS [facility] [address] [facility] [address],[place] 7 07/09/2023 10:31:44 07/09/2023 12:12:15 Acute sinusitis 95366133 J01.90 will set up with abx for sinus infection [id number] Luca Tovar DO [facility] [address] [facility] [address] [address] 07/19/2023 10:31:30 07/19/2023 14:38:59 Secondary hyperparathyroidism 59508287 E21.1 also stable and we will check lab parmjit bernardino ifrah dominguez is stable Paroxysmal atrial fibrillation 037796122 I48.0 now in NSR no palpitatio ns Hypercholesterolemia 136 59443 E78.00 following Type 2 gita betes mellitus 52929818 E11.9 a1c climbed up to 11.7 due to loss of trulicity and recent sinus infection he will be restarting trulicity and we will rechk in 3 months PRIOR8.7 from 7.4 we will need to restart the glipizide and cont the trulicity Essential hypertension 60026761 I10 bp is stable doing great Chronic ki dney disease 745305026 N18.9 will be seeing later this summer lab has been stable and meds were adjusted [id number] Luca Tovar DO [facility] [address] [facility] [address] [address] 10/28/2023 11:22:10 10/29/2023 11:13:52 Essential hypertension 12602134 I10 bp is stable doing great Hypercholesterolemia 136 09741 E78.00 following but given age we are not as intense on this Paroxysmal atrial fibrillation 160909100 I48.0 now in NSR no palpitatio nsbut is troubled by warfarin causing bruising Depression screening 171 008319 Z13.31 SCREENING NEGATIVE Chronic ki dney disease 258949344 N18.9 currently is stable gfr is 42 lab has been stable and meds were adjusted Coronary arteriosclerosis 61922459 I25.10 he is stable with his metoprolol and amlodipine as well he still relates feels fine only noted to have an anginal like sx once a month or two will be seeing cardiology he has a new dr and had his defib rechk and it was excellent Disorder d ue to type 2 diabetes mellitus 073422007 E11.8 note to have his a1c ]at 9.8 but he had been without the trulicity for several months due to supply prob Secondary hyperparathyroidism 72241049 E21.1 also stable and we will check lab a nd reviewed angelica is stable Vitamin D deficiency 347 13089 E55.9 we wiill have hinm supplement for 2 mo [id number] Luca Tovar DO [facility] [address] [facility],[address] [facility] [place] [address] 05/15/2024 08:52:55 05/15/2024 11:27:56 Chronic kidney disease 060165178 N18.9 currently is stable gfr is still 42 does have signif microalbum inuria lab has been stable and meds were adjusted Coronary arteriosclerosis 77153085 I25.10 he is stable with his metoprolol and amlodipine as well he still relates feels fine only noted to have an anginal like sx once a month or two will be seeing cardiology he has a new dr and had his defib rechk and it was excellent Essential hypertension 50863903 I10 bp is stable doing great Paroxysmal atrial fibrillation 526087207 I48.0 now in NSR no palpitatio nsbut is troubled by warfarin causing bruising Type 2 gita betes mellitus 99888000 E11.9 a1c climbed up to 11.7 due to loss of trulicity and recent sinus infection he will be restarting trulicity and we will rechk in 3 months PRIOR8.7 from 7.4 we will need to restart the glipizide and cont the trulicity [id number] Luca Tovar DO [facility] [address] [facility],[place] [address] 06/10/2024 11:56:13 06/10/2024 12:41:39 Coronary arteriosclerosis 52284454 I25.10 he is stable with his metoprolol and amlodipine as well he still relates feels fine only noted to have an anginal like sx once a month or two will be seeing cardiology he has a new dr and had his defib rechk and it was excellent Essential hypertension 21083348 I10 bp is stable doing great Hypercholesterolemia 136 57039 E78.00 following but given age we are not as intense on this Compressio n fracture of vertebral column 29151360 M48.50XA improving with conserv care Compressio n fracture of thoracic vertebra 3157524683 104 M48.54XA stable and already improving Health Concerns Section Related Observation LastModified by Organization Detai ls LastModified Time None Recorded Concern Status LastModified by Organization Details LastModified Time None Recorded Advance Directives Directive None Recorded Payers Encounter Date Sequence Insurance Name Policy Number Policy Nair Covered Member ID Nair Member ID Guarantor Name 07/09/2023 1 [place] [employer] Jairo W Laramee [id number] Jairo Laramee 07/09/2023 2 [place] [id number] Jairo W Laramee [id number] Jairo Laramee 07/19/2023 1 [place] [employer] Jairo W Laramee [id number] 3 Jairo Laramee 07/19/2023 2 [place] [id number] Jairo W Laramee [id number] Jairo Laramee 10/28/2023 1 [place] [employer] Jairo W Laramee [id number] 3 Jairo Laramee 10/28/2023 2 [place] [id number] Jairo W Laramee [id number] Jairo Laramee 05/15/2024 1 [place] [employer] Jairo W Laramee [id number] 3 Jairo Laramee 05/15/2024 2 [place] [id number] Jairo Newman [id number] Jairo Newman 06/10/2024 1 [place] [employer] Jairo Newman [id number] 3 Jairo Newman 06/10/2024 2 [place] [id number] Jairo Newman [id number] Jairo Newman Notes Date Note Type [...] and the results was negative NISHA STARKS [address] [place] [address], [address], [facility] 07/09/2023 11:31:46 4 [...] careful as well Luca Tovar DO [address] [place], [address], [facility] 07/19/2023 11:10:09 4 text/htm l feels pretty good except for the mornings he is very stiff in the amno cp no sob unles exertion as he can get quite fatiguedstates works in garden every day Luca Tovar DO [address] [place], [address], [facility] 10/28/2023 11:54:51 4 text/htm l [...] an isolated event Luca Tovar DO [address] [place], [address], [facility] 05/15/2024 10:51:52 5 text/htm l [...] overdo it Luca Tovar, DO [address] [facility], [place], [address], [facility] 06/10/2024 12:38:40
== END 2024-07-20 11:43 | disposition home or self-care (01) ==
PROVIDERS: PCP Internal Medicine; Visit Provider Internal Medicine Hypertension Specialist
DX: N18.9 Chronic kidney disease, unspecified (principal)
CPT/HCPCS: 99214

== ENCOUNTER 2024-07-20 11:48 | Outpatient (REF) | payer MEDICARE, SELFPAY ==
[2024-07-20 13:00] LABS: Hematocrit 38.4 % (42.0-52.0); Hemoglobin 12.5 g/dl (14.0-18.0); Mean Corpuscular HGB Conc 32.6 g/dl (31.0-36.0); Mean Corpuscular Hemoglobin 28.9 pg (27.0-33.0); Mean Corpuscular Volume 88.9 fL (80.0-98.0); Platelet Count 293 X10*3/uL (160-400); Red Blood Count 4.32 X10*6/uL (4.60-5.80); Red Cell Distribution Width 13.2 % (11.0-16.0); White Blood Count 10.3 X10*3/uL (4.8-10.8)
[2024-07-20 13:13] LABS: Estimated Average Glucose 143 mg/dL; Hemoglobin A1c % 6.6 % (<6.0); Total Hemoglobin (HGBA1C) 3270.8983 umol/L
[2024-07-20 13:15] LABS: Alanine Aminotransferase 21 U/L (0-40); Albumin Level 3.9 g/dL (3.5-5.0); Alkaline Phosphatase 114 U/L (39-117); Anion Gap 11 (12-20); Aspartate Amino Transferase 35 U/L (5-37); Bilirubin Total 0.4 mg/dL (0.0-1.0); Blood Urea Nitrogen 36 mg/dL (9-16); Calcium 9.1 mg/dL (8.4-10.2); Carbon Dioxide 25 mmol/L (22-29); Chloride 110 mmol/L (96-108); Estimated Glomerular Filt Rate 37; Glucose Random 164 mg/dL (60-115); Potassium 4.8 mmol/L (3.3-5.1); Sodium 141 mmol/L (135-145); Total Protein 7.9 g/dL (6.5-8.0)
[2024-07-20 13:47] LABS: Parathyroid Hormone Intact 116.2 pg/mL (8.7-77.1)
--- OUTSIDE RECORDS SUMMARY | 2024-07-20 14:01 | XMS_ITS | Clinical Summary ---
Author Organization [facility] Address [address] [place] [address] Phone Care Team Providers Care Deckhand Clam Dredge Name Role Phone Luca Grant DO Primary Care Provider [phone] Allergies No known active allergies Medications fenofibrate [...] average glucose, using the formula of the W8B-Iaaswzp Average Glucose study (ADAG), Diabetes Care, Vol.31,#8, [...] Most Recently Relevant to Health Maintenance Insurance [facility] MEDICARE [facility] MEDICARE Care Teams Deckhand Clam Dredge Relationship Specialty Start Date End Date Luca Grant DO [address] [facility] [place] [place] [phone] PCP - General 05/30/20
--- OUTSIDE RECORDS SUMMARY | 2024-07-20 14:01 | XMS_ITS | Encounter Summary ---
Author Organization [facility] Address [address] [facility] [address] [place] [address] Phone Care Team Providers Care Last Scourer Name Role Phone Luca Grant DO Primary Care Provider [phone] Reason for Visit * Reason Comments Med Refill Encounter Details Date Type Department Care Team (Late st Contact Info) Description 03/05/2023 Refill [facility] [address] [place] [address] Mateo Barton MD Social History [...] can be sent over to Ella in [place] on [facility]. Kathy can be reached at [phone] documented in this encounter Plan of Treatment Not on file documented as of this encounter Visit Diagnoses Not on filedocumented in this encounter Care Teams Last Scourer Relationship Specialty Start Date End Date Luca Grant DO [address] [facility] [place] [address] PCP - General 05/30/20 documented as of this encounter
== END 2024-07-20 11:49 | disposition home or self-care (01) ==
LOC: HO.10HDL 11:48
PROVIDERS: Visit Provider Internal Medicine Hypertension Specialist
DX: N18.9 Chronic kidney disease, unspecified (principal); Z13.1 Encounter for screening for diabetes mellitus
CPT/HCPCS: 36415; 80053; 83036; 83970; 85027; 99212

== ENCOUNTER 2024-08-03 08:32 | Outpatient (AMB) | payer MEDICARE, SELFPAY ==
--- NOTE | 2024-08-03 08:42 | MHC.OFFVISCO ---
Intake Intake Visit Reasons: Anticoagulation Allergies No Known Allergies Allergy (Verified 07/20/24 11:29) Medication List - Last Reconciled 08/03/24 by Oneida Milan RN amlodipine 5 mg PO DAILY blood sugar diagnostic As directed blood-glucose meter As directed dulaglutide (Trulicity) mg subcut fenofibrate nanocrystallized 24 mg PO DAILY glipizide 10 mg PO BID lancets As directed lorazepam 1 mg PO BEDTIME metoprolol succinate ER 100 mg PO DAILY simvastatin 20 mg PO DAILY warfarin 2.5 mg See Protocol PO DAILY Nursing Note INR: 2.5 in therapeutic range Medications and supplements reviewed No changes in health, diet, medications, or supplements, Denies any signs and symptoms of bleeding or bruising or clotting. Bleeding, bruising, clotting discussed Nutritional guidance given - REMEMBER COOKED GREENS LOWERS YOUR INR Dose: 2.5MG MWF/ 1.25MG X 4 DAYS F/U INR: 1 MONTH Patient verbalizes understanding of instructions given Anti-Coag Initial Assessment Social Hx Patient Tobacco Use Status: Never used Tobacco Alcohol intake frequency: holidays/special occasions only Coding Level of Care Code Est Patient Level 1 Diagnoses Current use of anticoagulant therapy Z79.01 Results AMB INR Fingerstick AMB INR Fingerstick 2.5 Last Edit by Oneida Milan RN on 08/03/24 08:39 MANUAL ENTRY Assessment & Plan Assessment & Plan (1) Current use of anticoagulant therapy: Code(s): Z79.01 - custodial (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 Medications: New cholecalciferol (vitamin D3) PO
--- OUTSIDE RECORDS SUMMARY | 2024-08-03 08:52 | XMS_ITS | Clinical Summary ---
Author Organization [facility] Address [address] [place] [address] Phone Care Team Providers Care Cycle Counter Name Role Phone Luca Grant DO Primary Care Provider [phone] Allergies No known active allergies Medications fenofibrate [...] average glucose, using the formula of the I9I-Fodtgeh Average Glucose study (ADAG), Diabetes Care, Vol.31,#8, [...] Most Recently Relevant to Health Maintenance Insurance [facility] MEDICARE [facility] MEDIC[facility] Care Teams Cycle Counter Relationship Specialty Start Date End Date Luca Grant DO [address] [facility] [place] [phone] PCP - General 05/30/20
--- OUTSIDE RECORDS SUMMARY | 2024-08-03 08:52 | XMS_ITS | Encounter Summary ---
Author Organization [facility] Address [address] [facility] [address] [place] [address] Phone Care Team Providers Care Balance Wheel Arm Burnisher Name Role Phone Luca Grant DO Primary Care Provider [phone] Reason for Visit * Reason Comments Med Refill Encounter Details Date Type Department Care Team (Late st Contact Info) Description 03/05/2023 Refill [facility] [address] [place] [address] Mateo Barton MD Social History [...] can be sent over to Ella in [place] on [facility]. Kathy can be reached at [phone] documented in this encounter Plan of Treatment Not on file documented as of this encounter Visit Diagnoses Not on filedocumented in this encounter Care Teams Balance Wheel Arm Burnisher Relationship Specialty Start Date End Date Luca Grant DO [address] [facility] [place] [address] PCP - General 05/30/20 documented as of this encounter
--- OUTSIDE RECORDS SUMMARY | 2024-08-03 08:53 | XMS_ITS | Data Portability ---
Author Organization [facility] Home Service Address [address] [place] [address] Assessment Encounter Date Assessment Date Assessment LastModified by Organization Details LastModified Time 10/28/2023 10/28/2023 [id number] [place] [id number] (CAFETERIA DIRECTOR) MDM HIGH MUST MEET 2 OUT OF [...] COVERED Not available 10/28/2023 11:50:48 05/15/2024 05/15/2024 [id number] [place] [id number] (CAFETERIA DIRECTOR) MDM MODERATE MUST MEET 2 OUT OF [...] COVERED Not available 05/15/2024 10:48:57 06/10/2024 06/10/2024 [id number] [place] [address] (CAFETERIA DIRECTOR) MDM MODERATE MUST MEET 2 OUT OF [...] hormone), intact, serum or plasma 2023 024 [facility], [address] [place] [address], [address], 07/19/2023 11:10:01 vitamin D, 25-hydrox y, total, serum 2023 024 [facility], [address] [place] [address], [address], 07/19/2023 11:10:01 phosphoru s, serum or plasma 2023 024 [facility], [address] [place] [address], [place], [address], 07/19/2023 11:10:01 HbA1c (hemoglob in A1c), blood 2023 024 [facility], [address] [place] [address], [address], 07/19/2023 11:10:01 CMP, serum or plasma 2023 024 [facility], [address] [place] [address], [address], 10/23/2023 11:11:14 microalbu min, urine 2023 024 [facility], [address] [place] [address], [address], 07/19/2023 11:10:01 CBC 2023 024 [facility], [address] [place] [address], [address], 07/19/2023 11:10:01 Referral None recorded. Procedures None recorded. Surgeries None recorded. Imaging XR, cervical spine, 2 or 3 view 2024 025 [facility], [address] [place] [address], [address], 06/24/2024 10:40:47 XR, thoracic spine, 2 view 2024 025 [facility], [address] [place] [address], [address], 06/17/2024 09:12:39 Medication Orders Trulicity 1.5 mg/0.5 mL subcutane ous pen injector 2023 024 [id number], [address] [place], [place], [phone], 10/28/2023 11:54:03 amoxicill in 875 mg tablet 2023 024 [email or web address] [id number], [address] [place], [place], [phone], 07/19/2023 10:42:39 Patient TargetsNo targets recorded. Patient Instructions Encounter Date Encounter Id Patient Instructions Last Modified By Organization Details Last Modified Time 07/19/2023 [id number] pulse oximetry* LATESHA Not available 07/19/2023 11:09:34 10/28/2023 [id number] pulse oximetry* Not available 10/28/2023 11:53:55 05/15/2024 [id number] learning about type 2 diabetes Not available 05/15/2024 10:51:37 type 2 diabetes: care instructions Not available 05/15/2024 10:51:37 high blood pressure: care instructions Not available 05/15/2024 10:51:37 learning about high blood pressure Not available 05/15/2024 10:51:37 06/10/2024 [id number] compression fracture of the spine: care instructions Not available 06/10/2024 12:36:20 Reason for Referral None Reported. Results Created Date Observation Date Name Description Value Unit Range Abnormal Flag Note LastModifiedBy Organization Detail LastModifiedTime 07/19/1907/19/2023 pulse oxime try* Result 99% Not Available [facility] [address] [facility] [address], [place], [address], 07/10/2023 22:23:58 10/28/19 24 10/28/2023 pulse oxime try* Result 97% Not Available [facility] [address] [facility] [address], [place], [address], 10/25/2023 09:49:06 02/25/2002/21/2024 , [facility] ardio gram No observ ation record ed. [facility] [address], [place], [address], 02/25/2024 12:26:24 05/17/20 24 05/17/2024 CT, cervi maureen spine , w/o contr ast No observ ation record ed. [email or web address] [facility] (Medical Records) [address] [facility], [place], [address], 05/18/2024 08:43:50 05/17/20 24 05/17/2024 CT, cervi maureen spine , w/o contr ast No observ ation record ed. [address] (Medical Records) [address] [place], [address], 05/18/2024 08:44:09 05/17/20 24 05/17/2024 CT, thora cic spine , w/o contr ast No observ ation record ed. [address] (Medical Records) [address] [place], [address], 05/18/2024 08:44:31 05/17/20 24 05/17/2024 CT, thora cic spine , w/o contr ast No observ ation record ed. [address] (Medical Records) [address] [place], [address], 05/18/2024 08:45:05 05/17/20 24 05/17/2024 CT, head + brain , w/o contr ast No observ ation record ed. [address] (Medical Records) [address] [place], [address], 05/18/2024 08:45:35 07/01/19 25 07/01/2024 XR, thora cic spine , 2 view No observ ation record ed. [address] (Medical Records) [address] [place], [address], 07/03/2024 09:23:33 07/01/19 25 07/01/2024 XR, cervi maureen spine , 2 or 3 view No observ ation record ed. [address] (Medical Records) [address] [place], [address], 07/03/2024 09:23:34 Result Notes None recorded. Problems Name Problem SNOMED Code Status Onset Date Resolution Date Notes Provider Name and Address Organization Details Recorded Time Shelly ramirez is 21189776 Active 2018 LOS RosasMICHELLE [address] [place], [address], [facility] 9 14:33:52 [facility] l hyperten marilyn 35830035 Active 2017 [facility] 8 14:33:05 Type 2 diabetes mellitus 84197499 Active 2017 [facility] 8 14:33:24 Coronary arterios clerosis 47045529 Active 2017 implantab le defib/V53 .32 Tere Mayo NP, S [address] [place], [address], [facility] 8 10:00:50 Hypercho lesterol emia 53040499 Active 2017 [facility] 8 14:34:30 Chronic kidney disease 944237046 Active 2017 Dr. Mick Mayo, LORI, S [address] [place], [address], [facility] 8 09:59:54 Hearing loss 51575346 Active 2017 Gaycolleen Villa [facility] 8 14:35:24 Anxiety 62588185 Active 2017 Gay Andrewsarah [facility] 8 14:35:33 Insomnia 646644967 Active 2017 Gya [facility]arah [facility] 8 14:35:46 Paroxysm al atrial fibrilla tion 124322716 Active 2017 Dr. 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 Luca Tovar DO [address] [place] [address], [address], [facility] 0 12:18:27 Disorder due to type 2 diabetes mellitus 439039560 Active 2021 Luca Tovar DO [address] [place] [address], [address], [facility] 2 10:29:29 Impacted cerumen of bilatera l ears 64959396462 40538 Active 2022 NISHA STARKS [address] [place] [address], [address], [facility] 3 11:03:53 Acute sinusiti s 24433593 Active 2023 NISHA STARKS [address] [place] [address], [address], [facility] 4 11:26:23 Vitamin D deficien cy 46512293 Active 2023 Luca Tovar DO [address] [place] [address], [address], [facility] 4 11:51:15 COVID-19 740933115 Active 2023 Luca Tovar DO [address] [place] [address], [address], [facility] 4 14:24:44 Compress ion fracture of thoracic vertebra 59157965973 04 Active 2024 Luca Tovar, DO [address] [place] [address], [address], [facility] 5 12:35:09 Compress ion fracture of vertebra l column 98901574 Active 2024 Luca Tovar DO [address] [place] [address], [address], [facility] 5 12:35:27 Problem Notes None recorded. Procedures Surgical History Date Name Laterality Status Provider Name and Address Organization Details Recorded Time 3 Cerumen Removal completed NISHA STARKS [address] [facility], [place], [address], [place] [facility] 04/03/2023 11:03:46 Aicd, single chamber completed Tere Mayo, LORI, S [address] [place], [address], [place] [facility] 09/06/2017 08:53:46 Imaging Results Imaging Date Name Status LastModified by Organization Details LastModified Time 02/21/2024 US, echocardiogram completed [facility] [address], [place], [address], 02/25/2024 12:26:24 05/17/2024 CT, cervical spine, w/o contrast completed [address] (Medical Records) [address] [place], [address], 05/18/2024 08:43:50 05/17/2024 CT, cervical spine, w/o contrast completed [address] (Medical Records) [address] [place], [address], 05/18/2024 08:44:09 05/17/2024 CT, thoracic spine, w/o contrast completed [address] (Medical Records) [address] [place], [address], 05/18/2024 08:44:31 05/17/2024 CT, thoracic spine, w/o contrast completed [address] (Medical Records) [address] [place], [address], 05/18/2024 08:45:05 05/17/2024 CT, head + brain, w/o contrast completed [address] (Medical Records) [address] [place], [address], 05/18/2024 08:45:35 07/01/2024 XR, thoracic spine, 2 view completed [email or web address] (Medical Records) [address] [place], [address], 07/03/2024 09:23:33 07/01/2024 XR, cervical spine, 2 or 3 view completed [email or web address] [facility] (Medical Records) [address] [place], [address], 07/03/2024 09:23:34 Procedure Notes None recorded. Medical Equipment None Reported. Allergies Allergen ID Allergen Name Allergen Category Reaction Reaction Severity Criticality Documentation Date Start Date Code Code System Note Provider Name and Address Organization Details Recorded Time 7808 amoxicill in medicatio n nausea moderate low [...] TABLET BY MOUTH EVERY NIGHT AT BEDTIME 2024 active Not Available Not Available Not Avai lable lisinopril 2.5 mg tablet TAKE 2 TABLETS [...] Updated DateTime 4 165.74 cm 26.3 kg/m2 07496.1 9 g 78 /min 96 % 96 % 126 mm[Hg] 64 mm[Hg] Leonora Blank [facility] 4 10:59:39 Date Recorded Body height Body mass index (BMI) Body weight Heart rate Oxygen saturation Oxygen saturation in Arterial blood by Pulse oximetry Systolic blood pressure Diastolic blood pressure Provider Name and Address Organization Details Last Updated DateTime 4 165.74 cm 24.4 kg/m2 66795.6 7 g 69 /min 99 % 99 % 138 mm[Hg] 62 mm[Hg] Luca Tovar, DO [address] [place], [address] [facility] 4 10:42:00 Date Recorded Body height Body mass index (BMI) Body weight Heart rate Oxygen saturation Oxygen saturation in Arterial blood by Pulse oximetry Systolic blood pressure Diastolic blood pressure Provider Name and Address Organization Details Last Updated DateTime 4 165.74 cm 25.2 kg/m2 43169.8 4 g 69 /min 97 % 97 % 138 mm[Hg] 66 mm[Hg] Latanya De Oliveira [facility] 4 11:31:37 Date Recorded Body height Body mass index (BMI) Body weight Heart rate Oxygen saturation Oxygen saturation in Arterial blood by Pulse oximetry Systolic blood pressure Diastolic blood pressure Provider Name and Address Organization Details Last Updated DateTime 5 165.74 cm 24.8 kg/m2 62175.8 6 g 70 /min 98 % 98 % 138 mm[Hg] 68 mm[Hg] Leonora Blank [facility] 5 12:06:50 Social History Question Answer Notes LastModified by Organizat ion Details LastModified Time Tobacco Smoking Status Never Smoker Tere Mayo NP, S [address] [place] [address], [address], [facility] 09/06/2017 08:52:41 What Was The Date Of Your Most Recent Tobacco Screening? 06/10/2024 [email or web address] Information not available 06/10/2024 Do You Or [...] formulation 3 completed Tere Mayo NP, S [address] [place] [address], [address], [facility] 09/06/2017 08:47:21 pneumococcal, unspecified formulation 9 completed Tere Mayo NP, S [address] [place] [address], [address], [facility] 09/06/2017 08:47:41 Tdap 9 completed Tere Mayo NP, S [address] [place], [address], [facility] 09/06/2017 08:48:09 Influenza, adjuvanted, trivalent, PF 7 completed Tere Mayo NP, S [address] [place], [address], [facility] 09/06/2017 08:50:21 Influenza, split virus, quadrivalent, preservative 8 completed Not Available [facility] 06/06/2019 02:46:31 COVID-19, mRNA, LNP-S, PF, 30 mcg/0.3 mL dose 1 completed [facility] 10/26/2020 09:08:36 COVID-19, mRNA, LNP-S, PF, 30 mcg/0.3 mL dose 1 completed [facility] 10/26/2020 09:08:42 Past Encounters Encounter ID Performer Location Encounter Start Date Encounter Closed Date Diagnosis/Indication Diagnosis SNOMED-CT Code Diagnosis ICD10 Code Diagnosis Note [id number] Tere Mayo NP, S [facility] [address] [facility] [address] 09/06/2017 09:57:17 09/06/2017 11:29:14 Type 2 diabetes mellitus 52396526 E11.9 to have labs done at [address] , [facility] draw station, pt more comfortabl e with paper request Essential hypertension 49653134 I10 stable, back on [address] Barton Hypercholesterolemia 136 39589 E78.00 follow Benign pro static hyperplasia 132368691 N40.0 no c/o Paroxysmal atrial fibrillation 098547151 I48.0 denies palpitatio ns Chronic ki dney disease stage 3 114511327 [address]18[address] 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 Lyn dhaliwal [id number] Tere Mayo NP, S [facility] [address] [facility],[place] [address] 11/06/2017 09:17:14 11/06/2017 11:20:19 Hypercholesterolemia 61360919 E78.00 follow, ldl 56 Chronic anxiety 18729910 9 F41.9 lorazepam at night helpful Paroxysmal atrial fibrillation 372511676 I48.0 denies palpitatio ns, current RRR Coronary arteriosclerosis 17003513 I25.10 asymptomat ic Essential hypertension 56099884 I10 stable Chronic ki dney disease stage 3 [address]0183190 N18.[address] Barton, continue meds Disorder d ue to type 2 diabetes mellitus 704740704 E11.8 [id number] Tere Mayo NP, S [facility] [address] [facility] [address] 03/12/2018 08:49:50 03/17/2018 09:11:15 Hypercholesterolemia 87315003 E78.00 follow Paroxysmal atrial fibrillation 699922219 I48.0 denies palpitatio ns, current RRR Type 2 gita betes mellitus 49540391 E11.9 A1c drawn here today since mix up at lab & was not drawn 02/26/18 Coronary arteriosclerosis 70443114 I25.10 all ADL's without difficulty -encourage daily walking Essential hypertension 59932699 I10 stable Chronic ki dney disease 275063280 N18.9 Administra tion of influenza vaccine 45558260 Z23 [id number] 1A right deltoid [id number] Tere Mayo NP, S [facility] [address] [facility] [place] [address] [place] [address] 07/30/2018 10:14:43 07/30/2018 16:06:33 Disorder due to type 2 diabetes mellitus 063140318 E11.8 stable Paroxysmal atrial fibrillation 385656504 I48.0 denies palpitatio ns, current RRR Hypercholesterolemia 136 25847 E78.00 follow Coronary arteriosclerosis 88612072 I25.10 stable Essential hypertension 98569748 I10 stable Chronic ki dney disease 946498537 N18.9 up to date Hearing loss 00485559 H9 1.93 [id number] [facility] [address] [facility] [place] [address] 11/07/2018 11:36:03 11/07/2018 12:19:52 Disorder due to type 2 diabetes mellitus 861599228 E11.8 need to get a1c last a1c in february was 8.4 Paroxysmal atrial fibrillation 024825333 I48.0 denies palpitatio ns, current RRR Hypercholesterolemia 136 29193 E78.00 follow Coronary arteriosclerosis 86268838 I25.10 stable Essential hypertension 49220644 I10 stable Chronic ki dney disease 260696524 N18.9 slightly worse has f/u with kidney specialist in a month avoids nsaids bp well controlled need to see a1c for blood sugar control Hearing loss 86226005 H9 1.93 [id number] [facility] [address] [facility] [place], [place] [address] 02/04/2019 09:50:05 02/04/2019 10:15:33 Disorder due to type 2 diabetes mellitus 018491890 E11.8 had labs done with his kidney specialist , need to get a1c last a1c was 02/2018, was supposed to have one after last visit, btu never did it. will get a1c today Paroxysmal atrial fibrillation 995817406 I48.0 denies palpitatio ns, current reg Hypercholesterolemia 136 68424 E78.00 follow Coronary arteriosclerosis 77280002 I25.10 stable Essential hypertension 91870367 I10 stable Chronic ki dney disease 296005600 N18.9 has regular f/u with kidney specialist avoids nsaids bp well controlled need to see a1c for blood sugar control Hearing loss 10518235 H9 1.93 Hyperparathyroidism 6699 9008 E21.3 found by nephro, pt claims never was discussed [id number] [facility] [address] [facility] [place] [address] 06/02/2019 09:55:09 06/02/2019 10:54:06 Disorder due to type 2 diabetes mellitus 207349805 E11.8 had labs done with his kidney specialist , need to get a1c last a1c was 02/2018, was supposed to have one after last visit, btu never did it. will get a1c today Paroxysmal atrial fibrillation 500472151 I48.0 sees cardio, last seen 03/2019 Hypercholesterolemia 136 45236 E78.00 well controlled Coronary arteriosclerosis 82713651 I25.10 stable Essential hypertension 04739553 I10 stable Hearing loss 98368167 H9 1.93 Pain of left hand 745129 5038 83274 M79.642 will send to hand specialist cannot take nsaids nor steroid continue conservati ve management Hyperparathyroidism 6699 9008 E21.3 found by nephro referred to endo last visit - dr. duarte Chronic ki dney disease stage 3 232811443 N18.3 has regular f/u with kidney specialist avoids nsaids bp well controlled need to see a1c for blood sugar control [id number] August REYNALDO Duffy [facility] [address] [facility],[place] [address] 09/04/2019 11:36:11 09/04/2019 11:59:53 Disorder due to type 2 diabetes mellitus 946187768 E11.8 a1c 08/11 was 10.9 has already made cheanges to diet, was drinking lots of sugary beverages will get him a new meter to test at home Paroxysmal atrial fibrillation 703310618 I48.0 sees cardio, last seen 03/2019 Hypercholesterolemia 136 44416 E78.00 needs to be repeated, last done 09/2018 Essential hypertension 31479605 I10 stable Hearing loss 54072321 H9 1.93 Chronic ki dney disease stage 3 150505299 N18.3 has regular f/u with kidney specialist avoids nsaids bp well controlled need to see a1c for blood sugar control [id number] NISHA STARKS [facility] [address] [facility],[place] [address] 12/02/2019 09:48:23 12/02/2019 10:54:52 Hypercholesterolemia 91152283 E78.00 labs looking better will f/u in three months Type 2 gita betes mellitus 64201735 E11.9 A1c is looking better and his diet is greatly improved daily readings are better than last reported Atrial fibrillation 4943 6004 I48.91 stable [id number] Luca Tovar DO [facility] [address] [facility],[place] [address] 03/25/2020 11:57:44 03/25/2020 12:30:00 Essential hypertension 85285813 I10 bp is stable doing great Type 2 gita betes mellitus 08655248 E11.9 he is doing well but will need to get an a1c Paroxysmal atrial fibrillation 630548846 I48.0 now in NSR no palpitatio ns Chronic ki dney disease 353613450 N18.9 will be seeing later this month Dupuytren' s contracture of finger 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 M72.0 will refer to hand spec when pt ready [id number] Luca Tovar, [facility] [address] [facility] [address] [facility] [place] [address] 07/18/2020 10:25:57 07/18/2020 11:16:07 Type 2 diabetes mellitus 11671942 E11.9 a1c is elevated at 9.7 hei is only on Essential hypertension 85573791 I10 bp is stable doing great Paroxysmal atrial fibrillation 266364453 I48.0 now in NSR no palpitatio ns Coronary arteriosclerosis 24174045 I25.10 relates feels fine only unoted to have an anginal like sx once a month or two will be seeing cardiology in a month to see new dr and have his defib rechk Chronic ki dney disease 379095487 N18.9 will be seeing later this month lab has been stable and meds were adjusted [id number] Luca Tovar, [facility] [address] [facility],[place] [address] 10/26/2020 10:03:18 10/26/2020 10:48:58 Type 2 diabetes mellitus 70428034 E11.9 a1c is much better down to 8.9 from when it was elevated at 9.7 will increase trulicity to 1.5 and rechk in sept Chronic ki dney disease 735742866 N18.9 will be seeing later this summer lab has been stable and meds were adjusted Secondary hyperparathyroidism 84395610 E21.1 also stable and we will check lab a nd reviewed swhich is stable Coronary arteriosclerosis 43333523 I25.10 relates feels fine only noted to have an anginal like sx once a month or two will be seeing cardiology he has a new dr and have his defib rechk Paroxysmal atrial fibrillation 488899557 I48.0 now in NSR no palpitatio ns Disorder d ue to type 2 diabetes mellitus 907607671 E11.8 as above Chronic ki dney disease stage 3 083112589 N18.31 stable and following renal [id number] Luca Tovar [facility] [address] [facility],[place] [address] 02/01/2021 14:04:02 02/01/2021 15:06:05 Type 2 diabetes mellitus 34893755 E11.9 a1c is much better down to7.5 from 8.9 from when it was elevated at 9.7 will cont the trulicity but we will increase to 3mg look to discontinu e the glipizide depending on blood test Essential hypertension 44712566 I10 bp is stable doing great Paroxysmal atrial fibrillation 693319270 I48.0 now in NSR no palpitatio ns Coronary arteriosclerosis 94382352 I25.10 he still relates feels fine only noted to have an anginal like sx once a month or two will be seeing cardiology he has a new dr and had his defib rechk and it was excellent [id number] Luca Tovar [facility] [address] [facility],[place] [address] 05/09/2021 08:26:53 05/09/2021 15:23:31 Chronic kidney disease 913912255 N18.9 will be seeing later this summer lab has been stable and meds were adjusted Coronary arteriosclerosis 02227409 I25.10 he still relates feels fine only noted to have an anginal like sx once a month or two will be seeing cardiology he has a new dr and had his defib rechk and it was excellent Essential hypertension 12165827 I10 bp is stable doing great Paroxysmal atrial fibrillation 738822327 I48.0 now in NSR no palpitatio ns Type 2 gita betes mellitus 49185010 E11.9 a1c is much better down to7.0 from 7.5 from 8.9 from when it was elevated at 9.7 will cont the trulicity but we will increase to 3mg look to discontinu e the glipizide depending on blood test [id number] Luca Tovar [facility] [address] [facility] [place] [address] 08/11/2021 09:53:46 08/11/2021 15:00:47 Type 2 diabetes mellitus 84768012 E11.9 a1c is much better down to7.4 was 7.5 then 7,4 at its worse 8.9 from when it was elevated at 9.7we will decrease the glipizide to qd from bid will cont the trulicity but we will increase to 3mg look to discontinu e the glipizide depending on blood test Essential hypertension 86795742 I10 bp is stable doing great Paroxysmal atrial fibrillation 578541308 I48.0 now in NSR no palpitatio ns Hyperparathyroidism 6699 9008 E21.1 stable Chronic ki dney disease stage 3 205199143 N18.31 stable and following renal 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 carlos treat conserv for now otherwise nlormal exam [id number] Luca Tovar [facility] [address] [facility],[place] [address] 01/19/2022 08:16:47 01/23/2022 11:19:42 Type 2 diabetes mellitus 74774261 E11.9 a1c climbed up to 8.7 from 7.4 we will need to restart the glipizide and cont the trulicity Paroxysmal atrial fibrillation 744567396 I48.0 now in NSR no palpitatio ns Essential hypertension 51884554 I10 bp is stable doing great Chronic ki dney disease 381217556 N18.9 will be seeing later this summer lab has been stable and meds were adjusted Coronary arteriosclerosis 24201398 I25.10 he still relates feels fine only noted to have an anginal like sx once a month or two will be seeing cardiology he has a new dr and had his defib rechk and it was excellent Disorder d ue to type 2 diabetes mellitus 538670304 E11.8 as above [id number] Luca Tovar [facility] [address] [facility] [place] [address] 05/08/2022 13:51:48 05/08/2022 15:23:11 Type 2 diabetes mellitus 17782956 E11.9 a1c climbed up to 8.7 from 7.4 we will need to restart the glipizide and cont the trulicity Hypercholesterolemia 136 36369 E78.00 following Essential hypertension 38264292 I10 bp is stable doing great Anxiety 99003015 F41.9 seems to be baseline Paroxysmal atrial fibrillation 092762105 I48.0 [place] [id number] Luca Tovar DO [facility] [address] [facility],[place] [address] 08/21/2022 13:53:14 08/21/2022 14:59:41 Chronic kidney disease 019405636 N18.9 will be seeing later this summer lab has been stable and meds were adjusted Hypercholesterolemia 136 47033 E78.00 following Anxiety 32337388 F41.9 seems to be baseline Disorder d ue to type 2 diabetes mellitus 548967097 E11.8 as above Type 2 gita betes mellitus 37392225 E11.9 a1c climbed up to 8.7 from 7.4 we will need to restart the glipizide and cont the trulicity Hyperparathyroidism 6699 9008 E21.1 stable Paroxysmal atrial fibrillation 032984014 I48.0 now in NSR no palpitatio ns Chronic ki dney disease stage 3 649228850 N18.31 stable and following renal Coronary arteriosclerosis 28195529 I25.10 he is stable with his metoprolol and amlodipine as well he still relates feels fine only noted to have an anginal like sx once a month or two will be seeing cardiology he has a new dr and had his defib rechk and it was excellent Essential hypertension 81171747 I10 bp is stable doing great 98844 NISHA STARKS [facility] [address] [facility],[place] [address] 03/25/2023 10:23:59 03/25/2023 11:27:36 Pre-surgery evaluation 169924962 Z01.818 The patient was seen in the office today for pre-op evaluation . All medical conditions on patient's problem list were addressed and are currently stable, no interventi on needed at this time. Based on history and physical performed, the patient is cleared for surgery. [id number] NISHA STARKS [facility] [address] [facility] [place], ite [facility] [address] 04/03/2023 10:33:43 04/05/2023 14:23:32 Impacted cerumen of bilateral ears [id number] 639555 H61.23 resolved [id number] NISHA STARKS [facility] [address] [facility] [place], [place] 7 07/09/2023 10:31:44 07/09/2023 12:12:15 Acute sinusitis 14779838 J01.90 will set up with abx for sinus infection [id number] Luca Tovar [facility] [address] [facility], it[place] [facility] [place] [address] 07/19/2023 10:31:30 07/19/2023 14:38:59 Secondary hyperparathyroidism 84165709 E21.1 also stable and we will check lab a bernardino ifrah ramsay is stable Paroxysmal atrial fibrillation 697676384 I48.0 now in NSR no palpitatio ns Hypercholesterolemia 136 06780 E78.00 following Type 2 gita betes mellitus 86484145 E11.9 a1c climbed up to 11.7 due to loss of trulicity and recent sinus infection he will be restarting trulicity and we will rechk in 3 months PRIOR8.7 from 7.4 we will need to restart the glipizide and cont the trulicity Essential hypertension 66859632 I10 bp is stable doing great Chronic ki dney disease 705534913 N18.9 will be seeing later this summer lab has been stable and meds were adjusted [id number] Luca Tovar DO [facility] [address] [facility] [place], it[place] [facility] [place] [address] 10/28/2023 11:22:10 10/29/2023 11:13:52 Essential hypertension 27363295 I10 bp is stable doing great Hypercholesterolemia 136 55775 E78.00 following but given age we are not as intense on this Paroxysmal atrial fibrillation 428619529 I48.0 now in NSR no palpitatio nsbut is troubled by warfarin causing bruising Depression screening 171 940799 Z13.31 SCREENING NEGATIVE Chronic ki dney disease 873939636 N18.9 currently is stable gfr is 42 lab has been stable and meds were adjusted Coronary arteriosclerosis 35196492 I25.10 he is stable with his metoprolol and amlodipine as well he still relates feels fine only noted to have an anginal like sx once a month or two will be seeing cardiology he has a new dr and had his defib rechk and it was excellent Disorder d ue to type 2 diabetes mellitus 552321907 E11.8 note to have his a1c ]at 9.8 but he had been without the trulicity for several months due to supply prob Secondary hyperparathyroidism 12772667 E21.1 also stable and we will check lab a nd reviewed angelica is stable Vitamin D deficiency 347 91084 E55.9 we wiill have hinm supplement for 2 mo [id number] Luca Tovar DO [facility] [address] [facility],[place] [address] 05/15/2024 08:52:55 05/15/2024 11:27:56 Chronic kidney disease 068622198 N18.9 currently is stable gfr is still 42 does have signif microalbum inuria lab has been stable and meds were adjusted Coronary arteriosclerosis 11711301 I25.10 he is stable with his metoprolol and amlodipine as well he still relates feels fine only noted to have an anginal like sx once a month or two will be seeing cardiology he has a new dr and had his defib rechk and it was excellent Essential hypertension 78448464 I10 bp is stable doing great Paroxysmal atrial fibrillation 090835720 I48.0 now in NSR no palpitatio nsbut is troubled by warfarin causing bruising Type 2 gita betes mellitus 22546204 E11.9 a1c climbed up to 11.7 due to loss of trulicity and recent sinus infection he will be restarting trulicity and we will rechk in 3 months PRIOR8.7 from 7.4 we will need to restart the glipizide and cont the trulicity [id number] Luca Tovar DO [facility] [address] [facility],Jade [place] [address] 06/10/2024 11:56:13 06/10/2024 12:41:39 Coronary arteriosclerosis 83331911 I25.10 he is stable with his metoprolol and amlodipine as well he still relates feels fine only noted to have an anginal like sx once a month or two will be seeing cardiology he has a new dr and had his defib rechk and it was excellent Essential hypertension 88988930 I10 bp is stable doing great Hypercholesterolemia 136 12812 E78.00 following but given age we are not as intense on this Compressio n fracture of vertebral column 95719421 M48.50XA improving with conserv care Compressio n fracture of thoracic vertebra 6534119089 104 M48.54XA stable and already improving Health Concerns Section Related Observation LastModified by Organization Detai ls LastModified Time None Recorded Concern Status LastModified by Organization Details LastModified Time None Recorded Advance Directives Directive None Recorded Payers Encounter Date Sequence Insurance Name Policy Number Policy Nair Covered Member ID Nair Member ID Guarantor Name 07/09/2023 1 [place] [employer] [place] Jairo W Laramee [id number] Jairo Laramee 07/09/2023 2 [place] [id number] Jairo W Laramee [id number] Jairo Laramee 07/19/2023 1 [place] [place] Jairo W Laramee [id number] Jairo Laramee 07/19/2023 2 [place] [id number] Jairo W Laramee [id number] Jairo Laramee 10/28/2023 1 [place] Jairo W Laramee [id number] Jairo Laramee 10/28/2023 2 [place] [id number] Jairo W Laramee [id number] Jairo Laramee 05/15/2024 1 [place] [place] Jairo W Laramee [id number] Jairo Newman 05/15/2024 2 [place] [id number] Jairo Newman [id number] Jairo Newman 06/10/2024 1 [place] [employer] Jairo Newman [id number] Jairo Newman 06/10/2024 2 [place] [id number] Jairo Newman [id number] Jairo Newman Notes Date Note Type [...] and the results was negative NISHA STARKS [address] [place] [address], [place], [address], [facility] 07/09/2023 11:31:46 4 [...] more careful as well Luca Tovar DO [address] [place] [address], [address], [facility] 07/19/2023 11:10:09 4 text/htm l feels pretty good except for the mornings he is very stiff in the amno cp no sob unles exertion as he can get quite fatiguedstates works in garden every day Luca Tovar DO [address] [place] [address], [address], [facility] 10/28/2023 11:54:51 4 text/htm l [...] was an isolated event Luca Tovar DO [address] [place] [address], [address], [facility] 05/15/2024 10:51:52 5 text/htm l [...] doesnt overdo it Luca Tovar, DO [address] [facility], [place], [address], [facility] 06/10/2024 12:38:40
[2024-08-03 09:05] LABS: Prothrombin Time Whole Bld POC 29.9 sec (11.1-13.5); ~PT, ~INR - Anti Coag Clinic 2.5 (0.9-1.1)
== END 2024-08-03 08:46 | disposition home or self-care (01) ==
LOC: HO.ACS 08:32
PROVIDERS: PCP Internal Medicine; Visit Provider Internal Medicine
DX: Z79.01 Long term (current) use of anticoagulants (principal)

== ENCOUNTER → 2024-08-03 08:32 | Outpatient (BNVA) | payer MEDICARE, SELFPAY | PROVIDERS: PCP Internal Medicine; Visit Provider Internal Medicine | DX: I48.0 Paroxysmal atrial fibrillation (principal); Z79.01 Long term (current) use of anticoagulants; Z51.81 Encounter for therapeutic drug level monitoring | CPT/HCPCS: 85610; 99211 ==

== ENCOUNTER 2024-09-03 08:00 | Outpatient (AMB) | payer MEDICARE, SELFPAY ==
--- OUTSIDE RECORDS SUMMARY | 2024-09-03 08:04 | XMS_ITS | Encounter Summary ---
Author Organization [facility] Address [address] [facility] [address] [place] [address] Phone Care Team Providers Care Stove Refinisher Name Role Phone Luca Grant DO Primary Care Provider [phone] Reason for Visit * Reason Comments Med Refill Encounter Details Date Type Department Care Team (Late st Contact Info) Description 03/05/2023 Refill [facility] [address] [place] [address] Mateo Barton MD Social History [...] can be sent over to Ella in [place] on [facility]. Kathy can be reached at [phone] documented in this encounter Plan of Treatment Not on file documented as of this encounter Visit Diagnoses Not on filedocumented in this encounter Care Teams Stove Refinisher Relationship Specialty Start Date End Date Luca Grant DO [address] [facility] [place] [address] PCP - General 05/30/20 documented as of this encounter
--- OUTSIDE RECORDS SUMMARY | 2024-09-03 08:04 | XMS_ITS | Clinical Summary ---
Author Organization [facility] Address [address] [facility] [address] [place] [address] Phone Care Team Providers Care Asphalt Layer Name Role Phone Luca Grant DO Primary [...] pressure stable Continue lisinopril Continue glipizide Immunizations Immunization Administration Dates Next Due H1N1 All Forms [...] Due Date Last Done Comments Pneumococcal Vaccine: 50+ Years (1 of 2 - PCV) 11/11/1954 04/19/2009, 03/20/2003 Diabetes: Hemoglobin A1C 06/17/2020 020, 08/12/2019 Diabetes: Ophthalmology Exam 06/17/2020 Diabetes: Pedal Pulse Checked 06/17/2020 Diabetes: Sensory Foot Exam 06/17/2020 Diabetes: Visual Foot Exam 06/17/2020 Influenza Vaccine (Season Ended) 2025 03/12/2018, 05/08/2017, 05/20/2009 Pneumococcal Vaccine: Peds ( 0 to 5 Years) and At-Risk Patients (6 to 49 Years) Discontinued 04/19/2009, 03/20/2003 Hepatitis B Vaccine Aged Out No longe [...] average glucose, using the formula of the R6A-Lnkwlyv Average Glucose study (ADAG), Diabetes Care, Vol.31,#8, [...] MD LAB BLOOD ORDERABLES Final Res ult HOLKRYSTINA from Last 3 Months or Most Recently Relevant to Health Maintenance Insurance [facility] Medicare [facility] Medicare Care Teams Asphalt Layer Relationship Specialty Start Date End Date Luca Grant DO [address] [facility] [place] [address] PCP - General 05/30/20
[2024-09-03 08:10] LABS: Prothrombin Time Whole Bld POC 28.8 sec (11.1-13.5); ~PT, ~INR - Anti Coag Clinic 2.4 (0.9-1.1)
--- NOTE | 2024-09-03 08:12 | MHC.OFFVISCO ---
Intake Intake Visit Reasons: Anticoagulation Allergies No Known Allergies Allergy (Verified 09/03/24 08:04) Medication List - Last Reconciled 09/03/24 by Maria Alejandra Gardner, RN amlodipine 5 mg PO DAILY blood sugar diagnostic As directed blood-glucose meter As directed cholecalciferol (vitamin D3) PO dulaglutide (Trulicity) mg subcut fenofibrate nanocrystallized 24 mg PO DAILY glipizide 10 mg PO BID lancets As directed lorazepam 1 mg PO BEDTIME metoprolol succinate ER 100 mg PO DAILY simvastatin 20 mg PO DAILY warfarin 2.5 mg See Protocol PO DAILY Nursing Note INR: 2.4 in therapeutic range of 2-3 Medications and supplements reviewed No changes in health, diet, medications, or supplements, Denies any signs and symptoms of bleeding or bruising or clotting. Bleeding, bruising, clotting discussed Nutritional guidance given Dose: 1.25mg X 4 days and 2.5mg X 3 days (M/W/F) F/U INR: 4 weeks Patient verbalizes understanding of instructions given Anti-Coag Initial Assessment Social Hx Patient Tobacco Use Status: Never used Tobacco Alcohol intake frequency: holidays/special occasions only Coding Level of Care Code Est Patient Level 1 Diagnoses Current use of anticoagulant therapy Z79.01 Assessment & Plan Assessment & Plan (1) Current use of anticoagulant therapy: Code(s): Z79.01 - FDC (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
== END 2024-09-03 08:14 | disposition home or self-care (01) ==
LOC: HO.ACS 08:00
PROVIDERS: PCP Internal Medicine; Visit Provider Internal Medicine Medical Oncology
DX: Z79.01 Long term (current) use of anticoagulants (principal)

== ENCOUNTER → 2024-09-03 08:00 | Outpatient (BNVA) | payer MEDICARE, SELFPAY | PROVIDERS: PCP Internal Medicine; Visit Provider Internal Medicine Medical Oncology | DX: I48.0 Paroxysmal atrial fibrillation (principal); Z79.01 Long term (current) use of anticoagulants; Z51.81 Encounter for therapeutic drug level monitoring | CPT/HCPCS: 85610; 99211 ==

== ENCOUNTER 2024-10-01 07:53 | Outpatient (AMB) | payer MEDICARE, SELFPAY ==
--- OUTSIDE RECORDS SUMMARY | 2024-10-01 07:55 | XMS_ITS | Encounter Summary ---
Author Organization [facility] Address [address] [facility] [address] [place] [address] Phone Care Team Providers Care Filler Sifter Machine Name Role Phone Luca Grant DO Primary Care Provider [phone] Reason for Visit * Reason Comments Med Refill Encounter Details Date Type Department Care Team (Late st Contact Info) Description 03/05/2023 Refill [facility] [address] [place] [address] Mateo Barton MD Social History [...] can be sent over to Ella in [place] on [facility]. Kathy can be reached at [phone] documented in this encounter Plan of Treatment Not on file documented as of this encounter Visit Diagnoses Not on filedocumented in this encounter Care Teams Filler Sifter Machine Relationship Specialty Start Date End Date Luca Grant DO [address] [facility] [place] [place] [address] PCP - General 05/30/20 documented as of this encounter
--- OUTSIDE RECORDS SUMMARY | 2024-10-01 07:55 | XMS_ITS | Clinical Summary ---
Author Organization [facility] Address [address] [place] [address] Phone Care Team Providers Care Global Sales Manager Name Role Phone Luca Grant DO Primary Care Provider [phone] Allergies No known active allergies Medications fenofibrate [...] average glucose, using the formula of the X1G-Lvsltfo Average Glucose study (ADAG), Diabetes Care, Vol.31,#8, [...] Most Recently Relevant to Health Maintenance Insurance [facility] Medicare [facility] Medicare Care Teams Global Sales Manager Relationship Specialty Start Date End Date Luca Grant DO [address] [facility] [place] [address] PCP - General 05/30/20
--- NOTE | 2024-10-01 08:09 | MHC.OFFVISCO ---
Intake Intake Visit Reasons: Anticoagulation Allergies No Known Allergies Allergy (Verified 10/01/24 08:04) Medication List - Last Reconciled 10/01/24 by Natalia Diehl RN amlodipine 5 mg PO DAILY blood sugar diagnostic As directed blood-glucose meter As directed cholecalciferol (vitamin D3) PO dulaglutide (Trulicity) mg subcut fenofibrate nanocrystallized 24 mg PO DAILY glipizide 10 mg PO BID lancets As directed lorazepam 1 mg PO BEDTIME metoprolol succinate ER 100 mg PO DAILY simvastatin 20 mg PO DAILY warfarin 2.5 mg See Protocol PO DAILY Nursing Note INR 1.8-? out of therapeutic range of 2-3 Medications and supplements reviewed Patient status: denies missed dose Medications or supplements: no changes Diet: same, pt states may have had increased greens Denies any signs and symptoms of bleeding or clotting or unusual bruising Bleeding, bruising, clotting discussed Nutritional guidance given: no greens for 2 days, eat a red today Dose: increase warfarin today to 2.5mg then cont reg dosing- 2.5mg x 3, 1.25mg x 4 F/U INR Date : 2 weeks? Patient verbalizing understanding of instructions given. Anti-Coag Initial Assessment Social Hx Patient Tobacco Use Status: Never used Tobacco Alcohol intake frequency: holidays/special occasions only Coding Level of Care Code Est Patient Level 1 Diagnoses Current use of anticoagulant therapy Z79.01 Results AMB INR Fingerstick AMB INR Fingerstick 1.8 Last Edit by Natalia Diehl RN on 10/01/24 08:11 interface delay Assessment & Plan Assessment & Plan (1) Current use of anticoagulant therapy: Code(s): Z79.01 - tank terminal gauger (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
[2024-10-01 08:11] LABS: Prothrombin Time Whole Bld POC 21.2 sec (11.1-13.5); ~PT, ~INR - Anti Coag Clinic 1.8 (0.9-1.1)
== END 2024-10-01 08:15 | disposition home or self-care (01) ==
LOC: HO.ACS 07:53
PROVIDERS: PCP Internal Medicine; Visit Provider Internal Medicine Medical Oncology
DX: Z79.01 Long term (current) use of anticoagulants (principal)

== ENCOUNTER → 2024-10-01 07:53 | Outpatient (BNVA) | payer MEDICARE, SELFPAY | PROVIDERS: PCP Internal Medicine; Visit Provider Internal Medicine Medical Oncology | DX: I48.0 Paroxysmal atrial fibrillation (principal); Z79.01 Long term (current) use of anticoagulants; Z51.81 Encounter for therapeutic drug level monitoring | CPT/HCPCS: 85610; 99211 ==

== ENCOUNTER 2024-10-14 08:23 | Outpatient (AMB) | payer MEDICARE, SELFPAY ==
--- NOTE | 2024-10-14 08:28 | MHC.OFFVISCO ---
Intake Intake Visit Reasons: Anticoagulation Allergies No Known Allergies Allergy (Verified 10/14/24 08:23) Medication List - Last Reconciled 10/14/24 by Natalia Diehl RN amlodipine 5 mg PO DAILY blood sugar diagnostic As directed blood-glucose meter As directed cholecalciferol (vitamin D3) PO dulaglutide (Trulicity) mg subcut fenofibrate nanocrystallized 24 mg PO DAILY glipizide 10 mg PO BID lancets As directed lorazepam 1 mg PO BEDTIME metoprolol succinate ER 100 mg PO DAILY simvastatin 20 mg PO DAILY warfarin 2.5 mg See Protocol PO DAILY Nursing Note INR: 2.6- in therapeutic range of 2-3 Medications and supplements reviewed- no changes No changes in health, diet, medications, or supplements, Denies any signs and symptoms of bleeding or bruising or clotting. Bleeding, bruising, clotting discussed Nutritional guidance given Dose: 2.5mg x 3, 1.25mg x 4 F/U INR: pt req 4 weeks Patient verbalizes understanding of instructions given Anti-Coag Initial Assessment Social Hx Patient Tobacco Use Status: Never used Tobacco Alcohol intake frequency: holidays/special occasions only Coding Level of Care Code Est Patient Level 1 Diagnoses Current use of anticoagulant therapy Z79.01 Results AMB INR Fingerstick AMB INR Fingerstick 2.6 Last Edit by Natalia Diehl RN on 10/14/24 08:30 interface delay Assessment & Plan Assessment & Plan (1) Current use of anticoagulant therapy: Code(s): Z79.01 - terminal block assembler (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
[2024-10-14 08:29] LABS: Prothrombin Time Whole Bld POC 31.2 sec (11.1-13.5); ~PT, ~INR - Anti Coag Clinic 2.6 (0.9-1.1)
--- OUTSIDE RECORDS SUMMARY | 2024-10-14 08:39 | XMS_ITS | Encounter Summary ---
Author Organization [facility] Address [address] [facility] [address] [place] [address] Phone Care Team Providers Care Lead Pressman Name Role Phone Luca Grant DO Primary Care Provider [phone] Reason for Visit * Reason Comments Med Refill Encounter Details Date Type Department Care Team (Late st Contact Info) Description 03/05/2023 Refill [facility] [address] [place] [address] Mateo Barton MD Social History [...] can be sent over to Ella in [place] on [facility]. Kathy can be reached at [phone] documented in this encounter Plan of Treatment Not on file documented as of this encounter Visit Diagnoses Not on filedocumented in this encounter Care Teams Lead Pressman Relationship Specialty Start Date End Date Luca Grant DO [address] [facility] [place] [address] PCP - General 05/30/20 documented as of this encounter
== END 2024-10-14 08:36 | disposition home or self-care (01) ==
LOC: HO.ACS 08:23
PROVIDERS: PCP Internal Medicine; Visit Provider Internal Medicine Medical Oncology
DX: Z79.01 Long term (current) use of anticoagulants (principal)

== ENCOUNTER → 2024-10-14 08:23 | Outpatient (BNVA) | payer MEDICARE, SELFPAY | PROVIDERS: PCP Internal Medicine; Visit Provider Internal Medicine Medical Oncology | DX: I48.0 Paroxysmal atrial fibrillation (principal); Z79.01 Long term (current) use of anticoagulants; Z51.81 Encounter for therapeutic drug level monitoring | CPT/HCPCS: 85610; 99211 ==

== ENCOUNTER 2024-11-11 08:02 | Outpatient (AMB) | payer MEDICARE, SELFPAY ==
[2024-11-11 08:09] LABS: Prothrombin Time Whole Bld POC 24.1 sec (11.1-13.5)
--- OUTSIDE RECORDS SUMMARY | 2024-11-11 08:10 | XMS_ITS | Encounter Summary ---
Author Organization [facility] Address [address] [place] [address] Phone Care Team Providers Care Gastroenterology Physician Name Role Phone Luca Grant DO Primary Care Provider [phone] Reason for Visit * Reason Comments Med Refill Encounter Details Date Type Department Care Team (Late st Contact Info) Description 03/05/2023 Refill [facility] [address] [place] [address] Mateo Barton MD Social History [...] can be sent over to Ella in [place] on [facility]. Kathy can be reached at [phone] documented in this encounter Plan of Treatment Not on file documented as of this encounter Visit Diagnoses Not on filedocumented in this encounter Care Teams Gastroenterology Physician Relationship Specialty Start Date End Date Luca Grant DO [address] [facility] [place] [address] PCP - General 05/30/20 documented as of this encounter
--- NOTE | 2024-11-11 08:14 | MHC.OFFVISCO ---
Intake Intake Visit Reasons: Anticoagulation Allergies No Known Allergies Allergy (Verified 11/11/24 08:04) Medication List - Last Reconciled 11/11/24 by Kindra Alfaro RN amlodipine 5 mg PO DAILY blood sugar diagnostic As directed blood-glucose meter As directed cholecalciferol (vitamin D3) PO dulaglutide (Trulicity) mg subcut fenofibrate nanocrystallized 24 mg PO DAILY glipizide 10 mg PO BID lancets As directed lorazepam 1 mg PO BEDTIME metoprolol succinate ER 100 mg PO DAILY simvastatin 20 mg PO DAILY warfarin 2.5 mg See Protocol PO DAILY Nursing Note NO CP,SOB,DIET/MED CHANGES,FALLS OR SX OF BLEEDING. CONTINUE PRESENT DOSE AND FOLLOW-UP IN 4 WEEKS GOOD UNDERSTANDING OF DOSING INSTR. Anti-Coag Initial Assessment Social Hx Patient Tobacco Use Status: Never used Tobacco Alcohol intake frequency: holidays/special occasions only Coding Level of Care Code Est Patient Level 1 Diagnoses Current use of anticoagulant therapy Z79.01 Assessment & Plan Assessment & Plan (1) Current use of anticoagulant therapy: Code(s): Z79.01 - intermediate manager (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
== END 2024-11-11 08:16 | disposition home or self-care (01) ==
LOC: HO.ACS 08:02
PROVIDERS: PCP Internal Medicine; Visit Provider Internal Medicine Medical Oncology
DX: Z79.01 Long term (current) use of anticoagulants (principal)

== ENCOUNTER → 2024-11-11 08:02 | Outpatient (BNVA) | payer MEDICARE, SELFPAY | PROVIDERS: PCP Internal Medicine; Visit Provider Internal Medicine Medical Oncology | DX: I48.0 Paroxysmal atrial fibrillation (principal); Z79.01 Long term (current) use of anticoagulants; Z51.81 Encounter for therapeutic drug level monitoring | CPT/HCPCS: 85610; 99211 ==

== ENCOUNTER 2024-11-19 11:27 | Outpatient (AMB) | payer MEDICARE, SELFPAY ==
--- NOTE | 2024-11-19 11:32 | HO.NEPHOV ---
Vital Signs 11/19/24 11:33 Height 5 ft 7 in Weight 154 lb BMI 24.1 BP 130/50 L Blood Pressure Location Lt brachial Position Sitting Pulse 77 Pulse Source Pulse Oximeter Pulse Oximetry (%) 97 Oxygen Delivery Method Room Air Intake Visit Reasons: 4 MO FU-Conf w/daughter Reservations Agent Required: No Accompanied by: Self / Same As Patient Allergies No Known Allergies Allergy (Verified 11/19/24 11:33) Medication List - Last Reconciled 11/19/24 by Mateo Barton MD amlodipine 5 mg PO DAILY blood sugar diagnostic As directed blood-glucose meter As directed cholecalciferol (vitamin D3) PO dulaglutide (Trulicity) mg subcut fenofibrate nanocrystallized 24 mg PO DAILY glipizide 10 mg PO DAILY lancets As directed lorazepam 1 mg PO BEDTIME metoprolol succinate ER 100 mg PO DAILY simvastatin 20 mg PO DAILY warfarin 2.5 mg See Protocol PO DAILY HPI Comments Details: Role in his well known to me he is a 86-year-old man with a history of longstanding diabetes mellitus. He was underlying chronic kidney disease. He has episodes of hyperkalemia in the past while on lisinopril. Recently potassium has been in the normal range. He is not on any MADALYN inhibitor at present. In 05/08/2024 he had a fall and sustained fracture of cervical vertebra. Follow up x-rays appeared acceptable. Today he has no specific complaints he is compliant with his medications 11/19/24 The patient is an 89-year-old male presenting with diabetes mellitus and hypertension management. The patient's diabetes mellitus has been managed with Trulicity, resulting in a reduction of HbA1c from 9% to 7%. The patient reports a stable blood pressure reading of 130/50 mmHg, which is considered satisfactory. The patient also reports experiencing back pain, which began after a fall on ice last . The fall resulted in fractures of small bones in the neck, and the patient continues to experience pain, especially when engaging in activities such as gardening. [facility] Medical History (Updated 07/20/24 @ 11:39 by Mateo Barton MD) Ischemic cardiomyopathy Secondary hyperparathyroidism Coronary arteriosclerosis Hearing loss Chronic renal insufficiency Myocardial infarction Atrial fibrillation History of placement of internal cardiac defibrillator Diabetes Elevated cholesterol HTN (hypertension) Surgical History S/P internal cardiac defibrillator procedure Family History Mother Diabetes Heart disease Hypertension Social History Are you a primary child care coordinator to a significant other at home: No Do you presently have visiting nurse or other home services: No Patient Tobacco Use Status: Never used Tobacco Physical Exam Vital Signs: Last Vital Signs Pulse 77 11/19/24 11:33 BP 130/50 L 11/19/24 11:33 Pulse Ox 97 11/19/24 11:33 Oxygen Delivery Method Room Air 11/19/24 11:33 BMI result Body Mass Index 24.1 Comfortable Neck supple no JVD. Lungs entry equal no rales. Heart S1-S2 heard no gallop or rub. Abdomen soft nontender. Neuro alert awake oriented. No asterixis. Extremities no edema. Results Reviewed Nephrology Results: Hgb, (14.0-18.0) 12.5 g/dl L 07/20/24 WBC, (4.8-10.8) 10.3 X10*3/uL 07/20/24 Plt Count, (160-400) 293 X10*3/uL 07/20/24 Sodium, (135-145) 141 mmol/L 07/20/24 Potassium, (3.3-5.1) 4.8 mmol/L 07/20/24 Chloride, (96-108) 110 mmol/L H 07/20/24 Carbon Dioxide, (22-29) 25 mmol/L 07/20/24 BUN, (9-16) 36 mg/dL H 07/20/24 Creatinine, (0.5-1.4) 1.74 mg/dL H 07/20/24 Calcium, (8.4-10.2) 9.1 mg/dL 07/20/24 PTH Intact, (8.7-77.1) 116.2 pg/mL H 07/20/24 Assessment & Plan Assessment & Plan (1) Chronic renal insufficiency: Code(s): N18.9 - Chronic kidney disease, unspecified Category: Medical Plan 89-year-old man with a history of longstanding diabetes mellitus with stage 3 chronic kidney disease. Renal function is close to baseline. The goal is to slow the progression of renal disease. Continue to avoid nephrotoxic agents including NSAIDs. Optimize blood pressure maintain blood pressure less than 130/80. Maintain A1c less than 7%. In the past he had recurrent hyperkalemia therefore we will hold off on using MADALYN inhibitors. He would benefit from SGLT2 inhibitors. Labs ordered for today Orders: Orders Basic Metabolic Panel Today N18.9 - Chronic kidney disease, unspecified Complete Blood Count no Diff Today N18.9 - Chronic kidney disease, unspecified Coding Level of Care Code Est Pt Level 4 (80712) Diagnoses Chronic renal insufficiency N18.9
[2024-11-19 11:33] VITALS: BP 130/50; PULSE 77; O2SAT 97; BMI 24.1
--- OUTSIDE RECORDS SUMMARY | 2024-11-19 12:14 | XMS_ITS | Encounter Summary ---
Author Organization [facility] Address [address] [facility] [address] [place] [address] Phone Care Team Providers Care Cheese Cooker Name Role Phone Luca Grant DO Primary Care Provider [phone] Reason for Visit * Reason Comments Med Refill Encounter Details Date Type Department Care Team (Late st Contact Info) Description 03/05/2023 Refill [facility] [address] [place] [address] Mateo Barton MD Social History [...] can be sent over to Ella in [place] [facility]. Kathy can be reached at [phone] documented in this encounter Plan of Treatment Not on file documented as of this encounter Visit Diagnoses Not on filedocumented in this encounter Care Teams Cheese Cooker Relationship Specialty Start Date End Date Luca Grant DO [address] [facility] [place] [address] PCP - General 05/30/20 documented as of this encounter
--- OUTSIDE RECORDS SUMMARY | 2024-11-19 12:14 | XMS_ITS | Data Portability ---
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 This appointment was done with an established patient. Not available 08/24/2024 11:07:07 Plan of Treatment Reminders Order Date Submit Date Provider Last Modified By Organization Details Last Modified Time Details Appointments MEDICARE ANNUAL WELLNESS 2024 11:30A M DR TOVAR Not available Not available Not available Lab PTH (parathyr oid hormone), intact, serum or plasma 2023 024 [facility], [address] [place], [address], 07/19/2023 11:10:01 vitamin D, 25-hydrox y, total, serum 2023 024 [facility], [address] [place] [address], [address], 07/19/2023 11:10:01 phosphoru s, serum or plasma 2023 024 [facility], [address] [place] [address], [address], 07/19/2023 11:10:01 HbA1c (hemoglob in A1c), blood 2023 024 [facility], [address] [place] [address], [address], 07/19/2023 11:10:01 CMP, serum or plasma 2023 024 [facility], [address] [place] [address], [address], 10/23/2023 11:11:14 microalbu min, urine 2023 024 [facility], [address] [place] [address], [address], 07/19/2023 11:10:01 CBC 2023 024 [facility], [address] [place] [address], [address], 07/19/2023 11:10:01 Referral None recorded. Procedures None recorded. Surgeries None recorded. Imaging XR, cervical spine, 2 or 3 view 2024 025 [facility], [address] [place] [address], [address], 06/24/2024 10:40:47 XR, thoracic spine, 2 view 2024 025 [facility], [address] [place], [address], 06/17/2024 09:12:39 Medication Orders Trulicity 1.5 mg/0.5 mL subcutane ous pen injector 2023 024 [id number], [address], [place], [id number], 10/28/2023 11:54:03 Patient TargetsNo targets recorded. Patient Instructions Encounter Date Encounter Id Patient Instructions Last Modified By Organization Details Last Modified Time 07/19/2023 [id number] pulse oximetry* LATESHA Not available 07/19/2023 11:09:34 10/28/2023 [id number] pulse oximetry* Not available 10/28/2023 11:53:55 05/15/2024 [id number] learning about type 2 diabetes Not available 05/15/2024 10:51:37 type 2 diabetes: care instructions Not available 05/15/2024 10:51:37 high blood pressure: care instructions Not available 05/15/2024 10:51:37 learning about high blood pressure Not available 05/15/2024 10:51:37 06/10/2024 [id number] compression fracture of the spine: care instructions Not available 06/10/2024 12:36:20 08/24/2024 [id number] compression fracture of the spine: care instructions Not available 08/24/2024 11:13:44 Reason for Referral None Reported. Results Created Date Observation Date Name Description Value Unit Range Abnormal Flag Note LastModifiedBy Organization Detail LastModifiedTime 07/19/19 24 07/19/2023 pulse oxime try* Result 99% Not Available [facility] [address] [place] [address] [address], [place], [address], 07/10/2023 22:23:58 10/28/19 24 10/28/2023 pulse oxime try* Result 97% Not Available [facility] [address] [place] [address] D, [place], [address], 10/25/2023 09:49:06 02/25/20 24 02/21/2024 , [facility] gram No observ ation record ed. [facility] [address], [place], [address], 02/25/2024 12:26:24 05/17/20 24 05/17/2024 CT, cervi maureen spine , w/o contr ast No observ ation record ed. [address] (Medical Records) [address] [place], [address], 05/18/2024 08:43:50 05/17/20 24 05/17/2024 CT, cervi maureen spine , w/o contr ast No observ ation record ed. [address] (Medical Records) [address] [place], [address], 05/18/2024 08:44:09 05/17/20 24 05/17/2024 CT, thora cic spine , w/o contr ast No observ ation record ed. [address] (Medical Records) [address] [place], [address], 05/18/2024 08:44:31 05/17/20 24 05/17/2024 CT, thora cic spine , w/o contr ast No observ ation record ed. [address] (Medical Records) [address] [place], [address], 05/18/2024 08:45:05 05/17/20 24 05/17/2024 CT, head + brain , w/o contr ast No observ ation record ed. [address] (Medical Records) [address] [place], [address], 05/18/2024 08:45:35 07/01/19 25 07/01/2024 XR, thora cic spine , 2 view No observ ation record ed. [address] (Medical Records) [address] [place], [address], 07/03/2024 09:23:33 07/01/19 25 07/01/2024 XR, cervi marueen spine , 2 or 3 view No observ ation record ed. [address] (Medical Records) [address] [place], [address], 07/03/2024 09:23:34 Result Notes None recorded. 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 REYNALDO Rosas [address] [place] [address], [address], [facility] 9 14:33:52 [facility] l hyperten marilyn 34273773 Active 2017 [facility] 8 14:33:05 Type 2 diabetes mellitus 30343910 Active 2017 [facility] 8 14:33:24 Coronary arterios clerosis 12176660 Active 2017 implantab le defib/V53 .32 Tere Mayo NP, S [address] [place] [address], [address], [facility] 8 10:00:50 Hypercho lesterol emia 41965392 Active 2017 [facility] 8 14:34:30 Chronic kidney disease 351030026 Active 2017 Dr. Mick Mayo, HOG SLAUGHTERER, S [address] [place] [address], [address], [facility] 8 09:59:54 Hearing loss 32922652 [facility] 2017 [facility] 8 14:35:24 Anxiety 27765755 Active 2017 [facility] 8 14:35:33 Insomnia 135493848 [facility] 2017 [facility] 8 14:35:46 Paroxysm al atrial fibrilla tion 217197709 Active 2017 Dr. 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 Luca Tovar, DO [address] [place] [address], [address], [facility] 0 12:18:27 Disorder due to type 2 diabetes mellitus 472322409 Active 2021 Luca Tovar, DO [address] [place] [address], [address], [facility] 2 10:29:29 Impacted cerumen of bilatera l ears 38388763247 [address] Active 2022 NISHA STARKS [address] [place] [address], [address], [facility] 3 11:03:53 Acute sinusiti s 23592613 Active 2023 NISHA STARKS [address] [place] [address], [address], [facility] 4 11:26:23 Vitamin D deficien cy 55407645 Active 2023 Luca Tovar DO [address] [place] [address], [address], [facility] 4 11:51:15 COVID-19 195601558 Active 2023 Luca Tovar, DO [address] [place], [address], [facility] 4 14:24:44 Compress ion fracture of thoracic vertebra 04693031830 04 Active 2024 Luca Tovar, DO [address] [place], [address], [facility] 5 12:35:09 Compress ion fracture of vertebra l column 32080164 Active 2024 Luca Tovar, DO [address] [place], [address], [facility] 5 12:35:27 Problem Notes None recorded. Procedures Surgical History Date Name Laterality Status Provider Name and Address Organization Details Recorded Time 3 Cerumen Removal completed NISHA STARKS [address] [place] [address], [address], [facility] 04/03/2023 11:03:46 Aicd, single chamber completed Tere Mayo NP, S [address] [place] [address], [address], [facility] 09/06/2017 08:53:46 Imaging Results None recorded. Procedure Notes None recorded. Medical Equipment None Reported. Allergies Allergen ID Allergen Name Allergen Category Reaction Reaction Severity Criticality Documentation Date Start Date Code Code System Note Provider Name and Address Organization Details Recorded Time 7809 amoxicill in medicatio n nausea moderate low 07/09/2023 723 RxNorm [facility] 4 15:05:17 Medications Name Sig Start Date [...] TAKE 1 TABLET BY MOUTH EVERY DAY 2024 active Not Available Not Available Not Avai lable metoprolol succinate ER 100 mg tablet,exte nded release 24 hr TAKE 1 TABLET BY MOUTH DAILY active Not Available Not Available No t Available warfarin 2.5 mg tablet TAKE 1 TABLET BY MOUTH DAILY AT BEDTIME 2024 active Not Available Not Available Not Avai lable amlodipine 5 mg tablet TAKE 1 TABLET [...] completed Not Available Not Available Not Available chlorhexidi ne gluconate 0.12 % mouthwash SWISH AND SPIT 15 MLS FOR 30 SECONDS EVERY MORNING AND AN HOUR PRIOR TO SLEEP active Not Available Not Available No t Available fenofibrate nanocrystal lized 48 mg tablet TAKE 1/2 TABLET BY MOUTH DAILY active Not Available Not Available No t Available OneTouch Verio test strips USE TO CHECK BS ONCE D active Not Available Not Available No t Available Trulicity 1.5 mg/0.5 mL subcutaneou s pen injector ADMINISTE R 1.5 MG UNDER THE SKIN EVERY WEEK 2024 active Not Available Not Available Not Avai lable Trulicity 0.75 mg/0.5 mL subcutaneou s pen [...] in Arterial blood by Pulse oximetry Systolic And Diastolic Provider Name and Address Organization Details Last Updated DateTime 5 165.74 cm 24.8 kg/m2 78100.8 6 g 70 /min 98 % 98 % 138/68 mm[Hg] Leonora Blank [facility] 5 12:06:50 Date Recorded Body height Body mass index (BMI) Body weight Heart rate Oxygen saturation Oxygen saturation in Arterial blood by Pulse oximetry Systolic And Diastolic Provider Name and Address Organization Details Last Updated DateTime 4 165.74 cm 24.4 kg/m2 97904.6 7 g 69 /min 99 % 99 % 138/62 mm[Hg] Luca Tovar, DO [address] [place], [address], [facility] 4 10:42:00 Date Recorded Body height Body mass index (BMI) Body weight Heart rate Oxygen saturation Oxygen saturation in Arterial blood by Pulse oximetry Systolic And Diastolic Provider Name and Address Organization Details Last Updated DateTime 5 165.74 cm 24.8 kg/m2 42145.8 6 g 70 /min 99 % 99 % 138/64 mm[Hg] Leonora Blank [facility] 5 10:44:39 Date Recorded Body height Body mass index (BMI) Body weight Heart rate Oxygen saturation Oxygen saturation in Arterial blood by Pulse oximetry Systolic And Diastolic Provider Name and Address Organization Details Last Updated DateTime 4 165.74 cm 25.2 kg/m2 28800.8 4 g 69 /min 97 % 97 % 138/66 mm[Hg] Latanya De Oliveira [facility] 4 11:31:37 Social History Question Answer Notes LastModified by Organizat ion Details LastModified Time Tobacco Smoking Status Never Smoker Tere Mayo NP, S [address] [place], [address], [facility] 09/06/2017 08:52:41 What Was The Date Of Your Most Recent Tobacco Screening? 08/24/2024 [email or web address] Information not available 08/24/2024 Sex: Unknown Functional Status Question Answer Note LastModified by Organization D etails LastModified Time Do you or have you ever used any other forms of tobacco or nicotine? No Information not available 08/21/2022 Mental Status None recorded. Family History Nothing Reported. Medical History No medical history recorded. Immunizations Vaccine Type Date Status Note Provider Nam e and Address Organization Details Recorded Time pneumococcal, unspecified formulation 3 completed Tere Mayo NP, S [address] [place] [address], [address], [facility] 09/06/2017 08:47:21 pneumococcal, unspecified formulation 9 completed Tere Mayo NP, S [address] [place] [address], [address], [facility] 09/06/2017 08:47:41 Tdap 9 completed Tere Mayo NP, S [address] [place] [address], [address], [facility] 09/06/2017 08:48:09 Influenza, adjuvanted, trivalent, PF 7 completed Tere Mayo NP, S [address] [place] [address], [address], [facility] 09/06/2017 08:50:21 Influenza, split virus, quadrivalent, preservative 8 completed Not Available [facility] 06/06/2019 02:46:31 COVID-19, mRNA, LNP-S, PF, 30 mcg/0.3 mL dose 1 completed Gay rivero [facility] 10/26/2020 09:08:36 COVID-19, mRNA, LNP-S, PF, 30 mcg/0.3 mL dose 1 completed Gay rivero [facility] 10/26/2020 09:08:42 Past Encounters Encounter ID Performer Location Encounter Start Date Encounter Closed Date Diagnosis/Indication Diagnosis SNOMED-CT Code Diagnosis ICD10 Code Diagnosis Note [id number] Luca Tovar [facility] [address] [facility],[place] [address] 09/06/2017 09:57:17 09/06/2017 11:29:14 Type 2 diabetes mellitus 00520348 E11.9 to have labs done at [facility] , [facility], pt more comfortabl e with paper request Essential hypertension 87007258 I10 stable, back on [address] Barton Hypercholesterolemia 136 75594 E78.00 follow Benign pro static hyperplasia 757029431 N40.0 no c/o Paroxysmal atrial fibrillation 396379570 I48.0 denies palpitatio ns Chronic ki dney disease stage 3 941373915 N18.[address] 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 Lyn dhaliwal [id number] Luca Tovar [facility] [address] [facility],[place] [address] 11/06/2017 09:17:14 11/06/2017 11:20:19 Hypercholesterolemia 29093346 E78.00 follow, ldl 56 Chronic anxiety 85826985 9 F41.9 lorazepam at night helpful Paroxysmal atrial fibrillation 793316445 I48.0 denies palpitatio ns, current RRR Coronary arteriosclerosis 87343008 I25.10 asymptomat ic Essential hypertension 36212028 I10 stable Chronic ki dney disease stage 3 500455843 N18.[address] Barton, continue meds Disorder d ue to type 2 diabetes mellitus 514577370 E11.8 [id number] Luca Tovar [facility] [address] [facility],[place] [address] 03/12/2018 08:49:50 03/17/2018 09:11:15 Hypercholesterolemia 05713979 E78.00 follow Paroxysmal atrial fibrillation 422804388 I48.0 denies palpitatio ns, current RRR Type 2 gita betes mellitus 12262506 E11.9 A1c drawn here today since mix up at lab & was not drawn 02/26/18 Coronary arteriosclerosis 67463788 I25.10 all ADL's without difficulty -encourage daily walking Essential hypertension 81361391 I10 stable Chronic ki dney disease 628122119 N18.9 Administra tion of influenza vaccine 95896551 Z23 [id number] 1A right deltoid [id number] Luca Tovar [facility] [address] [facility] [address] [address] 07/30/2018 10:14:43 07/30/2018 16:06:33 Disorder due to type 2 diabetes mellitus 586208025 E11.8 stable Paroxysmal atrial fibrillation 960559883 I48.0 denies palpitatio ns, current RRR Hypercholesterolemia 136 53073 E78.00 follow Coronary arteriosclerosis 60523857 I25.10 stable Essential hypertension 98448686 I10 stable Chronic ki dney disease 803617566 N18.9 up to date Hearing loss 92041229 H9 1.93 [id number] Luca Tovar [facility] [address] [facility], [email or web address] [place] [address] 11/07/2018 11:36:03 11/07/2018 12:19:52 Disorder due to type 2 diabetes mellitus 489757467 E11.8 need to get a1c last a1c in february was 8.4 Paroxysmal atrial fibrillation 106311195 I48.0 denies palpitatio ns, current RRR Hypercholesterolemia 136 05802 E78.00 follow Coronary arteriosclerosis 57374844 I25.10 stable Essential hypertension 52822263 I10 stable Chronic ki dney disease 011780109 N18.9 slightly worse has f/u with kidney specialist in a month avoids nsaids bp well controlled need to see a1c for blood sugar control Hearing loss 58741558 H9 1.93 [id number] Luca Tovar [facility] [address] [facility] [address],[place] [address] [facility] [place] [address] 02/04/2019 09:50:05 02/04/2019 10:15:33 Disorder due to type 2 diabetes mellitus 595015590 E11.8 had labs done with his kidney specialist , need to get a1c last a1c was 02/2018, was supposed to have one after last visit, btu never did it. will get a1c today Paroxysmal atrial fibrillation 066326529 I48.0 denies palpitatio ns, current reg Hypercholesterolemia 136 00525 E78.00 follow Coronary arteriosclerosis 05804132 I25.10 stable Essential hypertension 46615609 I10 stable Chronic ki dney disease 206108811 N18.9 has regular f/u with kidney specialist avoids nsaids bp well controlled need to see a1c for blood sugar control Hearing loss 83747556 H9 1.93 Hyperparathyroidism 6699 9008 E21.3 found by nephro, pt claims never was discussed [id number] August REYNALDO Duffy [facility] Medicine [address] [facility],[place] [address] 06/02/2019 09:55:09 06/02/2019 10:54:06 Disorder due to type 2 diabetes mellitus 993857657 E11.8 had labs done with his kidney specialist , need to get a1c last a1c was 02/2018, was supposed to have one after last visit, btu never did it. will get a1c today Paroxysmal atrial fibrillation 999906289 I48.0 sees cardio, last seen 03/2019 Hypercholesterolemia 136 33627 E78.00 well controlled Coronary arteriosclerosis 08488803 I25.10 stable Essential hypertension 33846978 I10 stable Hearing loss 93275865 H9 1.93 Pain of left hand 937442 7878 60008 M79.642 will send to hand specialist cannot take nsaids nor steroid continue conservati ve management Hyperparathyroidism 6699 9008 E21.3 found by nephro referred to endo last visit - dr. duarte Chronic ki dney disease stage 3 361291121 N18.3 has regular f/u with kidney specialist avoids nsaids bp well controlled need to see a1c for blood sugar control [id number] Luca Tovar DO [facility] [address],[place] [address] 09/04/2019 11:36:11 09/04/2019 11:59:53 Disorder due to type 2 diabetes mellitus 256711735 E11.8 a1c 08/11 was 10.9 has already made cheanges to diet, was drinking lots of sugary beverages will get him a new meter to test at home Paroxysmal atrial fibrillation 047262367 I48.0 sees cardio, last seen 03/2019 Hypercholesterolemia 136 01219 E78.00 needs to be repeated, last done 09/2018 Essential hypertension 22278457 I10 stable Hearing loss 32639374 H9 1.93 Chronic ki dney disease stage 3 222508459 N18.3 has regular f/u with kidney specialist avoids nsaids bp well controlled need to see a1c for blood sugar control [id number] Luca Tovar [facility] [address] [facility],[place] [address] 12/02/2019 09:48:23 12/02/2019 10:54:52 Hypercholesterolemia 64511633 E78.00 labs looking better will f/u in three months Type 2 gita betes mellitus 79643197 E11.9 A1c is looking better and his diet is greatly improved daily readings are better than last reported Atrial fibrillation 4943 6004 I48.91 stable [id number] Luca Tovar [facility] [address] [facility],[place] [address] 03/25/2020 11:57:44 03/25/2020 12:30:00 Essential hypertension 26840520 I10 bp is stable doing great Type 2 gita betes mellitus 54786876 E11.9 he is doing well but will need to get an a1c Paroxysmal atrial fibrillation 740562180 I48.0 now in NSR no palpitatio ns Chronic ki dney disease 626679283 N18.9 will be seeing later this month Dupuytren' s contracture of finger 537117937 M72.0 will refer to hand spec when pt ready [id number] Luca Tovar [facility] [address] [facility],[place] [address] 07/18/2020 10:25:57 07/18/2020 11:16:07 Type 2 diabetes mellitus 63881586 E11.9 a1c is elevated at 9.7 hei is only on Essential hypertension 76625064 I10 bp is stable doing great Paroxysmal atrial fibrillation 175284338 I48.0 now in NSR no palpitatio ns Coronary arteriosclerosis 76383208 I25.10 relates feels fine only unoted to have an anginal like sx once a month or two will be seeing cardiology in a month to see new dr and have his defib rechk Chronic ki dney disease 801774293 N18.9 will be seeing later this month lab has been stable and meds were adjusted [id number] Luca Tovar [facility] [address] [facility],[address] [facility] [place] [place] [address] 10/26/2020 10:03:18 10/26/2020 10:48:58 Type 2 diabetes mellitus 91034940 E11.9 a1c is much better down to 8.9 from when it was elevated at 9.7 will increase trulicity to 1.5 and rechk in sept Chronic ki dney disease 108991420 N18.9 will be seeing later this summer lab has been stable and meds were adjusted Secondary hyperparathyroidism 45531329 E21.1 also stable and we will check lab a nd reviewed swhich is stable Coronary arteriosclerosis 45148295 I25.10 relates feels fine only noted to have an anginal like sx once a month or two will be seeing cardiology he has a new dr and have his defib rechk Paroxysmal atrial fibrillation 067216453 I48.0 now in NSR no palpitatio ns Disorder d ue to type 2 diabetes mellitus 866929768 E11.8 as above Chronic ki dney disease stage 3 340883249 N18.31 stable and following renal [id number] Luca Tovar [facility] [address] [facility],[address] [address] [facility] [place] [address] 02/01/2021 14:04:02 02/01/2021 15:06:05 Type 2 diabetes mellitus 57015156 E11.9 a1c is much better down to7.5 from 8.9 from when it was elevated at 9.7 will cont the trulicity but we will increase to 3mg look to discontinu e the glipizide depending on blood test Essential hypertension 05080893 I10 bp is stable doing great Paroxysmal atrial fibrillation 584413600 I48.0 now in NSR no palpitatio ns Coronary arteriosclerosis 09767348 I25.10 he still relates feels fine only noted to have an anginal like sx once a month or two will be seeing cardiology he has a new dr and had his defib rechk and it was excellent [id number] Luca Tovar [facility] [address] [facility] [address],[place] [address] 05/09/2021 08:26:53 05/09/2021 15:23:31 Chronic kidney disease 808382721 N18.9 will be seeing later this summer lab has been stable and meds were adjusted Coronary arteriosclerosis 97571908 I25.10 he still relates feels fine only noted to have an anginal like sx once a month or two will be seeing cardiology he has a new dr and had his defib rechk and it was excellent Essential hypertension 78534958 I10 bp is stable doing great Paroxysmal atrial fibrillation [id number] I48.0 now in NSR no palpitatio ns Type 2 gita betes mellitus 21491316 E11.9 a1c is much better down to7.0 from 7.5 from 8.9 from when it was elevated at 9.7 will cont the trulicity but we will increase to 3mg look to discontinu e the glipizide depending on blood test [id number] Luca Tovar [facility] Internal Medicine [address] [facility],[place] [facility] [address] 08/11/2021 09:53:46 08/11/2021 15:00:47 Type 2 diabetes mellitus 88695999 E11.9 a1c is much better down to7.4 was 7.5 then 7,4 at its worse 8.9 from when it was elevated at 9.7we will decrease the glipizide to qd from bid will cont the trulicity but we will increase to 3mg look to discontinu e the glipizide depending on blood test Essential hypertension 60256018 I10 bp is stable doing great Paroxysmal atrial fibrillation 318042529 I48.0 now in NSR no palpitatio ns Hyperparathyroidism 6699 9008 E21.1 stable Chronic ki dney disease stage 3 720622992 N18.31 stable and following renal 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 carlos treat conserv for now otherwise nlormal exam [id number] Luca Tovar [facility] Internal Medicine [address] [facility] [place] [address] 01/19/2022 08:16:47 01/23/2022 11:19:42 Type 2 diabetes mellitus 65024925 E11.9 a1c climbed up to 8.7 from 7.4 we will need to restart the glipizide and cont the trulicity Paroxysmal atrial fibrillation 580523839 I48.0 now in NSR no palpitatio ns Essential hypertension 33312096 I10 bp is stable doing great Chronic ki dney disease 716596076 N18.9 will be seeing later this summer lab has been stable and meds were adjusted Coronary arteriosclerosis 81821986 I25.10 he still relates feels fine only noted to have an anginal like sx once a month or two will be seeing cardiology he has a new dr and had his defib rechk and it was excellent Disorder d ue to type 2 diabetes mellitus 132070820 E11.8 as above [id number] Luca Tovar [facility] Internal Medicine [address] [facility],[place] [address] 05/08/2022 13:51:48 05/08/2022 15:23:11 Type 2 diabetes mellitus 33654651 E11.9 a1c climbed up to 8.7 from 7.4 we will need to restart the glipizide and cont the trulicity Hypercholesterolemia 136 83412 E78.00 following Essential hypertension 46413531 I10 bp is stable doing great Anxiety 53699937 F41.9 seems to be baseline Paroxysmal atrial fibrillation 477970164 I48.0 [place] [id number] Luca Tovar [facility] Internal Medicine [address] [facility],[place] [address] 08/21/2022 13:53:14 08/21/2022 14:59:41 Chronic kidney disease 939568310 N18.9 will be seeing later this summer lab has been stable and meds were adjusted Hypercholesterolemia 136 74863 E78.00 following Anxiety 39934737 F41.9 seems to be baseline Disorder d ue to type 2 diabetes mellitus 791588577 E11.8 as above Type 2 gita betes mellitus 13758451 E11.9 a1c climbed up to 8.7 from 7.4 we will need to restart the glipizide and cont the trulicity Hyperparathyroidism 6699 9008 E21.1 stable Paroxysmal atrial fibrillation 118845113 I48.0 now in NSR no palpitatio ns Chronic ki dney disease stage 3 094876560 N18.31 stable and following renal Coronary arteriosclerosis 90587712 I25.10 he is stable with his metoprolol and amlodipine as well he still relates feels fine only noted to have an anginal like sx once a month or two will be seeing cardiology he has a new dr and had his defib rechk and it was excellent Essential hypertension 95075894 I10 bp is stable doing great [id number] Luca Tovar [facility] Internal Medicine [address] [place] [address] 03/25/2023 10:23:59 03/25/2023 11:27:36 Pre-surgery evaluation 655201986 Z01.818 The patient was seen in the office today for pre-op evaluation . All medical conditions on patient's problem list were addressed and are currently stable, no interventi on needed at this time. Based on history and physical performed, the patient is cleared for surgery. [id number] Luca Tovar [facility] Internal Medicine [address] [place] [address] 04/03/2023 10:33:43 04/05/2023 14:23:32 Impacted cerumen of bilateral ears [id number] 311557 H61.23 resolved [id number] Luca Tovar [facility] Internal Medicine [address] [place] [address] 07/09/2023 10:31:44 07/09/2023 12:12:15 Acute sinusitis 41439390 J01.90 will set up with abx for sinus infection [id number] Luca Tovar [facility] Internal Medicine [address] [place] [address] 07/19/2023 10:31:30 07/19/2023 14:38:59 Secondary hyperparathyroidism 33483340 E21.1 also stable and we will check lab a [facility] is stable Paroxysmal atrial fibrillation 161022460 I48.0 now in NSR no palpitatio ns Hypercholesterolemia 136 96212 E78.00 following Type 2 gita betes mellitus 15553245 E11.9 a1c climbed up to 11.7 due to loss of trulicity and recent sinus infection he will be restarting trulicity and we will rechk in 3 months PRIOR8.7 from 7.4 we will need to restart the glipizide and cont the trulicity Essential hypertension 45296707 I10 bp is stable doing great Chronic ki dney disease 334054038 N18.9 will be seeing later this summer lab has been stable and meds were adjusted [id number] Luca Tovar [facility] Internal Medicine [address] [facility],[place] [address] 10/28/2023 11:22:10 10/29/2023 11:13:52 Essential hypertension 60945709 I10 bp is stable doing great Hypercholesterolemia 136 81927 E78.00 following but given age we are not as intense on this Paroxysmal atrial fibrillation 486548652 I48.0 now in NSR no palpitatio nsbut is troubled by warfarin causing bruising Depression screening 171 192994 Z13.31 SCREENING NEGATIVE Chronic ki dney disease 023905671 N18.9 currently is stable gfr is 42 lab has been stable and meds were adjusted Coronary arteriosclerosis 20887188 I25.10 he is stable with his metoprolol and amlodipine as well he still relates feels fine only noted to have an anginal like sx once a month or two will be seeing cardiology he has a new dr and had his defib rechk and it was excellent Disorder d ue to type 2 diabetes mellitus 199705409 E11.8 note to have his a1c ]at 9.8 but he had been without the trulicity for several months due to supply prob Secondary hyperparathyroidism 55829175 E21.1 also stable and we will check lab a bernardino ramsaysumit is stable Vitamin D deficiency 347 70812 E55.9 we wiill have hinm supplement for 2 mo [id number] Luca Tovar DO [facility] Internal Medicine [address] [facility] [address],[place] [address] 05/15/2024 08:52:55 05/15/2024 11:27:56 Chronic kidney disease 941115457 N18.9 currently is stable gfr is still 42 does have signif microalbum inuria lab has been stable and meds were adjusted Coronary arteriosclerosis 31949564 I25.10 he is stable with his metoprolol and amlodipine as well he still relates feels fine only noted to have an anginal like sx once a month or two will be seeing cardiology he has a new dr and had his defib rechk and it was excellent Essential hypertension 52283312 I10 bp is stable doing great Paroxysmal atrial fibrillation 348533883 I48.0 now in NSR no palpitatio nsbut is troubled by warfarin causing bruising Type 2 gita betes mellitus 74856933 E11.9 a1c climbed up to 11.7 due to loss of trulicity and recent sinus infection he will be restarting trulicity and we will rechk in 3 months PRIOR8.7 from 7.4 we will need to restart the glipizide and cont the trulicity [id number] Luca Tovar [facility] Internal Medicine [address] [facility],[place] [address] 06/10/2024 11:56:13 06/10/2024 12:41:39 Coronary arteriosclerosis 28268924 I25.10 he is stable with his metoprolol and amlodipine as well he still relates feels fine only noted to have an anginal like sx once a month or two will be seeing cardiology he has a new dr and had his defib rechk and it was excellent Essential hypertension 86801570 I10 bp is stable doing great Hypercholesterolemia 136 76737 E78.00 following but given age we are not as intense on this Compressio n fracture of vertebral column 56793297 M48.50XA improving with conserv care Compressio n fracture of thoracic vertebra 3472748581 104 M48.54XA stable and already improving [id number] Luca Tovar DO [facility] Internal Medicine [address] [facility],[place] [address] 08/24/2024 10:36:43 08/24/2024 11:28:48 Essential hypertension 59869262 I10 bp is stable although he is not following at home Hypercholesterolemia 136 71379 E78.00 following but given age we are not as intense on this Paroxysmal atrial fibrillation 635450297 I48.0 now in NSR no palpitatio nshe will be going for defib and pacer check with new cardiologi st in next month or two not sure whenhe is still troubled by warfarin causing bruising on his forearms Type 2 gita betes mellitus 85165934 E11.9 a1c is now at 6.6 was at 7.1 Depression screening 171 439475 Z13.31 SCREENING NEGATIVE Chronic ki dney disease 602966917 N18.9 currently is stable gfr is still 37 does have signif microalbum inuria lab has been stable and meds were adjusted Compressio n fracture of vertebral column 50629811 M48.50XA improving with conserv care prob is the mornings as noted Secondary hyperparathyroidism 25304479 E21.1 lab done and reviewed which is stable Health Concerns Section Related Observation LastModified by Organization Detai ls LastModified Time None Recorded Concern Status LastModified by Organization Details LastModified Time None Recorded Advance Directives Directive None Recorded Payers Insurance Date Sequence Insurance Name Policy Number Policy Nair Covered Member ID Nair Member ID Guarantor Name 10/24/2024 1 [place] [employer] Jairo Newman [id number] Jiaro Newman 08/21/2024 2 [place] [id number] Jairo Newman [id number] Jairo Newman Notes Date Note Type Note Provider Name and Address Organization Details Recorded Time 07/19/19 24 text/htm l Care Management - DiabetesReported bypatient.Prognosis:expect ed outcome: improve; prognosis: moderate Self Care:seeing eye [...] will be more careful as well Luca Tvoar DO [address] [place] [address], [phone], [facility] Internal Medicine 07/19/2023 11:10:09 10/28/19 24 text/htm l feels pretty good except for the mornings he is very stiff in the amno cp no sob unles exertion as he can get quite fatiguedstates works in garden every day Luca Tovar DO [address] [place], [address], [facility] Internal Medicine 10/28/2023 11:54:51 05/15/20 24 text/htm l Care Management - DiabetesReported bypatient.Self [...] an isolated event Luca Tovar DO [address] [place], [address], [facility] Internal Medicine 05/15/2024 10:51:52 06/10/19 25 text/htm l here for jennifer following his fall when he landed on his back and dwas found to have a C6 fracture (compress) and T 7 endplate fract urewas subsequently disch and sent home on tylenol he is still sore in the neck but is still better relates that mid back is ok as long as he is careful and doesnt overdo it Luca Tovar DO [address] [place], [address], [facility] Internal Medicine 06/10/2024 12:38:40 08/25/19 25 text/htm l Care Management - DiabetesReported bypatient.Self [...] feet; no calluses on feetCare Management - HyperlipidemiaReported bypatient.Control:usually well controlled; improving; at goal Complications:no coronary artery disease; no heart attack; no cardiovascular disease; no pancreatitis; no strokeCare Management - HypertensionReported bypatient.Self Care:not under emotional stress Severity:symptoms are improving; does not interfere with daily activities Associated Symptoms:no dizziness; no lightheadedness; no chest pain; no shortness of breath; no palpitations; no edema; no calf muscle cramps; no blurred vision; no confusion; no headaches; no fatigue here for armen nd is feeling well except for the mornings he is having a lot of stiffness which takes a god hour to be able to move freelyno cp nos sobbowels ok bladder ok Luca Tovar DO [address] [place], [address], [facility] Internal Medicine 08/24/2024 11:14:22
== END 2024-11-19 11:44 | disposition home or self-care (01) ==
LOC: HO.HKA 11:28
PROVIDERS: PCP Internal Medicine; Visit Provider Internal Medicine Hypertension Specialist
DX: N18.9 Chronic kidney disease, unspecified (principal)
CPT/HCPCS: 99214

== ENCOUNTER → 2024-11-19 11:27 | Outpatient (BNVA) | payer MEDICARE, SELFPAY | PROVIDERS: PCP Internal Medicine; Visit Provider Internal Medicine Hypertension Specialist | DX: E11.22 Type 2 diabetes mellitus with diabetic chronic kidney disease (principal); I12.9 Hypertensive chronic kidney disease with stage 1 through stage 4 chronic kidney disease, or unspecified chronic kidney disease; N18.30 Chronic kidney disease, stage 3 unspecified; Z79.01 Long term (current) use of anticoagulants; Z79.85 Long-term (current) use of injectable non-insulin antidiabetic drugs; Z79.84 Long term (current) use of oral hypoglycemic drugs; Z79.899 Other long term (current) drug therapy | CPT/HCPCS: 99212 ==

== ENCOUNTER 2024-11-25 09:58 | Outpatient (REF) | payer MEDICARE, SELFPAY ==
--- OUTSIDE RECORDS SUMMARY | 2024-11-25 10:38 | XMS_ITS | Data Portability ---
Author Organization [facility], Telehealth Patient Home Address [address] [place] [address] Assessment Encounter Date Assessment Date Assessment LastModified by Organization Details LastModified Time 10/28/2023 10/28/2023 [id number] [place] [id number] (MEETING MANAGER) MDM HIGH MUST MEET 2 OUT OF [...] COVERED Not available 10/28/2023 11:50:48 05/15/2024 05/15/2024 [id number] [place] [address] (MEETING MANAGER) MDM MODERATE MUST MEET 2 OUT OF [...] COVERED Not available 05/15/2024 10:48:57 06/10/2024 06/10/2024 [address] [place] [address] (MEETING MANAGER) MDM MODERATE MUST MEET 2 OUT OF [...] COVERED Not available 06/10/2024 12:36:39 08/24/2024 08/24/2024 [id number] [place] [address] (MEETING MANAGER) MDM HIGH MUST MEET 2 OUT OF [...] hormone), intact, serum or plasma 2023 024 [facility], [address] [place], [address], 07/19/2023 11:10:01 vitamin D, 25-hydrox y, total, serum 2023 024 [facility], [address] [place] [address], [address], 07/19/2023 11:10:01 phosphoru s, serum or plasma 2023 024 [facility], [address] [place] [address], [address], 07/19/2023 11:10:01 HbA1c (hemoglob in A1c), blood 2023 024 [facility], [address] [place] [address], [address], 07/19/2023 11:10:01 CMP, serum or plasma 2023 024 [facility], [address] [place] [address], [address], 10/23/2023 11:11:14 microalbu min, urine 2023 024 [facility], [address] [place] [address], [address], 07/19/2023 11:10:01 CBC 2023 024 [facility], [address] [place] [address], [address], 07/19/2023 11:10:01 Referral None recorded. Procedures None recorded. Surgeries None recorded. Imaging XR, cervical spine, 2 or 3 view 2024 025 [facility], [address] [place] [address], [address], 06/24/2024 10:40:47 XR, thoracic spine, 2 view 2024 025 [facility], [address] [place], [address], 06/17/2024 09:12:39 Medication Orders Trulicity 1.5 mg/0.5 mL subcutane ous pen injector 2023 024 LATESHA [id number], [address] [place], [place], [id number], 10/28/2023 11:54:03 Patient TargetsNo targets recorded. Patient Instructions Encounter Date Encounter Id Patient Instructions Last Modified By Organization Details Last Modified Time 07/19/2023 [id number] pulse oximetry* LATESHA Not available 07/19/2023 11:09:34 10/28/2023 [id number] pulse oximetry* Not available 10/28/2023 11:53:55 05/15/2024 [id number] learning about type 2 diabetes Not available 05/15/2024 10:51:37 type 2 diabetes: care instructions Not available 05/15/2024 10:51:37 high blood pressure: care instructions Not available 05/15/2024 10:51:37 learning about high blood pressure Not available 05/15/2024 10:51:37 06/10/2024 [id number] compression fracture of the spine: care instructions Not available 06/10/2024 12:36:20 08/24/2024 [id number] compression fracture of the spine: care instructions Not available 08/24/2024 11:13:44 Reason for Referral None Reported. Results Created Date Observation Date Name Description Value Unit Range Abnormal Flag Note LastModifiedBy Organization Detail LastModifiedTime 07/19/19 24 07/19/2023 pulse oxime try* Result 99% Not Available [facility] [address] [place] [address] [address], [place], [address], 07/10/2023 22:23:58 10/28/19 24 10/28/2023 pulse oxime try* Result 97% Not Available [facility] [address] [place] [address] D, [place], [address], 10/25/2023 09:49:06 02/25/20 24 02/21/2024 , [facility] ardio gram No observ ation record ed. [facility] [address], [place], [address], 02/25/2024 12:26:24 05/17/20 24 05/17/2024 CT, cervi maureen spine , w/o contr ast No observ ation record ed. [address] (Medical Records) [address] [place], [address], 05/18/2024 08:43:50 05/17/20 24 05/17/2024 CT, cervi maureen spine , w/o contr ast No observ ation record ed. [address] (Medical Records) [address] [place], [address], 05/18/2024 08:44:09 05/17/20 24 05/17/2024 CT, thora cic spine , w/o contr ast No observ ation record ed. [address] (Medical Records) [address] [place], [address], 05/18/2024 08:44:31 05/17/20 24 05/17/2024 CT, thora cic spine , w/o contr ast No observ ation record ed. [address] (Medical Records) [address] [place], [address], 05/18/2024 08:45:05 05/17/20 24 05/17/2024 CT, head + brain , w/o contr ast No observ ation record ed. [address] (Medical Records) [address] [place], [address], 05/18/2024 08:45:35 07/01/19 25 07/01/2024 XR, thora cic spine , 2 view No observ ation record ed. [address] (Medical Records) [address] [place], [address], 07/03/2024 09:23:33 07/01/19 25 07/01/2024 XR, cervi maureen spine , 2 or 3 view No observ ation record ed. [address] (Medical Records) [address] [place], [address], 07/03/2024 09:23:34 Result Notes None recorded. 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 REYNALDO Rosas [address] [place] [address], [address], [facility] 9 14:33:52 [facility] l hyperten marilyn 89188223 Active 2017 [facility] 8 14:33:05 Type 2 diabetes mellitus 07448622 Active 2017 [facility] 8 14:33:24 Coronary arterios clerosis 67752137 Active 2017 implantab le defib/V53 .32 Tere Mayo NP, S [address] [place] [address], [address], [facility] 8 10:00:50 Hypercho lesterol emia 43795937 Active 2017 [facility] 8 14:34:30 Chronic kidney disease 463625638 Active 2017 Dr. Mick Mayo, MEETING MANAGER, S [address] [place] [address], [address], [facility] 8 09:59:54 Hearing loss 22660005 Active 2017 [facility] [place] 8 14:35:24 Anxiety 75218070 Active 2017 [facility] [place] 8 14:35:33 Insomnia 856927452 Active 2017 [facility] 8 14:35:46 Paroxysm al atrial fibrilla tion 241453821 Active 2017 Dr[address] Cespedes er, cardiolog ist Tere Mayo, MEETING MANAGER, S [address] [place], [address], [facility] 8 09:59:33 Layo gibbs's contract ure of finger 109989865 Active 2019 Luca Tovar, DO [address] [place] [address], [address], [facility] 0 12:18:27 Disorder due to type 2 diabetes mellitus 713797425 Active 2021 Luca Tovar, DO [address] [place] [address], [address], [facility] 2 10:29:29 Impacted cerumen of bilatera l ears 93870143113 63277 Active 2022 NISHA STARKS [address] [place] [address], [address], [facility] 3 11:03:53 Acute sinusiti s 42896960 Active 2023 NISHA STARKS [address] [place] [address], [address], [facility] 4 11:26:23 Vitamin D deficien cy 40618009 Active 2023 Luca Tovar DO [address] [place] [address], [address], [facility] 4 11:51:15 COVID-19 398630152 Active 2023 Luca Tovar, DO [address] [place], [address], [facility] 4 14:24:44 Compress ion fracture of thoracic vertebra 79828259220 04 Active 2024 Luca Tovar, DO [address] [place], [address], [facility] 5 12:35:09 Compress ion fracture of vertebra l column 68216480 Active 2024 Luca Tovar, DO [address] [place], [address], [facility] 5 12:35:27 Problem Notes None recorded. Procedures Surgical History Date Name Laterality Status Provider Name and Address Organization Details Recorded Time 3 Cerumen Removal completed NISHA STARKS [address] [place] [address], [address], [facility] 04/03/2023 11:03:46 Aicd, single chamber completed Tere Mayo NP, S [address] [place] [address], [address], [facility] 09/06/2017 08:53:46 Imaging Results None recorded. Procedure Notes None recorded. Medical Equipment None Reported. Allergies Allergen ID Allergen Name Allergen Category Reaction Reaction Severity Criticality Documentation Date Start Date Code Code System Note Provider Name and Address Organization Details Recorded Time 7809 amoxicill in medicatio n nausea moderate low 07/09/2023 723 RxNorm [facility] 4 15:05:17 Medications Name Sig Start [...] Updated DateTime 5 165.74 cm 24.8 kg/m2 72901.8 6 g 70 /min 98 % 98 % 138/68 mm[Hg] Leonora Blank [facility] 5 12:06:50 Date Recorded Body height Body mass index (BMI) Body weight Heart rate Oxygen saturation Oxygen saturation in Arterial blood by Pulse oximetry Systolic And Diastolic Provider Name and Address Organization Details Last Updated DateTime 4 165.74 cm 24.4 kg/m2 19818.6 7 g 69 /min 99 % 99 % 138/62 mm[Hg] Luca Tovar, DO [address] [place], [address], [facility] 4 10:42:00 Date Recorded Body height Body mass index (BMI) Body weight Heart rate Oxygen saturation Oxygen saturation in Arterial blood by Pulse oximetry Systolic And Diastolic Provider Name and Address Organization Details Last Updated DateTime 5 165.74 cm 24.8 kg/m2 78445.8 6 g 70 /min 99 % 99 % 138/64 mm[Hg] Leonora Blank [facility] 5 10:44:39 Date Recorded Body height Body mass index (BMI) Body weight Heart rate Oxygen saturation Oxygen saturation in Arterial blood by Pulse oximetry Systolic And Diastolic Provider Name and Address Organization Details Last Updated DateTime 4 165.74 cm 25.2 kg/m2 69753.8 4 g 69 /min 97 % 97 % 138/66 mm[Hg] Latanya De Oliveira [facility] 4 11:31:37 Social History Question Answer Notes LastModified by Organizat ion Details LastModified Time Tobacco Smoking Status Never Smoker Tere Mayo NP, S [address] [place], [address], [facility] 09/06/2017 08:52:41 What Was The Date Of Your Most Recent Tobacco Screening? 08/24/2024 [email or web address] Information not available 08/24/2024 Sex: Unknown Functional [...] formulation 3 completed Tere Mayo NP, S [address] [place] [address], [address], [facility] 09/06/2017 08:47:21 pneumococcal, unspecified formulation 9 completed Tere Mayo NP, S [address] [place] [address], [address], [facility] 09/06/2017 08:47:41 Tdap 9 completed Tere Mayo NP, S [address] [place] [address], [address], [facility] 09/06/2017 08:48:09 Influenza, adjuvanted, trivalent, PF 7 completed Tere Mayo NP, S [address] [place] [address], [address], [facility] 09/06/2017 08:50:21 Influenza, split virus, quadrivalent, preservative 8 completed Not Available [facility] 06/06/2019 02:46:31 COVID-19, mRNA, LNP-S, PF, 30 mcg/0.3 mL dose 1 completed Gay rivero [facility] 10/26/2020 09:08:36 COVID-19, mRNA, LNP-S, PF, 30 mcg/0.3 mL dose 1 completed Gay rivero [facility] 10/26/2020 09:08:42 Past Encounters Encounter ID Performer Location Encounter Start Date Encounter Closed Date Diagnosis/Indication Diagnosis SNOMED-CT Code Diagnosis ICD10 Code Diagnosis Note [id number] Luca Tovar [facility] [address] [facility],[place] [address] 09/06/2017 09:57:17 09/06/2017 11:29:14 Type 2 diabetes mellitus 39577932 E11.9 to have labs done at [facility] [address] [facility] [address] , [facility] draw station, pt more comfortabl e with paper request Essential hypertension 30247140 I10 stable, back on [address] Barton Hypercholesterolemia 136 71216 E78.00 follow Benign pro static hyperplasia 472556463 N40.0 no c/o Paroxysmal atrial fibrillation 306869029 I48.0 denies palpitatio ns Chronic ki dney disease stage 3 540344625 [address]18[address] 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 Lyn dhaliwal [id number] Luca Tovar [facility] [address] [facility],[place] [address] 11/06/2017 09:17:14 11/06/2017 11:20:19 Hypercholesterolemia 07082696 E78.00 follow, ldl 56 Chronic anxiety 75421270 9 F41.9 lorazepam at night helpful Paroxysmal atrial fibrillation 882144058 I48.0 denies palpitatio ns, current RRR Coronary arteriosclerosis 07084045 I25.10 asymptomat ic Essential hypertension 95859739 I10 stable Chronic ki dney disease stage 3 [address]199[address]18.[address] Barton, continue meds Disorder d ue to type 2 diabetes mellitus 569131473 E11.8 [id number] Luca Tovar [facility] [address] [facility],[place] [address] 03/12/2018 08:49:50 03/17/2018 09:11:15 Hypercholesterolemia 77243237 E78.00 follow Paroxysmal atrial fibrillation 791347608 I48.0 denies palpitatio ns, current RRR Type 2 gita betes mellitus 73018186 E11.9 A1c drawn here today since mix up at lab & was not drawn 02/26/18 Coronary arteriosclerosis 05267940 I25.10 all ADL's without difficulty -encourage daily walking Essential hypertension 61643445 I10 stable Chronic ki dney disease 512407993 N18.9 Administra tion of influenza vaccine 38214932 Z23 [id number] 1A right deltoid [id number] Luca Tovar [facility] [address] [facility] [address], [place] [address] 07/30/2018 10:14:43 07/30/2018 16:06:33 Disorder due to type 2 diabetes mellitus 637563310 E11.8 stable Paroxysmal atrial fibrillation 682832802 I48.0 denies palpitatio ns, current RRR Hypercholesterolemia 136 38309 E78.00 follow Coronary arteriosclerosis 74942660 I25.10 stable Essential hypertension 89431319 I10 stable Chronic ki dney disease 781479638 N18.9 up to date Hearing loss 46200840 H9 1.93 [id number] Luca Tovar [facility] [address] [facility], [place] [address] 11/07/2018 11:36:03 11/07/2018 12:19:52 Disorder due to type 2 diabetes mellitus 132555434 E11.8 need to get a1c last a1c in february was 8.4 Paroxysmal atrial fibrillation 414988484 I48.0 denies palpitatio ns, current RRR Hypercholesterolemia 136 17121 E78.00 follow Coronary arteriosclerosis 27238657 I25.10 stable Essential hypertension 94387555 I10 stable Chronic ki dney disease 638108311 N18.9 slightly worse has f/u with kidney specialist in a month avoids nsaids bp well controlled need to see a1c for blood sugar control Hearing loss 98002356 H9 1.93 [id number] Luca Tovar [facility] [address] [facility] [address],[place] [address] [facility] [address] 02/04/2019 09:50:05 02/04/2019 10:15:33 Disorder due to type 2 diabetes mellitus 124934090 E11.8 had labs done with his kidney specialist , need to get a1c last a1c was 02/2018, was supposed to have one after last visit, btu never did it. will get a1c today Paroxysmal atrial fibrillation 679630556 I48.0 denies palpitatio ns, current reg Hypercholesterolemia 136 59521 E78.00 follow Coronary arteriosclerosis 77325015 I25.10 stable Essential hypertension 62913878 I10 stable Chronic ki dney disease 602065140 N18.9 has regular f/u with kidney specialist avoids nsaids bp well controlled need to see a1c for blood sugar control Hearing loss 57588430 H9 1.93 Hyperparathyroidism 6699 9008 E21.3 found by nephro, pt claims never was discussed [id number] August REYNALDO Duffy [facility] [address] [facility],[place] [address] 06/02/2019 09:55:09 06/02/2019 10:54:06 Disorder due to type 2 diabetes mellitus 633878225 E11.8 had labs done with his kidney specialist , need to get a1c last a1c was 02/2018, was supposed to have one after last visit, btu never did it. will get a1c today Paroxysmal atrial fibrillation 359828577 I48.0 sees cardio, last seen 03/2019 Hypercholesterolemia 136 66763 E78.00 well controlled Coronary arteriosclerosis 03413633 I25.10 stable Essential hypertension 99575720 I10 stable Hearing loss 80881313 H9 1.93 Pain of left hand 009862 1525 97026 M79.642 will send to hand specialist cannot take nsaids nor steroid continue conservati ve management Hyperparathyroidism 6699 9008 E21.3 found by nephro referred to endo last visit - dr. duarte Chronic ki dney disease stage 3 711365073 N18.3 has regular f/u with kidney specialist avoids nsaids bp well controlled need to see a1c for blood sugar control [id number] Luca Tovar DO [facility] [address] [facility] [address],[place] [address] 09/04/2019 11:36:11 09/04/2019 11:59:53 Disorder due to type 2 diabetes mellitus 242882079 E11.8 a1c 08/11 was 10.9 has already made cheanges to diet, was drinking lots of sugary beverages will get him a new meter to test at home Paroxysmal atrial fibrillation 812191066 I48.0 sees cardio, last seen 03/2019 Hypercholesterolemia 136 38175 E78.00 needs to be repeated, last done 09/2018 Essential hypertension 09291391 I10 stable Hearing loss 48329866 H9 1.93 Chronic ki dney disease stage 3 814923763 N18.3 has regular f/u with kidney specialist avoids nsaids bp well controlled need to see a1c for blood sugar control [id number] Luca Tovar [facility] [address] [facility],[place] [address] 12/02/2019 09:48:23 12/02/2019 10:54:52 Hypercholesterolemia 24598590 E78.00 labs looking better will f/u in three months Type 2 gita betes mellitus 26904080 E11.9 A1c is looking better and his diet is greatly improved daily readings are better than last reported Atrial fibrillation 4943 6004 I48.91 stable [id number] Luca Tovar [facility] [address] [facility],[place] [address] 03/25/2020 11:57:44 03/25/2020 12:30:00 Essential hypertension 61794695 I10 bp is stable doing great Type 2 gita betes mellitus 78440612 E11.9 he is doing well but will need to get an a1c Paroxysmal atrial fibrillation 605918471 I48.0 now in NSR no palpitatio ns Chronic ki dney disease 862009150 N18.9 will be seeing later this month 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 will refer to hand spec when [place] ready [id number] Luca Tovar [facility] [address] [facility],[place] [address] 07/18/2020 10:25:57 07/18/2020 11:16:07 Type 2 diabetes mellitus 53603792 E11.9 a1c is elevated at 9.7 hei is only on Essential hypertension 92770626 I10 bp is stable doing great Paroxysmal atrial fibrillation 351695321 I48.0 now in NSR no palpitatio ns Coronary arteriosclerosis 45513534 I25.10 relates feels fine only unoted to have an anginal like sx once a month or two will be seeing cardiology in a month to see new dr and have his defib rechk Chronic ki dney disease 890228492 N18.9 will be seeing later this month lab has been stable and meds were adjusted [id number] Luca Tovar [facility] [address] [facility],[place] [address] 10/26/2020 10:03:18 10/26/2020 10:48:58 Type 2 diabetes mellitus 88872752 E11.9 a1c is much better down to 8.9 from when it was elevated at 9.7 will increase trulicity to 1.5 and rechk in sept Chronic ki dney disease 659790373 N18.9 will be seeing later this summer lab has been stable and meds were adjusted Secondary hyperparathyroidism 98023730 E21.1 also stable and we will check lab a nd reviewed swhich is stable Coronary arteriosclerosis 87514297 I25.10 relates feels fine only noted to have an anginal like sx once a month or two will be seeing cardiology he has a new dr and have his defib rechk Paroxysmal atrial fibrillation 082218342 I48.0 now in NSR no palpitatio ns Disorder d ue to type 2 diabetes mellitus 423110988 E11.8 as above Chronic ki dney disease stage 3 440627168 N18.31 stable and following renal [id number] Luca Tovar [facility] [address] [facility],[address] [address] [place] [address] 02/01/2021 14:04:02 02/01/2021 15:06:05 Type 2 diabetes mellitus 02086399 E11.9 a1c is much better down to7.5 from 8.9 from when it was elevated at 9.7 will cont the trulicity but we will increase to 3mg look to discontinu e the glipizide depending on blood test Essential hypertension 83829706 I10 bp is stable doing great Paroxysmal atrial fibrillation 194123446 I48.0 now in NSR no palpitatio ns Coronary arteriosclerosis 19450605 I25.10 he still relates feels fine only noted to have an anginal like sx once a month or two will be seeing cardiology he has a new dr and had his defib rechk and it was excellent [id number] Luca Tovar [facility] [address] [facility] [address],[place] [address] 05/09/2021 08:26:53 05/09/2021 15:23:31 Chronic kidney disease 754889826 N18.9 will be seeing later this summer lab has been stable and meds were adjusted Coronary arteriosclerosis 13596493 I25.10 he still relates feels fine only noted to have an anginal like sx once a month or two will be seeing cardiology he has a new dr and had his defib rechk and it was excellent Essential hypertension 10663323 I10 bp is stable doing great Paroxysmal atrial fibrillation 409292164 I48.0 now in NSR no palpitatio ns Type 2 gita betes mellitus 19678182 E11.9 a1c is much better down to7.0 from 7.5 from 8.9 from when it was elevated at 9.7 will cont the trulicity but we will increase to 3mg look to discontinu e the glipizide depending on blood test [id number] Luca Tovar [facility] [address] [facility] [address] [facility] [address] 08/11/2021 09:53:46 08/11/2021 15:00:47 Type 2 diabetes mellitus 47929480 E11.9 a1c is much better down to7.4 was 7.5 then 7,4 at its worse 8.9 from when it was elevated at 9.7we will decrease the glipizide to qd from bid will cont the trulicity but we will increase to 3mg look to discontinu e the glipizide depending on blood test Essential hypertension 91789983 I10 bp is stable doing great Paroxysmal atrial fibrillation 799428853 I48.0 now in NSR no palpitatio ns Hyperparathyroidism 6699 9008 E21.1 stable Chronic ki dney disease stage 3 379734854 N18.31 stable and following renal 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 carlos treat conserv for now otherwise nlormal exam [id number] Luca Tovar [facility] [address] [facility] [address],[place] [address] 01/19/2022 08:16:47 01/23/2022 11:19:42 Type 2 diabetes mellitus 44496563 E11.9 a1c climbed up to 8.7 from 7.4 we will need to restart the glipizide and cont the trulicity Paroxysmal atrial fibrillation 489975852 I48.0 now in NSR no palpitatio ns Essential hypertension 07260798 I10 bp is stable doing great Chronic ki dney disease 148912641 N18.9 will be seeing later this summer lab has been stable and meds were adjusted Coronary arteriosclerosis 53498930 I25.10 he still relates feels fine only noted to have an anginal like sx once a month or two will be seeing cardiology he has a new dr and had his defib rechk and it was excellent Disorder d ue to type 2 diabetes mellitus 274797417 E11.8 as above [id number] Luca Tovar [facility] Internal [facility] [address] [facility],[place] [address] 05/08/2022 13:51:48 05/08/2022 15:23:11 Type 2 diabetes mellitus 74022967 E11.9 a1c climbed up to 8.7 from 7.4 we will need to restart the glipizide and cont the trulicity Hypercholesterolemia 136 42678 E78.00 following Essential hypertension 87828938 I10 bp is stable doing great Anxiety 83733446 F41.9 seems to be baseline Paroxysmal atrial fibrillation 514873991 I48.0 [place] [id number] Luca Tovar [facility] Internal Medicine [address] [facility],[place] [address] 08/21/2022 13:53:14 08/21/2022 14:59:41 Chronic kidney disease 335695058 N18.9 will be seeing later this summer lab has been stable and meds were adjusted Hypercholesterolemia 136 55694 E78.00 following Anxiety 64894741 F41.9 seems to be baseline Disorder d ue to type 2 diabetes mellitus 979134407 E11.8 as above Type 2 gita betes mellitus 24389019 E11.9 a1c climbed up to 8.7 from 7.4 we will need to restart the glipizide and cont the trulicity Hyperparathyroidism 6699 9008 E21.1 stable Paroxysmal atrial fibrillation 711386027 I48.0 now in NSR no palpitatio ns Chronic ki dney disease stage 3 081467337 N18.31 stable and following renal Coronary arteriosclerosis 91726281 I25.10 he is stable with his metoprolol and amlodipine as well he still relates feels fine only noted to have an anginal like sx once a month or two will be seeing cardiology he has a new dr and had his defib rechk and it was excellent Essential hypertension 32113224 I10 bp is stable doing great [id number] Luca Tovar [facility] Internal [facility] [address] [place] [address] 03/25/2023 10:23:59 03/25/2023 11:27:36 Pre-surgery evaluation 670837064 Z01.818 The patient was seen in the office today for pre-op evaluation . All medical conditions on patient's problem list were addressed and are currently stable, no interventi on needed at this time. Based on history and physical performed, the patient is cleared for surgery. [id number] Luca Tovar [facility] [address] [place] [address] 04/03/2023 10:33:43 04/05/2023 14:23:32 Impacted cerumen of bilateral ears [id number] 242743 H61.23 resolved [id number] Luca Tovar [facility] [address] [place] [address] 07/09/2023 10:31:44 07/09/2023 12:12:15 Acute sinusitis 21912180 J01.90 will set up with abx for sinus infection [id number] Luca Tovar [facility] [address] [place] [address] 07/19/2023 10:31:30 07/19/2023 14:38:59 Secondary hyperparathyroidism 18539706 E21.1 also stable and we will check lab [facility] Paroxysmal atrial fibrillation 918647259 I48.0 now in NSR no palpitatio ns Hypercholesterolemia 136 54843 E78.00 following Type 2 gita betes mellitus 16344036 E11.9 a1c climbed up to 11.7 due to loss of trulicity and recent sinus infection he will be restarting trulicity and we will rechk in 3 months PRIOR8.7 from 7.4 we will need to restart the glipizide and cont the trulicity Essential hypertension 77463950 I10 bp is stable doing great Chronic ki dney disease 991332853 N18.9 will be seeing later this summer lab has been stable and meds were adjusted [id number] Luca Tovar [facility] Internal [facility] [address] [facility],[place] [address] 10/28/2023 11:22:10 10/29/2023 11:13:52 Essential hypertension 27021801 I10 bp is stable doing great Hypercholesterolemia 136 54988 E78.00 following but given age we are not as intense on this Paroxysmal atrial fibrillation 689727822 I48.0 now in NSR no palpitatio nsbut is troubled by warfarin causing bruising Depression screening 171 645670 Z13.31 SCREENING NEGATIVE Chronic ki dney disease 659226625 N18.9 currently is stable gfr is 42 lab has been stable and meds were adjusted Coronary arteriosclerosis 18705758 I25.10 he is stable with his metoprolol and amlodipine as well he still relates feels fine only noted to have an anginal like sx once a month or two will be seeing cardiology he has a new dr and had his defib rechk and it was excellent Disorder d ue to type 2 diabetes mellitus 528979766 E11.8 note to have his a1c ]at 9.8 but he had been without the trulicity for several months due to supply prob Secondary hyperparathyroidism 80232690 E21.1 also stable and we will check lab a bernardino ramsaysumit is stable Vitamin D deficiency 347 83842 E55.9 we wiill have hinm supplement for 2 mo [id number] Luca Tovar DO [facility] Internal Medicine [address] [facility] [address],[place] [address] 05/15/2024 08:52:55 05/15/2024 11:27:56 Chronic kidney disease 182565320 N18.9 currently is stable gfr is still 42 does have signif microalbum inuria lab has been stable and meds were adjusted Coronary arteriosclerosis 87787606 I25.10 he is stable with his metoprolol and amlodipine as well he still relates feels fine only noted to have an anginal like sx once a month or two will be seeing cardiology he has a new dr and had his defib rechk and it was excellent Essential hypertension 57183430 I10 bp is stable doing great Paroxysmal atrial fibrillation 482450633 I48.0 now in NSR no palpitatio nsbut is troubled by warfarin causing bruising Type 2 gita betes mellitus 11830502 E11.9 a1c climbed up to 11.7 due to loss of trulicity and recent sinus infection he will be restarting trulicity and we will rechk in 3 months PRIOR8.7 from 7.4 we will need to restart the glipizide and cont the trulicity [id number] Luca Tovar [facility] Internal Medicine [address] [facility],[place] [address] 06/10/2024 11:56:13 06/10/2024 12:41:39 Coronary arteriosclerosis 34515096 I25.10 he is stable with his metoprolol and amlodipine as well he still relates feels fine only noted to have an anginal like sx once a month or two will be seeing cardiology he has a new dr and had his defib rechk and it was excellent Essential hypertension 80336121 I10 bp is stable doing great Hypercholesterolemia 136 89416 E78.00 following but given age we are not as intense on this Compressio n fracture of vertebral column 25388045 M48.50XA improving with conserv care Compressio n fracture of thoracic vertebra 7456043447 104 M48.54XA stable and already improving [id number] Luca Tovar DO [facility] Internal Medicine [address] [facility],[place] [address] 08/24/2024 10:36:43 08/24/2024 11:28:48 Essential hypertension 90752863 I10 bp is stable although he is not following at home Hypercholesterolemia 136 43606 E78.00 following but given age we are not as intense on this Paroxysmal atrial fibrillation 234894368 I48.0 now in NSR no palpitatio nshe will be going for defib and pacer check with new cardiologi st in next month or two not sure whenhe is still troubled by warfarin causing bruising on his forearms Type 2 gita betes mellitus 53265524 E11.9 a1c is now at 6.6 was at 7.1 Depression screening 171 372063 Z13.31 SCREENING NEGATIVE Chronic ki dney disease 389901121 N18.9 currently is stable gfr is still 37 does have signif microalbum inuria lab has been stable and meds were adjusted Compressio n fracture of vertebral column 53892341 M48.50XA improving with conserv care prob is the mornings as noted Secondary hyperparathyroidism 52651285 E21.1 lab done and reviewed which is [...] [place] Jairo Newman [id number] Jairo Newman 08/21/2024 2 [place]) [id number] Jairo Newman [id number] Jairo Newman Notes Date Note Type [...] more careful as well Luca Tovar DO [address] [place] [address], [phone], [facility] Internal Medicine 07/19/2023 11:10:09 10/28/19 24 text/htm l feels pretty good except for the mornings he is very stiff in the amno cp no sob unles exertion as he can get quite fatiguedstates works in garden every day Luca Tovar DO [address] [place], [address], [facility] 10/28/2023 11:54:51 05/15/20 24 [...] an isolated event Luca Tovar DO [address] [place], [address], [facility] 05/15/2024 10:51:52 06/10/19 25 [...] doesnt overdo it Luca Tovar DO [address] [place], [address], [facility] 06/10/2024 12:38:40 08/25/19 25 [...] ok bladder ok Luca Tovar DO [address] [place], [address], [facility] Internal Medicine 08/24/2024 11:14:22
--- OUTSIDE RECORDS SUMMARY | 2024-11-25 10:38 | XMS_ITS | Encounter Summary ---
Author Organization [facility] Address [address] [facility] [address] [place] [address] Phone Care Team Providers Care Under Sheriff Name Role Phone Luca Grant DO Primary Care Provider [phone] Reason for Visit * Reason Comments Med Refill Encounter Details Date Type Department Care Team (Late st Contact Info) Description 03/05/2023 Refill [facility] [address] [place] [address] Mateo Barton MD Social History [...] can be sent over to Ella in [place] [facility]. Kathy can be reached at [phone] documented in this encounter Plan of Treatment Not on file documented as of this encounter Visit Diagnoses Not on filedocumented in this encounter Care Teams Under Sheriff Relationship Specialty Start Date End Date Luca Grant DO [address] [facility] [place] [address] PCP - General 05/30/20 documented as of this encounter
[2024-11-25 13:20] LABS: Hematocrit 38.3 % (42.0-52.0); Hemoglobin 12.6 g/dl (14.0-18.0); Mean Corpuscular HGB Conc 32.9 g/dl (31.0-36.0); Mean Corpuscular Hemoglobin 29.1 pg (27.0-33.0); Mean Corpuscular Volume 88.5 fL (80.0-98.0); NRBC Abs Auto 0.000 X10*3/uL (0.0-0.012); NRBC Pct Auto 0.0 /100WBC (0.0-0.2); Platelet Count 307 X10*3/uL (160-400); Red Blood Count 4.33 X10*6/uL (4.60-5.80); White Blood Count 9.2 X10*3/uL (4.8-10.8)
[2024-11-25 13:37] LABS: Anion Gap 12 (12-20); Blood Urea Nitrogen 32 mg/dL (9-16); Calcium 8.9 mg/dL (8.4-10.2); Carbon Dioxide 23 mmol/L (22-29); Chloride 109 mmol/L (96-108); Estimated Glomerular Filt Rate 37; Potassium 4.4 mmol/L (3.3-5.1); Sodium 140 mmol/L (135-145)
== END 2024-11-25 09:59 | disposition home or self-care (01) ==
LOC: HO.10HDL 09:58
PROVIDERS: Visit Provider Internal Medicine Hypertension Specialist
DX: N18.9 Chronic kidney disease, unspecified (principal)
CPT/HCPCS: 36415; 80048; 85027

== ENCOUNTER → 2024-12-07 16:24 | Outpatient (BNV) | payer MEDICARE, SELFPAY | PROVIDERS: PCP Internal Medicine; Visit Provider Radiology Diagnostic Radiology | DX: M51.369 Other intervertebral disc degeneration, lumbar region without mention of lumbar back pain or lower extremity pain (principal); M16.0 Bilateral primary osteoarthritis of hip | CPT/HCPCS: 72100; 73521 ==

== ENCOUNTER 2024-12-07 16:50 | Outpatient (REF) | payer MEDICARE, SELFPAY ==
--- NOTE | ~2024-12-07 | XR_ITS ---
EXAMINATION: XR BILATERAL HIPS WITH AP PELVIS CLINICAL INFORMATION: fall COMPARISON: None available. TECHNIQUE: AP and frog-leg lateral views of each hip and an AP view of the pelvis. FINDINGS: Mild degenerative changes are present in the SI joints. There are moderate to severe vascular calcifications. Right hip: Acetabular roof osteophytes are small to moderate in size. Hip joint spaces preserved. Right hip: Large osteophyte is present along the acetabulum. Hip joint spaces preserved. XR/XR hip BI w PEL1V IMPRESSION: Moderate SI joint degenerative change. Mild degenerative changes in the hip joints. Moderate to severe vascular calcifications. Electronically signed by: Biju Shepherd MD 12/07/2024 05:46 PM EDT RP
--- NOTE | ~2024-12-07 | XR_ITS ---
EXAMINATION: XR LUMBOSACRAL SPINE CLINICAL INFORMATION: fall COMPARISON: None available. TECHNIQUE: Three views of the lumbosacral spine. FINDINGS: Moderate vascular calcifications are evident. Moderate degenerative changes are present in the right SI joint. Mild changes are noted on the left. There are 5 non-rib bearing lumbar segments. Vertebral body height and alignment is preserved. T12-L1: Bridging anterior osteophytes and mild disc space narrowing is present. L1-L2: Bridging anterior osteophytes and mild disc space narrowing is noted. L2-L3: There is mild disc space narrowing with vacuum phenomenon and endplate osteophytes. L3-L4: There is moderate disc space narrowing and vacuum phenomena with endplate sclerosis and osteophytes. There is facet sclerosis 2. L4-L5: Minimal disc space narrowing is noted with endplate osteophytes and facet sclerosis. L5-S1: There is minimal disc space narrowing and facet sclerosis. XR/XR lumbar spine 2-3V IMPRESSION: Degenerative disc disease and facet arthropathy. Degenerative changes are most advanced at L3-4 followed by L2-3. Electronically signed by: Biju Shepherd MD 12/07/2024 05:48 PM EDT
== END 2024-12-07 16:51 | disposition home or self-care (01) ==
LOC: HO.XRAY 16:50
PROVIDERS: PCP Internal Medicine; Visit Provider Internal Medicine
DX: Z91.81 History of falling (principal)
CPT/HCPCS: 72100; 73521

== ENCOUNTER 2024-12-09 08:09 | Outpatient (AMB) | payer MEDICARE, SELFPAY ==
--- OUTSIDE RECORDS SUMMARY | 2024-12-09 08:15 | XMS_ITS | Data Portability ---
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 Not available 08/24/2024 11:07:07 12/02/2024 12/02/2024 Patient presente d to office today for their Medicare Annual Wellness Visit. Education was provided on healthy nutrition, including a diet rich in fruits and vegetables, minimizing simple carbohydrates, salt, and saturated fats. Encouraged regular cardiovascular exercise such as walking at least 30 minutes daily, 5 times per week. Emphasized preventive health measures and educated pt on fall prevention and community-based lifestyle interventions to help reduce health risks and promote healthy living. [email or web address] Not available 11/30/2024 08:27:53 Plan of Treatment Reminders Order Date Submit Date Provider Last Modified By Organization Details Last Modified Time Details Appointments FOLLOW UP 15 2024 09:45A M DR TOVAR Not available Not available Not available Lab CBC w/ auto diff 2024 025 [facility], [address] [place] [address], [address], 12/02/2024 11:50:08 CMP, serum or plasma 2024 025 [facility], [address] [place] [address], [address], 12/02/2024 11:50:08 Referral None recorded. Procedures None recorded. Surgeries None recorded. Imaging XR, cervical spine, 2 or 3 view 2024 025 [facility], [address] [place] [address], [address], 06/24/2024 10:40:47 XR, thoracic spine, 2 view 2024 025 [facility], [address] [place] [address], [address], 06/17/2024 09:12:39 Medication Orders Trulicity 1.5 mg/0.5 mL subcutane ous pen injector 2023 024 [id number], [address] [place], [place], [phone], 10/28/2023 11:54:03 Patient TargetsNo targets recorded. Patient Instructions Encounter Date Encounter Id Patient Instructions Last Modified By Organization Details Last Modified Time 10/28/2023 [id number] pulse oximetry* Not available 10/28/2023 11:53:55 05/15/2024 [id number] learning about type 2 diabetes Not available 05/15/2024 10:51:37 type 2 diabetes: care instructions Not available 05/15/2024 10:51:37 high blood pressure: care instructions Not available 05/15/2024 10:51:37 learning about high blood pressure Not available 05/15/2024 10:51:37 06/10/2024 [id number] compression fracture of the spine: care instructions Not available 06/10/2024 12:36:20 08/24/2024 [id number] compression fracture of the spine: care instructions Not available 08/24/2024 11:13:44 12/02/2024 [id number] advance care planning: care instructions Not available 12/02/2024 11:48:41 learning about type 2 diabetes Not available 12/02/2024 11:48:41 type 2 diabetes: care instructions Not available 12/02/2024 11:48:41 high blood pressure: care instructions Not available 12/02/2024 11:48:41 learning about high blood pressure Not available 12/02/2024 11:48:41 Discussed and explained advance directives such as standard forms to the patient. Face to face discussion lasted for a duration of __38_ minutes. Not available 12/02/2024 11:41:27 Reason for Referral None Reported. Results Created Date Observation Date Name Description Value Unit Range Abnormal Flag Note LastModifiedBy Organization Detail LastModifiedTime 10/28/19 24 10/28/2023 pulse oxime try* Result 97% Not Available [facility] [address], [place], [address], 10/25/2023 09:49:06 02/25/2002/21/2024 , echoc ardio gram No observ ation record ed. [facility] [address], [place], [address], 02/25/2024 12:26:24 05/17/20 24 05/17/2024 CT, cervi maureen spine , w/o contr ast No observ ation record ed. [address] (Medical Records) [address] [place], [address], 05/18/2024 08:43:50 05/17/20 24 05/17/2024 CT, cervi maureen spine , w/o contr ast No observ ation record ed. [address] (Medical Records) [address] [place], [address], 05/18/2024 08:44:09 05/17/20 24 05/17/2024 CT, thora cic spine , w/o contr ast No observ ation record ed. [address] (Medical Records) [address] [place], [address], 05/18/2024 08:44:31 05/17/20 24 05/17/2024 CT, thora cic spine , w/o contr ast No observ ation record ed. [address] (Medical Records) [address] [place], [address], 05/18/2024 08:45:05 05/17/20 24 05/17/2024 CT, head + brain , w/o contr ast No observ ation record ed. [address] (Medical Records) [address] [place], [address], 05/18/2024 08:45:35 07/01/19 25 07/01/2024 XR, thora cic spine , 2 view No observ ation record ed. [address] (Medical Records) [address] [place], [address], 07/03/2024 09:23:33 07/01/19 25 07/01/2024 XR, cervi maureen spine , 2 or 3 view No observ ation record ed. [address] (Medical Records) [address] [place], [address], 07/03/2024 09:23:34 12/08/19 25 12/07/2024 XR, hip + pelvi s, bilat eral No observ ation record ed. [address] (Medical Records) [address] [place], [address], 12/09/2024 08:10:59 12/08/19 25 12/07/2024 XR, lumba r spine , 2 view No observ ation record ed. [address] (Medical Records) [address] [place], [address], 12/09/2024 08:10:59 12/08/19 25 12/07/2024 XR, lumba r spine , 2 view No observ ation record ed. [address] (Medical Records) [address] [place], [address], 12/09/2024 08:10:59 Result Notes None recorded. Problems Name Problem SNOMED Code Status Onset Date Resolution Date Notes Provider Name and Address Organization Details Recorded Time Essgustavo l hyperten marilyn 40187662 Active 2017 [facility] 8 14:33:05 Type 2 diabetes mellitus 46548146 Active 2017 Gay rivero [facility] Medicine 8 14:33:24 Coronary arterios clerosis 21765719 Active 2017 implantab le defib/V53 .32 Tere Mayo NP, S [address] [place], [address], [facility] Medicine 8 10:00:50 Hypercho lesterol emia 65246539 Active 2017 Gay rivero [facility] 8 14:34:30 Chronic kidney disease 050205608 Active 2017 Dr. Mick Mayo, [employer]ATER, S [address] [place], [address], [facility] 8 09:59:54 Hearing loss 66149040 Active 2017 [facility] 8 14:35:24 Anxiety 70557039 Active 2017 [facility] 8 14:35:33 Insomnia 851002528 Active 2017 [facility] 8 14:35:46 Paroxysm al atrial fibrilla tion 159375482 Active 2017 Dr. Cespedes er, cardiolog ist Tere Mayo, [employer], S [address] [place], [address], [facility] 8 09:59:33 Secondar y hyperpar athyroid ism 68742513 Active 2018 REYNALDO Rosas [address] [place], [address], [facility] 9 14:33:52 Dupuytre bernie's contract ure of finger 811958280 Active 2019 Luca Tovar DO [address] [place] [address], [address], [facility] Medicine 0 12:18:27 Disorder due to type 2 diabetes mellitus 628310782 Active 2021 Luca Tovar DO [address] [place] [address], [address], [facility] 2 10:29:29 Impacted cerumen of bilatera l ears 91151209852 94230 Active 2022 NISHA STARKS [address] [place] [address], [address], [facility] 3 11:03:53 Acute sinusiti s 67097523 Active 2023 NISHA STARKS [address] [place] [address], [address], [facility] 4 11:26:23 Vitamin D deficien cy 39519239 Active 2023 Luca Salcedo Tangailyn, [address], [address], [facility] 4 11:51:15 COVID-19 579587133 Active 2023 Luca Salcedo Juanita [address], [address], [facility] 4 14:24:44 Compress ion fracture of thoracic vertebra 41329562824 04 Active 2024 Luca Salcedo Juanita [address], [address], [facility] 5 12:35:09 Compress ion fracture of vertebra l column 15295312 Active 2024 Luca Mary AnnJuanjo Tovar, [address], [address], [facility] 5 12:35:27 Problem Notes None recorded. Procedures Surgical History Date Name Laterality Status Provider Name and Address Organization Details Recorded Time 3 Cerumen Removal completed NISHA STARKS [address] [place] [address], [address], [facility] 04/03/2023 11:03:46 Aicd, single chamber completed Tere Mayo NP, S [address] [place] [address], [address], [facility] 09/06/2017 08:53:46 Imaging Results None recorded. Procedure Notes None recorded. Medical Equipment None Reported. Allergies Allergen ID Allergen Name Allergen Category Reaction Reaction Severity Criticality Documentation Date Start Date Code Code System Note Provider Name and Address Organization Details Recorded Time 7809 amoxicill in medicatio n nausea moderate low 07/09/2023 723 RxNorm [facility] 4 15:05:17 Medications Name Sig Start Date [...] 1.5 MG UNDER THE SKIN EVERY WEEK active Not Available Not Available No t [...] Updated DateTime 5 165.74 cm 24.8 kg/m2 71725.8 6 g 70 /min 98 % 98 % 138/68 mm[Hg] Leonora Blank [facility] Internal Medicine 5 12:06:50 Date Recorded Body height Body mass index (BMI) Body weight Heart rate Oxygen saturation Oxygen saturation in Arterial blood by Pulse oximetry Systolic And Diastolic Provider Name and Address Organization Details Last Updated DateTime 5 165.74 cm 24.8 kg/m2 11240.8 6 g 70 /min 99 % 99 % 138/64 mm[Hg] Leonora Blank [facility] Internal Medicine 5 10:44:39 Date Recorded Body height Body mass index (BMI) Body weight Heart rate Oxygen saturation Oxygen saturation in Arterial blood by Pulse oximetry Systolic And Diastolic Provider Name and Address Organization Details Last Updated DateTime 4 165.74 cm 25.2 kg/m2 45152.8 4 g 69 /min 97 % 97 % 138/66 mm[Hg] Latanya De Oliveira [facility] Internal Medicine 4 11:31:37 Date Recorded Body height Body mass index (BMI) Body weight Heart rate Oxygen saturation Oxygen saturation in Arterial blood by Pulse oximetry Systolic And Diastolic Provider Name and Address Organization Details Last Updated DateTime 5 165.74 cm 24.8 kg/m2 95787.8 6 g 92 /min 98 % 98 % 120/70 mm[Hg] Leonora Blank [facility] Internal Medicine 5 11:27:14 Social History Question Answer Notes LastModified by Organizat ion Details LastModified Time Tobacco Smoking Status Never Smoker Tere Mayo NP, S [address] [place] [address], [address], [facility] 09/06/2017 08:52:41 What Was The Date Of Your Most Recent Tobacco Screening? 12/02/2024 [email or web address] Information not available 12/02/2024 Sex: Unknown Functional Status Question Answer Note [...] formulation 3 completed Tere Mayo NP, S [address] [place] [address], [address], [facility] 09/06/2017 08:47:21 pneumococcal, unspecified formulation 9 completed Tere Mayo NP, S [address] [place] [address], [address], [facility] Internal [facility] 09/06/2017 08:47:41 Tdap 9 completed Tere Mayo NP, S [address] [place] [address], [address], [facility] 09/06/2017 08:48:09 Influenza, adjuvanted, trivalent, PF 7 completed Tere Mayo NP, S [address] [place] [address], [address], [facility] 09/06/2017 08:50:21 Influenza, split virus, quadrivalent, preservative 8 completed Not Available [facility] 06/06/2019 02:46:31 COVID-19, mRNA, LNP-S, PF, 30 mcg/0.3 mL dose 1 completed [facility] 10/26/2020 09:08:36 COVID-19, mRNA, LNP-S, PF, 30 mcg/0.3 mL dose completed Gay [facility] 10/26/2020 09:08:42 Past Encounters Encounter ID Performer Location Encounter Start Date Encounter Closed Date Diagnosis/Indication Diagnosis SNOMED-CT Code Diagnosis ICD10 Code Diagnosis Note [id number] Luca Tovar [facility] [address] [facility], [place] [address] 09/06/2017 09:57:17 09/06/2017 11:29:14 Type 2 diabetes mellitus 53948516 E11.9 to have labs done at [address] , [facility] draw station, pt more comfortabl e with paper request Essential hypertension 21138672 I10 stable, back on [address] Barton Hypercholesterolemia 136 51100 E78.00 follow Benign pro static hyperplasia 122347998 N40.0 no c/o Paroxysmal atrial fibrillation 960481160 I48.0 denies palpitatio ns Chronic ki dney disease stage 3 293895317 [address]18.[address] 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 Nicholson r [id number] Luca Tovar [facility] [address] [facility],[place] [address] 11/06/2017 09:17:14 11/06/2017 11:20:19 Hypercholesterolemia 72650479 E78.00 follow, ldl 56 Chronic anxiety 89280040 9 F41.9 lorazepam at night helpful Paroxysmal atrial fibrillation 882322763 I48.0 denies palpitatio ns, current RRR Coronary arteriosclerosis 05270143 I25.10 asymptomat ic Essential hypertension 54382612 I10 stable Chronic ki dney disease stage 3 [address]9 [address]18.[address] Barton, continue meds Disorder d ue to type 2 diabetes mellitus 948334873 E11.8 [id number] Luca Tovar [facility] [address] [facility],[place] [address] 03/12/2018 08:49:50 03/17/2018 09:11:15 Hypercholesterolemia 04137028 E78.00 follow Paroxysmal atrial fibrillation 804169079 I48.0 denies palpitatio ns, current RRR Type 2 gita betes mellitus 36767454 E11.9 A1c drawn here today since mix up at lab & was not drawn 02/26/18 Coronary arteriosclerosis 35784738 I25.10 all ADL's without difficulty -encourage daily walking Essential hypertension 80701952 I10 stable Chronic ki dney disease 217628237 N18.9 Administra tion of influenza vaccine 14742399 Z23 [id number] 1A right deltoid [id number] Luca Tovar [facility] [address] [facility], [place] [address] 07/30/2018 10:14:43 07/30/2018 16:06:33 Disorder due to type 2 diabetes mellitus 590522097 E11.8 stable Paroxysmal atrial fibrillation 068528458 I48.0 denies palpitatio ns, current RRR Hypercholesterolemia 136 26449 E78.00 follow Coronary arteriosclerosis 57311117 I25.10 stable Essential hypertension 95831297 I10 stable Chronic ki dney disease 282490197 N18.9 up to date Hearing loss 61136789 H9 1.93 [id number] Luca Tovar [facility] [address] [facility], [place] [address] 11/07/2018 11:36:03 11/07/2018 12:19:52 Disorder due to type 2 diabetes mellitus 180415108 E11.8 need to get a1c last a1c in february was 8.4 Paroxysmal atrial fibrillation 852777702 I48.0 denies palpitatio ns, current RRR Hypercholesterolemia 136 87546 E78.00 follow Coronary arteriosclerosis 58666143 I25.10 stable Essential hypertension 54922758 I10 stable Chronic ki dney disease 244372939 N18.9 slightly worse has f/u with kidney specialist in a month avoids nsaids bp well controlled need to see a1c for blood sugar control Hearing loss 37792621 H9 1.93 [id number] Luca Tovar [facility] [address] [facility], [place] [address] 02/04/2019 09:50:05 02/04/2019 10:15:33 Disorder due to type 2 diabetes mellitus 344693750 E11.8 had labs done with his kidney specialist , need to get a1c last a1c was 02/2018, was supposed to have one after last visit, btu never did it. will get a1c today Paroxysmal atrial fibrillation 777949541 I48.0 denies palpitatio ns, current reg Hypercholesterolemia 136 50156 E78.00 follow Coronary arteriosclerosis 88518839 I25.10 stable Essential hypertension 35077069 I10 stable Chronic ki dney disease 998071702 N18.9 has regular f/u with kidney specialist avoids nsaids bp well controlled need to see a1c for blood sugar control Hearing loss 45924451 H9 1.93 Hyperparathyroidism 6699 9008 E21.3 found by nephro, pt claims never was discussed [id number] [facility] Internal Medicine [address] [facility],[place] [address] 06/02/2019 09:55:09 06/02/2019 10:54:06 Disorder due to type 2 diabetes mellitus 000070597 E11.8 had labs done with his kidney specialist , need to get a1c last a1c was 02/2018, was supposed to have one after last visit, btu never did it. will get a1c today Paroxysmal atrial fibrillation 464645105 I48.0 sees cardio, last seen 03/2019 Hypercholesterolemia 136 23476 E78.00 well controlled Coronary arteriosclerosis 72325922 I25.10 stable Essential hypertension 65009400 I10 stable Hearing loss 21870821 H9 1.93 Pain of left hand 191593 2603 80827 M79.642 will send to hand specialist cannot take nsaids nor steroid continue conservati ve management Hyperparathyroidism 6699 9008 E21.3 found by nephro referred to endo last visit - dr. duarte Chronic ki dney disease stage 3 139091146 N18.3 has regular f/u with kidney specialist avoids nsaids bp well controlled need to see a1c for blood sugar control [id number] [facility] [address] [facility],[place] [address] 09/04/2019 11:36:11 09/04/2019 11:59:53 Disorder due to type 2 diabetes mellitus 924008784 E11.8 a1c 08/11 was 10.9 has already made cheanges to diet, was drinking lots of sugary beverages will get him a new meter to test at home Paroxysmal atrial fibrillation 450175168 I48.0 sees cardio, last seen 03/2019 Hypercholesterolemia 136 04999 E78.00 needs to be repeated, last done 09/2018 Essential hypertension 98493160 I10 stable Hearing loss 98577407 H9 1.93 Chronic ki dney disease stage 3 981420135 N18.3 has regular f/u with kidney specialist avoids nsaids bp well controlled need to see a1c for blood sugar control [id number] Luca Tovar [facility] [address] [facility] [address] [address] 12/02/2019 09:48:23 12/02/2019 10:54:52 Hypercholesterolemia 60629830 E78.00 labs looking better will f/u in three months Type 2 gita betes mellitus 15040390 E11.9 A1c is looking better and his diet is greatly improved daily readings are better than last reported Atrial fibrillation 4943 6004 I48.91 stable [id number] Luca Tovar [facility] [address] [facility] [address],[place] [address] 03/25/2020 11:57:44 03/25/2020 12:30:00 Essential hypertension 34058323 I10 bp is stable doing great Type 2 gita betes mellitus 12376508 E11.9 he is doing well but will need to get an a1c Paroxysmal atrial fibrillation 152589171 I48.0 now in NSR no palpitatio ns Chronic ki dney disease 568685189 N18.9 will be seeing later this month Dupuytren' s contracture of finger 877640731 M72.0 will refer to hand spec when pt ready [id number] Luca Tovar [facility] [address] [facility] [address] [address] 07/18/2020 10:25:57 07/18/2020 11:16:07 Type 2 diabetes mellitus 46304804 E11.9 a1c is elevated at 9.7 hei is only on Essential hypertension 27354931 I10 bp is stable doing great Paroxysmal atrial fibrillation 474398282 I48.0 now in NSR no palpitatio ns Coronary arteriosclerosis 08037597 I25.10 relates feels fine only unoted to have an anginal like sx once a month or two will be seeing cardiology in a month to see new dr and have his defib rechk Chronic ki dney disease 800969566 N18.9 will be seeing later this month lab has been stable and meds were adjusted [id number] Luca Tovar [facility] [address] [facility], [place] [address] 10/26/2020 10:03:18 10/26/2020 10:48:58 Type 2 diabetes mellitus 90092182 E11.9 a1c is much better down to 8.9 from when it was elevated at 9.7 will increase trulicity to 1.5 and rechk in sept Chronic ki dney disease 036085042 N18.9 will be seeing later this summer lab has been stable and meds were adjusted Secondary hyperparathyroidism 61436567 E21.1 also stable and we will check lab a nd [facility] Coronary arteriosclerosis 57652391 I25.10 relates feels fine only noted to have an anginal like sx once a month or two will be seeing cardiology he has a new dr and have his defib rechk Paroxysmal atrial fibrillation 437476709 I48.0 now in NSR no palpitatio ns Disorder d ue to type 2 diabetes mellitus 340790953 E11.8 as above Chronic ki dney disease stage 3 588794049 N18.31 stable and following renal [id number] [facility] [address] [facility],[place] [address] 02/01/2021 14:04:02 02/01/2021 15:06:05 Type 2 diabetes mellitus 64323635 E11.9 a1c is much better down to7.5 from 8.9 from when it was elevated at 9.7 will cont the trulicity but we will increase to 3mg look to discontinu e the glipizide depending on blood test Essential hypertension 10780359 I10 bp is stable doing great Paroxysmal atrial fibrillation 141363083 I48.0 now in NSR no palpitatio ns Coronary arteriosclerosis 49421410 I25.10 he still relates feels fine only noted to have an anginal like sx once a month or two will be seeing cardiology he has a new dr and had his defib rechk and it was excellent [id number] Luca Tovar [facility] [address] [facility],[place] [address] 05/09/2021 08:26:53 05/09/2021 15:23:31 Chronic kidney disease 677735041 N18.9 will be seeing later this summer lab has been stable and meds were adjusted Coronary arteriosclerosis 21254245 I25.10 he still relates feels fine only noted to have an anginal like sx once a month or two will be seeing cardiology he has a new dr and had his defib rechk and it was excellent Essential hypertension 38067528 I10 bp is stable doing great Paroxysmal atrial fibrillation 197456169 I48.0 now in NSR no palpitatio ns Type 2 gita betes mellitus 82693516 E11.9 a1c is much better down to7.0 from 7.5 from 8.9 from when it was elevated at 9.7 will cont the trulicity but we will increase to 3mg look to discontinu e the glipizide depending on blood test [id number] Luca Tovar [facility] [address] [facility],[place] [address] 08/11/2021 09:53:46 08/11/2021 15:00:47 Type 2 diabetes mellitus 77540830 E11.9 a1c is much better down to7.4 was 7.5 then 7,4 at its worse 8.9 from when it was elevated at 9.7we will decrease the glipizide to qd from bid will cont the trulicity but we will increase to 3mg look to discontinu e the glipizide depending on blood test Essential hypertension 23331300 I10 bp is stable doing great Paroxysmal atrial fibrillation 086429771 I48.0 now in NSR no palpitatio ns Hyperparathyroidism 6699 9008 E21.1 stable Chronic ki dney disease stage 3 666947772 N18.31 stable and following renal 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 carlos treat conserv for now otherwise nlormal exam [id number] Luca ReeseJuanjo Tovar [facility] Internal Medicine [address] [facility] [address],[place] [address] 01/19/2022 08:16:47 01/23/2022 11:19:42 Type 2 diabetes mellitus 72637539 E11.9 a1c climbed up to 8.7 from 7.4 we will need to restart the glipizide and cont the trulicity Paroxysmal atrial fibrillation 943864612 I48.0 now in NSR no palpitatio ns Essential hypertension 52996653 I10 bp is stable doing great Chronic ki dney disease 878364944 N18.9 will be seeing later this summer lab has been stable and meds were adjusted Coronary arteriosclerosis 08529074 I25.10 he still relates feels fine only noted to have an anginal like sx once a month or two will be seeing cardiology he has a new dr and had his defib rechk and it was excellent Disorder d ue to type 2 diabetes mellitus 301932028 E11.8 as above [id number] [facility] Internal Medicine [address] [facility] [address],[place] [address] 05/08/2022 13:51:48 05/08/2022 15:23:11 Type 2 diabetes mellitus 64705609 E11.9 a1c climbed up to 8.7 from 7.4 we will need to restart the glipizide and cont the trulicity Hypercholesterolemia 136 68817 E78.00 following Essential hypertension 15217525 I10 bp is stable doing great Anxiety 33403804 F41.9 seems to be baseline Paroxysmal atrial fibrillation 026980334 I48.0 [place] [id number] Luca ReeseJuanjo Tovar [facility] Internal Medicine [address] [facility] [address],[place] [address] 08/21/2022 13:53:14 08/21/2022 14:59:41 Chronic kidney disease 059795209 N18.9 will be seeing later this summer lab has been stable and meds were adjusted Hypercholesterolemia 136 67840 E78.00 following Anxiety 37749186 F41.9 seems to be baseline Disorder d ue to type 2 diabetes mellitus 513233178 E11.8 as above Type 2 gita betes mellitus 23054930 E11.9 a1c climbed up to 8.7 from 7.4 we will need to restart the glipizide and cont the trulicity Hyperparathyroidism 6699 9008 E21.1 stable Paroxysmal atrial fibrillation 486649954 I48.0 now in NSR no palpitatio ns Chronic ki dney disease stage 3 443483840 N18.31 stable and following renal Coronary arteriosclerosis 67474385 I25.10 he is stable with his metoprolol and amlodipine as well he still relates feels fine only noted to have an anginal like sx once a month or two will be seeing cardiology he has a new dr and had his defib rechk and it was excellent Essential hypertension 18575020 I10 bp is stable doing great [id number] Luca Tovar [facility] Internal Medicine [address] [facility], [place] [address] 03/25/2023 10:23:59 03/25/2023 11:27:36 Pre-surgery evaluation 059754104 Z01.818 The patient was seen in the office today for pre-op evaluation . All medical conditions on patient's problem list were addressed and are currently stable, no interventi on needed at this time. Based on history and physical performed, the patient is cleared for surgery. [id number] Luca Tovar [facility] Internal Medicine [address] [facility], [place] [address] 04/03/2023 10:33:43 04/05/2023 14:23:32 Impacted cerumen of bilateral ears [id number] 580247 H61.23 resolved [id number] Luca Tovar [facility] Internal Medicine [address] [facility],[place] [address] 07/09/2023 10:31:44 07/09/2023 12:12:15 Acute sinusitis 27381452 J01.90 will set up with abx for sinus infection [id number] Luca Tovar [facility] Internal Medicine [address] [facility] [address] 07/19/2023 10:31:30 07/19/2023 14:38:59 Secondary hyperparathyroidism 49704950 E21.1 also stable and we will check lab a nd reviewed angelica is stable Paroxysmal atrial fibrillation 964177740 I48.0 now in NSR no palpitatio ns Hypercholesterolemia 136 43761 E78.00 following Type 2 gita betes mellitus 19979447 E11.9 a1c climbed up to 11.7 due to loss of trulicity and recent sinus infection he will be restarting trulicity and we will rechk in 3 months PRIOR8.7 from 7.4 we will need to restart the glipizide and cont the trulicity Essential hypertension 68482193 I10 bp is stable doing great Chronic ki dney disease 881130077 N18.9 will be seeing later this summer lab has been stable and meds were adjusted [id number] Luca Tovar [facility] Internal Medicine [address] [facility] [address] [facility] [place] [address] 10/28/2023 11:22:10 10/29/2023 11:13:52 Essential hypertension 20528809 I10 bp is stable doing great Hypercholesterolemia 136 09363 E78.00 following but given age we are not as intense on this Paroxysmal atrial fibrillation 264059222 I48.0 now in NSR no palpitatio nsbut is troubled by warfarin causing bruising Depression screening 171 383318 Z13.31 SCREENING NEGATIVE Chronic ki dney disease 021809258 N18.9 currently is stable gfr is 42 lab has been stable and meds were adjusted Coronary arteriosclerosis 01003079 I25.10 he is stable with his metoprolol and amlodipine as well he still relates feels fine only noted to have an anginal like sx once a month or two will be seeing cardiology he has a new dr and had his defib rechk and it was excellent Disorder d ue to type 2 diabetes mellitus 315494111 E11.8 note to have his a1c ]at 9.8 but he had been without the trulicity for several months due to supply prob Secondary hyperparathyroidism 58829597 E21.1 also stable and we will check lab a nd reviewed angelica is stable Vitamin D deficiency 347 43251 E55.9 we wiill have hinm supplement for 2 mo [id number] Luca Tovar [facility] Internal Medicine [address] [facility] [address] 05/15/2024 08:52:55 05/15/2024 11:27:56 Chronic kidney disease 006848220 N18.9 currently is stable gfr is still 42 does have signif microalbum inuria lab has been stable and meds were adjusted Coronary arteriosclerosis 26993445 I25.10 he is stable with his metoprolol and amlodipine as well he still relates feels fine only noted to have an anginal like sx once a month or two will be seeing cardiology he has a new dr and had his defib rechk and it was excellent Essential hypertension 72428634 I10 bp is stable doing great Paroxysmal atrial fibrillation 861795224 I48.0 now in NSR no palpitatio nsbut is troubled by warfarin causing bruising Type 2 gita betes mellitus 94202615 E11.9 a1c climbed up to 11.7 due to loss of trulicity and recent sinus infection he will be restarting trulicity and we will rechk in 3 months PRIOR8.7 from 7.4 we will need to restart the glipizide and cont the trulicity [id number] Luca Tovar DO [facility] Internal Medicine [address] [facility],[place] [address] 06/10/2024 11:56:13 06/10/2024 12:41:39 Coronary arteriosclerosis 08638079 I25.10 he is stable with his metoprolol and amlodipine as well he still relates feels fine only noted to have an anginal like sx once a month or two will be seeing cardiology he has a new dr and had his defib rechk and it was excellent Essential hypertension 42285315 I10 bp is stable doing great Hypercholesterolemia 136 19939 E78.00 following but given age we are not as intense on this Compressio n fracture of vertebral column 81578482 M48.50XA improving with conserv care Compressio n fracture of thoracic vertebra 3087965761 104 M48.54XA stable and already improving [id number] Luca Tovar DO [facility] Internal Medicine [address] [facility] [address] 08/24/2024 10:36:43 08/24/2024 11:28:48 Essential hypertension 79114560 I10 bp is stable although he is not following at home Hypercholesterolemia 136 13158 E78.00 following but given age we are not as intense on this Paroxysmal atrial fibrillation 740830402 I48.0 now in NSR no palpitatio nshe will be going for defib and pacer check with new cardiologi st in next month or two not sure whenhe is still troubled by warfarin causing bruising on his forearms Type 2 gita betes mellitus 64930277 E11.9 a1c is now at 6.6 was at 7.1 Depression screening 171 021625 Z13.31 SCREENING NEGATIVE Chronic ki dney disease 341611299 N18.9 currently is stable gfr is still 37 does have signif microalbum inuria lab has been stable and meds were adjusted Compressio n fracture of vertebral column 21857800 M48.50XA improving with conserv care prob is the mornings as noted Secondary hyperparathyroidism 56050008 E21.1 lab done and reviewed which is stable [id number] Luca Tovar DO [facility] Medicine [address],[place] [address] 12/02/2024 11:22:51 12/02/2024 12:35:03 Screening for cardiovascular system disease 398057024 Z13.6 not required Screening for malignant neoplasm of colon 836468627 Z12.11 not req Essential hypertension 69806222 I10 bp is stable although he is not following at home Type 2 gita betes mellitus 43342181 E11.9 a1c is now at 6.6 was at 7.1 Secondary hyperparathyroidism 37050585 E21.1 lab done and reviewed which is stable Paroxysmal atrial fibrillation 581588772 I48.0 now in NSR no palpitatio nshe will be going for defib and pacer check with new cardiologi st in next month or two not sure whenhe is still troubled by warfarin causing bruising on his forearms General ex amination of patient 108043555 Z00.01 he is clearly slowing down due to his age but i encouraged him to stay as active as possible Health Concerns Section Related Observation LastModified by Organization Detai ls LastModified Time None Recorded Concern Status LastModified by Organization Details LastModified Time None Recorded Advance Directives Directive None Recorded Payers Insurance Date Sequence Insurance Name Policy Number Policy Nair Covered Member ID Nair Member ID Guarantor Name 11/29/2024 1 [place] [employer] Jairo Newman [id number] Jairo Newman 11/29/2024 2 [place] [id number] Jairo Newman [id number] Jairo Newman Notes Date Note Type Note Provider Name and Address Organization Details Recorded Time 10/28/19 24 text/htm l feels pretty good except for the mornings he is very stiff in the amno cp no sob unles exertion as he can get quite fatiguedstates works in [employer] every day Luca Tovar DO [address] [place] [address], [address], [facility] Internal Medicine 10/28/2023 11:54:51 05/15/20 24 [...] an isolated event Luca Tovar DO [address] [place], [address], [facility] 05/15/2024 10:51:52 06/10/19 25 text/htm l here for rechk following his [...] doesnt overdo it Luca Tovar DO [address] [place], [address], [facility] 06/10/2024 12:38:40 08/25/19 25 [...] ok bladder ok Luca Tovar DO [address] [facility], [place], [address], [facility] 08/24/2024 11:14:22 12/03/19 25 text/htm l Medicare Annual Wellness VisitReported bypatient.Diet and Nutrition:healthy diet Fracture Risk:no sudden unexplained fractures; no previous musculoskeletal injuries;recent explained fracture; cervical neck fx from fall in dec Physical Activity:does not exercise on a regular basis;decreased physical activity;deconditioned due to sedentary lifestyle Depression Risk:never feels sad, empty, or tearful; no loss of interest in activities; no significant changes in weight; no sleep disturbances or insomnia; no agitation; no loss of energy; no feelings of worthlessness or guilt; no thoughts of suicide; no history of depression; no history of mood disorders Orientation:no disorientation to time; no disorientation to date; no disorientation to place Concentration and Memory:no decreased concentrating ability; no memory lapses or loss; does not forget words Speech/Motor difficulties:no speech difficulties; no difficulty expressing formulated concepts; no difficulty with fine manipulative tasks; no difficulty writing/copying; no slowed reaction time; does not knock things over when trying to pick them up Hearing:loss of hearing in one ear only Vision:no vision problems Activities of Daily Living:able to bathe with limited or no assistance; able to contol urination and bowels; able to dress with limited or no assistance; able to feed self with limited or no assistance; able to get out of chair or bed with limited or no assistance; able to groom with limited or no assistance; able to toilet with limited or no assistance Instrumental Activities of Daily Living:able to do house work with limited or no assistance; able to grocery shop with limited or no assistance; able to manage medications with limited or no assistance; able to manage money with limited or no assistance; able to prepare meals with limited or no assistance; able to use the phone with limited or no assistance Falls Risk Assessment:no frequent falls while walking; no fall in the past year; no fall since last visit; no dizziness/vertigo Home Safety:no unsafe timothy hazzards; no unsafe stairs; no unsafe gas appliances; working smoke/CO detectors; wears protective head gear for biking/high velocity; use of seatbelts; practicing 'safer sex'; no vision or hearing loss while driving; no fire arms; has hand bars in the bathroom/shower; good lighting in the home doing well happy with eye surgeryable to drive again no cp no sobappetite is dhaval Tovar, DO [address] [place], [address], [facility] Internal Medicine 12/02/2024 11:49:14
--- OUTSIDE RECORDS SUMMARY | 2024-12-09 08:15 | XMS_ITS | Encounter Summary ---
Author Organization [facility] Address [address] [facility] [address] [place] [address] Phone Care Team Providers Care Mold Design Engineer Name Role Phone Luca Grant DO Primary Care Provider [phone] Reason for Visit * Reason Comments Med Refill Encounter Details Date Type Department Care Team (Late st Contact Info) Description 03/05/2023 Refill [facility] [address] [place] [address] Mateo Barton MD Social History [...] can be sent over to Ella in [place] [facility]. Kathy can be reached at [phone] documented in this encounter Plan of Treatment Not on file documented as of this encounter Visit Diagnoses Not on filedocumented in this encounter Care Teams Mold Design Engineer Relationship Specialty Start Date End Date Luca Grant DO [address] [place] [address] PCP - General 05/30/20 documented as of this encounter
--- OUTSIDE RECORDS SUMMARY | 2024-12-09 08:15 | XMS_ITS | Encounter Summary ---
Author Organization [facility] Address [address] [place] [address] [address] [place] [address] Phone Care Team Providers Care Facs Teacher Name Role Phone Luca Grant DO Primary Care Provider [phone] Encounter Details Date Type Department Care Team (Late st Contact Info) Description 01/17/2024 Procedure Pass Echo Lab [address] [place], [place] [id number] Social History Tobacco Use Types Packs/Day Years Used Date Smoking Tobacco: Never Smokeless Tobacco: Never Alcohol Use Standard Drinks/Week Comments Yes 0 (1 standard drink = 0.6 oz pur e alcohol) Education Answer Date Recorded Are you interested in more education? Not on zhane e 09/14/2022 Are you concerned about learning? Not on file 09/14/2022 No 09/14/2022 No 09/14/2022 Digital Access Answer Date Recorded No 10/15/2022 No 10/15/2022 Reliable internet access at home? Not on file 10/15/2022 Device with a working camera? Not on file Sex and Gender Information Value Date Recorded Sex Assigned at Not on file Legal Sex Male 10:14 PM EDT Gender Identity Not on file Sexual Orientation Not on file documented as of this encounter Plan of Treatment Upcoming Encounters Date Type Department Care Team (Late st Contact Info) Description 04/07/2025 8:30 AM EST Office Visit [facility] [address] [facility] 3rd Floor, [address] [place] [address] Lakisha Bailon, EXCEL SPECIALIST [address] [place] [address] documented as of this encounter Visit Diagnoses Not on filedocumented in this encounter Care Teams Facs Teacher Relationship Specialty Start Date End Date Luca Grant DO [email or web address] PCP - General 03/07/17 documented as of this encounter Additional Source Comments The information contained in this document represents components of the legal health record. It is not the complete legal health record.[facility]
[2024-12-09 08:17] LABS: Prothrombin Time Whole Bld POC 19.7 sec (11.1-13.5); ~PT, ~INR - Anti Coag Clinic 1.6 (0.9-1.1)
--- NOTE | 2024-12-09 08:36 | MHC.OFFVISCO ---
Intake Intake Visit Reasons: Anticoagulation Allergies No Known Allergies Allergy (Verified 12/09/24 08:10) Medication List - Last Reconciled 12/09/24 by Kindra Alfaro RN amlodipine 5 mg PO DAILY blood sugar diagnostic As directed blood-glucose meter As directed cholecalciferol (vitamin D3) PO dulaglutide (Trulicity) mg subcut fenofibrate nanocrystallized 24 mg PO DAILY glipizide 10 mg PO DAILY lancets As directed lorazepam 1 mg PO BEDTIME metoprolol succinate ER 100 mg PO DAILY simvastatin 20 mg PO DAILY warfarin 2.5 mg See Protocol PO DAILY Nursing Note PT.MISSED ONE DOSE THIS WEEK. PT. ALSO STATES THAT HE FELL IN HIS GARDEN, AND (L) HIP XRAYS WERE NEGATIVE. TAKING TYLENOL WITH SOME RELIEF OF DISCOMFORT. PT.IS MORE UNSTEADY TODAY USING CANE. FRIEND/CHARGE MASTER SPECIALIST WITH PT.TO ASSIST. BOOST WARFARIN TO 5MGM TODAY THEN RESUME USUAL DOSE AND FOLLOW-UP IN 2 WEEKS. NO GREENS 2 DAYS. WILL INCREASE REDS/FRUITS. GOOD UNDERSTANDING OF DOSING INSTR. 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
== END 2024-12-09 08:40 | disposition home or self-care (01) ==
LOC: HO.ACS 08:09
PROVIDERS: PCP Internal Medicine; Visit Provider Internal Medicine Medical Oncology
DX: Z79.01 Long term (current) use of anticoagulants (principal)

== ENCOUNTER → 2024-12-09 08:09 | Outpatient (BNVA) | payer MEDICARE, SELFPAY | PROVIDERS: PCP Internal Medicine; Visit Provider Internal Medicine Medical Oncology | DX: I48.0 Paroxysmal atrial fibrillation (principal); Z79.01 Long term (current) use of anticoagulants; Z51.81 Encounter for therapeutic drug level monitoring | CPT/HCPCS: 85610; 99211 ==

== ENCOUNTER 2024-12-23 08:24 | Outpatient (AMB) | payer MEDICARE, SELFPAY ==
--- OUTSIDE RECORDS SUMMARY | 2024-12-23 08:31 | XMS_ITS | Encounter Summary ---
Author Organization [facility] Address [address] [place] [address] Phone Care Team Providers Care Computer Assistant Name Role Phone Luca Grant DO Primary Care Provider [phone] Reason for Visit * Reason Comments Med Refill Encounter Details Date Type Department Care Team (Late st Contact Info) Description 03/05/2023 Refill [facility] [address] [place] [address] Mateo Barton MD Social History [...] 03/11/2023 4:[address] Mick Chavez called in for her dad, Ella requested a refill for Amlodipine as he is almost out. If that can be sent over to Ella in [place] on [facility]. Kathy can be reached at [phone] documented in this encounter Plan of Treatment Not on file documented as of this encounter Visit Diagnoses Not on filedocumented in this encounter Care Teams Computer Assistant Relationship Specialty Start Date End Date Luca Grant DO [address] [place] [address],[place] [address] PCP - General 05/30/20 documented as of this encounter
--- OUTSIDE RECORDS SUMMARY | 2024-12-23 08:31 | XMS_ITS | Encounter Summary ---
Author Organization [facility] Address [address] [place] [address] [place] [address] Phone Care Team Providers Care Field Court Researcher Name Role Phone Luca Grant DO Primary Care Provider [phone] Encounter Details Date Type Department Care Team (Late st Contact Info) Description 01/17/2024 Procedure Pass Echo Lab [address] [place], [place] [address] Social History Tobacco Use Types Packs/Day Years [...] Description 04/07/2025 8:30 AM EST Office Visit [facility] [address] [facility] 3rd Floor, [address] [place] [address] Lakisha Bailon, GEOTECHNICAL FIELD TECHNICIAN [address] [place] [address] documented as of this encounter Visit Diagnoses Not on filedocumented in this encounter Care Teams Field Court Researcher Relationship Specialty Start Date End Date Luca Grant DO [email or web address] PCP - General 03/07/17 documented as of this encounter Additional Source Comments The information contained in this document represents components of the legal health record. It is not the complete legal health record.[facility]
--- NOTE | 2024-12-23 08:50 | MHC.OFFVISCO ---
Intake Intake Visit Reasons: Anticoagulation Allergies No Known Allergies Allergy (Verified 12/23/24 08:43) Medication List - Last Reconciled 12/23/24 by Natalia Diehl RN amlodipine 5 mg PO DAILY blood sugar diagnostic As directed blood-glucose meter As directed cholecalciferol (vitamin D3) PO dulaglutide (Trulicity) mg subcut fenofibrate nanocrystallized 24 mg PO DAILY glipizide 10 mg PO DAILY lancets As directed lorazepam 1 mg PO BEDTIME metoprolol succinate ER 100 mg PO DAILY simvastatin 20 mg PO DAILY warfarin 2.5 mg See Protocol PO DAILY Nursing Note INR 3.9-?? out of therapeutic range of 2-3 Medications and supplements reviewed Patient status: pt amb with cane, taking tylenol Medications or supplements: no changes Diet: fair Denies any signs and symptoms of bleeding or clotting or unusual bruising Bleeding, bruising, clotting discussed - pt with small lac on right forearm, states occ bruising Nutritional guidance given: eat greens today and tomm Dose: hold warfarin today then cont 2.5mg x 3, and 1.25mg x 4 F/U INR Date : 2 weeks? Patient verbalizing understanding of instructions given. pt unsure if took whole tab warfarin on a day he was supposed to take half, states 'forgetful', pt states using pill box family friend Jackie present for visit and will ensure pt hold warfarin today and will check pill box for accuracy Anti-Coag Initial Assessment Social Hx Patient Tobacco Use Status: Never used Tobacco Alcohol intake frequency: holidays/special occasions only Coding Level of Care Code Est Patient Level 1 Diagnoses Current use of anticoagulant therapy Z79.01 Assessment & Plan Assessment & Plan (1) Current use of anticoagulant therapy: Code(s): Z79.01 - [facility]FP (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
[2024-12-23 08:51] LABS: Prothrombin Time Whole Bld POC 47.3 sec (11.1-13.5); ~PT, ~INR - Anti Coag Clinic 3.9 (0.9-1.1)
== END 2024-12-23 09:04 | disposition home or self-care (01) ==
LOC: HO.ACS 08:24
PROVIDERS: PCP Internal Medicine; Visit Provider Internal Medicine Medical Oncology
DX: Z79.01 Long term (current) use of anticoagulants (principal)

== ENCOUNTER → 2024-12-23 08:24 | Outpatient (BNVA) | payer MEDICARE, SELFPAY | PROVIDERS: PCP Internal Medicine; Visit Provider Internal Medicine Medical Oncology | DX: Z51.81 Encounter for therapeutic drug level monitoring (principal); Z79.01 Long term (current) use of anticoagulants | CPT/HCPCS: 85610; 99211 ==

== ENCOUNTER 2025-01-06 07:55 | Outpatient (AMB) | payer MEDICARE, SELFPAY ==
--- OUTSIDE RECORDS SUMMARY | 2025-01-06 07:57 | XMS_ITS | Encounter Summary ---
Author Organization [facility] Address [address] [facility] [address] [place] [address] Phone Care Team Providers Care Bead Supervisor Name Role Phone Luca Grant DO Primary Care Provider [phone] Reason for Visit * Reason Comments Med Refill Encounter Details Date Type Department Care Team (Late st Contact Info) Description 03/05/2023 Refill [facility] [address] [place] [address] Mateo Barton MD Social History [...] can be sent over to Ella in [place] on [facility]. Kathy can be reached at [phone] documented in this encounter Plan of Treatment Not on file documented as of this encounter Visit Diagnoses Not on filedocumented in this encounter Care Teams Bead Supervisor Relationship Specialty Start Date End Date Luca Grant DO [address] [place] [address],[place] [address] PCP - General 05/30/20 documented as of this encounter
--- OUTSIDE RECORDS SUMMARY | 2025-01-06 07:57 | XMS_ITS | Encounter Summary ---
Author Organization [facility] Address [address] [place] [address] [address] [place] [address] Phone Care Team Providers Care Fur Mixer Operator Name Role Phone Luca Grant DO Primary Care Provider [phone] Encounter Details Date Type Department Care Team (Late st Contact Info) Description 01/17/2024 Procedure Pass Echo Lab [address] [place], [place] [id number] Social History Tobacco Use Types Packs/Day Years [...] Description 04/07/2025 8:30 AM EST Office Visit [facility] [address] [facility] [address]rd Floor, [address] [place] [address] Lakisha Bailon, SAMPLE STEAMER [address] [place] [address] documented as of this encounter Visit Diagnoses Not on filedocumented in this encounter Care Teams Fur Mixer Operator Relationship Specialty Start Date End Date Luca Grant DO [email or web address] PCP - General 03/07/17 documented as of this encounter Additional Source Comments The information contained in this document represents components of the legal health record. It is not the complete legal health record.[facility]
[2025-01-06 08:02] LABS: Prothrombin Time Whole Bld POC 32.6 sec (11.1-13.5); ~PT, ~INR - Anti Coag Clinic 2.7 (0.9-1.1)
--- NOTE | 2025-01-06 08:05 | MHC.OFFVISCO ---
Intake Intake Visit Reasons: Anticoagulation Allergies No Known Allergies Allergy (Verified 01/06/25 07:56) Medication List - Last Reconciled 01/06/25 by Kindra Alfaro RN amlodipine 5 mg PO DAILY blood sugar diagnostic As directed blood-glucose meter As directed cholecalciferol (vitamin D3) PO dulaglutide (Trulicity) mg subcut fenofibrate nanocrystallized 24 mg PO DAILY glipizide 10 mg PO DAILY lancets As directed lorazepam 1 mg PO BEDTIME metoprolol succinate ER 100 mg PO DAILY simvastatin 20 mg PO DAILY warfarin 2.5 mg See Protocol PO DAILY Nursing Note NO CP,SOB,DIET/MED CHANGES,FALLS OR SX OF BLEEDING. CONTINUE PRESENT DOSE AND FOLLOW-UP IN 3 WEEKS GOOD UNDERSTANDING OF DOSING INSTR. Anti-Coag Initial Assessment Social Hx Patient Tobacco Use Status: Never used Tobacco Alcohol intake frequency: holidays/special occasions only Coding Level of Care Code Est Patient Level 1 Diagnoses Current use of anticoagulant therapy Z79.01 Assessment & Plan Assessment & Plan (1) Current use of anticoagulant therapy: Code(s): Z79.01 - residential (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
== END 2025-01-06 08:08 | disposition home or self-care (01) ==
LOC: HO.ACS 07:55
PROVIDERS: PCP Internal Medicine; Visit Provider Internal Medicine Medical Oncology
DX: Z79.01 Long term (current) use of anticoagulants (principal)

== ENCOUNTER → 2025-01-06 07:55 | Outpatient (BNVA) | payer MEDICARE, SELFPAY | PROVIDERS: PCP Internal Medicine; Visit Provider Internal Medicine Medical Oncology | DX: Z51.81 Encounter for therapeutic drug level monitoring (principal); Z79.01 Long term (current) use of anticoagulants | CPT/HCPCS: 85610; 99211 ==

== ENCOUNTER 2025-01-27 08:04 | Outpatient (AMB) | payer MEDICARE, SELFPAY ==
--- NOTE | 2025-01-27 08:12 | MHC.OFFVISCO ---
Intake Intake Visit Reasons: Anticoagulation Allergies No Known Allergies Allergy (Verified 01/27/25 08:08) Medication List - Last Reconciled 01/27/25 by Natalia Diehl RN amlodipine 5 mg PO DAILY blood sugar diagnostic As directed blood-glucose meter As directed cholecalciferol (vitamin D3) PO dulaglutide (Trulicity) mg subcut fenofibrate nanocrystallized 24 mg PO DAILY glipizide 10 mg PO DAILY lancets As directed lorazepam 1 mg PO BEDTIME metoprolol succinate ER 100 mg PO DAILY simvastatin 20 mg PO DAILY warfarin 2.5 mg See Protocol PO DAILY Nursing Note INR: 2.8- in therapeutic range of 2-3 Medications and supplements reviewed- no changes No changes in health, diet, medications, or supplements, Denies any signs and symptoms of bleeding or bruising or clotting. Bleeding, bruising, clotting discussed Nutritional guidance given Dose: 2.5mg x 3, 1.25mg x 4 F/U INR: pt req 4 weeks Patient verbalizes understanding of instructions given Anti-Coag Initial Assessment Social Hx Patient Tobacco Use Status: Never used Tobacco Alcohol intake frequency: holidays/special occasions only Coding Level of Care Code Est Patient Level 1 Diagnoses Current use of anticoagulant therapy Z79.01 Results AMB INR Fingerstick AMB INR Fingerstick 2.8 Last Edit by Natalia Diehl RN on 01/27/25 08:14 interface delay Assessment & Plan Assessment & Plan (1) Current use of anticoagulant therapy: Code(s): Z79.01 - 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
[2025-01-27 08:23] LABS: Prothrombin Time Whole Bld POC 33.4 sec (11.1-13.5); ~PT, ~INR - Anti Coag Clinic 2.8 (0.9-1.1)
--- OUTSIDE RECORDS SUMMARY | 2025-01-27 08:53 | XMS_ITS | Encounter Summary ---
Author Organization [facility] Address [address] [facility] [address] [place] [address] Phone Care Team Providers Care Family Preservation Worker Name Role Phone Luca Grant DO Primary Care Provider [phone] Reason for Visit * Reason Comments Med Refill Encounter Details Date Type Department Care Team (Late st Contact Info) Description 03/05/2023 Refill [facility] [address] [place] [address] Mateo Barton MD Social History [...] sent over to Ella in [place] on [facility]. Kathy can be reached at [phone] documented in this encounter Plan of Treatment Not on file documented as of this encounter Visit Diagnoses Not on filedocumented in this encounter Care Teams Family Preservation Worker Relationship Specialty Start Date End Date Luca Grant DO [address] [place] [address],[place] [address] PCP - General 05/30/20 documented as of this encounter
--- OUTSIDE RECORDS SUMMARY | 2025-01-27 08:54 | XMS_ITS | Encounter Summary ---
Author Organization [facility] Address [address] [facility] [address] [place] [address] Phone Care Team Providers Care Traffic Control Technician Name Role Phone Luca Grant DO Primary Care Provider [phone] Encounter Details Date Type Department Care Team (Late st Contact Info) Description 08/09/2020 Procedure Pass Non-Invasive Cardiology [address] [place] [address] Social History Tobacco Use Types Packs/Day Years Used Date Smoking Tobacco: Never Smokeless Tobacco: Never Alcohol Use Standard Drinks/Week Comments Yes 0 (1 standard drink = 0.6 oz pur e alcohol) Sex and Gender Information Value Date Recorded Sex Assigned at Not on file Legal Sex Male 10:14 PM EDT Gender Identity Not on file Sexual Orientation Not on file documented as of this encounter Plan of Treatment Upcoming Encounters Date Type Department Care Team (Late st Contact Info) Description 04/07/2025 8:30 AM EST Office Visit [facility] [address] [facility] 3rd Floor, [address] [place] [address] Lakisha Bailon, FUNDRAISING MANAGER [address] [place] [address] [email or web address] documented as of this encounter Visit Diagnoses Not on filedocumented in this encounter Care Teams Traffic Control Technician Relationship Specialty Start Date End Date Luca Grant DO PCP - General 03/07/17 documented as of this encounter Additional Source Comments The information contained in this document represents components of the legal health record. It is not the complete legal health record.[facility]
--- OUTSIDE RECORDS SUMMARY | 2025-01-27 08:54 | XMS_ITS | Encounter Summary ---
Author Organization [facility] Address [address] [place] [address] [address] [place] [address] Phone Care Team Providers Care Baling Press Operator Name Role Phone Luca Grant DO Primary Care Provider [phone] Encounter Details Date Type Department Care Team (Latest Contact Info) Description 05/17/2021 Ancillary Orders Non-Invasive Cardiology [address] [place] [address] Bernice Diaz MD [address] [place] [address] [email or web address] BEDS AT THE [facility] Ischemic cardiomyopathy Social History Tobacco Use Types Packs/Day Years [...] Description 04/07/2025 8:30 AM EST Office Visit [facility] [address] [facility] 3rd Floor, [address] [place] [address] Lakisha Bailon, PARKS WORKER 50 [place] [address] [email or web address] documented as of this encounter Visit Diagnoses Diagnosis Ischemic cardiomyopathy Other specified forms of chronic ischemic heart disease documented in this encounter Care Teams Baling Press Operator Relationship Specialty Start Date End Date Luca Grant DO PCP - General 03/07/17 documented as of this encounter Additional Source Comments The information contained in this document represents components of the legal health record. It is not the complete legal health record.[facility]
--- OUTSIDE RECORDS SUMMARY | 2025-01-27 08:54 | XMS_ITS | Encounter Summary ---
Author Organization [facility] Address [address] [place] [address] [address] [place] [address] Phone Care Team Providers Care Pen Or Pencil Assembly Machine Operator Name Role Phone Luca Grant DO Primary Care Provider [phone] Encounter Details Date Type Department Care Team (Late st Contact Info) Description 01/17/2024 Procedure Pass Echo Lab [place] [place], [place] [id number] Social History Tobacco Use Types Packs/Day Years [...] Description 04/07/2025 8:30 AM EST Office Visit [facility] [address] [facility] 3rd Floor, [address] [place] [address] Lakisha Bailon, HEDIS NURSE [address] [place] [address] documented as of this encounter Visit Diagnoses Not on filedocumented in this encounter Care Teams Pen Or Pencil Assembly Machine Operator Relationship Specialty Start Date End Date Luca Grant DO [email or web address] PCP - General 03/07/17 documented as of this encounter Additional Source Comments The information contained in this document represents components of the legal health record. It is not the complete legal health record.[facility]
--- OUTSIDE RECORDS SUMMARY | 2025-01-27 08:54 | XMS_ITS | Encounter Summary ---
Author Organization [facility] Address [address] [place] [address] [address] [place] [address] Phone Care Team Providers Care Funeral Home Assistant Name Role Phone Luca Grant DO Primary Care Provider [phone] Encounter Details Date Type Department Care Team (Latest Contact Info) Description 08/09/2020 Ancillary Orders [facility] [address] [place] [address] 3rd Floor, [address] [place] [address] Bernice Diaz MD 30 [place] [address] [email or web address] Ischemic cardiomyopathy Social History Tobacco Use Types [...] Description 04/07/2025 8:30 AM EST Office Visit [facility] [address] [place] [address] Dr 3rd Floor, [address] [place] [address] Lakisha Bailon, LOTTERY MANAGER [address] [place] [address] [email or web address] documented as of this encounter Results * DEVICE CHECK: ICD IN-HOME INTERROGATION PLUS HFM IMPEDANCE (08/09/2020 10:18 AM EDT) Narrative Bernice Diaz MD - 08/14/2020 2:16 PM EDT Reason for appointment: Remote ICD interrogation HPI: Routine 3 month remote ICD interrogation. No device related complaints. Indication for device: Ischemic cardiomyopathy Examination: Device type: ICD Director Of Government Sales: Medtronic Mode: VVI LRL/URL: 40/- bpm Thresholds, impedances, and sensing stable. High V rates: 1 1-sec NSVT on 3/6 Ventricular pacin.1% Battery: 6 yrs Thoracic impedence: Stable, at baseline Additional comments: Device functioning appropriately. Normal device function. Patient to follow-up for continued monitoring every 3 months. Report prepared by Nikki Conway RN us Bernice Diaz MD [facility] ORDER EDMUNDO Final Result documented in this encounter Visit Diagnoses Diagnosis Ischemic cardiomyopathy Other specified forms of chronic ischemic heart disease Ischemic cardiomyopathy Other specified forms of chronic ischemic heart disease documented in this encounter Care Teams Funeral Home Assistant Relationship Specialty Start Date End Date Luca Grant DO [email or web address] PCP - General 03/07/17 documented as of this encounter Additional Source Comments The information contained in this document represents components of the legal health record. It is not the complete legal health record.[facility]
--- OUTSIDE RECORDS SUMMARY | 2025-01-27 08:54 | XMS_ITS | Clinical Summary ---
Author Organization [facility] Address [address] [place] [address] Phone Care Team Providers Care Enameler Name Role Phone Luca Grant DO Primary Care Provider [phone] Allergies Active Allergy Reactions Criticality Noted Date Comments Amoxicillin Nausea Only Medium 04/06/2024 Oxycodone-Acetaminophen 10/05/2024 Other Reaction(s): Headaches Medications fenofibrate (TRICOR) 48 MG tablet Take 24 mg by mouth daily. Active metoprolol succinate (TOPROL-XL) 100 MG 24 hr tablet Take 100 mg by mouth daily. Active amLODIPine (NORVASC) 5 MG tablet Take 5 mg by mouth daily. Active simvastatin (ZOCOR) 20 MG tablet 1 tablet in the evening Active LORazepam (ATIVAN) 1 MG tablet Take 1 mg by mouth as needed. Active warfarin (COUMADIN) 2.5 MG tablet Take 2.5 mg by mouth daily. Active dulaglutide (TRULICITY) 3 mg/0.5 mL subcutaneous injection Inject 3 mg under the skin every 7 days. Active blood sugar diagnostic (ONETOUCH VERIO) Strp strips daily. Active glipiZIDE (GLUCOTROL) 10 MG tablet Take 10 mg by mouth daily. 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 04/23/2017 Assessment & Plan (10/12/2020 11:23 AM EDT): Continue Toprol Diabetes mellitus type 2 in obese 04/23/2017 Assessment & Plan (10/12/2020 11:25 AM EDT): Blood pressure stable Continue lisinopril Continue glipizide Essential hypertension 04/23/2017 Assessment & Plan (10/12/2020 11:24 AM EDT): Blood pressure stable Continue amlodipine Continue lisinopril Cardiac defibrillator in place 04/23/2017 Ischemic cardiomyopathy 04/23/2017 Paroxysmal atrial fibrillation 04/23/2017 Assessment & Plan (10/12/2020 11:24 AM EDT): Continue warfarin Immunizations Immunization Administration Dates Next Due COVID-19 (Pre-03/11) Pfizer Vaccine, mRNA, PF ,08/02/2020 [id number] FORMULATION 05/20/2009 Influenza Quadrivalent w/ Preservative IM 2017 Influenza Trivalent Adjuvanted Preservative free IM 05/08/2017 Influenza, Unspecified Formulation 05/20/2009 Pneumococcal, Unspecified Formulation 04/19/2009 ,03/20/2003 Tdap 04/19/2009 Social History Tobacco Use Types Packs/Day Years [...] Sign Reading Time Taken Comments Blood Pressure 124/60 10/05/2024 10:08 AM EDT Pulse 80 10/05/2024 10:08 AM EDT Temperature - - Respiratory Rate - - Oxygen Saturation 98% 10/05/2024 10:08 AM EDT Inhaled Oxygen Concentration - - Weight 70.8 kg (156 lb) 10/05/2024 10:08 AM EDT Height 170.2 cm (5' 7.01 ) 10/05/2024 10:08 AM E DT Body Mass Index 24.43 10/05/2024 10:08 AM EDT Plan of Treatment Upcoming Encounters Date Type Department Care Team (Late st Contact Info) Description 04/07/2025 8:30 AM EST Office Visit [facility] [address] [facility] [address], [address] [place] [address] Lakisha Bailon, BACK END DEVELOPER [address] [place] [address] .[facility] Health Maintenance Due Date Last Done Comments DEPRESSION SCREENING 1947 PNEUMOCOCCAL VACCINES (50+ years) (1 of 2 - PCV) 11/11/1954 ZOSTER VACCINES (1 of 2) 11/11/1985 RSV VACCINE (1 - 1-dose 75+ series) 11/11/2010 DIABETIC EYE EXAM 04/23/2017 URINE MICROALBUMIN/CREATININE RATIO 04/23/2017 Adult Td,Tdap Booster 04/19/2019 04/19/2009 HEMOGLOBIN A1C 05/25/2020 11/23/2019 LIPID PANEL 04/13/2021 04/13/2020 INFLUENZA VACCINE (#1) 2024 8, 05/08/2017, 05/20/2009, Additional history exists COVID-19 VACCINE ( season) 2025 08/23/2020, 08/02/2020 HEPATITIS A VACCINES Aged Out No long er eligible based on patient's age to complete this topic HIB VACCINES Aged Out No longer eligi ble based on patient's age to complete this topic MENINGOCOCCAL VACCINES (ACWY) Aged Out No longer eligible based on patient's age to complete this topic MENINGOCOCCAL VACCINES (B) Aged Out N o longer eligible based on patient's age to complete this topic Medical Devices Implanted Type Area Certified Pediatric Nurse Practitioner Device Identifier Shelf Expiration Date Model / Serial / Lot Medtronic Icd ICD Procedures Procedure Name Priority Date/Time Associated Diagnosis Comments LIPID PANEL Routine 04/13/2020 11:10 AM EST Mixed hyperlipidemia from Last 3 Months or Most Recently Relevant to Health Maintenance Results * (ABNORMAL) Lipid panel (04/13/2020 11:10 AM EST) HDL 28 mg/dL [facility] Comment: Interpretation <40 mg/dL: Low HDL cholesterol (major risk factor for CHD) Greater than or equal to 60 mg/dL: High HDL cholesterol ( negative risk factor for CHD) HDL - cholesterol is affected by a number of factors, e.g. smoking, excerise, hormones, sex and age. CHOLESTEROL 136 0 - 240 mg/dL [facility] TRIGLYCERIDES 327(H) 30 - 160 mg/dL [facility] LDL 43(L) 50 - 129 mg/dL [facility] Comment: LDL levels in terms of risk for coronary heart disease: <100 mg/dL: Optimal 100-129 mg/dL: Near or above optimal 130-159 mg/dL: Borderline high 160-189 mg/dL: High >190 mg/dL: Very High CARDIAC RISK RATIO 4.9 3.4 - 5.0 [facility] Blood 04/13/2020 11:1 0 AM EST 04/13/2020 11:13 AM EST us Jad Nagel MD LAB BLOOD ORDERABLES Cinthia soto Result [facility] [address] [place] [address] from Last 3 Months or Most Recently Relevant to Health Maintenance Insurance MEDICARE PART A & B Member Subscriber Plan / Payer (Ef fective 2000-Present) Name:Jairo Newman Member ID:[id number] Relation to Subscriber:Self Name:Jairo Newman Subscriber ID:[id number] Payer ID:[id number] Group ID:Not on file Type:Medicare Address: [employer] [address] [place] [phone] [employer] MEDEX SUPPLEMENT MEDICARE PART A & B Member Subscriber Plan / Payer ( fective 2000-) Name:Jairo Newman Member ID:[id number] Relation to Subscriber:Self Name:Jairo Newman Subscriber ID:[id number] Payer ID:[id number] Group ID:Not on file Type:Medicare [facility] [address] [place] [phone] [employer] MEDEX SUPPLEMENT MEDICARE PART A & B Member Subscriber Plan / Payer ( fective 2000-Present) Name:Jairo Newman Member ID:[id number] Relation to Subscriber:Self Name:Jairo Newman Subscriber ID:[id number] Payer ID:[id number] Group ID:Not on file Type:Medicare Address: [employer] [facility] [address] [place] [address] [employer] MEDEX SUPPLEMENT MEDICARE PART A & B Member Subscriber Plan / Payer (Ef fective 2000-Present) Name:Jairo Newman Member ID:[id number] Relation to Subscriber:Self Name:Jairo Newman Subscriber ID:[id number] Payer ID:[id number] Group ID:Not on file Type:Medicare Address: [employer] [facility] [address] [place] [phone] [employer] MEDEX SUPPLEMENT MEDICARE PART A & B [employer] MEDEX SUPPLEMENT MEDICARE PART A & B [employer] MEDEX SUPPLEMENT MEDICARE PART A & B [employer] MEDEX SUPPLEMENT MEDICARE PART A & B [employer] MEDEX SUPPLEMENT MEDICARE PART A & B [employer] MEDEX SUPPLEMENT Care Teams Enameler Relationship Specialty Start Date End Date Luca Grant DO PCP - General 03/07/17 Additional Source Comments The information contained in this document represents components of the legal health record. It is not the complete legal health record.[facility]
--- OUTSIDE RECORDS SUMMARY | 2025-01-27 08:54 | XMS_ITS | Encounter Summary ---
Author Organization [facility] Address [address] [facility] [address] [place] [address] Phone Care Team Providers Care Diesel Trailer Mechanic Name Role Phone Luca Grant DO Primary Care Provider [phone] Encounter Details Date Type Department Care Team (Late st Contact Info) Description 01/17/2021 Procedure Pass Non-Invasive Cardiology [address] [place] [address] Social History Tobacco Use Types Packs/Day Years [...] Description 04/07/2025 8:30 AM EST Office Visit [facility] [address] [facility] 3rd Floor, [address] [place] [address] Lakisha Bailon, BASEBALL PITCHER [address] [place] [address] [email or web address] documented as of this encounter Visit Diagnoses Not on filedocumented in this encounter Care Teams Diesel Trailer Mechanic Relationship Specialty Start Date End Date Luca Grant DO PCP - General 03/07/17 documented as of this encounter Additional Source Comments The information contained in this document represents components of the legal health record. It is not the complete legal health record.[facility]
--- OUTSIDE RECORDS SUMMARY | 2025-01-27 08:54 | XMS_ITS | Encounter Summary ---
Author Organization [facility] Address [address] [place] [address] [address] [place] [address] Phone Care Team Providers Care Courier Delivery Driver Name Role Phone Luca Grant DO Primary Care Provider [phone] Encounter Details Date Type Department Care Team (Latest Contact Info) Description 01/17/2021 Ancillary Orders Non-Invasive Cardiology [address] [place] [address] Bernice Diaz MD [address] [place] [address] [email or web address] Ischemic cardiomyopathy Social History Tobacco Use Types [...] Description 04/07/2025 8:30 AM EST Office Visit [facility] [address] [facility] 3rd Floor, [address] [place] [address] Lakisha Bailon, MIDDLEWARE CONSULTANT [address] [place] [address] [email or web address] documented as of this encounter Results * DEVICE CHECK: ICD IN-HOME INTERROGATION PLUS HFM IMPEDANCE (01/17/2021 8:58 AM EDT) Narrative Bernice Diaz MD - 01/23/2021 2:03 PM EDT Reason for appointment: Remote ICD interrogation HPI: Routine 3 month remote ICD interrogation. No device related complaints. Indication for device: Ischemic cardiomyopathy Examination: Device type: ICD Box Spinner: Medtronic Mode: VVI LRL/URL: 40/- bpm Thresholds, impedances, and sensing stable. High V rates: 0 Ventricular pacin.1% Battery: 5.4 yrs Thoracic impedance: Stable at baseline Additional comments: Device functioning appropriately. [...] disease documented in this encounter Care Teams Courier Delivery Driver Relationship Specialty Start Date End Date Luca Grant DO [email or web address] PCP - General 03/07/17 documented as of this encounter Additional Source Comments The information contained in this document represents components of the legal health record. It is not the complete legal health record.[facility]
--- OUTSIDE RECORDS SUMMARY | 2025-01-27 08:54 | XMS_ITS | Encounter Summary ---
Author Organization [facility] Address [address] [facility] [address] [place] [address] Phone Care Team Providers Care Front End Driver Name Role Phone Luca Grant DO Primary Care Provider [phone] Encounter Details Date Type Department Care Team (Late st Contact Info) Description 05/17/2021 Procedure Pass Non-Invasive Cardiology [address] [place] [address] Social History Tobacco Use Types Packs/Day Years [...] Description 04/07/2025 8:30 AM EST Office Visit [facility] [address] [facility] 3rd Floor, [address] [place] [address] Lakisha Bailon, DIESEL MOTOR MECHANIC [address] [place] [address] [email or web address] documented as of this encounter Visit Diagnoses Not on filedocumented in this encounter Care Teams Front End Driver Relationship Specialty Start Date End Date Luca Grant DO PCP - General 03/07/17 documented as of this encounter Additional Source Comments The information contained in this document represents components of the legal health record. It is not the complete legal health record.[facility]
--- OUTSIDE RECORDS SUMMARY | 2025-01-27 08:54 | XMS_ITS | Encounter Summary ---
Author Organization [facility] Address [address] [place] [address] [place] [address] Phone Care Team Providers Care Fire Management Specialist Name Role Phone Luca Grant DO Primary Care Provider [phone] Encounter Details Date Type Department Care Team (Late st Contact Info) Description 05/17/2021 Ancillary Orders [facility] [address] [place] [address] 3rd Floor, [address] [place] [address] Bernice Diaz MD [address] [place] [address] [email or web address] Social History Tobacco Use Types Packs/Day Years [...] Description 04/07/2025 8:30 AM EST Office Visit [facility] [address] [place] [address] Dr 3rd Floor, [address] [place] [address] Lakisha Bailon, WELT STITCH CLEANER [address] [place] [address] [email or web address] documented as of this encounter Visit Diagnoses Not on filedocumented in this encounter Care Teams Fire Management Specialist Relationship Specialty Start Date End Date Luca Grant DO [email or web address] PCP - General 03/07/17 documented as of this encounter Additional Source Comments The information contained in this document represents components of the legal health record. It is not the complete legal health record.[facility]
--- OUTSIDE RECORDS SUMMARY | 2025-01-27 08:54 | XMS_ITS | Clinical Summary ---
Author Organization [facility] Address [address] [place] [address] Phone Care Team Providers Care Upholsterer Outside Name Role Phone Luca Grant DO Primary Care Provider [phone] Allergies No known active allergies Medications fenofibrate [...] Visual Foot Exam 06/17/2020 Influenza Vaccine (#1) 2025 8, 05/08/2017, 05/20/2009 Pneumococcal Vaccine: Peds ( 0 [...] average glucose, using the formula of the Z7G-Ctxmnwx Average Glucose study (ADAG), Diabetes Care, Vol.31,#8, Dec. 2007 Hemoglobin A1C 8.4 % DANIELLE Comment: Hemoglobin A1C Reference Range Adults: 4.8 - 6.0 % Non diabetic: < 6.0 % Goal: < 7.0 % Additional Action Suggested: > 8.0 % Note: Hemoglobin A1c results are invalid for patients with abnormal amounts of HbF. Blood transfusions may impact the HbA1c concentration in the patient sample. 11/23/2019 9:15 AM EDT us Mateo Barton MD LAB BLOOD ORDERABLES [facility] from Last 3 Months or Most Recently Relevant to Health Maintenance Insurance [facility] Medicare [facility] [place] [id number] Care Teams Upholsterer Outside Relationship Specialty Start Date End Date Luca Grant DO [address] [place] [phone] PCP - General 05/30/20
--- OUTSIDE RECORDS SUMMARY | 2025-01-27 08:54 | XMS_ITS | Encounter Summary ---
Author Organization [facility] Address [address] [place] [address] [place] [address] Phone Care Team Providers Care Social Work Faculty Member Name Role Phone Luca Grant DO Primary Care Provider [phone] Encounter Details Date Type Department Care Team (Latest Contact Info) Description 06/01/2019 Ancillary Orders Non-Invasive Cardiology [address] [place] [address] Jad Nagel MD [address] [place] [address] [email or web address] Ischemic cardiomyopathy Social History Tobacco Use Types [...] Description 04/07/2025 8:30 AM EST Office Visit [facility] [address] [facility] 3rd Floor, [address] [place] [address] Lakisha Bailon, GROCERY STORE COURTESY CLERK [address] [place] [address] [email or web address] documented as of this encounter Visit Diagnoses Diagnosis Ischemic cardiomyopathy Other specified forms of chronic ischemic heart disease documented in this encounter Care Teams Social Work Faculty Member Relationship Specialty Start Date End Date Luca Grant DO [phone] (work) [email or web address] PCP - General 03/07/17 documented as of this encounter Additional Source Comments The information contained in this document represents components of the legal health record. It is not the complete legal health record.[facility]
--- OUTSIDE RECORDS SUMMARY | 2025-01-27 08:55 | XMS_ITS | Encounter Summary ---
Author Organization [facility] Address [address] [place] [address] [place] [address] Phone Care Team Providers Care Plate Furnace Operator Name Role Phone Luca Grant DO Primary Care Provider [phone] Encounter Details Date Type Department Care Team (Late st Contact Info) Description 12/16/2017 Ancillary Orders [facility] [address] [place] [address] Jad Nagel MD [address] [place] [address] [email or web address] Social History Tobacco Use Types Packs/Day Years [...] Description 04/07/2025 8:30 AM EST Office Visit [facility] [address] [facility] 3rd Floor, [address] [place] [address] Lakisha Bailon, BAKERY SALES CLERK [address] [place] [address] documented as of this encounter Visit Diagnoses Not on filedocumented in this encounter Care Teams Plate Furnace Operator Relationship Specialty Start Date End Date Luca Grant DO PCP - General 03/07/17 documented as of this encounter Additional Source Comments The information contained in this document represents components of the legal health record. It is not the complete legal health record.[facility]
--- OUTSIDE RECORDS SUMMARY | 2025-01-27 08:55 | XMS_ITS | Encounter Summary ---
Author Organization [facility] Address [address] [place] [address] [place] [address] Phone Care Team Providers Care Right Of Way Manager Name Role Phone Luca Grant DO Primary Care Provider [phone] Encounter Details Date Type Department Care Team (Late st Contact Info) Description 01/17/2021 Ancillary Orders [facility] [address] [place] [address] 3rd Floor, [address] [place] [address] Bernice Diaz MD [address] [place] [address] [email or web address] Social History Tobacco Use Types Packs/Day [...] Description 04/07/2025 8:30 AM EST Office Visit [facility] [address] [place] [address] Dr 3rd Floor, [address] [place] [address] Lakisha Bailon, DATA SECURITY CONSULTANT [address] [place] [address] [email or web address] documented as of this encounter Visit Diagnoses Not on filedocumented in this encounter Care Teams Right Of Way Manager Relationship Specialty Start Date End Date Luca Grant DO [email or web address] PCP - General 03/07/17 documented as of this encounter Additional Source Comments The information contained in this document represents components of the legal health record. It is not the complete legal health record.[facility]
--- OUTSIDE RECORDS SUMMARY | 2025-01-27 08:55 | XMS_ITS | Encounter Summary ---
Author Organization [facility] Address [address] [facility] [address] [place] [address] Phone Care Team Providers Care Chemical Plant Worker Name Role Phone Luca Grant DO Primary Care Provider [phone] Encounter Details Date Type Department Care Team (Late st Contact Info) Description 05/17/2021 Procedure Pass Non-Invasive Cardiology [address] [place] [address] Social History Tobacco Use Types Packs/Day Years [...] Description 04/07/2025 8:30 AM EST Office Visit [facility] [address] [facility] 3rd Floor, [address] [place] [address] Lakisha Bailon, LABORER POULTRY HATCHERY [address] [place] [address] [email or web address] documented as of this encounter Visit Diagnoses Not on filedocumented in this encounter Care Teams Chemical Plant Worker Relationship Specialty Start Date End Date Luca Grant DO PCP - General 03/07/17 documented as of this encounter Additional Source Comments The information contained in this document represents components of the legal health record. It is not the complete legal health record.[facility]
--- OUTSIDE RECORDS SUMMARY | 2025-01-27 08:55 | XMS_ITS | Encounter Summary ---
Author Organization [facility] Address [address] [place] [address] [place] [address] Phone Care Team Providers Care Digital Content Marketing Manager Name Role Phone Luca Grant DO Primary Care Provider [phone] Encounter Details Date Type Department Care Team (Latest Contact Info) Description 12/16/2017 Ancillary Orders Non-Invasive Cardiology [address] [place] [address] Jad Nagel MD [address] [place] [address] [email or web address] Ischemic cardiomyopathy Social History Tobacco Use Types [...] Description 04/07/2025 8:30 AM EST Office Visit [facility] [address] [facility] 3rd Floor, [address] [place] [address] Lakisha Bailon, EMERGING SOLUTIONS EXECUTIVE [address] [place] [address] [email or web address] documented as of this encounter Results * (ABNORMAL) DEVICE CHECK: ICD IN-PERSON PROGRAMMING??SINGLE LEAD PLUS HFM IMPEDANCE (12/16/2017 9:49AM EDT) Narrative Jad Nagel MD - 12/18/2017 5:36 PM EDT Reason for appointment: In-office ICD interrogation HPI: In-office ICD interrogation following remote alert for high HV lead impedance, using iterataive adjustment to test the function of the device and select optimal permanent programmed values. No device related complaints. Indication for device: Ischemic cardiomyopathy Examination: Device type: ICD Spring Up Supervisor: Medtronic Mode: VVI LRL/URL: 40/- bpm Thresholds and sensing stable. High V rates: 0 Alerts: High HV lead impedance Ventricular pacing: <.1% Battery: 9 years Thoracic impedance: Stable RA RV LV Sensing 7.5mV Threshold 1V@.4ms Impedance 437 ohms Additional comments or changes: Patient received audible alert for high HV lead impedance yesterday of 100 ohms, continues to alert today. Remote check impedance today 72 ohms. Brought in for office check, 84 ohms. This occurred once in the past, November 2016, and has remained stable for 1 year. I made no changes with the alert settings, and we will observe for trending. Patient educated in exactly what we are watching (impedance) to alleviate his concern. He knows to call if he should heard it again, as it will mean his lead is trending up. Normal device function. Patient to follow-up for in-office check in: [address] Nagel, already scheduled. Report prepared by Nikki Conway RN Jad Nagel MD [facility] CARDIAC SERVICES ORDER EDMUNDO Final Result documented in this encounter Visit Diagnoses Diagnosis Ischemic cardiomyopathy Other specified forms of chronic ischemic heart disease Ischemic cardiomyopathy Other specified forms of chronic ischemic heart disease documented in this encounter Care Teams Digital Content Marketing Manager Relationship Specialty Start Date End Date Luca Grant DO PCP - General 03/07/17 documented as of this encounter Additional Source Comments The information contained in this document represents components of the legal health record. It is not the complete legal health record.[facility]
== END 2025-01-27 08:19 | disposition home or self-care (01) ==
LOC: HO.ACS 08:04
PROVIDERS: PCP Internal Medicine; Visit Provider Internal Medicine Medical Oncology
DX: Z79.01 Long term (current) use of anticoagulants (principal)

== ENCOUNTER → 2025-01-27 08:04 | Outpatient (BNVA) | payer MEDICARE, SELFPAY | PROVIDERS: PCP Internal Medicine; Visit Provider Internal Medicine Medical Oncology | DX: Z51.81 Encounter for therapeutic drug level monitoring (principal); Z79.01 Long term (current) use of anticoagulants | CPT/HCPCS: 85610; 99211 ==

== ENCOUNTER 2025-02-24 08:05 | Outpatient (AMB) | payer MEDICARE, SELFPAY ==
[2025-02-24 08:12] LABS: Prothrombin Time Whole Bld POC 35.7 sec (11.1-13.5); ~PT, ~INR - Anti Coag Clinic 3.0 (0.9-1.1)
--- NOTE | 2025-02-24 08:15 | MHC.OFFVISCO ---
Intake Intake Visit Reasons: Anticoagulation Allergies No Known Allergies Allergy (Verified 02/24/25 08:06) Medication List - Last Reconciled 02/24/25 by Kindra Alfaro RN amlodipine 5 mg PO DAILY blood sugar diagnostic As directed blood-glucose meter As directed cholecalciferol (vitamin D3) PO dulaglutide (Trulicity) mg subcut fenofibrate nanocrystallized 24 mg PO DAILY glipizide 10 mg PO DAILY lancets As directed lorazepam 1 mg PO BEDTIME metoprolol succinate ER 100 mg PO DAILY simvastatin 20 mg PO DAILY warfarin 2.5 mg See Protocol PO DAILY Nursing Note NO CP,SOB,DIET/MNED CHANGES,FALLS OR SX OF BLEEDING. CONTINUE PRESENT DOSE AND FOLLOW-UP IN 4 WEEKS. GOOD UNDERSTANDING OF DOSING INSTR. Anti-Coag Initial Assessment Social Hx Patient Tobacco Use Status: Never used Tobacco Alcohol intake frequency: holidays/special occasions only Coding Level of Care Code Est Patient Level 1 Diagnoses Current use of anticoagulant therapy Z79.01 Results AMB INR Fingerstick AMB INR Fingerstick 3.0 Last Edit by Kindra Alfaro RN on 02/24/25 08:12 Assessment & Plan Assessment & Plan (1) Current use of anticoagulant therapy: Code(s): Z79.01 - electrical worker (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
== END 2025-02-24 08:16 | disposition home or self-care (01) ==
LOC: HO.ACS 08:05
PROVIDERS: PCP Internal Medicine; Visit Provider Internal Medicine Medical Oncology
DX: Z79.01 Long term (current) use of anticoagulants (principal)

== ENCOUNTER → 2025-02-24 08:05 | Outpatient (BNVA) | payer MEDICARE, SELFPAY | PROVIDERS: PCP Internal Medicine; Visit Provider Internal Medicine Medical Oncology | DX: Z51.81 Encounter for therapeutic drug level monitoring (principal); Z79.01 Long term (current) use of anticoagulants | CPT/HCPCS: 85610; 99211 ==

== ENCOUNTER 2025-03-24 08:08 | Outpatient (AMB) | payer MEDICARE, SELFPAY ==
--- OUTSIDE RECORDS SUMMARY | 2025-03-24 08:18 | XMS_ITS | Clinical Summary ---
Author Organization [facility] Address [address] [place] [address] Phone Care Team Providers Care Meringuer Name Role Phone Luca Grant DO Primary Care Provider [phone] Allergies No known active allergies Medications fenofibrate [...] average glucose, using the formula of the F7G-Yygypis Average Glucose study (ADAG), Diabetes Care, Vol.31,#8, [...] MD LAB BLOOD ORDERABLES [facility] from Last 3 Months or Most Recently Relevant to Health Maintenance Insurance [facility] Medicare [facility] [place] [address] Care Teams Meringuer Relationship Specialty Start Date End Date Luca Grant DO [address] [place] [phone] PCP - General 05/30/20
--- OUTSIDE RECORDS SUMMARY | 2025-03-24 08:18 | XMS_ITS | Encounter Summary ---
Author Organization [facility] Address [address] [facility] [address] [place] [address] Phone Care Team Providers Care Pearl Digger Name Role Phone Luca Grant DO Primary Care Provider [phone] Reason for Visit * Reason Comments Med Refill Encounter Details Date Type Department Care Team (Late st Contact Info) Description 03/05/2023 Refill [facility] [address] [place] [address] Mateo Barton MD Social History [...] can be sent over to Ella in [facility]. Kathy can be reached at [phone] documented in this encounter Plan of Treatment Not on file documented as of this encounter Visit Diagnoses Not on filedocumented in this encounter Care Teams Pearl Digger Relationship Specialty Start Date End Date Luca Grant DO [address] [place] [address],[place] [address] PCP - General 05/30/20 documented as of this encounter
[2025-03-24 08:20] LABS: Prothrombin Time Whole Bld POC 30.0 sec (11.1-13.5); ~PT, ~INR - Anti Coag Clinic 2.5 (0.9-1.1)
--- NOTE | 2025-03-24 08:26 | MHC.OFFVISCO ---
Intake Intake Visit Reasons: Anticoagulation Allergies No Known Allergies Allergy (Verified 03/24/25 08:11) Medication List - Last Reconciled 03/24/25 by Kindra Alfaro RN amlodipine 5 mg PO DAILY blood sugar diagnostic As directed blood-glucose meter As directed cholecalciferol (vitamin D3) PO dulaglutide (Trulicity) mg subcut fenofibrate nanocrystallized 24 mg PO DAILY glipizide 10 mg PO DAILY lancets As directed lorazepam 1 mg PO BEDTIME metoprolol succinate ER 100 mg PO DAILY simvastatin 20 mg PO DAILY warfarin 2.5 mg See Protocol PO DAILY Nursing Note NO CP,SOB,DIET/MED CHANGES,FALLS OR SX OF BLEEDING. CONTINUE PRESENT DOSE AND FOLLOW-UP IN 4 WEEKS GOOD UNDERSTANDING OF DOSING INSTR. Anti-Coag Initial Assessment Social Hx Patient Tobacco Use Status: Never used Tobacco Alcohol intake frequency: holidays/special occasions only Coding Level of Care Code Est Patient Level 1 Diagnoses Current use of anticoagulant therapy Z79.01 Assessment & Plan Assessment & Plan (1) Current use of anticoagulant therapy: Code(s): Z79.01 - retirement (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
== END 2025-03-24 08:28 | disposition home or self-care (01) ==
LOC: HO.ACS 08:08
PROVIDERS: PCP Internal Medicine; Visit Provider Internal Medicine Medical Oncology
DX: Z79.01 Long term (current) use of anticoagulants (principal)

== ENCOUNTER → 2025-03-24 08:08 | Outpatient (BNVA) | payer MEDICARE, SELFPAY | PROVIDERS: PCP Internal Medicine; Visit Provider Internal Medicine Medical Oncology | DX: I48.0 Paroxysmal atrial fibrillation (principal); Z51.81 Encounter for therapeutic drug level monitoring; Z79.01 Long term (current) use of anticoagulants | CPT/HCPCS: 85610; 99211 ==

== ENCOUNTER 2025-03-25 10:07 | Outpatient (AMB) | payer MEDICARE, SELFPAY ==
[2025-03-25 10:26] VITALS: BP 134/52; PULSE 72; O2SAT 97; BMI 23.8
--- NOTE | 2025-03-25 10:26 | HO.NEPHOV_ITS ---
Vital Signs 03/25/25 10:26 Height 5 ft 7 in Weight 152 lb BMI 23.8 BP 134/52 L Blood Pressure Location Lt brachial Position Sitting Pulse 72 Pulse Source Pulse Oximeter Pulse Oximetry (%) 97 Oxygen Delivery Method Room Air Intake Visit Reasons: 4mon follow-up conf. Hay Stacker Required: No Accompanied by: Self / Same As Patient Allergies No Known Allergies Allergy (Verified 03/25/25 10:28) Medication List - Last Reconciled 03/25/25 by Mateo Barton MD amlodipine 5 mg PO DAILY blood sugar diagnostic As directed blood-glucose meter As directed cholecalciferol (vitamin D3) PO dulaglutide (Trulicity) mg subcut fenofibrate nanocrystallized 24 mg PO DAILY glipizide 10 mg PO DAILY lancets As directed lorazepam 1 mg PO BEDTIME metoprolol succinate ER 100 mg PO DAILY simvastatin 20 mg PO DAILY warfarin 2.5 mg See Protocol PO DAILY HPI Comments Details: Role in his well known to me he is a 86-year-old man with a history of longstanding diabetes mellitus. He was underlying chronic kidney disease. He has episodes of hyperkalemia in the past while on lisinopril. Recently potassium has been in the normal range. He is not on any MADALYN inhibitor at present. In 05/08/2024 he had a fall and sustained fracture of cervical vertebra. Follow up x-rays appeared acceptable. Today he has no specific complaints he is compliant with his medications 11/19/24 The patient is an 89-year-old male presenting with diabetes mellitus and hypertension management. The patient's diabetes mellitus has been managed with Trulicity, resulting in a reduction of HbA1c from 9% to 7%. The patient reports a stable blood pressure reading of 130/50 mmHg, which is considered satisfactory. The patient also reports experiencing back pain, which began after a fall on ice last . The fall resulted in fractures of small bones in the neck, and the patient continues to experience pain, especially when engaging in activities such as gardening. 03/25/25 The patient is an 89-year-old male presenting with a routine follow-up for chronic kidney disease The patient has a history of diabetes mellitus, which was reportedly well- controlled during the last visit with Dr. Grant. He is scheduled to visit a software developer consultant later this month for routine evaluation, although he has not seen a software developer consultant in several years due to frequent changes in providers. [facility] Medical History (Updated 07/20/24 @ 11:39 by Mateo Barton MD) Ischemic cardiomyopathy Secondary hyperparathyroidism Coronary arteriosclerosis Hearing loss Chronic renal insufficiency Myocardial infarction Atrial fibrillation History of placement of internal cardiac defibrillator Diabetes Elevated cholesterol HTN (hypertension) Surgical History S/P internal cardiac defibrillator procedure Family History Mother Diabetes Heart disease Hypertension Social History Are you a primary career services coordinator to a significant other at home: No Do you presently have visiting nurse or other home services: No Patient Tobacco Use Status: Never used Tobacco Physical Exam Vital Signs: Last Vital Signs Pulse 72 03/25/25 10:26 BP 134/52 L 03/25/25 10:26 Pulse Ox 97 03/25/25 10:26 Oxygen Delivery Method Room Air 03/25/25 10:26 BMI result Body Mass Index 23.8 Comfortable Neck supple no JVD. Lungs entry equal no rales. Heart S1-S2 heard no gallop or rub. Abdomen soft nontender. Neuro alert awake oriented. No asterixis. Extremities no edema. Assessment & Plan Assessment & Plan (1) Chronic renal insufficiency: Code(s): N18.9 - Chronic kidney disease, unspecified Category: Medical Plan 89-year-old man with a history of longstanding diabetes mellitus with stage 3 chronic kidney disease. Renal function is close to baseline. The goal is to slow the progression of renal disease. Continue to avoid nephrotoxic agents including NSAIDs. Optimize blood pressure maintain blood pressure less than 130/80. Maintain A1c less than 7%. In the past he had recurrent hyperkalemia therefore we will hold off on using MADALYN inhibitors. He would benefit from SGLT2 inhibitors. Labs ordered for today Orders: Orders Complete Blood Count Auto Diff Today N18.9 - Chronic kidney disease, unspecified Comprehensive Met. Panel Today N18.9 - Chronic kidney disease, unspecified Coding Level of Care Code Est Pt Level 4 (23364) Diagnoses Chronic renal insufficiency N18.9
--- OUTSIDE RECORDS SUMMARY | 2025-03-25 11:49 | XMS_ITS | Encounter Summary ---
Author Organization [facility] Address [address] [place] [address] [address] [place] [address] Phone Care Team Providers Care Python Engineer Name Role Phone Luca Grant DO Primary Care Provider [phone] Encounter Details Date Type Department Care Team (Late st Contact Info) Description 01/17/2024 Procedure Pass Echo [facility] [place] [place], [place] [id number] Social History Tobacco Use Types Packs/Day Years [...] Description 04/07/2025 8:30 AM EST Office Visit [facility] [address] [facility] 3rd Floor, [address] [place] [address] Lakisha Bailon, PUBLIC SAFETY TELECOMMUNICATOR [address] [place] [address] documented as of this encounter Visit Diagnoses Not on filedocumented in this encounter Care Teams Python Engineer Relationship Specialty Start Date End Date Luca Grant DO [email or web address] PCP - General 03/07/17 documented as of this encounter Additional Source Comments The information contained in this document represents components of the legal health record. It is not the complete legal health record.[facility]
--- OUTSIDE RECORDS SUMMARY | 2025-03-25 11:49 | XMS_ITS | Clinical Summary ---
Author Organization [facility] Address [address] [place] [address] Phone Care Team Providers Care Lymphedema Therapist Name Role Phone Luca Grant DO Primary Care Provider [phone] Allergies Active Allergy Reactions Criticality Noted Date [...] pain 07/16/2019 Coronary artery disease invo lving kas[place] coronary artery of kas[place] heart without angina pectoris 04/23/2017 Assessment & [...] COVID-19 (Pre-03/11) Pfizer Vaccine, mRNA, PF ,08/02/2020 [id number] FORMULATION 05/20/2009 Influenza Quadrivalent w/ Preservative IM [...] Description 04/07/2025 8:30 AM EST Office Visit [facility] [address] [facility] [address], [address] [place] [address] Lakisha Bailon, BRAND SPECIALIST [address] [place] [address] [email or web address] Health Maintenance Due Date Last Done Comments [...] this topic Medical Devices Implanted Type Area Width Stripper Device Identifier Shelf Expiration Date Model / Serial / Lot Medtronic Icd ICD Procedures Procedure Name Priority Date/Time Associated Diagnosis Comments LIPID PANEL Routine 04/13/2020 11:10 AM EST Mixed hyperlipidemia from Last 3 Months or Most Recently Relevant to Health Maintenance Results * (ABNORMAL) Lipid panel (04/13/2020 11:10 AM EST) HDL 28 mg/dL [facility] Comment: Interpretation <40 mg/dL: Low HDL cholesterol (major risk factor for CHD) Greater than or equal to 60 mg/dL: High HDL cholesterol ( negative risk factor for CHD) HDL - cholesterol is affected by a number of factors, e.g. smoking, excerise, hormones, sex and age. CHOLESTEROL 136 0 - 240 mg/dL [facility] TRIGLYCERIDES 327(H) 30 - 160 mg/dL [facility] LDL 43(L) 50 - 129 mg/dL [facility] Comment: LDL levels in terms of risk for coronary heart disease: <100 mg/dL: Optimal 100-129 mg/dL: Near or above optimal 130-159 mg/dL: Borderline high 160-189 mg/dL: High >190 mg/dL: Very High CARDIAC RISK RATIO 4.9 3.4 - 5.0 [facility] Blood 04/13/2020 11:1 0 AM EST 04/13/2020 11:13 AM EST us Jad Nagel MD LAB BLOOD BKR ORDERABLES Final Result Performing Organization Address City/State/[facility] Co de Phone Number [facility] [address] [place] [address] from Last 3 Months or Most Recently Relevant to Health Maintenance Insurance MEDICARE PART A & B [employer] MEDEX SUPPLEMENT MEDICARE PART A & B [employer] MEDEX SUPPLEMENT MEDICARE PART A & B [employer] MEDEX SUPPLEMENT MEDICARE PART A & B [employer] MEDEX SUPPLEMENT MEDICARE PART A & B [employer] MEDEX SUPPLEMENT MEDICARE PART A & B [employer] MEDEX SUPPLEMENT MEDICARE PART A & B [employer] MEDEX SUPPLEMENT MEDICARE PART A & B [employer] MEDEX SUPPLEMENT MEDICARE PART A & B [employer] MEDEX SUPPLEMENT Care Teams Lymphedema Therapist Relationship Specialty Start Date End Date Luca Grant DO PCP - General 03/07/17 Additional Source Comments The information contained in this document represents components of the legal health record. It is not the complete legal health record.[facility]
--- OUTSIDE RECORDS SUMMARY | 2025-03-25 11:49 | XMS_ITS | Clinical Summary ---
Author Organization [facility] Address [address] [place] [address] Phone Care Team Providers Care Human Resources Recruiter Name Role Phone Luca Grant DO Primary Care Provider [phone] Allergies No known active allergies Medications fenofibrate [...] average glucose, using the formula of the M9G-[id number] Average Glucose study (ADAG), Diabetes Care, Vol.31,#8, [...] MD LAB BLOOD ORDERABLES Final Res [facility] from Last 3 Months or Most Recently Relevant to Health Maintenance Insurance [facility] Medicare [facility] [place] [address] Care Teams Human Resources Recruiter Relationship Specialty Start Date End Date Luca Grant DO [address] [place] [phone] PCP - General 05/30/20
--- OUTSIDE RECORDS SUMMARY | 2025-03-25 11:49 | XMS_ITS | Encounter Summary ---
Author Organization [facility] Address [address] [place] [address] Phone Care Team Providers Care Escalator Constructor Name Role Phone Luca Grant DO Primary Care Provider Encounter Details Date Type Department Care Team (Late st Contact Info) Description 08/09/2020 Procedure Pass Non-Invasive Cardiology [address] [place] [address] Social History Tobacco Use Types Packs/Day Years [...] Description 04/07/2025 8:30 AM EST Office Visit [facility] [address] [facility] 3rd Floor, [address] [place] [address] Lakisha Bailon, SOLAR PROJECT ENGINEER [address] [place] [address] [email or web address] documented as of this encounter Visit Diagnoses Not on filedocumented in this encounter Care Teams Escalator Constructor Relationship Specialty Start Date End Date Luca Grant DO PCP - General 03/07/17 documented as of this encounter Additional Source Comments The information contained in this document represents components of the legal health record. It is not the complete legal health record.[facility]
--- OUTSIDE RECORDS SUMMARY | 2025-03-25 11:49 | XMS_ITS | Encounter Summary ---
Author Organization [facility] Address [address] [facility] [address] [place] [address] Phone Care Team Providers Care Computer Networking Instructor Adjunct Name Role Phone Luca Grant DO Primary Care Provider [phone] Reason for Visit * Reason Comments Med Refill Encounter Details Date Type Department Care Team (Late st Contact Info) Description 03/05/2023 Refill [facility] [address] [place] [address] Mateo Barton MD Social History [...] can be sent over to [place] [facility]. Kathy can be reached at [phone] documented in this encounter Plan of Treatment Not on file documented as of this encounter Visit Diagnoses Not on filedocumented in this encounter Care Teams Computer Networking Instructor Adjunct Relationship Specialty Start Date End Date Luca Grant DO [address] [place] [address],[place] [address] PCP - General 05/30/20 documented as of this encounter
--- OUTSIDE RECORDS SUMMARY | 2025-03-25 11:49 | XMS_ITS | Encounter Summary ---
Author Organization [facility] Address [address] [place] [address] [place] [address] Phone Care Team Providers Care Glass Curvature Gauger Name Role Phone Luca Grant DO Primary Care Provider [phone] Encounter Details Date Type Department Care Team (Latest Contact Info) Description 06/01/2019 Ancillary Orders Non-Invasive Cardiology [address] [place] [address] Jad Nagel MD [address] [place] [address] [email or web address] Ischemic cardiomyopathy Social History Tobacco Use [...] Description 04/07/2025 8:30 AM EST Office Visit [facility] [address] [facility] 3rd Floor, [address] [place] [address] Lakisha Bailon, STRIP CUTTING MACHINE OPERATOR [address] [place] [address] [email or web address] documented as of this encounter Visit Diagnoses Diagnosis Ischemic cardiomyopathy Other specified forms of chronic ischemic heart disease Coronary artery disease involving [place] coronary artery of [place] heart without angina pectoris- Primary documented in this encounter Care Teams Glass Curvature Gauger Relationship Specialty Start Date End Date Luca Grant DO [email or web address] PCP - General 03/07/17 documented as of this encounter Additional Source Comments The information contained in this document represents components of the legal health record. It is not the complete legal health record.[facility]
--- OUTSIDE RECORDS SUMMARY | 2025-03-25 11:50 | XMS_ITS | Encounter Summary ---
Author Organization [facility] Address [address] [place] [address] [place] [address] Phone Care Team Providers Care Checker Name Role Phone Luca Grant DO Primary Care Provider Encounter Details Date Type Department Care Team (Latest Contact Info) Description 12/16/2017 Ancillary Orders Non-Invasive Cardiology [address] [place] [address] Jad Nagel MD [address] [place] [address] [email or web address] Ischemic cardiomyopathy Social History Tobacco Use Types [...] Description 04/07/2025 8:30 AM EST Office Visit [facility] [address] [facility] 3rd Floor, [address] [place] [address] Lakisha Bailon, PROJECT PRODUCT MANAGER [address] [place] [address] [email or web address] documented as of this encounter Results * [...] device: Ischemic cardiomyopathy Examination: Device type: ICD Bargain Table Clerk: Medtronic Mode: VVI LRL/URL: 40/- bpm Thresholds [...] ischemic heart disease Coronary artery disease involving [place] coronary artery of [place] heart without angina pectoris- Primary documented in this encounter Care Teams Checker Relationship Specialty Start Date End Date Luca Grant DO PCP - General 03/07/17 documented as of this encounter Additional Source Comments The information contained in this document represents components of the legal health record. It is not the complete legal health record.[facility]
--- OUTSIDE RECORDS SUMMARY | 2025-03-25 11:50 | XMS_ITS | Encounter Summary ---
Author Organization [facility] Address [address] [place] [address] [place] [address] Phone Care Team Providers Care Instrument Calibrator Name Role Phone Luca Grant DO Primary Care Provider [phone] Encounter Details Date Type Department Care Team (Late st Contact Info) Description 01/17/2021 Ancillary Orders [facility] [address] [place] [address] 3rd Floor, [address] [place] [address] Bernice Diaz MD [address] [place] [address] [email or web address] Social History Tobacco Use Types Packs/Day [...] Description 04/07/2025 8:30 AM EST Office Visit [facility] [address] [place] [address] Dr 3rd Floor, [address] [place] [address] Lakisha Bailon, COPY MACHINE OPERATOR [address] [place] [address] [email or web address] documented as of this encounter Visit Diagnoses Not on filedocumented in this encounter Care Teams Instrument Calibrator Relationship Specialty Start Date End Date Luca Grant DO [email or web address] PCP - General 03/07/17 documented as of this encounter Additional Source Comments The information contained in this document represents components of the legal health record. It is not the complete legal health record.[facility]
--- OUTSIDE RECORDS SUMMARY | 2025-03-25 11:50 | XMS_ITS | Encounter Summary ---
Author Organization [facility] Address [address] [place] [address] [place] [address] Phone Care Team Providers Care Counter Clerk [employer] Name Role Phone Luca Grant DO Primary Care Provider [phone] Encounter Details Date Type Department Care Team (Late st Contact Info) Description 05/17/2021 Ancillary Orders [facility] [address] 3rd Floor, [address] [place] [address] Bernice Diaz MD [address] [place] [address] [email or web address] Social History Tobacco Use Types Packs/Day [...] Description 04/07/2025 8:30 AM EST Office Visit [facility] [address] [place] [address] Dr 3rd Floor, [address] [place] [address] Lakisha Bailon, SPRAY GUN REPAIRER HELPER [address] [place] [address] [email or web address] documented as of this encounter Visit Diagnoses Not on filedocumented in this encounter Care Teams Counter Clerk [employer] Relationship Specialty Start Date End Date Luca Grant DO [email or web address] PCP - General 03/07/17 documented as of this encounter Additional Source Comments The information contained in this document represents components of the legal health record. It is not the complete legal health record.[facility]
--- OUTSIDE RECORDS SUMMARY | 2025-03-25 11:50 | XMS_ITS | Encounter Summary ---
Author Organization [facility] Address [address] [place] [address] [address] [place] [address] Phone Care Team Providers Care Lathe Scalper Operator Name Role Phone Luca Grant DO Primary Care Provider [phone] Encounter Details Date Type Department Care Team (Latest Contact Info) Description 01/17/2021 Ancillary Orders Non-Invasive Cardiology [address] [place] [address] Bernice Diaz MD [address] [place] [address] [email or web address] Ischemic cardiomyopathy Social History Tobacco Use Types [...] Description 04/07/2025 8:30 AM EST Office Visit [facility] [address] [facility] 3rd Floor, [address] [place] [address] Lakisha Bailon, CONTRACT RUNNER [address] [place] [address] [email or web address] documented as of this encounter Results * DEVICE CHECK: ICD IN-HOME INTERROGATION PLUS HFM IMPEDANCE (01/17/2021 8:58 AM EDT) Narrative Bernice Diaz MD - 01/23/2021 2:03 PM EDT Reason for appointment: Remote ICD interrogation HPI: Routine 3 month remote ICD interrogation. No device related complaints. 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 It is not the complete legal health record.[facility]
--- OUTSIDE RECORDS SUMMARY | 2025-03-25 11:50 | XMS_ITS | Encounter Summary ---
Author Organization [facility] Address [address] [place] [address] [address] [place] [address] Phone Care Team Providers Care Central Office Operator Name Role Phone Luca Grant DO Primary Care Provider [phone] Encounter Details Date Type Department Care Team (Latest Contact Info) Description 08/09/2020 Ancillary Orders [facility] [address] [place] [address] 3rd Floor, [address] [place] [address] Bernice Diaz MD [address] [place] [address] [email or web address] Ischemic cardiomyopathy Social History Tobacco [...] Description 04/07/2025 8:30 AM EST Office Visit [facility] [address] [place] [address] Dr 3rd Floor, [address] [place] [address] Lakisha Bailon, TRANSIT AUTHORITY POLICE OFFICER [address] [place] [address] [email or web address] documented as of this encounter Results * DEVICE CHECK: ICD IN-HOME INTERROGATION PLUS HFM IMPEDANCE (08/09/2020 10:18 AM EDT) Narrative Bernice Diaz MD - 08/14/2020 2:16 PM EDT Reason for appointment: Remote ICD interrogation HPI: Routine 3 month remote ICD interrogation. No device related complaints. 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 It is not the complete legal health record.[facility]
--- OUTSIDE RECORDS SUMMARY | 2025-03-25 11:50 | XMS_ITS | Encounter Summary ---
Author Organization [facility] Address [address] [facility] [address] [place] [address] Phone Care Team Providers Care Gerentological Physiotherapist Name Role Phone Luca Grant DO Primary Care Provider [phone] Encounter Details Date Type Department Care Team (Late st Contact Info) Description 05/17/2021 Procedure Pass Non-Invasive Cardiology [address] [place] [address] Social History Tobacco Use Types Packs/Day Years [...] Description 04/07/2025 8:30 AM EST Office Visit [facility] [address] [facility] 3rd Floor, [address] [place] [address] Lakisha Bailon, MOLDER BENCH [address] [place] [address] [email or web address] documented as of this encounter Visit Diagnoses Not on filedocumented in this encounter Care Teams Gerentological Physiotherapist Relationship Specialty Start Date End Date Luca Grant DO PCP - General 03/07/17 documented as of this encounter Additional Source Comments The information contained in this document represents components of the legal health record. It is not the complete legal health record.[facility]
--- OUTSIDE RECORDS SUMMARY | 2025-03-25 11:50 | XMS_ITS | Encounter Summary ---
Author Organization [facility] Address [address] [place] [address] [place] [address] Phone Care Team Providers Care Veneer Layer Name Role Phone Luca Grant DO Primary Care Provider [phone] Encounter Details Date Type Department Care Team (Late st Contact Info) Description 12/16/2017 Ancillary Orders [facility] [address] [place] [address] Jda Nagel MD [address] [place] [address] [email or web address] Social History Tobacco Use Types Packs/Day Years [...] Description 04/07/2025 8:30 AM EST Office Visit [facility] [address] [facility] 3rd Floor, [address] [place] [address] Lakisha Bailon, CHIN STRAP CUTTER [address] [place] [address] [email or web address] documented as of this encounter Visit Diagnoses Not on filedocumented in this encounter Care Teams Veneer Layer Relationship Specialty Start Date End Date Luca Grant DO PCP - General 03/07/17 documented as of this encounter Additional Source Comments The information contained in this document represents components of the legal health record. It is not the complete legal health record.[facility]
--- OUTSIDE RECORDS SUMMARY | 2025-03-25 11:50 | XMS_ITS | Encounter Summary ---
Author Organization [facility] Address [address] [facility] [address] [place] [address] Phone Care Team Providers Care Lab Manager Name Role Phone Luca Grnat DO Primary Care Provider [phone] Encounter Details Date Type Department Care Team (Late st Contact Info) Description 01/17/2021 Procedure Pass Non-Invasive Cardiology [address] [place] [address] Social History Tobacco Use Types Packs/Day Years [...] Description 04/07/2025 8:30 AM EST Office Visit [facility] [address] [facility] 3rd Floor, [address] [place] [address] Lakisha Bailon, TEASELER [address] [place] [address] [email or web address] documented as of this encounter Visit Diagnoses Not on filedocumented in this encounter Care Teams Lab Manager Relationship Specialty Start Date End Date Luca Grant DO PCP - General 03/07/17 documented as of this encounter Additional Source Comments The information contained in this document represents components of the legal health record. It is not the complete legal health record.[facility]
--- OUTSIDE RECORDS SUMMARY | 2025-03-25 11:50 | XMS_ITS | Encounter Summary ---
Author Organization [facility] Address [address] [facility] [address] [place] [address] Phone Care Team Providers Care Floor Coverings Salesperson Name Role Phone Luca Grant DO Primary Care Provider [phone] Encounter Details Date Type Department Care Team (Late st Contact Info) Description 05/17/2021 Procedure Pass Non-Invasive Cardiology [address] [place] [address] Social History Tobacco Use Types Packs/Day Years [...] Description 04/07/2025 8:30 AM EST Office Visit [facility] [address] [facility] 3rd Floor, [address] [place] [address] Lakisha Bailon, CLAIM REVIEW MEDICAL DIRECTOR [address] [place] [address] [email or web address] documented as of this encounter Visit Diagnoses Not on filedocumented in this encounter Care Teams Floor Coverings Salesperson Relationship Specialty Start Date End Date Luca Grant DO PCP - General 03/07/17 documented as of this encounter Additional Source Comments The information contained in this document represents components of the legal health record. It is not the complete legal health record.[facility]
--- OUTSIDE RECORDS SUMMARY | 2025-03-25 11:50 | XMS_ITS | Data Portability ---
Author Organization [facility]health Patient Home Address [address] [place] [address] Assessment Encounter Date Assessment Date Assessment LastModified by Organization Details LastModified Time 10/28/2023 10/28/2023 [id number] [place] [id number] ([employer]ENT) MDM HIGH MUST MEET 2 OUT OF [...] COVERED Not available 10/28/2023 11:50:48 05/15/2024 05/15/2024 [id number] [place] [id number] ([employer]BAC[employer] W[employer] AGENT) MDM MODERATE MUST MEET 2 OUT OF [...] COVERED Not available 05/15/2024 10:48:57 06/10/2024 06/10/2024 [id number] [place] [id number] (TOB[employer] W[employer]SE AGENT) MDM MODERATE MUST MEET 2 OUT OF [...] COVERED Not available 06/10/2024 12:36:39 08/24/2024 08/24/2024 [id number] [place] [id number] (TOB[employer] W[employer]HOUSE AGENT) MDM HIGH MUST MEET 2 OUT OF [...] Lab CBC w/ auto diff 2024 025 [facility], [address] [place] [address], [address], 12/02/2024 11:50:08 CMP, serum or plasma 2024 025 [facility], [address] [place] [address], [address], 12/02/2024 11:50:08 Referral None recorded. Procedures None recorded. Surgeries None recorded. Imaging XR, cervical spine, 2 or 3 view 2024 025 [facility], [address] [place] [address], [address], 06/24/2024 10:40:47 XR, thoracic spine, 2 view 2024 025 [facility], [address] [place] [address], [address], 06/17/2024 09:12:39 Medication Orders Trulicity 1.5 mg/0.5 mL subcutane ous pen injector 2023 024 [id number], [address], [place], [id number], 10/28/2023 11:54:03 Patient TargetsNo targets recorded. Patient Instructions Encounter Date Encounter Id Patient Instructions Last Modified By Organization Details Last Modified Time 10/28/2023 [id number] pulse oximetry* Not available 10/28/2023 11:53:55 05/15/2024 [id number] learning about type 2 diabetes Not available 05/15/2024 10:51:37 type 2 diabetes: care instructions Not available 05/15/2024 10:51:37 high blood pressure: care instructions Not available 05/15/2024 10:51:37 learning about high blood pressure Not available 05/15/2024 10:51:37 06/10/2024 [id number] compression fracture of the spine: care instructions Not available 06/10/2024 12:36:20 08/24/2024 [id number] compression fracture of the spine: care instructions Not available 08/24/2024 11:13:44 12/02/2024 [id number] advance care planning: care instructions Not available [...] pulse oxime try* Result 97% Not Available [facility] [address] [facility] [address], [place], [address], 10/25/2023 09:49:06 02/25/2002/21/2024 , echoc ardio gram No observ ation record ed. [facility] [address], [place], [address], 02/25/2024 12:26:24 05/17/20 24 05/17/2024 CT, cervi maureen spine , w/o contr ast No observ ation record ed. [address] (Medical Records) [address] [place], [address], 05/18/2024 08:43:50 05/17/20 24 05/17/2024 CT, cervi maureen spine , w/o contr ast No observ ation record ed. [address] (Medical Records) [address] [place], [address], 05/18/2024 08:44:09 05/17/20 24 05/17/2024 CT, thora cic spine , w/o contr ast No observ ation record ed. [address] (Medical Records) [address] [place], [address], 05/18/2024 08:44:31 05/17/20 24 05/17/2024 CT, thora cic spine , w/o contr ast No observ ation record ed. [address] (Medical Records) [address] [place], [address], 05/18/2024 08:45:05 05/17/20 24 05/17/2024 CT, head + brain , w/o contr ast No observ ation record ed. [address] (Medical Records) [address] [facility] [place], [address], 05/18/2024 08:45:35 07/01/19 25 07/01/2024 XR, thora cic spine , 2 view No observ ation record ed. [address] (Medical Records) [address] [place], [address], 07/03/2024 09:23:33 07/01/19 25 07/01/2024 XR, cervi maureen spine , 2 or 3 view No observ ation record ed. [address] (Medical Records) [address] [place], [address], 07/03/2024 09:23:34 12/08/19 25 12/07/2024 XR, hip + pelvi s, bilat eral No observ ation record ed. [address] (Medical Records) [address] [place], [address], 12/09/2024 08:10:59 12/08/19 25 12/07/2024 XR, lumba r spine , 2 view No observ ation record ed. [address] (Medical Records) [address] [place], [address], 12/09/2024 08:10:59 12/08/19 25 12/07/2024 XR, lumba r spine , 2 view No observ ation record ed. [address] (Medical Records) [address] [place], [address], 12/09/2024 08:10:59 Result Notes None recorded. Problems Name Problem SNOMED Code Status Onset Date Resolution Date Notes Provider Name and Address Organization Details Recorded Time Essgustavo l hyperten marilyn 74802632 [facility] 14:33:05 Type 2 diabetes mellitus 36420222 Active 2017 Gay rivero [facility] 8 14:33:24 Coronary arterios clerosis 72981368 Active 2017 implantab le defib/V53 .32 Tere Mayo NP, S [address] [place], [address], [facility] 8 10:00:50 Hypercho lesterol emia 30780509 Active 2017 Gay rivero [facility] 8 14:34:30 Chronic kidney disease 413463010 Active [address] Dr[address] iMck Mayo, [employer], S [address] [place], [address], [facility] 8 09:59:54 [facility] loss 48176037 [facility] 14:35[facility]24 Anxiety 26334906 [facility] 14:35:33 Insomnia 853876364 [facility] 8 14:35:46 Paroxysm al atrial fibrilla tion 522306382 Active 2017 Dr[address] 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 2021 Luca Tovar DO [address] [place] [address], [address], [facility] 2 10:29:29 Impacted cerumen of bilatera l ears 86719931326 19849 Active 2022 NISHA STARKS [address] [place] [address], [address], [facility] 3 11:03:53 Acute sinusiti s 03873602 Active 2023 NISHA STARKS [address] [place] [address], [address], [facility] 4 11:26:23 Vitamin D deficien cy 70394744 Active 2023 Luca Salcedo Tangailyn, [address], [address], [facility] 4 11:51:15 COVID-19 380909390 Active 2023 Luca Salcedo Juanita [address], [address], [facility] 4 14:24:44 Compress ion fracture of thoracic vertebra 18613111895 04 Active 2024 Luca Salcedo Juanita [address], [address], [facility] 5 12:35:09 Compress ion fracture of vertebra l column 61542901 Active 2024 Luca Mary AnnJuanjo Tovar, [address], [address], [facility] 5 12:35:27 Problem Notes None recorded. Procedures Surgical History Date Name Laterality Status Provider Name and Address Organization Details Recorded Time 3 Cerumen Removal completed NISHA STARKS [address] [place] [address], [address], [facility] 04/03/2023 11:03:46 Aicd, single chamber completed Tere Mayo NP, S [address] [place] [address], [address], [facility] 09/06/2017 08:53:46 Imaging Results None recorded. Procedure Notes None recorded. Medical Equipment None Reported. Allergies Allergen ID Allergen Name Allergen Category Reaction Reaction Severity Criticality Documentation Date Start Date Code Code System Note Provider Name and Address Organization Details Recorded Time 7809 amoxicill in medicatio n nausea moderate low 07/09/2023 723 [facility] 4 15:05:17 Medications Name Sig Start [...] hr TAKE 1 TABLET BY MOUTH DAILY 2024 active Not Available Not Available Not Avai lable warfarin 2.5 mg tablet TAKE 1 TABLET [...] tablet TAKE 1 TABLET BY MOUTH DAILY 2024 active Not Available Not Available Not Avai lable lisinopril 5 mg tablet TAKE 1 TABLET [...] Updated DateTime 5 165.74 cm 24.8 kg/m2 06988.8 6 g 70 /min 98 % 98 % 138/68 mm[Hg] Leonroa Blank [facility] 5 12:06:50 Date Recorded Body height Body mass index (BMI) Body weight Heart rate Oxygen saturation Oxygen saturation in Arterial blood by Pulse oximetry Systolic And Diastolic Provider Name and Address Organization Details Last Updated DateTime 5 165.74 cm 24.8 kg/m2 65153.8 6 g 70 /min 99 % 99 % 138/64 mm[Hg] Leonora Blank [facility] 5 10:44:39 Date Recorded Body height Body mass index (BMI) Body weight Heart rate Oxygen saturation Oxygen saturation in Arterial blood by Pulse oximetry Systolic And Diastolic Provider Name and Address Organization Details Last Updated DateTime 4 165.74 cm 25.2 kg/m2 92985.8 4 g 69 /min 97 % 97 % 138/66 mm[Hg] Latanya De Oliveira [facility] 4 11:31:37 Date Recorded Body height Body mass index (BMI) Body weight Heart rate Oxygen saturation Oxygen saturation in Arterial blood by Pulse oximetry Systolic And Diastolic Provider Name and Address Organization Details Last Updated DateTime 5 165.74 cm 24.8 kg/m2 92957.8 6 g 92 /min 98 % 98 % 120/70 mm[Hg] Leonora Blank [facility] 5 11:27:14 Social History Question Answer Notes LastModified by Organizat ion Details LastModified Time Tobacco Smoking Status Never Smoker Tere Mayo NP, S [address] [place] [address], [address], [facility] 09/06/2017 08:52:41 What Was The Date Of Your Most Recent Tobacco Screening? 12/02/2024 [email or web address] Information not available 12/02/2024 Sex: Unknown Functional [...] formulation 3 completed Tere Mayo NP, S [address] [place] [address], [address], [facility] 09/06/2017 08:47:21 pneumococcal, unspecified formulation 9 completed Tere Mayo NP, S [address] [place] [address], [address], [facility] 09/06/2017 08:47:41 Tdap 9 completed Tere Mayo NP, S [address] [place] [address], [address], [facility] 09/06/2017 08:48:09 Influenza, adjuvanted, trivalent, PF 7 completed Tere Mayo NP, S [address] [place] [address], [address], [facility] 09/06/2017 08:50:21 Influenza, split virus, quadrivalent, preservative 8 completed Not Available [facility] 06/06/2019 02:46:31 COVID-19, mRNA, LNP-S, PF, 30 mcg/0.3 mL dose 1 completed Gay rivero, [facility] 10/26/2020 09:08:36 COVID-19, mRNA, LNP-S, PF, 30 mcg/0.3 mL dose 1 completed Gay Moralessarah rivero [facility] 10/26/2020 09:08:42 Past Encounters Encounter ID Performer Location Encounter Start Date Encounter Closed Date Diagnosis/Indication Diagnosis SNOMED-CT Code Diagnosis ICD10 Code Diagnosis IMO Codes Diagnosis Note [id number] Luca Tovar [facility] [address] [facility],[place] [address] 09/06/2017 09:57:17 09/06/2017 11:29:14 Type 2 diabetes mellitus 38042520 E11.9 to have labs done at [facility] [address] , [facility] draw station, pt more comfortabl e with paper request Essential hypertension 60427821 I10 stable, back on [address] Barton Hypercholesterolemia 136 60997 E78.00 follow Benign pro static hyperplasia 847621686 N40.0 no c/o Paroxysmal atrial fibrillation 664053338 I48.0 denies palpitatio ns Chronic ki dney disease stage 3 [address]14[address]18[address] 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 Lyn dhaliwal [id number] Luca Tovar [facility] [address],[place] [address] 11/06/2017 09:17:14 11/06/2017 11:20:19 Hypercholesterolemia 85074099 E78.00 follow, ldl 56 Chronic anxiety 67869943 9 F41.9 lorazepam at night helpful Paroxysmal atrial fibrillation 457593082 I48.0 denies palpitatio ns, current RRR Coronary arteriosclerosis 73164708 I25.10 asymptomat ic Essential hypertension 40725294 I10 stable Chronic ki dney disease stage 3 [address]30918 [address]18.[address] Barton, continue meds Disorder d ue to type 2 diabetes mellitus 227782149 E11.8 [id number] Luca Tovar [facility] [address] [facility],[place] [address] 03/12/2018 08:49:50 03/17/2018 09:11:15 Hypercholesterolemia 83319321 E78.00 follow Paroxysmal atrial fibrillation 328732326 I48.0 denies palpitatio ns, current RRR Type 2 gita betes mellitus 70279829 E11.9 A1c drawn here today since mix up at lab & was not drawn 02/26/18 Coronary arteriosclerosis 30245566 I25.10 all ADL's without difficulty -encourage daily walking Essential hypertension 92725813 I10 stable Chronic ki dney disease 549940125 N18.9 Administra tion of influenza vaccine 25953119 Z23 [id number] 1A right deltoid [id number] Luca Tovar [facility] [address] [facility], [place] [address] 07/30/2018 10:14:43 07/30/2018 16:06:33 Disorder due to type 2 diabetes mellitus 343638044 E11.8 stable Paroxysmal atrial fibrillation 249395885 I48.0 denies palpitatio ns, current RRR Hypercholesterolemia 136 59048 E78.00 follow Coronary arteriosclerosis 41941370 I25.10 stable Essential hypertension 62145751 I10 stable Chronic ki dney disease 454191835 N18.9 up to date Hearing loss 15881275 H9 1.93 [id number] Luca Tovar [facility] [address] [facility], [place] [place] [facility] [place] [address] 11/07/2018 11:36:03 11/07/2018 12:19:52 Disorder due to type 2 diabetes mellitus 421552460 E11.8 need to get a1c last a1c in february was 8.4 Paroxysmal atrial fibrillation 587927510 I48.0 denies palpitatio ns, current RRR Hypercholesterolemia 136 46702 E78.00 follow Coronary arteriosclerosis 90354643 I25.10 stable Essential hypertension 61066385 I10 stable Chronic ki dney disease 773458315 N18.9 slightly worse has f/u with kidney specialist in a month avoids nsaids bp well controlled need to see a1c for blood sugar control Hearing loss 94628483 H9 1.93 [id number] Luca Tovar [facility] [address] [facility] [address] [place] [address] 02/04/2019 09:50:05 02/04/2019 10:15:33 Disorder due to type 2 diabetes mellitus 649077301 E11.8 had labs done with his kidney specialist , need to get a1c last a1c was 02/2018, was supposed to have one after last visit, btu never did it. will get a1c today Paroxysmal atrial fibrillation 413320295 I48.0 denies palpitatio ns, current reg Hypercholesterolemia 136 41152 E78.00 follow Coronary arteriosclerosis 76954109 I25.10 stable Essential hypertension 53050214 I10 stable Chronic ki dney disease 340456141 N18.9 has regular f/u with kidney specialist avoids nsaids bp well controlled need to see a1c for blood sugar control Hearing loss 05959748 H9 1.93 Hyperparathyroidism 6699 9008 E21.3 found by nephro, pt claims never was discussed [id number] August REYNALDO Duffy [facility] [address] [facility],[place] [address] 06/02/2019 09:55:09 06/02/2019 10:54:06 Disorder due to type 2 diabetes mellitus 918265136 E11.8 had labs done with his kidney specialist , need to get a1c last a1c was 02/2018, was supposed to have one after last visit, btu never did it. will get a1c today Paroxysmal atrial fibrillation 087678931 I48.0 sees cardio, last seen 03/2019 Hypercholesterolemia 136 71908 E78.00 well controlled Coronary arteriosclerosis 43764333 I25.10 stable Essential hypertension 39967555 I10 stable Hearing loss 80674708 H9 1.93 Pain of left hand 747809 5040 61596 M79.642 will send to hand specialist cannot take nsaids nor steroid continue conservati ve management Hyperparathyroidism 6699 9008 E21.3 found by nephro referred to endo last visit - dr. duarte Chronic ki dney disease stage 3 953140083 N18.3 has regular f/u with kidney specialist avoids nsaids bp well controlled need to see a1c for blood sugar control [id number] Luca Tovar [facility] [address] [facility] [address],[place] [address] 09/04/2019 11:36:11 09/04/2019 11:59:53 Disorder due to type 2 diabetes mellitus 341150275 E11.8 a1c 08/11 was 10.9 has already made cheanges to diet, was drinking lots of sugary beverages will get him a new meter to test at home Paroxysmal atrial fibrillation 144583143 I48.0 sees cardio, last seen 03/2019 Hypercholesterolemia 136 75636 E78.00 needs to be repeated, last done 09/2018 Essential hypertension 40373339 I10 stable Hearing loss 96980723 H9 1.93 Chronic ki dney disease stage 3 409674261 N18.3 has regular f/u with kidney specialist avoids nsaids bp well controlled need to see a1c for blood sugar control [id number] Luca Tovar DO [facility] [address] [facility],[place] [address] 12/02/2019 09:48:23 12/02/2019 10:54:52 Hypercholesterolemia 49331383 E78.00 labs looking better will f/u in three months Type 2 gita betes mellitus 71819363 E11.9 A1c is looking better and his diet is greatly improved daily readings are better than last reported Atrial fibrillation 4943 6004 I48.91 stable [id number] Luca Tovar DO [facility] [address],[place] [address] 03/25/2020 11:57:44 03/25/2020 12:30:00 Essential hypertension 47713218 I10 bp is stable doing great Type 2 gita betes mellitus 21655899 E11.9 he is doing well but will need to get an a1c Paroxysmal atrial fibrillation 132469441 I48.0 now in NSR no palpitatio ns Chronic ki dney disease 879687611 N18.9 will be seeing later this month Dupuytren' s contracture of finger 005652639 M72.0 will refer to hand spec when pt ready [id number] Luca Tovar DO [facility] [address] [facility] [facility],[place] [employer] [place] [address] 07/18/2020 10:25:57 07/18/2020 11:16:07 Type 2 diabetes mellitus 34167621 E11.9 a1c is elevated at 9.7 hei is only on Essential hypertension 00126045 I10 bp is stable doing great Paroxysmal atrial fibrillation 855626042 I48.0 now in NSR no palpitatio ns Coronary arteriosclerosis 28288273 I25.10 relates feels fine only unoted to have an anginal like sx once a month or two will be seeing cardiology in a month to see new dr and have his defib rechk Chronic ki dney disease 882136264 N18.9 will be seeing later this month lab has been stable and meds were adjusted [id number] Luca Tovar [facility] [address] [facility] [address],[place] [facility] [place] [address] 10/26/2020 10:03:18 10/26/2020 10:48:58 Type 2 diabetes mellitus 41441692 E11.9 a1c is much better down to 8.9 from when it was elevated at 9.7 will increase trulicity to 1.5 and rechk in sept Chronic ki dney disease 580555705 N18.9 will be seeing later this summer lab has been stable and meds were adjusted Secondary hyperparathyroidism 73588185 E21.1 also stable and we will check lab a nd [facility] Coronary arteriosclerosis 14560134 I25.10 relates feels fine only noted to have an anginal like sx once a month or two will be seeing cardiology he has a new dr and have his defib rechk Paroxysmal atrial fibrillation 805665676 I48.0 now in NSR no palpitatio ns Disorder d ue to type 2 diabetes mellitus 999864989 E11.8 as above Chronic ki dney disease stage 3 285318628 N18.31 stable and following renal [id number] Luca Tovar [facility] [address] [facility] [address],[place] [address] 02/01/2021 14:04:02 02/01/2021 15:06:05 Type 2 diabetes mellitus 09301293 E11.9 a1c is much better down to7.5 from 8.9 from when it was elevated at 9.7 will cont the trulicity but we will increase to 3mg look to discontinu e the glipizide depending on blood test Essential hypertension 72553824 I10 bp is stable doing great Paroxysmal atrial fibrillation 614954316 I48.0 now in NSR no palpitatio ns Coronary arteriosclerosis 99481921 I25.10 he still relates feels fine only noted to have an anginal like sx once a month or two will be seeing cardiology he has a new dr and had his defib rechk and it was excellent [id number] Luca Tovar [facility] [address] [facility],[place] [address] 05/09/2021 08:26:53 05/09/2021 15:23:31 Chronic kidney disease 014265778 N18.9 will be seeing later this summer lab has been stable and meds were adjusted Coronary arteriosclerosis 74346086 I25.10 he still relates feels fine only noted to have an anginal like sx once a month or two will be seeing cardiology he has a new dr and had his defib rechk and it was excellent Essential hypertension 54446827 I10 bp is stable doing great Paroxysmal atrial fibrillation 669557792 I48.0 now in NSR no palpitatio ns Type 2 gita betes mellitus 11847306 E11.9 a1c is much better down to7.0 from 7.5 from 8.9 from when it was elevated at 9.7 will cont the trulicity but we will increase to 3mg look to discontinu e the glipizide depending on blood test [id number] Luca Tovar [facility] [address] [facility],[place] [address] 08/11/2021 09:53:46 08/11/2021 15:00:47 Type 2 diabetes mellitus 67854290 E11.9 a1c is much better down to7.4 was 7.5 then 7,4 at its worse 8.9 from when it was elevated at 9.7we will decrease the glipizide to qd from bid will cont the trulicity but we will increase to 3mg look to discontinu e the glipizide depending on blood test Essential hypertension 20062329 I10 bp is stable doing great Paroxysmal atrial fibrillation 873086518 I48.0 now in NSR no palpitatio ns Hyperparathyroidism 6699 9008 E21.1 stable Chronic ki dney disease stage 3 690793059 N18.31 stable and following renal 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 carlos treat conserv for now otherwise nlormal exam [id number] Luca Tovar [facility] [address] [facility],[place] [address] 01/19/2022 08:16:47 01/23/2022 11:19:42 Type 2 diabetes mellitus 89030507 E11.9 a1c climbed up to 8.7 from 7.4 we will need to restart the glipizide and cont the trulicity Paroxysmal atrial fibrillation 913047948 I48.0 now in NSR no palpitatio ns Essential hypertension 67038628 I10 bp is stable doing great Chronic ki dney disease 869965587 N18.9 will be seeing later this summer lab has been stable and meds were adjusted Coronary arteriosclerosis 93704282 I25.10 he still relates feels fine only noted to have an anginal like sx once a month or two will be seeing cardiology he has a new dr and had his defib rechk and it was excellent Disorder d ue to type 2 diabetes mellitus 024480988 E11.8 as above [id number] Luca Tovar [facility] [address] [facility],[place] [address] 05/08/2022 13:51:48 05/08/2022 15:23:11 Type 2 diabetes mellitus 31406991 E11.9 a1c climbed up to 8.7 from 7.4 we will need to restart the glipizide and cont the trulicity Hypercholesterolemia 136 57337 E78.00 following Essential hypertension 12040633 I10 bp is stable doing great Anxiety 35775914 F41.9 seems to be baseline Paroxysmal atrial fibrillation 566490262 I48.0 [place] [id number] Luca Tovar DO [facility] [address] [facility] [address],[place] [address] 08/21/2022 13:53:14 08/21/2022 14:59:41 Chronic kidney disease 412900051 N18.9 will be seeing later this summer lab has been stable and meds were adjusted Hypercholesterolemia 136 81603 E78.00 following Anxiety 15714519 F41.9 seems to be baseline Disorder d ue to type 2 diabetes mellitus 974238227 E11.8 as above Type 2 gita betes mellitus 64538754 E11.9 a1c climbed up to 8.7 from 7.4 we will need to restart the glipizide and cont the trulicity Hyperparathyroidism 6699 9008 E21.1 stable Paroxysmal atrial fibrillation 210369662 I48.0 now in NSR no palpitatio ns Chronic ki dney disease stage 3 745496889 N18.31 stable and following renal Coronary arteriosclerosis 94929617 I25.10 he is stable with his metoprolol and amlodipine as well he still relates feels fine only noted to have an anginal like sx once a month or two will be seeing cardiology he has a new dr and had his defib rechk and it was excellent Essential hypertension 39652117 I10 bp is stable doing great [id number] Luca Tovar [facility] Internal [address] [address] 03/25/2023 10:23:59 03/25/2023 11:27:36 Pre-surgery evaluation 765431888 Z01.818 The patient was seen in the office today for pre-op evaluation . All medical conditions on patient's problem list were addressed and are currently stable, no interventi on needed at this time. Based on history and physical performed, the patient is cleared for surgery. [id number] Luca Tovar [facility] Medicine [address] [place] [address] 04/03/2023 10:33:43 04/05/2023 14:23:32 Impacted cerumen of bilateral ears [id number] 808376 H61.23 resolved [id number] Luca Tovar [facility] [address] [address] 07/09/2023 10:31:44 07/09/2023 12:12:15 Acute sinusitis 86773794 J01.90 will set up with abx for sinus infection [id number] Luca Tovar [facility] Medicine [address] [place] [address] [place] [address] 07/19/2023 10:31:30 07/19/2023 14:38:59 Secondary hyperparathyroidism 90632645 E21.1 also stable and we will check lab a nd reviewed angelica is stable Paroxysmal atrial fibrillation 502526954 I48.0 now in NSR no palpitatio ns Hypercholesterolemia 136 42006 E78.00 following Type 2 gita betes mellitus 43164464 E11.9 a1c climbed up to 11.7 due to loss of trulicity and recent sinus infection he will be restarting trulicity and we will rechk in 3 months PRIOR8.7 from 7.4 we will need to restart the glipizide and cont the trulicity Essential hypertension 82211145 I10 bp is stable doing great Chronic ki dney disease 942853719 N18.9 will be seeing later this summer lab has been stable and meds were adjusted [id number] Luca Tovar DO [facility] Internal Medicine [address] [facility],[place] [address] 10/28/2023 11:22:10 10/29/2023 11:13:52 Essential hypertension 10205861 I10 bp is stable doing great Hypercholesterolemia 136 27442 E78.00 following but given age we are not as intense on this Paroxysmal atrial fibrillation 345708034 I48.0 now in NSR no palpitatio nsbut is troubled by warfarin causing bruising Depression screening 171 857673 Z13.31 SCREENING NEGATIVE Chronic ki dney disease 229244556 N18.9 currently is stable gfr is 42 lab has been stable and meds were adjusted Coronary arteriosclerosis 37275931 I25.10 he is stable with his metoprolol and amlodipine as well he still relates feels fine only noted to have an anginal like sx once a month or two will be seeing cardiology he has a new dr and had his defib rechk and it was excellent Disorder d ue to type 2 diabetes mellitus 372909642 E11.8 note to have his a1c ]at 9.8 but he had been without the trulicity for several months due to supply prob Secondary hyperparathyroidism 06760185 E21.1 also stable and we will check lab a nd reviewed angelica is stable Vitamin D deficiency 347 28883 E55.9 we wiill have hinm supplement for 2 mo [id number] Luca Tovar [facility] Medicine [address] [place] [address] 05/15/2024 08:52:55 05/15/2024 11:27:56 Chronic kidney disease 598464396 N18.9 currently is stable gfr is still 42 does have signif microalbum inuria lab has been stable and meds were adjusted Coronary arteriosclerosis 60848167 I25.10 he is stable with his metoprolol and amlodipine as well he still relates feels fine only noted to have an anginal like sx once a month or two will be seeing cardiology he has a new dr and had his defib rechk and it was excellent Essential hypertension 56975723 I10 bp is stable doing great Paroxysmal atrial fibrillation 682421231 I48.0 now in NSR no palpitatio nsbut is troubled by warfarin causing bruising Type 2 gita betes mellitus 79690282 E11.9 a1c climbed up to 11.7 due to loss of trulicity and recent sinus infection he will be restarting trulicity and we will rechk in 3 months PRIOR8.7 from 7.4 we will need to restart the glipizide and cont the trulicity [id number] Luca Tovar [facility] Medicine [address] [place] [address] 06/10/2024 11:56:13 06/10/2024 12:41:39 Coronary arteriosclerosis 10759547 I25.10 he is stable with his metoprolol and amlodipine as well he still relates feels fine only noted to have an anginal like sx once a month or two will be seeing cardiology he has a new dr and had his defib rechk and it was excellent Essential hypertension 67220416 I10 bp is stable doing great Hypercholesterolemia 136 41368 E78.00 following but given age we are not as intense on this Compressio n fracture of vertebral column 90536635 M48.50XA improving with conserv care Compressio n fracture of thoracic vertebra 4680037236 104 M48.54XA stable and already improving [id number] Luca Tovar [facility] Medicine [address] [facility],[place] [address] 08/24/2024 10:36:43 08/24/2024 11:28:48 Essential hypertension 37704739 I10 bp is stable although he is not following at home Hypercholesterolemia 136 97052 E78.00 following but given age we are not as intense on this Paroxysmal atrial fibrillation 243564651 I48.0 now in NSR no palpitatio nshe will be going for defib and pacer check with new cardiologi st in next month or two not sure whenhe is still troubled by warfarin causing bruising on his forearms Type 2 gita betes mellitus 23687199 E11.9 a1c is now at 6.6 was at 7.1 Depression screening 171 957683 Z13.31 SCREENING NEGATIVE Chronic ki dney disease 102176873 N18.9 currently is stable gfr is still 37 does have signif microalbum inuria lab has been stable and meds were adjusted Compressio n fracture of vertebral column 63590904 M48.50XA improving with conserv care prob is the mornings as noted Secondary hyperparathyroidism 46710186 E21.1 lab done and reviewed which is stable [id number] Luca Tovar DO [facility] Internal Medicine [address] [facility],[place] [address] 12/02/2024 11:22:51 12/02/2024 12:35:03 Screening for cardiovascular system disease 239619792 Z13.6 not required Screening for malignant neoplasm of colon 040353121 Z12.11 not req Essential hypertension 79727443 I10 bp is stable although he is not following at home Type 2 gita betes mellitus 97293168 E11.9 a1c is now at 6.6 was at 7.1 Secondary hyperparathyroidism 00134789 E21.1 lab done and reviewed which is stable Paroxysmal atrial fibrillation 564340196 I48.0 now in NSR no palpitatio nshe will be going for defib and pacer check with new cardiologi st in next month or two not sure whenhe is still troubled by warfarin causing bruising on his forearms General ex amination of patient 434011188 Z00.01 26430869 he is clearly slowing down due to [...] ID Guarantor Name 11/29/2024 1 [place]IC[place] B[place]: [employer] Jairo Newman [id number] Jairo Newman 11/29/2024 2 [place] [id number] Jairo Newman [id number] Jiaro Newman Notes Date Note Type Note Provider Name and Address Organization Details Recorded Time 10/28/19 24 text/htm l feels pretty good except for the mornings he is very stiff in the amno cp no sob unles exertion as he can get quite fatiguedstates works in [employer] every day Luca Tovar, DO [address] [place], [address] 10/28/2023 11:54:51 05/15/20 24 text/htm l Care Management - HypertensionReported by PatientHPIFor self care, patient reportsnot under emotional stress. For severity, patient reportssymptoms are improvinganddoes not interfere with daily activities. For associated symptoms, patient reportsno dizziness,no lightheadedness,no chest pain,no shortness of breath,no palpitations,no edema,no calf muscle cramps,no blurred vision,no confusion,no headaches, andno fatigue. Care Management - DiabetesReported by PatientHPIFor self care, patient reportsseeing eye doctor yearly for dilated eye exam,checking feet regularly,normal range of home blood sugars (in the low 100s), andno side effects from medications. For associated symptoms, patient reportssymptoms are usually well controlled,no fatigue,no dizziness,no excessive sweating,no headaches,no confusion,no increased thirst,no increased appetite,no increased urination,no blurred vision,no numbness of feet, andno calluses on feet. Care Management - Atrial FibrillationReported by PatientROS as noted in the HPI patient is evaluated via tele/video assessment per patient consentduring current pandemichas been keeping an eye on his bprelates only prob he has is his unsteadiness and has fallen at homethis was an isolated event Luca Salcedo DO Juanita [address] [place], [address], [facility] Medicine 05/15/2024 10:51:52 06/10/19 25 text/htm l ROS as noted in the HPI here for jennifer following his fall when he landed on his back and dwas found to have a C6 fracture (compress) and T 7 endplate fract urewas subsequently disch and sent home on tylenol he is still sore in the neck but is still better relates that mid back is ok as long as he is careful and doesnt overdo it Luca Salcedo TangailynDO [address] [place], [address], [facility] 06/10/2024 12:38:40 08/25/19 25 text/htm l Care Management - HypertensionReported by PatientHPIFor self care, patient reportsnot under emotional stress. For severity, patient reportssymptoms are improvinganddoes not interfere with daily activities. For associated symptoms, patient reportsno dizziness,no lightheadedness,no chest pain,no shortness of breath,no palpitations,no edema,no calf muscle cramps,no blurred vision,no confusion,no headaches, andno fatigue. Care Management - DiabetesReported by PatientHPIFor self care, patient reportsseeing eye doctor yearly for dilated eye exam,checking feet regularly,normal range of home blood sugars (in the low 100s), andno side effects from medications. For associated symptoms, patient reportssymptoms are usually well controlled,no fatigue,no dizziness,no excessive sweating,no headaches,no confusion,no increased thirst,no increased appetite,no increased urination,no blurred vision,no numbness of feet, andno calluses on feet. Care Management - HyperlipidemiaReported by PatientHPIFor control, patient reportsusually well controlled,improving, andat goal. For complications, patient reportsno coronary artery disease,no heart attack,no cardiovascular disease,no pancreatitis, andno stroke.ROS as noted in the HPI here for armen nd is feeling well except for the mornings he is having a lot of stiffness which takes a god hour to be able to move freelyno cp nos sobbowels ok bladder ok Luca Mary AnnJuanjo Beckwithailyn, DO [address] [facility], [place], [address], [facility] 08/24/2024 11:14:22 12/03/19 25 text/htm l Medicare Annual Wellness VisitReported by PatientSocial/Behavioral HistoryFor fracture risk, patient reportsrecent explained fracturebut reportsno sudden unexplained fracturesandno previous musculoskeletal injuries(cervical neck fx from fall in apr). For physical activity, patient reportsdoes not exercise on a regular basis,decreased physical activity, anddeconditioned due to sedentary lifestyle. For diet and nutrition, patient reportshealthy diet.Mental Status:For depression risk, patient reportsnever feels sad, empty, or tearful,no loss of interest in activities,no significant changes in weight,no sleep disturbances or insomnia,no agitation,no loss of energy,no feelings of worthlessness or guilt,no thoughts of suicide,no history of depression, andno history of mood disorders. For orientation, patient reportsno disorientation to time,no disorientation to date, andno disorientation to place. For concentration and memory, patient reportsno decreased concentrating ability,no memory lapses or loss, anddoes not forget words. For speech/motor difficulties, patient reportsno speech difficulties,no difficulty expressing formulated concepts,no difficulty with fine manipulative tasks,no difficulty writing/copying,no slowed reaction time, anddoes not knock things over when trying to pick them up.Functional AbilityFor hearing, patient reportsloss of hearing in one ear only. For vision, patient reportsno vision problems. For activities of daily living, patient reportsable to bathe with limited or no assistance,able to contol urination and bowels,able to dress with limited or no assistance,able to feed self with limited or no assistance,able to get out of chair or bed with limited or no assistance,able to groom with limited or no assistance, andable to toilet with limited or no assistance. For instrumental activities of daily living, patient reportsable to do house work with limited or no assistance,able to grocery shop with limited or no assistance,able to manage medications with limited or no assistance,able to manage money with limited or no assistance,able to prepare meals with limited or no assistance, andable to use the phone with limited or no assistance. For falls risk assessment, patient reportsno frequent falls while walking,no fall in the past year,no fall since last visit, andno dizziness/vertigo. For home safety, patient reportsno unsafe timothy hazzards,no unsafe stairs,no unsafe gas appliances,working smoke/co detectors,wears protective head gear for biking/high velocity,use of seatbelts,practicing 'safer sex',no vision or hearing loss while driving,no fire arms,has hand bars in the bathroom/shower, andgood lighting in the home.ROS as noted in the HPI doing well happy with eye surgeryable to drive again no cp no sobappetite is dhaval Tovar, DO [address] [facility], [place], [address], [facility] 12/02/2024 11:49:14
--- OUTSIDE RECORDS SUMMARY | 2025-03-25 11:50 | XMS_ITS | Encounter Summary ---
Author Organization [facility] Address [address] [place] [address] [address] [place] [address] Phone Care Team Providers Care Relations Coordinator Name Role Phone Luca Grant DO Primary Care Provider [phone] Encounter Details Date Type Department Care Team (Latest Contact Info) Description 05/17/2021 Ancillary Orders Non-Invasive Cardiology [address] [place] [address] Bernice Diaz MD [address] [place] [address] [email or web address] Ischemic cardiomyopathy Social History Tobacco Use [...] Description 04/07/2025 8:30 AM EST Office Visit [facility] [address] [facility] 3rd Floor, [address] [place] [address] Lakisha Bailon, DATABASE SECURITY EXPERT [address] [place] [address] [email or web address] documented as of this encounter Visit Diagnoses Diagnosis Ischemic cardiomyopathy Other specified forms of chronic ischemic heart disease Coronary artery disease involving yurok coronary artery of yurok heart without angina pectoris- Primary documented in this encounter Care Teams Relations Coordinator Relationship Specialty Start Date End Date Luca Grant DO [email or web address] PCP - General 03/07/17 documented as of this encounter Additional Source Comments The information contained in this document represents components of the legal health record. It is not the complete legal health record.[facility]
== END 2025-03-25 10:37 | disposition home or self-care (01) ==
LOC: HO.HKA 10:08
PROVIDERS: PCP Internal Medicine; Visit Provider Internal Medicine Hypertension Specialist
DX: N18.9 Chronic kidney disease, unspecified (principal)
CPT/HCPCS: 99214

== ENCOUNTER 2025-03-25 10:48 | Outpatient (REF) | payer MEDICARE, SELFPAY ==
[2025-03-25 13:18] LABS: MANUAL DIFF FLAG NO
[2025-03-25 13:29] LABS: Hematocrit 37.4 % (42.0-52.0); Hemoglobin 12.3 g/dl (14.0-18.0); Imm Gran Abs Auto 0.03 X10*3/uL (0.00-0.03); Imm Gran Pct Auto 0.4 % (0.0-0.4); Lymphocytes Absolute Auto 2.6 X10*3/uL (1.2-4.9); Mean Corpuscular HGB Conc 32.9 g/dl (31.0-36.0); Mean Corpuscular Hemoglobin 28.9 pg (27.0-33.0); Mean Corpuscular Volume 87.8 fL (80.0-98.0); NRBC Abs Auto 0.000 X10*3/uL (0.0-0.012); NRBC Pct Auto 0.0 /100WBC (0.0-0.2); Platelet Count 288 X10*3/uL (160-400); Red Blood Count 4.26 X10*6/uL (4.60-5.80); White Blood Count 8.5 X10*3/uL (4.8-10.8)
[2025-03-25 13:44] LABS: Alanine Aminotransferase 17 U/L (0-40); Albumin Level 3.9 g/dL (3.5-5.0); Alkaline Phosphatase 64 U/L (39-117); Anion Gap 11 (12-20); Aspartate Amino Transferase 34 U/L (5-37); Blood Urea Nitrogen 34 mg/dL (9-16); Calcium 8.8 mg/dL (8.4-10.2); Carbon Dioxide 24 mmol/L (22-29); Chloride 109 mmol/L (96-108); Estimated Glomerular Filt Rate 38; Potassium 4.7 mmol/L (3.3-5.1); Sodium 139 mmol/L (135-145); Total Protein 7.1 g/dL (6.5-8.0)
== END 2025-03-25 10:49 | disposition home or self-care (01) ==
LOC: HO.10HDL 10:48
PROVIDERS: Visit Provider Internal Medicine Hypertension Specialist
DX: N18.9 Chronic kidney disease, unspecified (principal)
CPT/HCPCS: 36415; 80053; 85025; 99212

== ENCOUNTER 2025-04-21 08:06 | Outpatient (AMB) | payer MEDICARE, SELFPAY ==
--- OUTSIDE RECORDS SUMMARY | 2025-04-21 08:09 | XMS_ITS | Encounter Summary ---
Author Organization [facility] Address [address] [facility] [address] [place] [address] Phone Care Team Providers Care Tool Trouble Shooter Name Role Phone Luca Grant DO Primary Care Provider [phone] Reason for Visit * Reason Comments Med Refill Encounter Details Date Type Department Care Team (Late st Contact Info) Description 03/05/2023 Refill [facility] [address] [place] [address] Mateo Barton MD Social History [...] can be sent over to Ella in [place] [facility]. Kathy can be reached at [phone] documented in this encounter Plan of Treatment Not on file documented as of this encounter Visit Diagnoses Not on filedocumented in this encounter Care Teams Tool Trouble Shooter Relationship Specialty Start Date End Date Luca Grant DO [address] [place] [address],[place] [address] PCP - General 05/30/20 documented as of this encounter
--- OUTSIDE RECORDS SUMMARY | 2025-04-21 08:10 | XMS_ITS | Encounter Summary ---
Author Organization [facility] Address [address] [place] [address] [place] [address] Phone Care Team Providers Care Roundsman Name Role Phone Luca Grant DO Primary Care Provider [phone] Encounter Details Date Type Department Care Team (Latest Contact Info) Description 01/17/2021 Ancillary Orders Non-Invasive Cardiology [address] [place] [address] Bernice Diaz MD [address] [place] [address] [email or web address] Ischemic cardiomyopathy Social History Tobacco Use [...] Team (Late st Contact Info) Description 04/07/2025 Procedure Pass Echo [facility] [place] [address] [place] [address] 10/04/2025 9:30 AM EDT Appointment [place] [address] Lakisha Bailon, WIRE PRODUCTS INSPECTOR [address] [place] [address] 10/18/2025 10:00 AM EDT Office Visit [facility] [address], [address] [place] [address] Kaleb Hampton MD [address] [place] [address], [address] [place] [address] [email or web address] documented as of this encounter Results * DEVICE CHECK: ICD IN-HOME INTERROGATION PLUS HFM IMPEDANCE (01/17/2021 8:58 AM EDT) Narrative Bernice Diaz MD - 01/23/2021 2:03 PM EDT Reason for appointment: Remote ICD interrogation HPI: Routine 3 month remote ICD interrogation. No device related complaints. Indication for device: Ischemic cardiomyopathy Examination: Device type: ICD Sand Bobber: Medtronic Mode: VVI LRL/URL: 40/- bpm Thresholds, impedances, and sensing stable. High V rates: 0 Ventricular pacin.1% Battery: 5.4 yrs Thoracic impedance: Stable at baseline Additional comments: Device functioning appropriately. Normal device function. Patient to follow-up for continued monitoring every 3 months. Report prepared by Nikki Conway RN Bernice Diaz MD [facility] ORDER [email or web address] Final Result documented in this encounter Visit Diagnoses Diagnosis Ischemic cardiomyopathy Other specified forms of chronic ischemic heart disease Ischemic cardiomyopathy Other specified forms of chronic ischemic heart disease documented in this encounter Care Teams Roundsman Relationship Specialty Start Date End Date Luca Grant DO [email or web address] PCP - General 03/07/17 documented as of this encounter Additional Source Comments The information contained in this document represents components of the legal health record. It is not the complete legal health record.[facility]
--- OUTSIDE RECORDS SUMMARY | 2025-04-21 08:10 | XMS_ITS | Encounter Summary ---
Author Organization [facility] Address [address] [place] [address] [place] [address] Phone Care Team Providers Care Supervisor Reinforced Steel Placing Name Role Phone Luca Grant DO Primary Care Provider [phone] Encounter Details Date Type Department Care Team (Latest Contact Info) Description 06/01/2019 Ancillary Orders Non-Invasive Cardiology [address] [place] [address] Jad Nagel MD [address] [place] [address] [email or web address] Ischemic cardiomyopathy Social History Tobacco Use [...] Info) Description 04/07/2025 Procedure Pass Echo Lab [address] [place] [address] 10/04/2025 9:30 AM EDT Appointment Echo Lab [address] [place] [address] Lakisha Bailon, TIME STUDY CLERK [address] [place] [address] 10/18/2025 10:00 AM EDT Office Visit [facility] [address] [place] [address] 3rd Floor, [address] [place] [address] Kaleb Hampton MD [address] [place] [address], [address] [place] [address] [email or web address] documented as of this encounter Visit Diagnoses Diagnosis Ischemic cardiomyopathy Other specified forms of chronic ischemic heart disease documented in this encounter Care Teams Supervisor Reinforced Steel Placing Relationship Specialty Start Date End Date Luca Grant DO [email or web address] PCP - General 03/07/17 documented as of this encounter Additional Source Comments The information contained in this document represents components of the legal health record. It is not the complete legal health record.[facility]
--- OUTSIDE RECORDS SUMMARY | 2025-04-21 08:10 | XMS_ITS | Encounter Summary ---
Author Organization [facility] Address [address] [place] [address] Phone Care Team Providers Care Technical Director Name Role Phone Luca Grant DO Primary Care Provider [phone] Encounter Details Date Type Department Care Team (Late st Contact Info) Description 04/06/2025 Procedure Pass Non-Invasive Cardiology [address] [place] [address] Social History Tobacco Use Types Packs/Day Years [...] Info) Description 04/07/2025 Procedure Pass [facility] [address] [place] [address] 10/04/2025 9:30 AM EDT Appointment Echo Lab [address] [place] [address] Lakisha Bailon, ECONOMICS ANALYST [address] [place] [address] 10/18/2025 10:00 AM EDT Office Visit [facility] [address] [facility] 3rd Floor, [address] [place] [address] Kaleb Hampton MD [address] [facility], [address] [place] [address] documented as of this encounter Visit Diagnoses Not on filedocumented in this encounter Care Teams Technical Director Relationship Specialty Start Date End Date Luca Grant DO PCP - General 03/07/17 documented as of this encounter Additional Source Comments The information contained in this document represents components of the legal health record. It is not the complete legal health record.[facility]
--- OUTSIDE RECORDS SUMMARY | 2025-04-21 08:10 | XMS_ITS | Encounter Summary ---
Author Organization [facility] Address [address] [place] [address] Phone Care Team Providers Care Metal Molder Name Role Phone Luca Grant DO Primary Care Provider [phone] Encounter Details Date Type Department Care Team (Late st Contact Info) Description 01/17/2024 Procedure Pass Echo Lab [address] [place] [address] Social History Tobacco Use Types Packs/Day Years [...] Info) Description 04/07/2025 Procedure Pass Echo [facility] [address] [place] [address] 10/04/2025 9:30 AM EDT Appointment Echo Lab [address] [place] [address] Lakisha Bailon, PLASTERER SPRAY GUN [address] [place] [address] 10/18/2025 10:00 AM EDT Office Visit [facility] [address] [facility] 3rd Floor, [address] [place] [address] Kaleb Hampton MD 22 [facility], [address] [place] [address] documented as of this encounter Visit Diagnoses Not on filedocumented in this encounter Care Teams Metal Molder Relationship Specialty Start Date End Date Luca Grant DO PCP - General 03/07/17 documented as of this encounter Additional Source Comments The information contained in this document represents components of the legal health record. It is not the complete legal health record.[facility]
--- OUTSIDE RECORDS SUMMARY | 2025-04-21 08:10 | XMS_ITS | Encounter Summary ---
Author Organization [facility] Address [address] [place] [address] [place] [address] Phone Care Team Providers Care Line Patroller Name Role Phone Luca Grant DO Primary Care Provider [phone] Encounter Details Date Type Department Care Team (Latest Contact Info) Description 05/17/2021 Ancillary Orders Non-Invasive Cardiology [address] [place] [address] Bernice Diaz MD 30 [place] [address] [email or web address] Ischemic cardiomyopathy Social History Tobacco Use [...] Info) Description 04/07/2025 Procedure Pass Echo Lab [place] [address] [place] [address] 10/04/2025 9:30 AM EDT Appointment Echo [place] [address] Lakisha Bailon, FARM PRODUCT PURCHASER [address] [place] [address] 10/18/2025 10:00 AM EDT Office Visit [facility] [address] 3rd Floor, [address] [place] [address] Kaleb Hampton MD [address] [place] [address], [address] [place] [address] [email or web address] documented as of this encounter Visit Diagnoses Diagnosis Ischemic cardiomyopathy Other specified forms of chronic ischemic heart disease documented in this encounter Care Teams Line Patroller Relationship Specialty Start Date End Date Luca Grant DO [email or web address] PCP - General 03/07/17 documented as of this encounter Additional Source Comments The information contained in this document represents components of the legal health record. It is not the complete legal health record.[facility]
--- OUTSIDE RECORDS SUMMARY | 2025-04-21 08:10 | XMS_ITS | Encounter Summary ---
Author Organization [facility] Address [address] [place] [address] [address] [place] [address] Phone Care Team Providers Care Fishing Rod Trimmer Name Role Phone Luca Grant DO Primary Care Provider [phone] Encounter Details Date Type Department Care Team (Latest Contact Info) Description 08/09/2020 Ancillary Orders [facility] [address] Floor, [address] [place] [address] Bernice Diaz MD 30 [place] [phone] [email or web address] Ischemic cardiomyopathy Social History Tobacco Use Types [...] Info) Description 04/07/2025 Procedure Pass Echo Lab [place] [address] [place] [address] 10/04/2025 9:30 AM EDT Appointment Echo [place] [address] Lakisha Bailon, EMPLOYEE COMMUNICATIONS SPECIALIST [address] [place] [address] 10/18/2025 10:00 AM EDT Office Visit [facility] [address] Floor, [address] [place] [address] Kaleb Hampton MD [address] [facility], [address] [place] [address] [email or web address] documented as of this encounter Results * DEVICE CHECK: ICD IN-HOME INTERROGATION PLUS HFM IMPEDANCE (08/09/2020 10:18 AM EDT) Narrative Bernice Diaz MD - 08/14/2020 2:16 PM EDT Reason for appointment: Remote ICD interrogation HPI: Routine 3 month remote ICD interrogation. No device related complaints. Indication for device: Ischemic cardiomyopathy Examination: Device type: ICD Asset Protection Officer: Medtronic Mode: VVI LRL/URL: 40/- bpm Thresholds, [...] disease documented in this encounter Care Teams Fishing Rod Trimmer Relationship Specialty Start Date End Date Luca Grant DO [email or web address] PCP - General 03/07/17 documented as of this encounter Additional Source Comments The information contained in this document represents components of the legal health record. It is not the complete legal health record.[facility]
--- OUTSIDE RECORDS SUMMARY | 2025-04-21 08:10 | XMS_ITS | Encounter Summary ---
Author Organization [facility] Address [address] [place] [address] [address] [place] [address] Phone Care Team Providers Care Locomotive Mechanic Apprentice Name Role Phone Luca Grant DO Primary Care Provider [phone] Encounter Details Date Type Department Care Team (Late st Contact Info) Description 08/09/2020 Procedure Pass Non-Invasive Cardiology [address] [place] [address] [place] [address] Social History Tobacco Use Types Packs/Day Years [...] Info) Description 04/07/2025 Procedure Pass Echo Lab [address] [place] [address] 10/04/2025 9:30 AM EDT Appointment Echo Lab [address] [place] [address] Lakisha Bailon, POWER OPERATOR [address] [place] [address] 10/18/2025 10:00 AM EDT Office Visit [facility] [address] [place] [address] 3rd Floor, [address] [place] [address] Kaleb Hampton MD 22 [facility], [address] [place] [address] documented as of this encounter Visit Diagnoses Not on filedocumented in this encounter Care Teams Locomotive Mechanic Apprentice Relationship Specialty Start Date End Date TangLuca robertson [email or web address] PCP - General 03/07/17 documented as of this encounter Additional Source Comments The information contained in this document represents components of the legal health record. It is not the complete legal health record.[facility]
--- OUTSIDE RECORDS SUMMARY | 2025-04-21 08:10 | XMS_ITS | Encounter Summary ---
Author Organization [facility] Address [address] [place] [address] [address] [place] [address] Phone Care Team Providers Care Laboratory Engineer Name Role Phone Luca Grant DO Primary Care Provider [phone] Encounter Details Date Type Department Care Team (Late st Contact Info) Description 01/17/2021 Procedure Pass Non-Invasive Cardiology [address] [place] [address] [place] [address] Social History Tobacco Use Types Packs/Day Years [...] Info) Description 04/07/2025 Procedure Pass Echo Lab [address] [place] [address] 10/04/2025 9:30 AM EDT Appointment Echo Lab [address] [place] [address] Lakisha Bailon, ENTERPRISE SALES PERSON [address] [place] [address] 10/18/2025 10:00 AM EDT Office Visit [facility] [address] [place] [address] 3rd Floor, [address] [place] [address] Kaleb Hampton MD 22 [facility], [address] [place] [address] documented as of this encounter Visit Diagnoses Not on filedocumented in this encounter Care Teams Laboratory Engineer Relationship Specialty Start Date End Date TangLuca [email or web address] [email or web address] PCP - General 03/07/17 documented as of this encounter Additional Source Comments The information contained in this document represents components of the legal health record. It is not the complete legal health record.[facility]
--- OUTSIDE RECORDS SUMMARY | 2025-04-21 08:10 | XMS_ITS | Encounter Summary ---
Author Organization [facility] Address [address] [place] [address] [place] [address] Phone Care Team Providers Care Directional Driller Name Role Phone Luca Grant DO Primary Care Provider [phone] Encounter Details Date Type Department Care Team (Latest Contact Info) Description 12/16/2017 Ancillary Orders Non-Invasive Cardiology [address] [place] [address] [place] [address] Jad Nagel MD [address] [place] [address] [email or web address] Ischemic cardiomyopathy Social History Tobacco Use [...] Info) Description 04/07/2025 Procedure Pass Echo Lab [address] [place] [address] 10/04/2025 9:30 AM EDT Appointment Echo Lab [address] [place] [address] Lakisha Bailon, DIESEL ENGINE PIPE FITTER [address] [place] [address] 10/18/2025 10:00 AM EDT Office Visit [facility] [address] [place] [address] 3rd Floor, [address] [place] [address] Kaleb Hampton MD [address] [place] [address], [address] [place] [address] [email or web address] documented as of this encounter Results * [...] device: Ischemic cardiomyopathy Examination: Device type: ICD Top Carrier: Medtronic Mode: VVI LRL/URL: 40/- bpm Thresholds [...] scheduled. Report prepared by Nikki Conway RN us Jad Nagel MD CV CARDIAC SERVICES ORDER EDMUNDO Final Result documented in this encounter Visit Diagnoses Diagnosis Ischemic cardiomyopathy Other specified forms of chronic ischemic heart disease Ischemic cardiomyopathy Other specified forms of chronic ischemic heart disease documented in this encounter Care Teams Directional Driller Relationship Specialty Start Date End Date Luca Grant DO [email or web address] PCP - General 03/07/17 documented as of this encounter Additional Source Comments The information contained in this document represents components of the legal health record. It is not the complete legal health record.[facility]
--- OUTSIDE RECORDS SUMMARY | 2025-04-21 08:10 | XMS_ITS | Encounter Summary ---
Author Organization [facility] Address [address] [place] [address] [address] [place] [address] Phone Care Team Providers Care Check Processing Clerk Name Role Phone Luca Grant DO Primary Care Provider [phone] Encounter Details Date Type Department Care Team (Late st Contact Info) Description 01/17/2021 Ancillary Orders [facility] [address] Floor, [address] [place] [address] Bernice Diaz MD 30 [place] [phone] [email or web address] Social History Tobacco Use Types Packs/Day Years [...] Info) Description 04/07/2025 Procedure Pass Echo Lab [place] [address] [place] [address] 10/04/2025 9:30 AM EDT Appointment [place] [address] Lakisha Bailon, ACID STRENGTH INSPECTOR [address] [place] [address] 10/18/2025 10:00 AM EDT Office Visit [facility] [address] Floor, [address] [place] [address] Kaleb Hampton MD [address] [place] [address], [address] [place] [address] [email or web address] documented as of this encounter Visit Diagnoses Not on filedocumented in this encounter Care Teams Check Processing Clerk Relationship Specialty Start Date End Date Luca Grant DO [email or web address] PCP - General 03/07/17 documented as of this encounter Additional Source Comments The information contained in this document represents components of the legal health record. It is not the complete legal health record.[facility]
--- OUTSIDE RECORDS SUMMARY | 2025-04-21 08:10 | XMS_ITS | Encounter Summary ---
Author Organization [facility] Address [address] [place] [address] [address] [place] [address] Phone Care Team Providers Care Creative Services Writer Name Role Phone Luca Grant DO Primary Care Provider [phone] Encounter Details Date Type Department Care Team (Late st Contact Info) Description 05/17/2021 Procedure Pass Non-Invasive Cardiology [address] [place] [address] [place] [address] Social History Tobacco Use Types Packs/Day Years [...] Info) Description 04/07/2025 Procedure Pass Echo Lab [address] [place] [address] 10/04/2025 9:30 AM EDT Appointment Echo Lab [address] [place] [address] Lakisha Bailon, UNDERCOLLAR MAKER [address] [place] [address] 10/18/2025 10:00 AM EDT Office Visit [facility] [address] [place] [address] 3rd Floor, [address] [place] [address] Kaleb Hampton MD 22 [facility], [address] [place] [address] documented as of this encounter Visit Diagnoses Not on filedocumented in this encounter Care Teams Creative Services Writer Relationship Specialty Start Date End Date TangLuca robertson [email or web address] PCP - General 03/07/17 documented as of this encounter Additional Source Comments The information contained in this document represents components of the legal health record. It is not the complete legal health record.[facility]
--- OUTSIDE RECORDS SUMMARY | 2025-04-21 08:10 | XMS_ITS | Encounter Summary ---
Author Organization [facility] Address [address] [place] [address] [place] [address] Phone Care Team Providers Care Financial Services Sales Representative Name Role Phone Luca Grant DO Primary Care Provider [phone] Encounter Details Date Type Department Care Team (Late st Contact Info) Description 12/16/2017 Ancillary Orders [facility] [address] [place] [address] Jad Nagel MD [address] [place] [address] Social History Tobacco Use Types Packs/Day Years [...] Info) Description 04/07/2025 Procedure Pass Echo Lab [address] [place] [address] 10/04/2025 9:30 AM EDT Appointment Echo Lab [address] [place] [address] Lakisha Bailon, [address] [address] 10/18/2025 10:00 AM EDT Office Visit [facility] [address] [place] [address] 3rd Floor, [address] [place] [address] Kaleb Hampton MD [address] [place] [address], [address] [place] [address] [email or web address] documented as of this encounter Visit Diagnoses Not on filedocumented in this encounter Care Teams Financial Services Sales Representative Relationship Specialty Start Date End Date Luca Grant DO [email or web address] PCP - General 03/07/17 documented as of this encounter Additional Source Comments The information contained in this document represents components of the legal health record. It is not the complete legal health record.[facility]
--- OUTSIDE RECORDS SUMMARY | 2025-04-21 08:10 | XMS_ITS | Clinical Summary ---
Author Organization [facility] Address [address] [place] [address] Phone Care Team Providers Care Case Maker Name Role Phone Luca Grant DO Primary Care Provider [phone] Allergies No known active allergies Medications fenofibrate [...] average glucose, using the formula of the K8D-Kzykotd Average Glucose study (ADAG), Diabetes Care, Vol.31,#8, [...] MD LAB BLOOD ORDERABLES Final Res ult [facility] from Last 3 Months or Most Recently Relevant to Health Maintenance Insurance [facility] Medicare [facility] [place] [id number] Care Teams Case Maker Relationship Specialty Start Date End Date Luca Grant DO [address] [place] [phone] PCP - General 05/30/20
--- OUTSIDE RECORDS SUMMARY | 2025-04-21 08:10 | XMS_ITS | Clinical Summary ---
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 angina pectoris 04/23/2017 Assessment & Plan (04/07/2025 9:04 AM EST): Currently denying symptoms concerning for angina No aspirin while on Coumadin Continue simvastatin 20 mg daily Continue fenofibrate 48 mg daily Assessment & Plan (10/12/2020 11:23 AM EDT): Continue Toprol Diabetes mellitus type 2 in obese 04/23/2017 Assessment & Plan (10/12/2020 11:25 AM EDT): Blood pressure stable Continue lisinopril Continue glipizide Essential hypertension 04/23/2017 Assessment & Plan (04/07/2025 9:05 AM EST): Blood pressure stable here in the office today, initial was all elevated after walking up the stairs at 156/70, after he been sitting for little while and I rechecked his blood pressure myself and got a reading of 120/54 No changes to current medications Assessment & Plan (10/12/2020 11:24 AM EDT): Blood pressure stable Continue amlodipine Continue lisinopril Cardiac defibrillator in place 04/23/2017 Ischemic cardiomyopathy 04/23/2017 Assessment & Plan (04/07/2025 9:09 AM EST): He has a history of ischemic cardiomyopathy, on chart review unclear what his revascularization history is, will need to inquire when patient is next seen. On last echocardiogram his ejection fraction was normal at 50-55%. He is currently euvolemic on exam and denied any symptoms concerning for CHF. He does have 10 months of battery longevity remaining on his ICD. I have asked him him to update his echocardiogram prior to his next office visit with Dr. Hampton in 6 months. If ejection fraction is still normal can have further discussion about whether or not ICD warrants replacement. He is never had any tachy therapies delivered from his device that he is aware of. On interrogation today he just had 1 isolated run of NSVT of 11 beats in March. With recovered ejection fraction it might make sense not to replace this device after the battery has Paroxysmal atrial fibrillation 04/23/2017 Assessment & Plan (04/07/2025 9:07 AM EST): Deny any symptomatic recurrence of this. He has a single-lead device we cannot interrogate this for A-fib burden. He has had a couple mechanical falls over the past year, we did discuss that if he has recurring issues with falling should let us know. If falling becomes a significant issue we did discuss coming off of Coumadin likely via Watchman procedure. We did preliminarily discuss this in the office today. Continue Coumadin Continue metoprolol succinate 100 mg daily Assessment & Plan (10/12/2020 11:24 AM EDT): Continue warfarin Encounters Date Type Department Care Team Description 04/07/2025 8:30 AM EST Office Visit [facility] [address], [address] [place] [address] Lakisha Bailon CNP Coronary artery disease involving the [place] coronary artery of the [place] heart without angina pectoris (Primary Dx); Cardiomyopathy, unspecified type; Essential hypertension; Ischemic cardiomyopathy; Paroxysmal atrial fibrillation 04/07/2025 8:22 AM EST - 04/07/2025 11:59 PM EST Hospital Encounter Non-Invasive Cardiology [address] [place] [address] Lakisha Bailon CNP Discharge Disposition: Home or Self Care 04/06/2025 Procedure Pass Non-Invasive Cardiology [address] [place] [address] 04/06/2025 Orders Only [facility] [address], [address] [place] [address] Lakisha Bailon CNP Coronary artery disease involving the [place] coronary artery of the [place] heart without angina pectoris (Primary Dx) from Last 3 Months Immunizations Immunization Administration Dates Next Due COVID-19 (Pre-03/11) Pfizer Vaccine, mRNA, PF ,08/02/2020 [id number] FORMULATION 05/20/2009 Influenza Quadrivalent w/ Preservative IM [...] Sign Reading Time Taken Comments Blood Pressure 156/70 04/07/2025 8:28 AM EST Pulse 86 04/07/2025 8:28 AM EST Temperature - - Respiratory Rate - - Oxygen Saturation 98% 04/07/2025 8:28 AM EST Inhaled Oxygen Concentration - - Weight 68.8 kg (151 lb 9.6 oz) 04/07/2025 8:28 A M EST Height 170.2 cm (5' 7.01 ) 04/07/2025 8:28 AM ES T Body Mass Index 23.74 04/07/2025 8:28 AM EST Plan of Treatment Upcoming Encounters Date Type Department Care Team (Late st Contact Info) Description 04/07/2025 Procedure Pass [facility] [address] [place] [address] 10/04/2025 9:30 AM EDT Appointment [facility] [address] [place] [address] Lakisha Bailon, JOURNEY LINEMAN [address] [place] [address] 10/18/2025 10:00 AM EDT Office Visit [facility] [address] [place] [address] 3rd Floor, [address] [place] [address] Kaleb Hampton MD 22 [facility], [address] [place] [address] Health Maintenance Due Date Last Done Comments [...] 05/20/2009, Additional history exists COVID-19 VACCINE ( - season) 2025 08/23/2020, 08/02/2020 HEPATITIS A VACCINES [...] this topic Medical Devices Implanted Type Area Platform Stapler Device Identifier Shelf Expiration Date Model / Serial / Lot Medtronic Icd ICD Procedures Procedure Name Priority Date/Time Associated Diagnosis Comments DEVICE CHECK: ICD IN-PERSON PROGRAMMING SINGLE LEAD PLUS HFM IMPEDANCE Routine 04/07/2025 10:17 AM EST Coronary artery disease involving the [place] coronary artery of the [place] heart without angina pectoris LIPID PANEL Routine 04/13/2020 11:10 AM EST Mixed hyperlipidemia from Last 3 Months or Most Recently Relevant to Health Maintenance Results * DEVICE CHECK: ICD IN-PERSON PROGRAMMING??SINGLE LEAD PLUS HFM IMPEDANCE (04/07/2025 10:17 AM EST) Narrative Jad Rodriguez DO - 04/12/2025 2:14 PM EST Table formatting from the original result was not included. Reason for appointment: In-office ICD interrogation HPI: Routine in-office ICD interrogation during appt w/[facility], using iterative adjustment to test the function of the device and select optimal permanent programmed values. No device related complaints. Indication for device: Ischemic cardiomyopathy Examination: Device type: ICD Platform Stapler: Medtronic Mode: VVI LRL/URL: 40/- bpm Thresholds, impedances, and sensing stable. High V rates: 1 NSVT episode of 11 bts, rate 179 Alerts: 0 Ventricular pacin.1% Battery: 10 months Thoracic impedance: Increase in OptiVol, decrease in impedance for the month of February, Jairo denies any congestion, URI or SOB. Now at baseline RA RV LV Sensing 6.4mV Threshold 1V@.4ms Impedance 380 ohms Additional comments or changes: Device functioning appropriately. PVC count 23.9/hr. Jairo has an old home monitor tht is not transmitting. Requested new monitor from [employer] Normal device function. Patient to follow-up for in-office check in: 3 months if home monitoring does not happen Report prepared by Nikki Skinner RN Lakisha Bailon [facility] CV CARDIAC SERVICES MEDINA URBINA Final Result * (ABNORMAL) Lipid panel (04/13/2020 11:10 AM EST) HDL 28 mg/dL [facility] Comment: Interpretation <40 mg/dL: Low HDL cholesterol (major risk factor for CHD) Greater than or equal to 60 mg/dL: High HDL cholesterol ( negative risk factor for CHD) HDL - cholesterol is affected by a number of factors, e.g. smoking, excerise, hormones, sex and age. CHOLESTEROL 136 0 - 240 mg/dL [facility] TRIGLYCERIDES 327(H) 30 - 160 mg/dL [facility] LDL 43(L) 50 - 129 mg/dL [facility] Comment: LDL levels in terms of risk for coronary heart disease: <100 mg/dL: Optimal 100-129 mg/dL: Near or above optimal 130-159 mg/dL: Borderline high 160-189 mg/dL: High >190 mg/dL: Very High CARDIAC RISK RATIO 4.9 3.4 - 5.0 C [facility] Blood 04/13/2020 11:1 0 AM EST 04/13/2020 11:13 AM EST us Jad Nagel MD LAB BLOOD BKR ORDERABLES Final Result [address] [address] from Last 3 Months or Most Recently Relevant to Health Maintenance Insurance MEDICARE PART A & B Member Subscriber Plan / Payer (Ef fective 2000-Present) Name:Jairo Newman Member ID:[id number] Relation to Subscriber:Self Name:Jairo Newman Subscriber ID:[id number] Payer ID:[id number] Group ID:Not on file Type:Medicare Address: [email or web address] [facility] [address] [place] [address] World Reviewer [employer] MEDEX SUPPLEMENT MEDICARE PART A & B World Review[employer] MEDEX SUPPLEMENT MEDICARE PART A & B [employer] MEDEX SUPPLEMENT MEDICARE PART A & B [employer] MEDEX SUPPLEMENT MEDICARE PART A & B [employer] MEDEX SUPPLEMENT MEDICARE PART A & B [employer] MEDEX SUPPLEMENT MEDICARE PART A & B [employer] MEDEX SUPPLEMENT MEDICARE PART A & B Member Subscriber Plan / Payer (Ef fective 2000-Present) Name:Jairo Newman Member ID:[id number] Relation to Subscriber:Self Name:Jairo Newman Subscriber ID:[id number] Payer ID:[id number] Group ID:Not on file Type:Medicare Address: [place] [address] [place] [id number] [facility] MEDEX SUPPLEMENT MEDICARE PART A & B [facility] MEDEX SUPPLEMENT Member Subscriber Plan / Payer (Ef fective 2000-Present) Name:Jairo Newman Relation to Subscriber:Self Name:JAIRO NEWMAN Payer ID:[id number] (NAIC) Type:Indemnity Address: [facility] [address] [place] [id number] Care Teams Wallpaper Cleaner Relationship Specialty Start Date End Date Luca Grant DO PCP - General 03/07/17 Additional Source Comments The information contained in this document represents components of the legal health record. It is not the complete legal health record.[facility]
--- OUTSIDE RECORDS SUMMARY | 2025-04-21 08:10 | XMS_ITS | Encounter Summary ---
Author Organization [facility] Address [address] [place] [address] [address] [place] [address] Phone Care Team Providers Care Dry Cleaning Counter Clerk Name Role Phone Luca Grant DO Primary Care Provider [phone] Encounter Details Date Type Department Care Team (Late st Contact Info) Description 05/17/2021 Procedure Pass Non-Invasive Cardiology [address] [place] [address] [place] [address] Social History Tobacco Use Types Packs/Day Years [...] Info) Description 04/07/2025 Procedure Pass [facility] [address] [place] [address] 10/04/2025 9:30 AM EDT Appointment [facility] [address] [place] [address] Lakisha Bailon, MUSIC INDUSTRY INTERN [address] [place] [address] 10/18/2025 10:00 AM EDT Office Visit [facility] [address] [place] [address] 3rd Floor, [address] [place] [address] Kaleb Hampton MD 22 [facility], [address] [place] [address] documented as of this encounter Visit Diagnoses Not on filedocumented in this encounter Care Teams Dry Cleaning Counter Clerk Relationship Specialty Start Date End Date TangLuca robertson PCP - General 03/07/17 documented as of this encounter Additional Source Comments The information contained in this document represents components of the legal health record. It is not the complete legal health record.[facility]
--- OUTSIDE RECORDS SUMMARY | 2025-04-21 08:10 | XMS_ITS | Encounter Summary ---
Author Organization [facility] Address [address] [place] [address] [address] [place] [address] Phone Care Team Providers Care Liner Worker Name Role Phone Luca Grant DO Primary Care Provider [phone] Encounter Details Date Type Department Care Team (Late st Contact Info) Description 05/17/2021 Ancillary Orders [facility] [address] Floor, [address] [place] [address] Bernice Diaz MD [address] [place] [phone] [email or web address] Social History Tobacco Use Types Packs/Day [...] 04/07/2025 Procedure Pass [facility] [place] [address] [place] [address] 10/04/2025 9:30 AM EDT Appointment [facility] [place] [address] Lakisha Bailon, EDI COORDINATOR [address] [place] [address] 10/18/2025 10:00 AM EDT Office Visit [facility] [address] Floor, [address] [place] [address] Kaleb Hampton MD [address] [place] [address], [address] [place] [address] [email or web address] documented as of this encounter Visit Diagnoses Not on filedocumented in this encounter Care Teams Liner Worker Relationship Specialty Start Date End Date Luca Garnt DO [email or web address] PCP - General 03/07/17 documented as of this encounter Additional Source Comments The information contained in this document represents components of the legal health record. It is not the complete legal health record.[facility]
[2025-04-21 08:12] LABS: Prothrombin Time Whole Bld POC 31.0 sec (11.1-13.5); ~PT, ~INR - Anti Coag Clinic 2.6 (0.9-1.1)
--- NOTE | 2025-04-21 08:20 | MHC.OFFVISCO ---
Intake Intake Visit Reasons: Anticoagulation Allergies No Known Allergies Allergy (Verified 04/21/25 08:07) Medication List - Last Reconciled 04/21/25 by Kindra Alfaro RN amlodipine 5 mg PO DAILY blood sugar diagnostic As directed blood-glucose meter As directed cholecalciferol (vitamin D3) PO dulaglutide (Trulicity) mg subcut fenofibrate nanocrystallized 24 mg PO DAILY glipizide 10 mg PO DAILY lancets As directed lorazepam 1 mg PO BEDTIME metoprolol succinate ER 100 mg PO DAILY simvastatin 20 mg PO DAILY warfarin 2.5 mg See Protocol PO DAILY Nursing Note NO CP,SOB,DIET/MED CHANGESMFALLS OR SX OF BLEEDING. CONTINUE PRESENT DOSE AND FOLLOW-UP IN 4 WEEKS GOOD UNDERSTANDING OF DOSING INSTR. Anti-Coag Initial Assessment Social Hx Patient Tobacco Use Status: Never used Tobacco Alcohol intake frequency: holidays/special occasions only Coding Level of Care Code Est Patient Level 1 Diagnoses Current use of anticoagulant therapy Z79.01 Assessment & Plan Assessment & Plan (1) Current use of anticoagulant therapy: Code(s): Z79.01 - halfway (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
== END 2025-04-21 08:22 | disposition home or self-care (01) ==
LOC: HO.ACS 08:06
PROVIDERS: PCP Internal Medicine; Visit Provider Internal Medicine Medical Oncology
DX: Z79.01 Long term (current) use of anticoagulants (principal)

== ENCOUNTER → 2025-04-21 08:06 | Outpatient (BNVA) | payer MEDICARE, SELFPAY | PROVIDERS: PCP Internal Medicine; Visit Provider Internal Medicine Medical Oncology | DX: I48.0 Paroxysmal atrial fibrillation (principal); Z51.81 Encounter for therapeutic drug level monitoring; Z79.01 Long term (current) use of anticoagulants | CPT/HCPCS: 85610; 99211 ==

== ENCOUNTER 2025-05-19 07:58 | Outpatient (AMB) | payer MEDICARE, SELFPAY ==
--- OUTSIDE RECORDS SUMMARY | 2025-05-19 08:00 | XMS_ITS | Encounter Summary ---
Author Organization [facility] Address [address] [place] [address] [address] [place] [address] Phone Care Team Providers Care Regulator Mechanic Name Role Phone Luca Grant DO Primary Care Provider [phone] Encounter Details Date Type Department Care Team (Late st Contact Info) Description 05/17/2021 Ancillary Orders [facility] [address] Floor, [address] [place] [address] Bernice Diaz MD [address] [place] [phone] [email or web address] Social History Tobacco Use Types [...] st Contact Info) Description 04/07/2025 Procedure Pass [facility] [place] [address] 10/04/2025 9:30 AM EDT Appointment [facility] [address] [place] [address] Lakisha Bailon, [address] [address] 10/18/2025 10:00 AM EDT Office Visit [facility] [address] Floor, [address] [place] [address] Kaleb Hampton MD 22 [facility], [address] [place] [address] [email or web address] documented as of this encounter Visit Diagnoses Not on filedocumented in this encounter Care Teams Regulator Mechanic Relationship Specialty Start Date End Date Luca Grnat DO [email or web address] PCP - General 03/07/17 documented as of this encounter Additional Source Comments The information contained in this document represents components of the legal health record. It is not the complete legal health record.[facility]
--- OUTSIDE RECORDS SUMMARY | 2025-05-19 08:00 | XMS_ITS | Clinical Summary ---
Author Organization [facility] Address [address] [place] [address] Phone Care Team Providers Care Certified Health Education Specialist Name Role Phone Luca Grant DO Primary Care Provider [phone] Allergies No known active allergies Medications fenofibrate [...] average glucose, using the formula of the E6I-Kvyptbu Average Glucose study (ADAG), Diabetes Care, Vol.31,#8, [...] LAB BLOOD ORDERABLES Final [facility] from Last 3 Months or Most Recently Relevant to Health Maintenance Insurance [facility] Medicare [facility] [place] [address] Care Teams Certified Health Education Specialist Relationship Specialty Start Date End Date Luca Grant DO [address] [place] [phone] PCP - General 05/30/20
--- OUTSIDE RECORDS SUMMARY | 2025-05-19 08:00 | XMS_ITS | Encounter Summary ---
Author Organization [facility] Address [address] [place] [address] Phone Care Team Providers Care Supervisor Vegetable Farming Name Role Phone Luca Grant DO Primary Care Provider [phone] Encounter Details Date Type Department Care Team (Late st Contact Info) Description 01/17/2024 Procedure Pass [facility] [address] [place] [address] Social History Tobacco Use Types Packs/Day Years [...] st Contact Info) Description 04/07/2025 Procedure Pass [facility] [address] [place] [address] 10/04/2025 9:30 AM EDT Appointment [facility] [address] [place] [address] Lakisha Bailon, SALES REPRESENTATIVE ADVERTISING [address] [place] [address] [email or web address] 10/18/2025 10:00 AM EDT Office Visit [facility] [address] [facility] 3rd Floor, [address] [place] [address] Kaleb Hampton MD 22 [facility], [address] [place] [address] [email or web address] documented as of this encounter Visit Diagnoses Not on filedocumented in this encounter Care Teams Supervisor Vegetable Farming Relationship Specialty Start Date End Date Luca Grant DO PCP - General 03/07/17 documented as of this encounter Additional Source Comments The information contained in this document represents components of the legal health record. It is not the complete legal health record.[facility]
--- OUTSIDE RECORDS SUMMARY | 2025-05-19 08:00 | XMS_ITS | Encounter Summary ---
Author Organization [facility] Address [address] [place] [address] [place] [address] Phone Care Team Providers Care Web Content Editor Name Role Phone Luca Grant DO Primary Care Provider [phone] Encounter Details Date Type Department Care Team (Late st Contact Info) Description 05/17/2021 Procedure Pass [facility] Non-Invasive Cardiology [address] [place] [address] Social History Tobacco Use Types Packs/Day Years [...] st Contact Info) Description 04/07/2025 Procedure Pass [facility] [place] [address] [place] [address] 10/04/2025 9:30 AM EDT Appointment [facility] [address] [place] [address] Lakisha Bailon, HEDDLER TIER [address] [place] [address] 10/18/2025 10:00 AM EDT Office Visit [facility] 22 [facility] 3rd Floor, [address] [place] [address] Kaleb Hampton MD 22 [facility], [address] [place] [address] [email or web address] documented as of this encounter Visit Diagnoses Not on filedocumented in this encounter Care Teams Web Content Editor Relationship Specialty Start Date End Date TangLuca robertson [email or web address] PCP - General 03/07/17 documented as of this encounter Additional Source Comments The information contained in this document represents components of the legal health record. It is not the complete legal health record.[facility]
--- OUTSIDE RECORDS SUMMARY | 2025-05-19 08:00 | XMS_ITS | Encounter Summary ---
Author Organization [facility] Address [address] [place] [address] [place] [address] Phone Care Team Providers Care Principal Process Engineer Name Role Phone Luca Grant DO Primary Care Provider [phone] Encounter Details Date Type Department Care Team (Late st Contact Info) Description 08/09/2020 Procedure Pass [facility] Non-Invasive Cardiology [address] [place] [address] Social History Tobacco Use Types Packs/Day Years [...] 04/07/2025 Procedure Pass [facility] [address] [place] [address] 10/04/2025 9:30 AM EDT Appointment [facility] [address] [place] [address] Lakisha Bailon, MUSIC PROFESSOR [address] [place] [address] 10/18/2025 10:00 AM EDT Office Visit [facility] 22 [facility] 3rd Floor, [address] [place] [address] Kaleb Hampton MD 22 [facility], [address] [place] [address] [email or web address] documented as of this encounter Visit Diagnoses Not on filedocumented in this encounter Care Teams Principal Process Engineer Relationship Specialty Start Date End Date TangLuca robertson [email or web address] PCP - General 03/07/17 documented as of this encounter Additional Source Comments The information contained in this document represents components of the legal health record. It is not the complete legal health record.[facility]
--- OUTSIDE RECORDS SUMMARY | 2025-05-19 08:00 | XMS_ITS | Encounter Summary ---
Author Organization [facility] Address [address] [place] [address] [place] [address] Phone Care Team Providers Care Etch Operator Semiconductor Wafers Name Role Phone Luca Grant DO Primary Care Provider [phone] Encounter Details Date Type Department Care Team (Latest Contact Info) Description 08/09/2020 Ancillary Orders [facility] [address], [address] [place] [address] Bernice Diaz MD [address] [place] [phone] [email or web address] [email or web address] Social History Tobacco [...] [facility] [place] [address] 10/04/2025 9:30 AM EDT Appointment [facility] [address] [place] [address] Laksiha Bailon, [address] [address] 10/18/2025 10:00 AM EDT Office Visit [facility] [address] Floor, [address] [place] [address] Kaleb Hampton MD 22 [facility], [address] [place] [address] [email or web address] documented as of this encounter Results * DEVICE CHECK: ICD IN-HOME INTERROGATION PLUS HFM IMPEDANCE (08/09/2020 10:18 AM EDT) Bernice Morales MD - 08/14/2020 2:16 PM EDT Reason for appointment: Remote ICD interrogation HPI: Routine 3 month remote ICD interrogation. No device related complaints. Indication for device: Ischemic cardiomyopathy Examination: Device type: ICD Burring Wheel Operator: Medtronic Mode: VVI LRL/URL: 40/- bpm Thresholds, [...] disease documented in this encounter Care Teams Etch Operator Semiconductor Wafers Relationship Specialty Start Date End Date Luca Grant DO [email or web address] PCP - General 03/07/17 documented as of this encounter Additional Source Comments The information contained in this document represents components of the legal health record. It is not the complete legal health record.[facility]
--- OUTSIDE RECORDS SUMMARY | 2025-05-19 08:00 | XMS_ITS | Encounter Summary ---
Author Organization [facility] Address [address] [place] [address] Phone Care Team Providers Care Behavioral Health Worker Name Role Phone Luca Grant DO Primary Care Provider Encounter Details Date Type Department Care Team (Late st Contact Info) Description 04/06/2025 Procedure Pass Tovar [facility] [address] [place] [address] Social History Tobacco Use Types Packs/Day Years [...] Procedure Pass [facility] [address] [place] [address] 10/04/2025 9:30 AM EDT Appointment [facility] [address] [place] [address] Lakisha Bailon, PREPARATION SUPERVISOR CANNING [address] [place] [address] 10/18/2025 10:00 AM EDT Office Visit [facility] [address] [facility] 3rd Floor, [address] [place] [address] Kaleb [place] MD 22 [facility], [address] [place] [address] [email or web address] documented as of this encounter Visit Diagnoses Not on filedocumented in this encounter Care Teams Behavioral Health Worker Relationship Specialty Start Date End Date Luca Grant DO PCP - General 03/07/17 documented as of this encounter Additional Source Comments The information contained in this document represents components of the legal health record. It is not the complete legal health record.[facility]
--- OUTSIDE RECORDS SUMMARY | 2025-05-19 08:00 | XMS_ITS | Clinical Summary ---
Author Organization [facility] Address [address] [address] Phone Care Team Providers Care Envelope Stuffer Name Role Phone Luca Grant DO Primary Care Provider [phone] Allergies Active Allergy Reactions Criticality Noted Date [...] pain 07/16/2019 Coronary artery disease invo lving peoria coronary artery of peoria heart without angina pectoris 04/23/2017 Assessment & [...] Description 04/07/2025 8:30 AM EST Office Visit [facility] [address] Floor, [address] [place] [address] Lakisha Bailon CNP Coronary artery disease involving peoria coronary artery of peoria heart without angina pectoris (Primary Dx); Cardiomyopathy, unspecified type; Essential hypertension; Ischemic cardiomyopathy; Paroxysmal atrial fibrillation 04/07/2025 8:22 AM EST - 04/07/2025 11:59 PM EST Hospital Encounter [facility] [address] [place] [address] Lakisha Bailon CNP Discharge Disposition: Home or Self Care 04/06/2025 Procedure Pass Tovarankush [facility] [address] [place] [address] 04/06/2025 Orders Only Tovarankush One[facility] [address], [address] [place] [address] Lakisha Bailon CNP Coronary artery disease involving peoria coronary artery of peoria heart without angina pectoris (Primary Dx) from Last 3 Months Immunizations Immunization Administration Dates Next Due COVID-19 (Pre-03/11) Pfizer Vaccine, mRNA, PF ,08/02/2020 [id number] FORMULATION 05/20/2009 Influenza Quadrivalent w/ Preservative IM [...] 04/07/2025 Procedure Pass [facility] [address] [place] [address] [place] [address] 10/04/2025 9:30 AM EDT Appointment [facility] [place] [address] Lakisha Bailon, ONLINE FACILITATOR [address] [place] [address] 10/18/2025 10:00 AM EDT Office Visit [facility] [address] 3[address] Floor, [address] [place] [address] Kaleb [place] MD 22 [facility], [address] [place] [address] [phone] (work) [email or web address] Health Maintenance Due Date Last Done Comments [...] this topic Medical Devices Implanted Type Area Sheeting Puller Device Identifier Shelf Expiration Date Model / Serial / Lot Medtronic Icd ICD Procedures Procedure Name Priority Date/Time Associated Diagnosis Comments DEVICE CHECK: ICD IN-PERSON PROGRAMMING SINGLE LEAD PLUS HFM IMPEDANCE Routine 04/07/2025 10:17 AM EST Coronary artery disease involving peoria coronary artery of peoria heart without angina pectoris LIPID PANEL Routine [...] device: Ischemic cardiomyopathy Examination: Device type: ICD Sheeting Puller: Medtronic Mode: VVI LRL/URL: 40/- bpm Thresholds, [...] is not transmitting. Requested new monitor from [employer] the [employer] Normal device function. Patient to follow-up for in-office check in: 3 months if home monitoring does not happen Report prepared by Nikki Skinner RN Lakisha Bailon [facility] CV CARDIAC SERVICES MEDINA URBINA Final Result * (ABNORMAL) Lipid panel (04/13/2020 11:10 AM EST) HDL 28 mg/dL [facility] Comment: Interpretation <40 mg/dL: Low HDL cholesterol (major risk factor for CHD) Greater than or equal to 60 mg/dL: High HDL cholesterol ( negative risk factor for CHD) HDL - cholesterol is affected by a number of factors, e.g. smoking, excerise, hormones, sex and age. CHOLESTEROL 136 0 - 240 mg/dL [facility] TRIGLYCERIDES 327(H) 30 - 160 mg/dL [facility] LDL 43(L) 50 - 129 mg/dL [facility] Comment: LDL levels in terms of risk for coronary heart disease: <100 mg/dL: Optimal 100-129 mg/dL: Near or above optimal 130-159 mg/dL: Borderline high 160-189 mg/dL: High >190 mg/dL: Very High CARDIAC RISK RATIO 4.9 3.4 - 5.0 [facility] Blood 04/13/2020 11:1 0 AM EST 04/13/2020 11:13 AM EST us Jad Nagel MD LAB BLOOD BKR ORDERABLES Final Result [facility] [address] [place] [address] from Last 3 Months or Most Recently Relevant to Health Maintenance Insurance MEDICARE PART A & B [employer] [place] MEDEX SUPPLEMENT MEDICARE PART A & B [employer] [place] MEDEX SUPPLEMENT MEDICARE PART A & B [employer] MEDEX SUPPLEMENT MEDICARE PART A & B [employer] [place] MEDEX SUPPLEMENT MEDICARE PART A & B [employer] CROSS MEDEX SUPPLEMENT Member Subscriber Plan / Payer ( fective 2000-Present) Name:Jairo Newman Relation to Subscriber:Self Name:JAIRO NEWMAN Payer ID:[id number] (NAIC) Type:Indemnity Address: [place] [id number] MEDICARE PART A & B [employer] MEDEX SUPPLEMENT MEDICARE PART A & B [employer] MEDEX SUPPLEMENT MEDICARE PART A & B [facility] MEDEX SUPPLEMENT MEDICARE PART A & B [employer] MEDEX SUPPLEMENT Care Teams Envelope Stuffer Relationship Specialty Start Date End Date Luca Grant DO PCP - General 03/07/17 Additional Source Comments The information contained in this document represents components of the legal health record. It is not the complete legal health record.[facility]
--- OUTSIDE RECORDS SUMMARY | 2025-05-19 08:00 | XMS_ITS | Encounter Summary ---
Author Organization [facility] Address [address] [facility] [address] [place] [address] Phone Care Team Providers Care Shorts Sifter Name Role Phone Luca Grant DO Primary Care Provider [phone] Reason for Visit * Reason Comments Med Refill Encounter Details Date Type Department Care Team (Late st Contact Info) Description 03/05/2023 Refill [facility] [address] [place] [address] Mateo Barton MD Social History [...] can be sent over to Ella in [place] on [facility]. Kathy can be reached at [phone] documented in this encounter Plan of Treatment Not on file documented as of this encounter Visit Diagnoses Not on filedocumented in this encounter Care Teams Shorts Sifter Relationship Specialty Start Date End Date Luca Grant DO [address] [place] [address],[place] [address] PCP - General 05/30/20 documented as of this encounter
--- OUTSIDE RECORDS SUMMARY | 2025-05-19 08:00 | XMS_ITS | Encounter Summary ---
Author Organization [facility] Address [address] [place] [address] [address] [place] [address] Phone Care Team Providers Care Design Drafter Chief Name Role Phone Luca Grant DO Primary Care Provider [phone] Encounter Details Date Type Department Care Team (Latest Contact Info) Description 06/01/2019 Ancillary Orders [facility] [address] [place] [address] Jad Nagel MD [address] [place] [address] [email or web address] Ischemic cardiomyopathy Social History Tobacco Use [...] Procedure Pass [facility] [address] [address] 10/04/2025 9:30 AM EDT Appointment [facility] [address] [place] [address] Lakisha Bailon, [facility] [address] [place] [address] 10/18/2025 10:00 AM EDT Office Visit [facility] [address], [address] [place] [address] Kaleb [place] MD 22 [facility], [address] [place] [address] [email or web address] documented as of this encounter Visit Diagnoses Diagnosis Ischemic cardiomyopathy Other specified forms of chronic ischemic heart disease documented in this encounter Care Teams Design Drafter Chief Relationship Specialty Start Date End Date Luca Grant DO [email or web address] PCP - General 03/07/17 documented as of this encounter Additional Source Comments The information contained in this document represents components of the legal health record. It is not the complete legal health record.[facility]
--- OUTSIDE RECORDS SUMMARY | 2025-05-19 08:01 | XMS_ITS | Encounter Summary ---
Author Organization [facility] Address [address] [place] [address] [address] [place] [address] Phone Care Team Providers Care Science Professor Name Role Phone Luca Grant DO Primary Care Provider [phone] Encounter Details Date Type Department Care Team (Late st Contact Info) Description 01/17/2021 Ancillary Orders [facility] [address], [address] [place] [address] Bernice Diaz MD [address] [place] [phone] [email or web address] Social History Tobacco Use Types Packs/Day Years [...] [facility] [place] [address] 10/04/2025 9:30 AM EDT Appointment [facility] [address] [place] [address] Lakisha Bailon, [address] [address] 10/18/2025 10:00 AM EDT Office Visit [facility] [address], [address] [place] [address] Kaleb [place] MD 22 [facility], [address] [place] [address] [email or web address] documented as of this encounter Visit Diagnoses Not on filedocumented in this encounter Care Teams Science Professor Relationship Specialty Start Date End Date Luca Grant DO [email or web address] PCP - General 03/07/17 documented as of this encounter Additional Source Comments The information contained in this document represents components of the legal health record. It is not the complete legal health record.[facility]
--- OUTSIDE RECORDS SUMMARY | 2025-05-19 08:01 | XMS_ITS | Continuity of Care Document ---
Author Organization [facility], [facility] Address [address] [facility] [place] [address] Assessment Encounter Date Assessment Date Assessment LastModified by Organization Details LastModified Time 04/05/2025 04/05/2025 [id number] [place] [id number] (NEONATAL NURSE PRACTITIONER) MDM MODERATE MUST MEET 2 OUT OF [...] EACH ELEMENT THAT IS COVERED Not available 04/05/2025 10:10:01 Plan of Treatment Reminders Order Date Submit Date Provider Last Modified By Organization Details Last Modified Time Details Appointments FOLLOW UP 15 2025 09:00A M DR TOVAR Not available Not available Not available Lab None recorded . Referral None recorded . Procedures None recorded . Surgeries None recorded . Imaging None recorded . Medication Orders None recorded . Patient TargetsNo targets recorded. Patient Instructions Encounter Date Encounter Id Patient Instructions Last Modified By Organization Details Last Modified Time 04/05/2025 [id number] compression fracture of the spine: care instructions Not available 04/05/2025 10:12:08 Reason for Referral None Reported. Results Created Date Observation Date Name Description Value Unit Range Abnormal Flag Note LastModifiedBy Organization Detail LastModifiedTime Result Notes None recorded. 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 Mick Tovar, DO [address] [place] [address], [address], [facility] 5 10:02:32 Hearing loss 65197725 Active 2017 Gaycolleen [facility] 8 14:35:24 Anxiety 38039714 Active 2017 [facility] 8 14:35:33 Insomnia 931101076 Active 2017 [facility] 8 14:35:46 Paroxysm al atrial fibrilla tion 022063155 Active 2017 Dr[address] 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 0 12:18:27 Disorder due to type 2 diabetes mellitus 396331236 Active 2021 Luca Tovar DO [address] [place] [address], [address], [facility] 2 10:29:29 Impacted cerumen of bilatera l ears 16665754327 475[address] Active 2022 NISHA STARKS [address] [place] [address], [address], [facility] 3 11:03:53 Acute sinusiti s 37878284 Active 2023 NISHA STARKS [address] [place] [address], [address], [facility] 4 11:26:23 Vitamin D deficien cy 82838453 Active 2023 Luca Tovar DO [address] [place] [address], [address], [facility] 4 11:51:15 COVID-19 843683631 Active 2023 Luca Tovar DO [address] [place] [address], [address], [facility] 4 14:24:44 Compress ion fracture of thoracic vertebra 42662469934 04 Active 2024 Luca Tovar DO [address] [place] [address], [address], [facility] 5 12:35:09 Compress ion fracture of vertebra l column 14198180 Active 2024 Luca Tovar DO [address] [place] [address], [address], [facility] 5 12:35:27 Chronic kidney disease stage 3B 869707178 Active 2024 Luca Tovar, [address] [place], [address], [facility] 5 10:03:33 Problem Notes None recorded. Procedures Surgical History Date Name Laterality Status Provider Name and Address Organization Details Recorded Time 3 Cerumen Removal completed NISHA STARKS [address] [place] [address], [address], [facility] 04/03/2023 11:03:46 Aicd, single chamber completed Tere Mayo NP, S [address] [place] [address], [address], [facility] 09/06/2017 08:53:46 Imaging Results None recorded. Procedure Notes None recorded. Medical Equipment None Reported. Allergies Allergen ID Allergen Name Allergen Category Reaction Reaction Severity Criticality Documentation Date Start Date Code Code System Note Provider Name and Address Organization Details Recorded Time 7809 amoxicill in medicatio n nausea moderate low 07/09/2023 723 RxNorm [facility] 4 15:05:17 9625 acetamino phen / oxycodone medicatio n Not available Not available Not available 04/05/20252024 87980 3 RxNorm Other React ion(s ): Heada ches Not Available jeffery - External Data Service - prod 5 03:50:09 Medications Name Sig Start Date Stop Date [...] (BMI) Body weight Heart rate Oxygen saturation Systolic And Diastolic Provider Name and Address Organization Details Last Updated DateTime 5 165.74 cm 24.8 kg/m2 98098.8 6 g 69 /min 98 % 150/78 mm[Hg] Leonora Blank [facility] 5 09:48:40 Social History Question Answer Notes LastModified by Organizat ion Details LastModified Time Tobacco Smoking Status Never Smoker Tere Mayo NP, S [address] [place] [address], [address], [facility] 09/06/2017 08:52:41 What Was The Date Of Your Most Recent Tobacco Screening? 04/05/2025 [email or web address] Information not available 04/05/2025 Sex: Unknown Functional Status Question Answer Note [...] formulation 3 completed Tere Mayo NP, S [address] [place] [address], [address], [facility] 09/06/2017 08:47:21 pneumococcal, unspecified formulation 9 completed Tere Mayo NP, S [address] [place] [address], [address], [facility] 09/06/2017 08:47:41 Tdap 9 completed Tere Mayo NP, S [address] [place] [address], [address], [facility] 09/06/2017 08:48:09 Influenza, adjuvanted, trivalent, PF 7 completed Tere Mayo NP, S [address] [place] [address], [address], [facility] 09/06/2017 08:50:21 Influenza, split virus, quadrivalent, preservative 8 completed Not Available [facility] 06/06/2019 02:46:31 COVID-19, mRNA, LNP-S, PF, 30 mcg/0.3 mL dose 1 completed Gay rivero [facility] 10/26/2020 09:08:36 COVID-19, mRNA, LNP-S, PF, 30 mcg/0.3 mL dose 1 completed Gay rivero [facility] 10/26/2020 09:08:42 Past Encounters Encounter ID Performer Location Encounter Start Date Encounter Closed Date Diagnosis/Indication Diagnosis SNOMED-CT Code Diagnosis ICD10 Code Diagnosis IMO Codes Diagnosis Note [id number] Luca Tovar [facility] [address] [facility],[place] [address] 04/05/2025 09:40:36 04/05/2025 10:28:25 Depression screening 914987005 Z13.31 SCREENING NEGATIVE Essential hypertension 66343026 I10 bp is stable although he is not following at homewill be seeing cardiology Type 2 gita betes mellitus 31300692 E11.9 a1c is now at 6.6 was at 7.1cmp stable Chronic ki dney disease stage 3B 019206206 N18.32 6259323509 stable and following renal stable and Compressio n fracture of vertebral column 02882297 M48.50XA have stabilize d both the thoracic and lumbar Paroxysmal atrial fibrillation 545877243 I48.0 stable and remains asymptomat ic now in NSR no palpitatio nshe will be going for defib and pacer check with new cardiologi st in next month or two not sure whenhe is still troubled by warfarin causing bruising on his forearms still Health Concerns Section Related Observation LastModified by Organization Detai ls LastModified Time None Recorded Concern Status LastModified by Organization Details LastModified Time None Recorded Payers Encounter Date Sequence Insurance Name Policy Number Policy Nair Covered Member ID Nair Member ID Guarantor Name 04/05/2025 1 [place]IC[place] [employer] Jairo Newman [id number] Jairo Newman 04/05/2025 2 [place]) [id number] Jairo Newman [id number] Jairo Newman Notes Date Note Type Note Provider Name and Address Organization Details Recorded Time 5 text/htm l Care Management - HypertensionReported by [...] vision,no numbness of feet, andno calluses on feet.ROS as noted in the HPI here for rechk and is actually doing okhas seen renal with heather in his medicationdue to see legal specialist in couple weekssleep is goodappetite is goodno cp no sob Luca Tovar, [address] [facility], [place], [address], [facility] 04/05/2025 10:14:26
--- OUTSIDE RECORDS SUMMARY | 2025-05-19 08:01 | XMS_ITS | Encounter Summary ---
Author Organization [facility] Address [address] [facility] [address] [place] [address] Phone Care Team Providers Care Color Tester Name Role Phone Luca Grant DO Primary Care Provider [phone] Encounter Details Date Type Department Care Team (Late st Contact Info) Description 12/16/[address] [facility] [address] [place] [address] Jad Nagel MD [address] [place] [address] [email or web address] Social History Tobacco Use Types Packs/Day Years [...] Procedure Pass [facility] [address] [place] [address] 10/04/2025 9:30 AM EDT Appointment [facility] [address] [place] [address] Lakisha Bailon, CONSTRUCTION REP [address] [place] [address] 10/18/2025 10:00 AM EDT Office Visit [facility] [address], [address] [place] [address] Kaleb [place] MD [address] [place] [address], [address] [address] [email or web address] documented as of this encounter Visit Diagnoses Not on filedocumented in this encounter Care Teams Color Tester Relationship Specialty Start Date End Date Luca Grant DO [email or web address] PCP - General 03/07/17 documented as of this encounter Additional Source Comments The information contained in this document represents components of the legal health record. It is not the complete legal health record.[facility]
--- OUTSIDE RECORDS SUMMARY | 2025-05-19 08:01 | XMS_ITS | Encounter Summary ---
Author Organization [facility] Address [address] [place] [address] [place] [address] Phone Care Team Providers Care Fabrics And Material Cutter Name Role Phone Luca Grant DO Primary Care Provider [phone] Encounter Details Date Type Department Care Team (Late st Contact Info) Description 05/17/2021 Procedure Pass Tovar [facility]-In[facility] [address] [place] [address] Social History Tobacco Use Types Packs/Day Years [...] Contact Info) Description 04/07/2025 Procedure Pass [facility] [place] [facility] [address] [place] [address] 10/04/2025 9:30 AM EDT Appointment [facility] [address] [place] [address] Lakisha Bailon, WILDLIFE CONTROL OPERATOR [address] [place] [address] 10/18/2025 10:00 AM EDT Office Visit [facility] [address] [facility] 3rd Floor, [address] [place] [address] Kaleb [place] MD 22 [facility], [address] [place] [address] [email or web address] documented as of this encounter Visit Diagnoses Not on filedocumented in this encounter Care Teams Fabrics And Material Cutter Relationship Specialty Start Date End Date TangLuca robertson [email or web address] PCP - General 03/07/17 documented as of this encounter Additional Source Comments The information contained in this document represents components of the legal health record. It is not the complete legal health record.[facility]
--- OUTSIDE RECORDS SUMMARY | 2025-05-19 08:01 | XMS_ITS | Encounter Summary ---
Author Organization [facility] Address [address] [place] [address] [address] [place] [address] Phone Care Team Providers Care Automobile Upholsterer Apprentice Name Role Phone Luca Grant DO Primary Care Provider [phone] Encounter Details Date Type Department Care Team (Latest Contact Info) Description 12/16/2017 Ancillary Orders [facility] [address] [place] [address] Jad Nagel MD [address] [place] [address] [email or web address] Ischemic cardiomyopathy Social History Tobacco Use Types [...] Procedure Pass [facility] [address] [place] [address] 10/04/2025 9:30 AM EDT Appointment [facility] [address] [place] [address] Lakisha Bailon, [facility] [address] [place] [address] 10/18/2025 10:00 AM EDT Office Visit [facility] [address], [address] [place] [address] Kaleb Hampton MD [address] [facility], [address] [place] [address] [email or web address] documented as of this encounter Results * [...] device: Ischemic cardiomyopathy Examination: Device type: ICD Social Sciences Research Scientist: [employer]tr[employer] Mode: VVI LRL/URL: 40/- bpm Thresholds [...] disease documented in this encounter Care Teams Automobile Upholsterer Apprentice Relationship Specialty Start Date End Date Luca Grant DO [email or web address] PCP - General 03/07/17 documented as of this encounter Additional Source Comments The information contained in this document represents components of the legal health record. It is not the complete legal health record.[facility]
--- OUTSIDE RECORDS SUMMARY | 2025-05-19 08:01 | XMS_ITS | Encounter Summary ---
Author Organization [facility] Address [address] [place] [address] [address] [place] [address] Phone Care Team Providers Care Farm Field Manager Name Role Phone Luca Grant DO Primary Care Provider [phone] Encounter Details Date Type Department Care Team (Latest Contact Info) Description 01/17/2021 Ancillary Orders [facility] [address] [place] [address] Bernice Diaz MD [address] [place] [address] [email or web address] Ischemic cardiomyopathy Social History Tobacco Use Types [...] Procedure Pass [facility] [address] [place] [address] 10/04/2025 9:30 AM EDT Appointment [facility] [address] [place] [address] Lakisha Bailon, AREA OPERATIONS MANAGER [address] [place] [address] 10/18/2025 10:00 AM EDT Office Visit Guy One[facility] [address], [address] [place] [address] Kaleb Hampton MD [address] [place] [address], [address] [place] [address] [email or web address] documented as of this encounter Results * DEVICE CHECK: ICD IN-HOME INTERROGATION PLUS HFM IMPEDANCE (01/17/2021 8:58 AM EDT) Narrative Bernice Diaz MD - 01/23/2021 2:03 PM EDT Reason for appointment: Remote ICD interrogation HPI: Routine 3 month remote ICD interrogation. No device related complaints. Indication for device: Ischemic cardiomyopathy Examination: Device type: ICD Head Of Digital: Medtronic Mode: VVI LRL/URL: 40/- bpm Thresholds, [...] disease documented in this encounter Care Teams Farm Field Manager Relationship Specialty Start Date End Date Luca Grant DO [email or web address] PCP - General 03/07/17 documented as of this encounter Additional Source Comments The information contained in this document represents components of the legal health record. It is not the complete legal health record.[facility]
--- OUTSIDE RECORDS SUMMARY | 2025-05-19 08:01 | XMS_ITS | Encounter Summary ---
Author Organization [facility] Address [address] [place] [address] [place] [address] Phone Care Team Providers Care Supervisor Facepiece Line Name Role Phone Luca Grant DO Primary Care Provider [phone] Encounter Details Date Type Department Care Team (Late st Contact Info) Description 01/17/2021 Procedure Pass Tovar [facility] Non-Invasive Cardiology [address] [place] [address] Social History Tobacco Use Types Packs/Day Years [...] Procedure Pass [facility] [address] [place] [address] 10/04/2025 9:30 AM EDT Appointment [facility] [address] [place] [address] Lakisha Bailon, MESSAGE BROKER DEVELOPER [address] [place] [address] 10/18/2025 10:00 AM EDT Office Visit [facility] One[facility] [address] [facility] 3rd Floor, [address] [place] [address] Kaleb Hampton MD 22 [facility], [address] [place] [address] [email or web address] documented as of this encounter Visit Diagnoses Not on filedocumented in this encounter Care Teams Supervisor Facepiece Line Relationship Specialty Start Date End Date TangLuca [email or web address] [email or web address] PCP - General 03/07/17 documented as of this encounter Additional Source Comments The information contained in this document represents components of the legal health record. It is not the complete legal health record.[facility]
--- OUTSIDE RECORDS SUMMARY | 2025-05-19 08:01 | XMS_ITS | Data Portability ---
Author Organization [facility] Patient Home Address [address] [place] [address] Assessment Encounter Date Assessment Date Assessment LastModified by Organization Details LastModified Time 05/15/2024 05/15/2024 [id number] [place] [id number] (TERRAPIN FISHER) [facility] MODERATE MUST MEET 2 OUT OF 3 [...] COVERED Not available 05/15/2024 10:48:57 06/10/2024 06/10/2024 [id number] [place] [address] (TERRAPIN FISHER) [facility] MODERATE MUST MEET 2 OUT OF 3 [...] COVERED Not available 06/10/2024 12:36:39 08/24/2024 08/24/20[place] [id number] [place] [address] (TERRAPIN FISHER) MDM HIGH MUST MEET 2 OUT OF [...] healthy living. [email or web address] Not available 11/30/2024 08:27:53 04/05/2025 04/05/20[place] [address] [place] [address] (TERRAPIN FISHER) MDM MODERATE MUST MEET 2 OUT OF [...] Lab CBC w/ auto diff 2024 [id number] [facility], [address] [place] [address], [address], 12/02/2024 11:50:08 CMP, serum or plasma 2024 025 [facility], [address] [place] [address], [address], 03/26/2025 12:57:30 Referral None recorded. Procedures None recorded. Surgeries None recorded. Imaging XR, cervical spine, 2 or 3 view 2024 025 [facility] Scheduling, [address] [place] [address], [address], 06/24/2024 10:40:47 XR, thoracic spine, 2 view 2024 025 [facility], [address] [place] [address], [address], 06/17/2024 09:12:39 Medication Orders None recorded. Patient TargetsNo targets recorded. Patient Instructions Encounter Date Encounter Id Patient Instructions Last Modified By Organization Details Last Modified Time 05/15/2024 [id number] learning about type 2 diabetes Not available 05/15/2024 10:51:37 type 2 diabetes: care instructions Not available 05/15/2024 10:51:37 high blood pressure: care instructions Not available 05/15/2024 10:51:37 learning about high blood pressure Not available 05/15/2024 10:51:37 06/10/2024 [id number] compression fracture of the spine: care instructions Not available 06/10/2024 12:36:20 08/24/2024 [id number] compression fracture of the spine: care instructions Not available 08/24/2024 11:13:44 12/02/2024 [id number] advance care planning: care instructions Not available [...] of __38_ minutes. Not available 12/02/2024 11:41:27 04/05/2025 [id number] compression fracture of the spine: care instructions Not available 04/05/2025 10:12:08 Reason for Referral None Reported. Results Created Date Observation Date Name Description Value Unit Range Abnormal Flag Note LastModifiedBy Organization Detail LastModifiedTime 05/17/20 24 05/17/2024 CT, cervi maureen spine , w/o contr ast No observ ation record ed. [email or web address] [facility] (Medical Records) [address] [place], [address], 05/18/2024 08:43:50 05/17/20 24 05/17/2024 CT, cervi maureen spine , w/o contr ast No observ ation record ed. [email or web address] [facility] (Medical Records) [address] [place], [address], 05/18/2024 08:44:09 05/17/20 24 05/17/2024 CT, thora cic spine , w/o contr ast No observ ation record ed. [email or web address] [facility] (Medical Records) [address] [place], [address], 05/18/2024 08:44:31 05/17/20 24 05/17/2024 CT, thora cic spine , w/o contr ast No observ ation record ed. [email or web address] [facility] (Medical Records) [address] [place], [address], 05/18/2024 08:45:05 05/17/20 24 05/17/2024 CT, head + brain , w/o contr ast No observ ation record ed. [email or web address] [facility] (Medical Records) [address] [place], [address], 05/18/2024 08:45:35 07/01/19 25 07/01/2024 XR, thora cic spine , 2 view No observ ation record ed. [address] (Medical Records) [address] [place], [address], 07/03/2024 09:23:33 07/01/19 25 07/01/2024 XR, cervi maureen spine , 2 or 3 view No observ ation record ed. [address] (Medical Records) [address] [place], [address], 07/03/2024 09:23:34 12/08/19 25 12/07/2024 XR, hip + pelvi s, bilat eral No observ ation record ed. [address] (Medical Records) [address] [place], [address], 12/09/2024 08:10:59 12/08/19 25 12/07/2024 XR, lumba r spine , 2 view No observ ation record ed. [address] (Medical Records) [address] [place], [address], 12/09/2024 08:10:59 12/08/19 25 12/07/2024 XR, lumba r spine , 2 view No observ ation record ed. [address] (Medical Records) [address] [place], [address], 12/09/2024 08:10:59 Result Notes None recorded. Problems Name Problem SNOMED Code Status Onset Date Resolution Date Notes Provider Name and Address Organization Details Recorded Time Demarcus vasquez sion 92011910 Active [facility] 8 14:33:05 Type 2 diabetes mellitus 16197127 Active 2017 [facility] 8 14:33:24 Coronary arterios clerosis 58952774 Active 2017 implantab le defib/V53 .32 Tere Mayo NP, S [address] [place] [address], [address], [facility] 8 10:00:50 Hypercho lesterol emia 75662710 Active 2017 [facility] 8 14:34:30 Chronic kidney disease 615786616 Active 2017 Dr. Mick Tovar, DO [address] [place] [address], [address], [facility] 5 10:02:32 Hearing loss 62847648 Active 2017 [facility] 8 14:35:24 Anxiety 73216552 Active 2017 [facility]colleen [facility] 8 14:35:33 Insomnia 529981117 Active 2017 [facility] 8 14:35:46 Paroxysm al atrial fibrilla tion 911938152 Active 2017 Dr. 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 Luca Tovar, DO [address] [place] [address], [address], [facility] 0 12:18:27 Disorder due to type 2 diabetes mellitus 517605372 Active 2021 Luca Tovar, DO [address] [place] [address], [address], [facility] 2 10:29:29 Impacted cerumen of bilatera l ears 80851245150 25327 Active 2022 NISHA STARKS [address] [place] [address], [address], [facility] 3 11:03:53 Acute sinusiti s 11613012 Active 2023 NISHA STARKS [address] [place] [address], [address], [facility] 4 11:26:23 Vitamin D deficien cy 27167419 Active 2023 Luca Tovar DO [address] [place] [address], [address], [facility] 4 11:51:15 COVID-19 405341753 Active 2023 Luca Tovar, DO [address] [place] [address], [address], [facility] 4 14:24:44 Compress ion fracture of thoracic vertebra 68338947880 04 Active 2024 Luca Tovar DO [address] [place] [address], [address], [facility] 5 12:35:09 Compress ion fracture of vertebra l column 14395403 Active 2024 Luca Tovar DO [address] [place], [address], [facility] 5 12:35:27 Chronic kidney disease stage 3B 002546055 Active 2024 Luca Tovar, DO [address] [place], [address], [facility] 5 10:03:33 Problem Notes None recorded. Procedures Surgical History Date Name Laterality Status Provider Name and Address Organization Details Recorded Time 3 Cerumen Removal completed FIDELIA MICHAEL, NISHA [address] [place] [address], [address], [facility] 04/03/2023 11:03:46 Aicd, single chamber completed Tere Mayo NP, S [address] [place] [address], [address], [facility] 09/06/2017 08:53:46 Imaging Results None recorded. Procedure Notes None recorded. Medical Equipment None Reported. Allergies Allergen ID Allergen Name Allergen Category Reaction Reaction Severity Criticality Documentation Date Start Date Code Code System Note Provider Name and Address Organization Details Recorded Time 7809 amoxicill in medicatio n nausea moderate low 07/09/2023 723 [facility] 4 15:05:17 9625 acetamino phen / oxycodone medicatio n Not available Not available Not available 04/05/20252024 17681 3 RxNorm Other React ion(s ): Heada ches Not Available jfefery - External Data Service - prod 5 [...] Updated DateTime 5 165.74 cm 24.8 kg/m2 27268.8 6 g 70 /min 98 % 138/68 mm[Hg] [facility] 5 12:06:50 Date Recorded Body height Body mass index (BMI) Body weight Heart rate Oxygen saturation Systolic And Diastolic Provider Name and Address Organization Details Last Updated DateTime 5 165.74 cm 24.8 kg/m2 11375.8 6 g 70 /min 99 % 138/64 mm[Hg] [facility] 5 10:44:39 Date Recorded Body height Body mass index (BMI) Body weight Heart rate Oxygen saturation Systolic And Diastolic Provider Name and Address Organization Details Last Updated DateTime 5 165.74 cm 24.8 kg/m2 20661.8 6 g 92 /min 98 % 120/70 mm[Hg] [facility] 5 11:27:14 Date Recorded Body height Body mass index (BMI) Body weight Heart rate Oxygen saturation Systolic And Diastolic Provider Name and Address Organization Details Last Updated DateTime 5 165.74 cm 24.8 kg/m2 51319.8 6 g 69 /min 98 % 150/78 mm[Hg] [facility] 5 09:48:40 Social History Question Answer Notes LastModified by Organizat ion Details LastModified Time Tobacco Smoking Status Never Smoker Tere Mayo NP, S [address] [facility], [place], [address], [facility] 09/06/2017 08:52:41 What Was The Date Of Your Most Recent Tobacco Screening? 04/05/2025 Information not available 04/05/2025 Sex: Unknown Functional [...] formulation 3 completed Tere Mayo NP, S [address] [place] [address], [address], [facility] 09/06/2017 08:47:21 pneumococcal, unspecified formulation 9 completed Tere Mayo NP, S [address] [place] [address], [address], [facility] 09/06/2017 08:47:41 Tdap 9 completed Tere Mayo NP, S [address] [place] [address], [address], [facility] 09/06/2017 08:48:09 Influenza, adjuvanted, trivalent, PF 7 completed Tere Mayo NP, S [address] [place] [address], [address], [facility] 09/06/2017 08:50:21 Influenza, split virus, quadrivalent, preservative 8 completed Not Available [facility] 06/06/2019 02:46:31 COVID-19, mRNA, LNP-S, PF, 30 mcg/0.3 mL dose 1 completed Gay rivero [facility] 10/26/2020 09:08:36 COVID-19, mRNA, LNP-S, PF, 30 mcg/0.3 mL dose 1 completed Gay rivero [facility] 10/26/2020 09:08:42 Past Encounters Encounter ID Performer Location Encounter Start Date Encounter Closed Date Diagnosis/Indication Diagnosis SNOMED-CT Code Diagnosis ICD10 Code Diagnosis IMO Codes Diagnosis Note [id number] Luca Tovar [facility] [address] [place] [address],[place] [address] 09/06/2017 09:57:17 09/06/2017 11:29:14 Type 2 diabetes mellitus 76790136 E11.9 to have labs done at [address] , [facility], pt more comfortabl e with paper request Essential hypertension 87124586 I10 stable, back on [address] Barton Hypercholesterolemia 136 24223 E78.00 follow Benign pro static hyperplasia 636357519 N40.0 no c/o Paroxysmal atrial fibrillation 868753379 I48.0 denies palpitatio ns Chronic ki dney disease stage 3 [address]8460 [address]18[address] 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 Nicholson r [id number] Luca Tovar [facility] [address] [facility],[place] [address] 11/06/2017 09:17:14 11/06/2017 11:20:19 Hypercholesterolemia 27530294 E78.00 follow, ldl 56 Chronic anxiety 75219171 9 F41.9 lorazepam at night helpful Paroxysmal atrial fibrillation 598182663 I48.0 denies palpitatio ns, current RRR Coronary arteriosclerosis 07021076 I25.10 asymptomat ic Essential hypertension 21423945 I10 stable Chronic ki dney disease stage 3 [address]19324757 [address]18.[address] Barton, continue meds Disorder d ue to type 2 diabetes mellitus 788632865 E11.8 [id number] Luca Tovar, [facility] [address] [facility],[place] [address] 03/12/2018 08:49:50 03/17/2018 09:11:15 Hypercholesterolemia 23388571 E78.00 follow Paroxysmal atrial fibrillation 932690610 I48.0 denies palpitatio ns, current RRR Type 2 gita betes mellitus 05181613 E11.9 A1c drawn here today since mix up at lab & was not drawn 02/26/18 Coronary arteriosclerosis 03385553 I25.10 all ADL's without difficulty -encourage daily walking Essential hypertension 07589521 I10 stable Chronic ki dney disease 681371651 N18.9 Administra tion of influenza vaccine 16214388 Z23 [id number] 1A right deltoid [id number] Luca Tovar [facility] [address] [facility] [place] [address] 07/30/2018 10:14:43 07/30/2018 16:06:33 Disorder due to type 2 diabetes mellitus 531210758 E11.8 stable Paroxysmal atrial fibrillation 460456460 I48.0 denies palpitatio ns, current RRR Hypercholesterolemia 136 69218 E78.00 follow Coronary arteriosclerosis 60189212 I25.10 stable Essential hypertension 13997748 I10 stable Chronic ki dney disease 015138072 N18.9 up to date Hearing loss 46699023 H9 1.93 [id number] Luca Tovar [facility] [address] [facility] [place] [address] 11/07/2018 11:36:03 11/07/2018 12:19:52 Disorder due to type 2 diabetes mellitus 431357669 E11.8 need to get a1c last a1c in february was 8.4 Paroxysmal atrial fibrillation 725178529 I48.0 denies palpitatio ns, current RRR Hypercholesterolemia 136 83095 E78.00 follow Coronary arteriosclerosis 62558305 I25.10 stable Essential hypertension 09659225 I10 stable Chronic ki dney disease 797143484 N18.9 slightly worse has f/u with kidney specialist in a month avoids nsaids bp well controlled need to see a1c for blood sugar control Hearing loss 52945345 H9 1.93 [id number] Luca Tovar [facility] [address] [facility], ite [facility] [place] [address] 02/04/2019 09:50:05 02/04/2019 10:15:33 Disorder due to type 2 diabetes mellitus 270544111 E11.8 had labs done with his kidney specialist , need to get a1c last a1c was 02/2018, was supposed to have one after last visit, btu never did it. will get a1c today Paroxysmal atrial fibrillation 320404189 I48.0 denies palpitatio ns, current reg Hypercholesterolemia 136 57845 E78.00 follow Coronary arteriosclerosis 33558239 I25.10 stable Essential hypertension 19745986 I10 stable Chronic ki dney disease 339074128 N18.9 has regular f/u with kidney specialist avoids nsaids bp well controlled need to see a1c for blood sugar control Hearing loss 01669601 H9 1.93 Hyperparathyroidism 6699 9008 E21.3 found by nephro, pt claims never was discussed [id number] August REYNALDO Duffy [facility] [address] [facility],[place] [address] 06/02/2019 09:55:09 06/02/2019 10:54:06 Disorder due to type 2 diabetes mellitus 956433514 E11.8 had labs done with his kidney specialist , need to get a1c last a1c was 02/2018, was supposed to have one after last visit, btu never did it. will get a1c today Paroxysmal atrial fibrillation 178228318 I48.0 sees cardio, last seen 03/2019 Hypercholesterolemia 136 98359 E78.00 well controlled Coronary arteriosclerosis 76597611 I25.10 stable Essential hypertension 99875225 I10 stable Hearing loss 64417806 H9 1.93 Pain of left hand 212490 2504 55908 M79.642 will send to hand specialist cannot take nsaids nor steroid continue conservati ve management Hyperparathyroidism 6699 9008 E21.3 found by nephro referred to endo last visit - dr. duarte Chronic ki dney disease stage 3 584742822 N18.3 has regular f/u with kidney specialist avoids nsaids bp well controlled need to see a1c for blood sugar control [id number] Luca Tovar DO [facility] [address] [facility], [place] [address] 09/04/2019 11:36:11 09/04/2019 11:59:53 Disorder due to type 2 diabetes mellitus 038918908 E11.8 a1c 08/11 was 10.9 has already made cheanges to diet, was drinking lots of sugary beverages will get him a new meter to test at home Paroxysmal atrial fibrillation 669416026 I48.0 sees cardio, last seen 03/2019 Hypercholesterolemia 136 55907 E78.00 needs to be repeated, last done 09/2018 Essential hypertension 59631375 I10 stable Hearing loss 42905484 H9 1.93 Chronic ki dney disease stage 3 888921387 N18.3 has regular f/u with kidney specialist avoids nsaids bp well controlled need to see a1c for blood sugar control [id number] Luca Tovar [facility] [address] [facility] [address] 12/02/2019 09:48:23 12/02/2019 10:54:52 Hypercholesterolemia 36483756 E78.00 labs looking better will f/u in three months Type 2 gita betes mellitus 60197912 E11.9 A1c is looking better and his diet is greatly improved daily readings are better than last reported Atrial fibrillation 4943 6004 I48.91 stable [id number] Luca Tovar [facility] [address] [facility] [address] 03/25/2020 11:57:44 03/25/2020 12:30:00 Essential hypertension 15814815 I10 bp is stable doing great Type 2 gita betes mellitus 01177556 E11.9 he is doing well but will need to get an a1c Paroxysmal atrial fibrillation 782952596 I48.0 now in NSR no palpitatio ns Chronic ki dney disease 475799072 N18.9 will be seeing later this month Dupuytren' s contracture of finger 322868731 M72.0 will refer to hand spec when [place] ready [id number] Luca Tovar [facility] [address] [facility] [address] 07/18/2020 10:25:57 07/18/2020 11:16:07 Type 2 diabetes mellitus 09288966 E11.9 a1c is elevated at 9.7 hei is only on Essential hypertension 51967380 I10 bp is stable doing great Paroxysmal atrial fibrillation 024459141 I48.0 now in NSR no palpitatio ns Coronary arteriosclerosis 12220344 I25.10 relates feels fine only unoted to have an anginal like sx once a month or two will be seeing cardiology in a month to see new dr and have his defib rechk Chronic ki dney disease 144778406 N18.9 will be seeing later this month lab has been stable and meds were adjusted [id number] Luca Tovar [facility] [address] [facility] [address] 10/26/2020 10:03:18 10/26/2020 10:48:58 Type 2 diabetes mellitus 90336377 E11.9 a1c is much better down to 8.9 from when it was elevated at 9.7 will increase trulicity to 1.5 and rechk in sept Chronic ki dney disease 531413304 N18.9 will be seeing later this summer lab has been stable and meds were adjusted Secondary hyperparathyroidism 92977676 E21.1 also stable and we will check lab a [facility] Coronary arteriosclerosis 69582020 I25.10 relates feels fine only noted to have an anginal like sx once a month or two will be seeing cardiology he has a new dr and have his defib rechk Paroxysmal atrial fibrillation 234470033 I48.0 now in NSR no palpitatio ns Disorder d ue to type 2 diabetes mellitus 346418868 E11.8 as above Chronic ki dney disease stage 3 027012872 N18.31 stable and following renal [id number] Luca Tovar DO [facility] [address] [facility],[place] [address] 02/01/2021 14:04:02 02/01/2021 15:06:05 Type 2 diabetes mellitus 40372608 E11.9 a1c is much better down to7.5 from 8.9 from when it was elevated at 9.7 will cont the trulicity but we will increase to 3mg look to discontinu e the glipizide depending on blood test Essential hypertension 13993848 I10 bp is stable doing great Paroxysmal atrial fibrillation 991263729 I48.0 now in NSR no palpitatio ns Coronary arteriosclerosis 42190036 I25.10 he still relates feels fine only noted to have an anginal like sx once a month or two will be seeing cardiology he has a new dr and had his defib rechk and it was excellent [id number] Luca Tovar DO [facility] [address] [facility] [place] [facility] [address] 05/09/2021 08:26:53 05/09/2021 15:23:31 Chronic kidney disease 703853160 N18.9 will be seeing later this summer lab has been stable and meds were adjusted Coronary arteriosclerosis 72387550 I25.10 he still relates feels fine only noted to have an anginal like sx once a month or two will be seeing cardiology he has a new dr and had his defib rechk and it was excellent Essential hypertension 21675089 I10 bp is stable doing great Paroxysmal atrial fibrillation 789216005 I48.0 now in NSR no palpitatio ns Type 2 gita betes mellitus 49718813 E11.9 a1c is much better down to7.0 from 7.5 from 8.9 from when it was elevated at 9.7 will cont the trulicity but we will increase to 3mg look to discontinu e the glipizide depending on blood test [id number] Luca Tovar DO [facility] [address] [facility],[place] [facility] [place] [address] 08/11/2021 09:53:46 08/11/2021 15:00:47 Type 2 diabetes mellitus 29260972 E11.9 a1c is much better down to7.4 was 7.5 then 7,4 at its worse 8.9 from when it was elevated at 9.7we will decrease the glipizide to qd from bid will cont the trulicity but we will increase to 3mg look to discontinu e the glipizide depending on blood test Essential hypertension 27241212 I10 bp is stable doing great Paroxysmal atrial fibrillation 651061729 I48.0 now in NSR no palpitatio ns Hyperparathyroidism 6699 9008 E21.1 stable Chronic ki dney disease stage 3 547238150 N18.31 stable and following renal 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 carlos treat conserv for now otherwise nlormal exam [id number] Luca Tovar DO [facility] [address] [facility],[place] [employer] [place] [address] 01/19/2022 08:16:47 01/23/2022 11:19:42 Type 2 diabetes mellitus 34067846 E11.9 a1c climbed up to 8.7 from 7.4 we will need to restart the glipizide and cont the trulicity Paroxysmal atrial fibrillation 191133475 I48.0 now in NSR no palpitatio ns Essential hypertension 89704531 I10 bp is stable doing great Chronic ki dney disease 377667805 N18.9 will be seeing later this summer lab has been stable and meds were adjusted Coronary arteriosclerosis 54612442 I25.10 he still relates feels fine only noted to have an anginal like sx once a month or two will be seeing cardiology he has a new dr and had his defib rechk and it was excellent Disorder d ue to type 2 diabetes mellitus 774728517 E11.8 as above [id number] Luca Tovar [facility] [address] [facility] [address] 05/08/2022 13:51:48 05/08/2022 15:23:11 Type 2 diabetes mellitus 14286686 E11.9 a1c climbed up to 8.7 from 7.4 we will need to restart the glipizide and cont the trulicity Hypercholesterolemia 136 75351 E78.00 following Essential hypertension 31239125 I10 bp is stable doing great Anxiety 26751296 F41.9 seems to be baseline Paroxysmal atrial fibrillation 812594117 I48.0 now [place] [id number] Luca Tovar [facility] [address] [facility] [address],[place] [facility] [address] 08/21/2022 13:53:14 08/21/2022 14:59:41 Chronic kidney disease 468729608 N18.9 will be seeing later this summer lab has been stable and meds were adjusted Hypercholesterolemia 136 49236 E78.00 following Anxiety 01602896 F41.9 seems to be baseline Disorder d ue to type 2 diabetes mellitus 255558871 E11.8 as above Type 2 gita betes mellitus 29051998 E11.9 a1c climbed up to 8.7 from 7.4 we will need to restart the glipizide and cont the trulicity Hyperparathyroidism 6699 9008 E21.1 stable Paroxysmal atrial fibrillation 111096483 I48.0 now in NSR no palpitatio ns Chronic ki dney disease stage 3 278290050 N18.31 stable and following renal Coronary arteriosclerosis 49875931 I25.10 he is stable with his metoprolol and amlodipine as well he still relates feels fine only noted to have an anginal like sx once a month or two will be seeing cardiology he has a new dr and had his defib rechk and it was excellent Essential hypertension 73827752 I10 bp is stable doing great [id number] Luca Tovar [facility] [address] [facility], [place] [address] [facility] [address] 03/25/2023 10:23:59 03/25/2023 11:27:36 Pre-surgery evaluation 287200068 Z01.818 The patient was seen in the office today for pre-op evaluation . All medical conditions on patient's problem list were addressed and are currently stable, no interventi on needed at this time. Based on history and physical performed, the patient is cleared for surgery. [id number] Luca Tovar [facility] [address] [place] [address], [place] [address] 04/03/2023 10:33:43 04/05/2023 14:23:32 Impacted cerumen of bilateral ears [id number] 242834 H61.23 resolved [id number] Luca Tovar [facility] [address], [place] [address] 07/09/2023 10:31:44 07/09/2023 12:12:15 Acute sinusitis 70614420 J01.90 will set up with abx for sinus infection [id number] Luca Tovar [facility] [address], [place] [address] 07/19/2023 10:31:30 07/19/2023 14:38:59 Secondary hyperparathyroidism 74679387 E21.1 also stable and we will check lab a nd reviewed angelica is stable Paroxysmal atrial fibrillation 783165692 I48.0 now in NSR no palpitatio ns Hypercholesterolemia 136 41819 E78.00 following Type 2 gita betes mellitus 92856492 E11.9 a1c climbed up to 11.7 due to loss of trulicity and recent sinus infection he will be restarting trulicity and we will rechk in 3 months PRIOR8.7 from 7.4 we will need to restart the glipizide and cont the trulicity Essential hypertension 09995298 I10 bp is stable doing great Chronic ki dney disease 980027293 N18.9 will be seeing later this summer lab has been stable and meds were adjusted [id number] Luca Tovar DO [facility] [address] [facility] [address],[place] [address] 10/28/2023 11:22:10 10/29/2023 11:13:52 Essential hypertension 53978477 I10 bp is stable doing great Hypercholesterolemia 136 66312 E78.00 following but given age we are not as intense on this Paroxysmal atrial fibrillation 790309741 I48.0 now in NSR no palpitatio nsbut is troubled by warfarin causing bruising Depression screening 171 054965 Z13.31 SCREENING NEGATIVE Chronic ki dney disease 625265088 N18.9 currently is stable gfr is 42 lab has been stable and meds were adjusted Coronary arteriosclerosis 24570097 I25.10 he is stable with his metoprolol and amlodipine as well he still relates feels fine only noted to have an anginal like sx once a month or two will be seeing cardiology he has a new dr and had his defib rechk and it was excellent Disorder d ue to type 2 diabetes mellitus 921351707 E11.8 note to have his a1c ]at 9.8 but he had been without the trulicity for several months due to supply prob Secondary hyperparathyroidism 91039370 E21.1 also stable and we will check lab a nd reviewed [facility] is stable Vitamin D deficiency 347 41557 E55.9 we wiill have hinm supplement for 2 mo [id number] Luca Tovar DO [facility] [address] [facility] [address],[place] [address] 05/15/2024 08:52:55 05/15/2024 11:27:56 Chronic kidney disease 560335904 N18.9 currently is stable gfr is still 42 does have signif microalbum inuria lab has been stable and meds were adjusted Coronary arteriosclerosis 30881034 I25.10 he is stable with his metoprolol and amlodipine as well he still relates feels fine only noted to have an anginal like sx once a month or two will be seeing cardiology he has a new dr and had his defib rechk and it was excellent Essential hypertension 29026394 I10 bp is stable doing great Paroxysmal atrial fibrillation 802902508 I48.0 now in NSR no palpitatio nsbut is troubled by warfarin causing bruising Type 2 gita betes mellitus 64560302 E11.9 a1c climbed up to 11.7 due to loss of trulicity and recent sinus infection he will be restarting trulicity and we will rechk in 3 months PRIOR8.7 from 7.4 we will need to restart the glipizide and cont the trulicity [id number] Luca Tovar [facility] [address] [facility],[place] [address] 06/10/2024 11:56:13 06/10/2024 12:41:39 Coronary arteriosclerosis 36216026 I25.10 he is stable with his metoprolol and amlodipine as well he still relates feels fine only noted to have an anginal like sx once a month or two will be seeing cardiology he has a new dr and had his defib rechk and it was excellent Essential hypertension 76175012 I10 bp is stable doing great Hypercholesterolemia 136 35816 E78.00 following but given age we are not as intense on this Compressio n fracture of vertebral column 33531804 M48.50XA improving with conserv care Compressio n fracture of thoracic vertebra 7144295771 104 M48.54XA stable and already improving [id number] Luca Tovar [facility] [address] [facility],[place] [address] 08/24/2024 10:36:43 08/24/2024 11:28:48 Essential hypertension 65538339 I10 bp is stable although he is not following at home Hypercholesterolemia 136 67958 E78.00 following but given age we are not as intense on this Paroxysmal atrial fibrillation 950369785 I48.0 now in NSR no palpitatio nshe will be going for defib and pacer check with new cardiologi st in next month or two not sure whenhe is still troubled by warfarin causing bruising on his forearms Type 2 gita betes mellitus 11479435 E11.9 a1c is now at 6.6 was at 7.1 Depression screening 171 840295 Z13.31 SCREENING NEGATIVE Chronic ki dney disease 199739650 N18.9 currently is stable gfr is still 37 does have signif microalbum inuria lab has been stable and meds were adjusted Compressio n fracture of vertebral column 21029745 M48.50XA improving with conserv care prob is the mornings as noted Secondary hyperparathyroidism 30959380 E21.1 lab done and reviewed which is stable [id number] Luca Tovar [facility] [address] [facility],[place] [address] 12/02/2024 11:22:51 12/02/2024 12:35:03 Screening for cardiovascular system disease 354246954 Z13.6 not required Screening for malignant neoplasm of colon 191926884 Z12.11 not req Essential hypertension 68288073 I10 bp is stable although he is not following at home Type 2 gita betes mellitus 89951220 E11.9 a1c is now at 6.6 was at 7.1 Secondary hyperparathyroidism 13904201 E21.1 lab done and reviewed which is stable Paroxysmal atrial fibrillation 959521936 I48.0 now in NSR no palpitatio nshe will be going for defib and pacer check with new cardiologi st in next month or two not sure whenhe is still troubled by warfarin causing bruising on his forearms General ex amination of patient 697436646 Z00.01 99222536 he is clearly slowing down due to his age but i encouraged him to stay as active as possible [id number] Luca Tovar DO [facility] [address] [facility],[place] [address] 04/05/2025 09:40:36 04/05/2025 10:28:25 Depression screening 351581381 Z13.31 SCREENING NEGATIVE Essential hypertension 35125497 I10 bp is stable although he is not following at homewill be seeing cardiology Type 2 gita betes mellitus 86789312 E11.9 a1c is now at 6.6 was at 7.1cmp stable Chronic ki dney disease stage 3B 720628950 N18.32 2855882618 stable and following renal stable and Compressio n fracture of vertebral column 19873230 M48.50XA have stabilize d both the thoracic and lumbar Paroxysmal atrial fibrillation 665501877 I48.0 stable and remains asymptomat ic now [...] Member ID Nair Member ID Guarantor Name 04/02/2025 1 [place] [employer] Jairo W Trent [id number] Jairo Newman 04/02/2025 2 [place] [id number] Jairo Lang Trent [id number] Jairo Newman Notes Date Note Type Note Provider Name and Address Organization Details Recorded Time 05/15/20 24 text/htm l Care Management - [...] at homethis was an isolated event Luca TovarDO [address] [place], [address], [facility] 05/15/2024 10:51:52 06/10/19 25 text/htm [...] is careful and doesnt overdo it Luca TovarDO [address] [place], [address], [facility] 06/10/2024 12:38:40 08/25/19 25 text/htm [...] on feet. Care Management - HyperlipidemiaReported by PatientIFor control, patient reportsusually well controlled,improving, andat goal. [...] sobbowels ok bladder ok Luca Mary AnnJuanjo Tovar, DO [address] [facility], [place], [address], [facility] 08/24/2024 11:14:22 12/03/19 25 [...] drive again no cp no sobappetite is oksleep denver Tovar DO [address] [place], [address], [facility] 12/02/2024 11:49:14 04/05/20 25 text/htm l Care Management - HypertensionReported [...] is actually doing okhas seen renal with nocmario in his medicationdue to see ground crewman mission support in couple weekssleep is goodappetite is goodno cp no sob Luca Tovar DO [address] [facility], [place], [address], [facility] 04/05/2025 10:14:26
--- OUTSIDE RECORDS SUMMARY | 2025-05-19 08:01 | XMS_ITS | Encounter Summary ---
Author Organization [facility] Address [address] [place] [address] [address] [place] [address] Phone Care Team Providers Care Personal Care Aide Name Role Phone Luca rGant DO Primary Care Provider [phone] Encounter Details Date Type Department Care Team (Latest Contact Info) Description 05/17/2021 Ancillary Orders [facility] [address] [place] [address] Bernice Diaz MD [address] [place] [address] [email or web address] Ischemic cardiomyopathy Social History Tobacco [...] Procedure Pass [facility] [address] [place] [address] 10/04/2025 9:30 AM EDT Appointment [facility] [address] [place] [address] Lakisha Bailon, [employer] [address] [place] [address] 10/18/2025 10:00 AM EDT Office Visit [facility] [address], [address] [place] [address] Kaleb Hampton MD [address] [place] [address], [address] [place] [address] [email or web address] documented as of this encounter Visit Diagnoses Diagnosis Ischemic cardiomyopathy Other specified forms of chronic ischemic heart disease documented in this encounter Care Teams Personal Care Aide Relationship Specialty Start Date End Date Luca Grant DO [email or web address] PCP - General 03/07/17 documented as of this encounter Additional Source Comments The information contained in this document represents components of the legal health record. It is not the complete legal health record.[facility]
[2025-05-19 08:13] LABS: Prothrombin Time Whole Bld POC 25.2 sec (11.1-13.5); ~PT, ~INR - Anti Coag Clinic 2.1 (0.9-1.1)
--- NOTE | 2025-05-19 08:18 | MHC.OFFVISCO ---
Intake Intake Visit Reasons: Anticoagulation Allergies No Known Allergies Allergy (Verified 05/19/25 08:07) Medication List - Last Reconciled 05/19/25 by Kindra Alfaro RN amlodipine 5 mg PO DAILY blood sugar diagnostic As directed blood-glucose meter As directed cholecalciferol (vitamin D3) PO dulaglutide (Trulicity) mg subcut fenofibrate nanocrystallized 24 mg PO DAILY glipizide 10 mg PO DAILY lancets As directed lorazepam 1 mg PO BEDTIME metoprolol succinate ER 100 mg PO DAILY simvastatin 20 mg PO DAILY warfarin 2.5 mg See Protocol PO DAILY Nursing Note NO CP,SOB,DIET/MED CHANGES,FALLS OR SX OF BLEEDING. CONTINUE PRESENT DOSE AND FOLLOW-UP IN 4 WEEKS GOOD UNDERSTANDING OF DOSING INSTR. Anti-Coag Initial Assessment Social Hx Patient Tobacco Use Status: Never used Tobacco Alcohol intake frequency: holidays/special occasions only Coding Level of Care Code Est Patient Level 1 Diagnoses Current use of anticoagulant therapy Z79.01 Assessment & Plan Assessment & Plan (1) Current use of anticoagulant therapy: Code(s): Z79.01 - long-term (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
== END 2025-05-19 08:23 | disposition home or self-care (01) ==
LOC: HO.ACS 07:58
PROVIDERS: PCP Internal Medicine; Visit Provider Internal Medicine Medical Oncology
DX: Z79.01 Long term (current) use of anticoagulants (principal)

== ENCOUNTER → 2025-05-19 07:58 | Outpatient (BNVA) | payer MEDICARE, SELFPAY | PROVIDERS: PCP Internal Medicine; Visit Provider Internal Medicine Medical Oncology | DX: I48.0 Paroxysmal atrial fibrillation (principal); Z51.81 Encounter for therapeutic drug level monitoring; Z79.01 Long term (current) use of anticoagulants | CPT/HCPCS: 85610; 99211 ==